=== PATIENT | female | born 1955 | race Two or more races ===

== ENCOUNTER 2020-09-04 13:32 | Emergency (ER) | payer OTHER, SELFPAY ==
--- NOTE | 2020-09-04 13:46 | XR_ITS ---
EXAMINATION: XR CHEST CLINICAL INFORMATION: Chest pain COMPARISON: 06/14/2020 TECHNIQUE: Frontal view of the chest was obtained. FINDINGS: No significant abnormality is noted involving the heart, lungs, mediastinum, bony thorax or soft tissues. Again seen are degenerative changes in the spine. XR/XR chest 1V IMPRESSION: No acute intrathoracic disease.
[2020-09-04] MEDS: Ibuprofen 600 MG TABLET PO (14:06)
--- NOTE | 2020-09-04 14:06 | ED.CHESTPAIN ---
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 No recent travel or prolonged immobilization, no lower extremities pain or swelling, patient also declined any recent illness or exposure to a sick contact. Related Data Allergies Allergy/AdvReac Type Severity Reaction Status Date / Time morphine Allergy Unknown HIVES Verified 09/04/20 14:12 Review of Systems Review of Systems: All other systems are reviewed and are negative Constitutional: Reports as per HPI and Reports no additional constitutional complaints Eyes: Reports as per HPI and Reports no additional eye complaints Reports system reviewed and no additional complaints, except as documented Cardiovascular: Reports as per HPI and Reports no additional cardiovascular complaints Respiratory: Reports as per HPI and Reports no additional respiratory complaints Gastrointestinal: Reports as per HPI and Reports no additional gastrointestinal complaints Genitourinary: Reports no additional female genitourinary complaints Musculoskeletal: Reports no additional musculoskeletal complaints Skin/Breast: Reports system reviewed and no additional complaints, except as docu Psychiatric: Reports no additional psychiatric complaints Endocrine: Reports no additional endocrine complaints Hematologic/Lymphatic: Reports no additional hematologic/lymphatic complaints Allergic/Immunologic: Reports no additional allergic/immunologic complaints Reports system reviewed and no additional complaints, except as documented and Reports Abnormal speech present [facility] Social History Social History Alcohol intake: unknown Smoking Status: Never smoker Use of substances other than those prescribed or required for medical reasons: No Advance Directives: No Advance Directives Information Provided: Yes Physical Exam Vital Signs: Vital Signs: Vital Signs Temp Pulse Resp BP Pulse Ox 09/04/20 14:13 98.0 F 72 18 151/69 H 100 Body Mass Index 40.7 Appearance: Alert. Oriented X3. No acute distress. Head: Normal external exam. Normocephalic. Atraumatic. No Kothari signs noted. No raccoon eyes noted Eyes: PERRLA. EOMI. Conjunctiva and sclera normal. Eyelids normal. ENT: EAC normal. TM's Normal. Pharynx normal. Uvula midline. Moist mucous membranes. No trismus noted. No drooling noted. No muffled voice noted. Neck: Normal inspection. Neck supple. FROM. No adenopathy. Thyroid Normal. No meningeal signs. No neck mass noted. CVS: Normal heart rate and rhythm. Heart sound normal. No murmurs noted. Pulses normal throughout. Respiratory: No respiratory distress. Painless inspiration. Breath sounds normal. No wheezes/rales/rhonchi noted. Chest nontender. No accessory muscle usage noted or decreased air movement noted. Abdomen: Soft and nontender. Bowel sounds normal in all 4 quadrants. No distention noted. No organomegaly noted. No visible injury noted. Back: No CVA tenderness. Full range of motion noted. Skin: Skin warm and dry. Normal skin color. Normal skin turgor. No rashes/lesions/lacerations noted. Extremities: No lower extremity edema. Extremities exhibit normal range of motion. Extremities nontender. Neuro: Oriented X 3. No motor deficit. No sensory deficit. Reflexes normal. Appearance: Alert. Oriented X3. No acute distress. . Course Course Course Narrative: This is a 65 years old female history of hypertension presented to the ER with 3 days of chest pain, no other associated symptoms, we will monitor the patient in the ED, EKG, chest x-ray, check labs including troponin. Will reassess. MDM - Chest Pain MDM Narrative Medical decision making narrative: assessment and plan. 65-year-old female came in with left-sided chest pain for 3 days, patient had unremarkable EKG, unremarkable high sensitive troponin, patient had no risk for DVT / PE with slight elevation of the D-dimer which were not rizwana CT of the chest for this patient, finding were discussed with the patient, patient was advised to follow-up with PCP, take ibuprofen p.r.n. pain. Lab Data Result diagrams: 09/04/20 14:28 09/04/20 14:28 Labs: Lab Results 09/04/20 09/04/20 09/04/20 Range/Units 14:28 14:28 14:28 WBC 5.7 (4.8-10.8) X10*3/uL RBC 4.18 L (4.20-5.50) X10*6/uL Hgb 12.8 (12.0-16.0) g/dl Hct 40.1 (37-47) % MCV 95.9 (80-98) fL MCH 30.6 (27.0-33.0) pg MCHC 31.9 (31.0-35.0) g/dl RDW 13.7 (11.0-16.0) % Plt Count 264 (160-400) X10*3/uL MPV 10.3 (9.4-12.3) fL Immature Gran % (Auto) 0.2 (0.0-0.4) % Neut % (Auto) 62.6 (45-73) % Lymph % (Auto) 26.7 (20-40) % [place] % (Auto) 8.6 (2-11) % Eos % (Auto) 1.7 (0-4) % Baso % (Auto) 0.2 (0-2) % Lymph # (Auto) 1.5 (1.2-4.9) X10*3/uL [place] # (Auto) 0.5 (0.1-1.2) X10*3/uL Eos # (Auto) 0.1 (0.0-0.4) X10*3/uL Baso # (Auto) 0.0 (0.0-0.2) X10*3/uL Abs Immat Gran (auto) 0.01 (0.00-0.03) X10*3/uL Absolute Neuts (auto) 3.6 (2.0-8.3) X10*3/uL Absolute Nucleated RBC 0.000 (0.0-0.012) X10*3/uL Nucleated RBC % (auto) 0.0 (0.0-0.2) /100WBC D-Dimer 310 NG/ML Sodium 138 (135-145) mmol/L Potassium 4.1 (3.3-5.1) mmol/l Chloride 100 (96-108) mmol/L Carbon Dioxide 30 H (22-29) mmol/L Anion Gap 12 (12-20) BUN 17 H (9-16) mg/dL Creatinine 0.78 (0.5-1.4) mg/dL Estim Creat Clear Calc 82.1 Estimated GFR > 60 Random Glucose 101 (60-115) mg/dL Calcium 8.7 (8.4-10.2) mg/dL Troponin I High Sens (<3.5-17.0) ng/L B-Natriuretic Peptide (<100) pg/mL Lipase 36 (8-78) U/L 09/04/ Range/Units 14:28 WBC (4.8-10.8) X10*3/uL RBC (4.20-5.50) X10*6/uL Hgb (12.0-16.0) g/dl Hct (37-47) % MCV (80-98) fL MCH (27.0-33.0) pg MCHC (31.0-35.0) g/dl RDW (11.0-16.0) % Plt Count (160-400) X10*3/uL MPV (9.4-12.3) fL Immature Gran % (Auto) (0.0-0.4) % Neut % (Auto) (45-73) % Lymph % (Auto) (20-40) % [place] % (Auto) (2-11) % Eos % (Auto) (0-4) % Baso % (Auto) (0-2) % Lymph # (Auto) (1.2-4.9) X10*3/uL [place] # (Auto) (0.1-1.2) X10*3/uL Eos # (Auto) (0.0-0.4) X10*3/uL Baso # (Auto) (0.0-0.2) X10*3/uL Abs Immat Gran (auto) (0.00-0.03) X10*3/uL Absolute Neuts (auto) (2.0-8.3) X10*3/uL Absolute Nucleated RBC (0.0-0.012) X10*3/uL Nucleated RBC % (auto) (0.0-0.2) /100WBC D-Dimer NG/ML Sodium (135-145) mmol/L Potassium (3.3-5.1) mmol/l Chloride (96-108) mmol/L Carbon Dioxide (22-29) mmol/L Anion Gap (12-20) BUN (9-16) mg/dL Creatinine (0.5-1.4) mg/dL Estim Creat Clear Calc Estimated GFR Random Glucose (60-115) mg/dL Calcium (8.4-10.2) mg/dL Troponin I High Sens < 3.5 (<3.5-17.0) ng/L B-Natriuretic Peptide 42 (<100) pg/mL Lipase (8-78) U/L Imaging Data Chest x-ray: Radiologist's impression: No acute intrathoracic pathology. ECG Data ECG #1: Interpretation: Normal sinus rhythm at 80 beats per minute, was 1st degree AV block, left axis deviation, no ST-T changes. Discharge Plan Discharge Clinical Impression: Chest pain Qualifiers: Chest pain type: other chest pain Qualified Code(s): R07.89 - Other chest pain Patient Disposition: Home, Self-Care Instructions: Chest Pain (ED) Referrals: Minoo Guevara NP [Primary Care Provider] - 2 days
[2020-09-04 14:13] VITALS: BP 151/69; PULSE 72; RESP 18; TEMP 36.7; O2SAT 100; BMI 40.7
[2020-09-04 14:37] LABS: MANUAL DIFF FLAG NO
[2020-09-04 14:39] LABS: Basophils Percent Auto 0.2 % (0-2); Eosinophils Absolute Auto 0.1 X10*3/uL (0.0-0.4); Eosinophils Percent Auto 1.7 % (0-4); Hematocrit 40.1 % (37-47); Hemoglobin 12.8 g/dl (12.0-16.0); Imm Gran Abs Auto 0.01 X10*3/uL (0.00-0.03); Imm Gran Pct Auto 0.2 % (0.0-0.4); Lymphocytes Absolute Auto 1.5 X10*3/uL (1.2-4.9); Lymphocytes Percent Auto 26.7 % (20-40); Mean Corpuscular HGB Conc 31.9 g/dl (31.0-35.0); Mean Corpuscular Hemoglobin 30.6 pg (27.0-33.0); Mean Corpuscular Volume 95.9 fL (80-98); Mean Platelet Volume 10.3 fL (9.4-12.3); Monocytes Absolute Auto 0.5 X10*3/uL (0.1-1.2); Monocytes Percent Auto 8.6 % (2-11); Neutrophils Absolute Auto 3.6 X10*3/uL (2.0-8.3); Neutrophils Percent Auto 62.6 % (45-73); Platelet Count 264 X10*3/uL (160-400); Red Blood Count 4.18 X10*6/uL (4.20-5.50); Red Cell Distribution Width 13.7 % (11.0-16.0); White Blood Count 5.7 X10*3/uL (4.8-10.8)
[2020-09-04 14:49] LABS: D Dimer 310 NG/ML
[2020-09-04 15:01] LABS: Anion Gap 12 (12-20); Blood Urea Nitrogen 17 mg/dL (9-16); Calcium 8.7 mg/dL (8.4-10.2); Carbon Dioxide 30 mmol/L (22-29); Chloride 100 mmol/L (96-108); Creatinine Clr Calc Pharmacy 82.1; Estimated Glomerular Filt Rate > 60; Glucose Random 101 mg/dL (60-115); Lipase 36 U/L (8-78); Potassium 4.1 mmol/l (3.3-5.1); Sodium 138 mmol/L (135-145)
[2020-09-04 15:08] LABS: B Type Natriuretic Peptide 42 pg/mL (<100); Troponin-I High Sensitivity < 3.5 ng/L (<3.5-17.0)
[2020-09-04 15:33] VITALS: BP 119/61; PULSE 58; RESP 17; TEMP 36.7; O2SAT 100
== END 2020-09-04 16:02 | disposition home or self-care (01) ==
PROVIDERS: Emergency Provider Emergency Medicine; PCP Nurse Practitioner Family
DX: R07.89 Other chest pain (principal)
CPT/HCPCS: 36415; 71045; 80048; 83690; 83880; 84484; 85025; 85379; 99283; 99284

== ENCOUNTER → 2020-10-25 09:35 | Outpatient (BNVA) | payer OTHER, SELFPAY | PROVIDERS: PCP Nurse Practitioner Family; Referring Provider Nurse Practitioner Family; Visit Provider Internal Medicine | DX: R07.2 Precordial pain (principal); I10 Essential (primary) hypertension; E66.01 Morbid (severe) obesity due to excess calories; R94.31 Abnormal electrocardiogram [ECG] [EKG]; Z98.84 Bariatric surgery status | CPT/HCPCS: 93005; 99202 ==

== ENCOUNTER 2020-10-26 09:12 | Outpatient (REF) | payer OTHER, SELFPAY ==
--- NOTE | 2020-10-26 | US_ITS ---
EXAMINATION: US ABDOMEN COMPLETE CLINICAL INFORMATION: Right upper quadrant pain. COMPARISON: Ultrasound abdomen complete 06/17/2020 and 01/16/2019. X-ray abdomen 11/28/2019 and 11/04/2013. CT abdomen and pelvis 07/21/2019. TECHNIQUE: Real-time imaging of the abdominal viscera. FINDINGS: PANCREAS: Normal. The visualized pancreatic head and body are normal in appearance. The remainder of the pancreas is obscured from visualization by the overlying bowel gas. ABDOMINAL AORTA: The proximal, mid and distal segments are normal in caliber. There are atherosclerotic calcifications of the distal segment. INFERIOR VENA CAVA: Visualized portions are normal. LIVER: There is diffuse increased liver parenchymal echogenicity. No focal hepatic mass is seen. The liver is normal in size and contour. No biliary ductal dilatation. GALLBLADDER: Normal. The gallbladder is physiologically distended without evidence of stones, sludge, polyps, wall thickening or pericholecystic fluid. COMMON BILE DUCT: Normal in caliber measuring 0.5 cm in diameter. RIGHT KIDNEY: There is pelviectasis, without nasir hydronephrosis. No renal calculi or focal parenchymal lesions. The kidney measures 12.1 cm in maximum dimension. LEFT KIDNEY: At the interpolar aspect, a 1.0 cm in maximal diameter simple cyst is seen. No hydronephrosis or renal calculi. The kidney measures 11.8 cm in maximum dimension. SPLEEN: Normal. The spleen measures 9.2 cm in maximum dimension. FREE FLUID: None. US/US abdomen complete IMPRESSION: 1. There is right renal pelviectasis. No hydronephrosis is seen bilaterally there is no renal calculus seen bilaterally. 2. A simple left renal cyst is incidentally noted. 3. There is generalized increase in hepatic echotexture, consistent with fatty infiltration or hepatocellular disease. Please correlate clinically. No focal hepatic mass or intrahepatic biliary dilatation is seen. 4. Technically limited ultrasound examination of the pancreatic tail.
== END 2020-10-26 09:13 | disposition home or self-care (01) ==
LOC: HO.US 09:12
PROVIDERS: PCP Nurse Practitioner Family; Visit Provider Nurse Practitioner Family
DX: R10.11 Right upper quadrant pain (principal)
CPT/HCPCS: 76700

== ENCOUNTER → 2020-11-22 09:38 | Outpatient (BNVA) | payer OTHER, SELFPAY | PROVIDERS: PCP Nurse Practitioner Family; Visit Provider Nurse Practitioner | DX: Z76.89 Persons encountering health services in other specified circumstances (principal) | CPT/HCPCS: 99212 ==

== ENCOUNTER 2020-12-13 08:24 | Outpatient (REF) | payer OTHER, SELFPAY | END 2020-12-13 08:25 | disposition home or self-care (01) | LOC: HO.LAB 08:24 | PROVIDERS: Visit Provider Internal Medicine | DX: Z20.822 Contact with and (suspected) exposure to COVID-19 (principal) | CPT/HCPCS: 36415; 99202; C9803; U0003; U0005 ==

== ENCOUNTER 2020-12-13 09:58 | Outpatient (REF) | payer OTHER, SELFPAY ==
[2020-12-13 11:14] LABS: Blood Urea Nitrogen 17 mg/dL (9-16); Estimated Glomerular Filt Rate > 60
== END 2020-12-13 09:59 | disposition home or self-care (01) ==
LOC: HO.LAB 09:58
PROVIDERS: PCP Nurse Practitioner Family; Visit Provider Surgery
DX: R10.33 Periumbilical pain (principal)
CPT/HCPCS: 36415; 82565; 84520

== ENCOUNTER 2020-12-17 10:20 | Emergency (ER) | payer OTHER, SELFPAY ==
--- NOTE | ~2020-12-17 | CT_ITS ---
EXAMINATION: CT ABDOMEN AND PELVIS WITH CONTRAST CLINICAL INFORMATION: Periumbilical pain. History of hernia and previous abdominal surgery. COMPARISON: Previous CT most recent July 2019 and abdominal ultrasound most recent October 2020 TECHNIQUE: Multidetector volumetric images were obtained from the superior aspect of the liver through the pubic symphysis following administration 85 mL of Omnipaque 350 intravenous contrast. Sagittal and coronal reformatted images were obtained on the technologist's workstation. Oral contrast: Yes This CT examination was performed using dose optimization techniques as appropriate, variously including the following: *Automated exposure control *Adjustment of mA and/or kV according to patient size (this includes techniques or standardized protocols for targeted exams where dose is matched to indication/reason for exam; i.e. extremities or head) *Use of iterative reconstruction technique DLP: 996 mGy-cm FINDINGS: LUNG BASES: The visualized lung bases are unremarkable. LIVER, GALLBLADDER, AND BILIARY TREE: The liver is normal in size, shape, and attenuation. No focal hepatic lesion or biliary ductal dilatation is present. The gallbladder is unremarkable with no evidence of radiopaque gallstones, gallbladder wall thickening, or obvious pericholecystic inflammatory changes. PANCREAS: Unremarkable. SPLEEN: Unremarkable. ADRENAL GLANDS: Unremarkable. KIDNEYS AND URETERS: There are small bilateral low-attenuation renal lesions probably representing small cysts. BLADDER: Unremarkable. GASTROINTESTINAL TRACT: No postsurgical changes from gastric bypass. There is question of mild wall thickening of the distal thoracic esophagus. There is mild diverticulosis of the colon. Small and large bowel is otherwise normal. The appendix is unremarkable. ABDOMINAL WALL: There are postsurgical changes to the anterior abdominal wall. No hernia is seen. LYMPH NODES: Normal. VASCULAR: Unremarkable. PELVIC VISCERA: The uterus appears to have been removed. There is a left ovarian cyst with single septation versus 2 smaller adjacent cysts. This measures 1.3 x 2.4 x 2.8 cm in dimension. This is similar appearing to 2019 exam. OSSEOUS STRUCTURES: There are degenerative changes of the spine and at the hip joints. There is soft tissue calcification or ossification adjacent to the right hip joint that is stable. There is a probable hemangioma in the T11 vertebral body that is stable. CT/CT abdomen pelvis w con IMPRESSION: Postsurgical change following gastric bypass. Postsurgical changes to the anterior abdominal wall. No hernia is seen. Mild diverticulosis of the colon.
[2020-12-17 10:51] VITALS: BP 149/79; PULSE 64; RESP 18; TEMP 36.7; O2SAT 100; BMI 37.5
--- NOTE | 2020-12-17 10:58 | ED.ABDPAIN ---
HPI - Abdominal Pain General Chief Complaint: Abdominal Pain Stated Complaint: ABD PAIN Time Seen by Provider: 12/17/20 10:41 Source: patient Mode of arrival: ambulatory Limitations: language barrier (Telugu-speaking) History of Present Illness HPI narrative: 65-year-old female with a past medical history of tubular adenoma of colon, non alcoholic steatoheptitis, status post bariatric surgery, GERD, uterine fibroids, morbid obesity, hypertension, abnormal EKG, asthma, frequent headaches, depression and thoracic radiculopathy presenting to the ED with complaints of abdominal pain for over a month although worse today where she feels a hardened lump. Reports she was seen by her primary care who ordered an outpatient ultrasound and revealed no acute processes per patient. Therefore she told her PCP that she was still having pain and was instructed to come to the emergency department for further evaluation and treatment. Patient admits to associated decreased p.o. intake over the past month. Denies any fevers, chills, dizziness, headaches, chest pain, shortness of breath, palpitations, dyspnea on exertion, orthopnea, nausea/vomiting, constipation, diarrhea, vaginal discharge, hematuria, dysuria or weight loss. Patient denies any other symptoms complaints or concerns at this time. MD elicited complaint: abdominal pain Pertinent past history: other (Tubular adenoma of colon, bariatric surgery) Onset (ago): month(s) (1 month worse today) Pain Consistency: constant Location: periumbilical (Right periumbilical) Severity: moderate Quality: aching Radiation: none Exacerbating factors: other (Worse with laying down flat at night time) Relieving factors: nothing Associated symptoms: denies other symptoms Related Data Home Medications Medication Instructions Recorded Confirmed calcium carbonate 300 mg (750 mg) 1 tab PO BID 10/25/20 12/13/20 chewable tablet cholecalciferol (vitamin D3) 50 50 mcg PO DAILY 10/25/20 12/13/20 mcg (2,000 unit) capsule fluticasone propionate 50 2 spray INTRANASAL QAM PRN 10/25/20 12/13/20 mcg/actuation nasal spray,suspension ibuprofen 800 mg tablet 800 mg PO TID 10/25/20 12/13/20 lisinopril 20 1 tab PO DAILY 10/25/20 12/13/20 mg-hydrochlorothiazide 25 mg tablet loratadine 10 mg tablet 10 mg PO DAILY 10/25/20 12/13/20 trazodone 50 mg tablet 50 mg PO BEDTIME 10/25/20 12/13/20 Previous Rx's Medication Instructions Recorded dicyclomine 20 mg tablet 20 mg PO QID 30 Days #120 tab 11/22/20 omeprazole 20 mg capsule,delayed 20 mg PO BID #60 cap 11/22/20 release simethicone 180 mg capsule 180 mg PO QID #90 cap 11/22/20 Allergies Allergy/AdvReac Type Severity Reaction Status Date / Time morphine Allergy Unknown HIVES Verified 12/13/20 09:13 Review of Systems Review of Systems Constitutional : No Weight loss, No Fever, No Chills, No Night Sweats, No Fatigue, NoMalaise ENT/Mouth: No ear pain, No sore throat, No Difficulty swallowing Cardiovascular : No Chest Pain, No SOB, No Dyspnea on Exertion, No Orthopnea, NoEdema, No Palpitations Respiratory : No Cough, No Sputum, No Wheezing, No Dyspnea Gastrointestinal : + abdominal pain, No Nausea, No Vomiting, No Diarrhea, No Hematochezia, No Melena Genitourinary : No irregular bleeding, No Dysuria, No Urinary Frequency, No Hematuria,No Urinary Incontinence, No Urgency, No Flank Pain Musculoskeletal : No joint pain, No Myalgias, No Joint Swelling Skin : No Skin Lesions, No rash Neuro : No Weakness, No Numbness, No Paresthesias, No Loss of Consciousness, NoDizziness, No Headache Psych : No Social Issues, Heme/Lymph: No Bruising, No Bleeding,No Lymphadenopathy Endocrine : No Polyuria, No Polydipsia, No Temperature Intolerance Yes all other systems are reviewed and are negative Physical Exam Vital Signs: Vital Signs: Last Vital Signs Temp 98.1 F 12/17/20 10:51 Pulse 64 12/17/20 10:51 Resp 18 12/17/20 10:51 BP 149/79 H 12/17/20 10:51 Pulse Ox 100 12/17/20 10:51 Body Mass Index 37.5 vital signs have been reviewed as normal and appeared to be correct. Blood pressure normal. Heart rate normal. Respiration rate normal. Temperature normal. Oxygen saturation normal. Appearance: Alert. Oriented X3. No acute distress. Head: Normal external exam. Normocephalic. Eyes: PERRLA. EOMI. Conjunctiva and sclera normal. Eyelids normal. ENT: Pharynx normal. Uvula midline. Moist mucous membranes. No trismus noted. No drooling noted. No muffled voice noted. Neck: Normal inspection. Neck supple. FROM. No adenopathy. No meningeal signs. CVS: Normal heart rate and rhythm. Heart sound normal. No murmurs noted. Pulses normal throughout. Respiratory: No respiratory distress. Painless inspiration. Breath sounds normal. No wheezes/rales/rhonchi noted. Chest nontender. No accessory muscle usage noted or decreased air movement noted. Abdomen: Soft and mild tenderness to palpation to right periumbilical aspect questioning hernia. Not incarcerated. Nondistended. No guarding. No rigidity. Bowel sounds normal in all 4 quadrants. No distention noted. No organomegaly noted. No visible injury noted. No rebound tenderness. Negative Rovsing sign. Negative obturator's sign. Negative psoas sign. Negative Drew sign. Back: No CVA tenderness. Full range of motion noted. Skin: Skin warm and dry. Normal skin color. Normal skin turgor. No rashes/lesions/lacerations noted. Extremities: Extremities exhibit normal range of motion. Extremities nontender. Neuro: Oriented X 3. No motor deficit. No sensory deficit. Reflexes normal. Course Course Course Narrative: 10:41am - 65-year-old female with a past medical history of tubular adenoma of colon, non alcoholic steatoheptitis, status post bariatric surgery, GERD, uterine fibroids, morbid obesity, hypertension, abnormal EKG, asthma, frequent headaches, depression and thoracic radiculopathy presenting to the ED with complaints of abdominal pain for over a month although worse today where she feels a hardened lump. - Concern for hernia vs scar tissue - Plan: Labs, UA, CT scan of abd/pelvis c IV contrast then re-evaluate. Reevaluation(s) Reevaluation #1: - white blood cell count 3.9. Otherwise all other labs are within normal limits. UA within normal limits no evidence of UTI. - CT scan of abdomen and pelvis revealed chronic changes no acute processes noted. - will DC home with instructions to return if any new or worsening symptoms and to follow up with primary care provider. Patient understands agrees the plan. Time: 14:23 [facility] - Abdominal Pain Medical Records Attestation: I reviewed the patient's medical records. Lab Data Attestation: I reviewed the patient's lab results. Result diagrams: 12/17/20 11:30 12/17/20 11:30 Labs: Lab Results 12/17/20 12/17/20 12/17/20 Range/Units 11:30 11:30 11:30 WBC 3.9 L (4.8-10.8) X10*3/uL RBC 4.03 L (4.20-5.50) X10*6/uL Hgb 12.5 (12.0-16.0) g/dl Hct 37.7 (37-47) % MCV 93.5 (80-98) fL MCH 31.0 (27.0-33.0) pg MCHC 33.2 (31.0-35.0) g/dl RDW 13.1 (11.0-16.0) % Plt Count 222 (160-400) X10*3/uL MPV 10.9 (9.4-12.3) fL Immature Gran % (Auto) 0.0 (0.0-0.4) % Neut % (Auto) 46.1 (45-73) % Lymph % (Auto) 36.6 (20-40) % [place]ila % (Auto) 15.5 H (2-11) % Eos % (Auto) 1.5 (0-4) % Baso % (Auto) 0.3 (0-2) % Lymph # (Auto) 1.4 (1.2-4.9) X10*3/uL [place] # (Auto) 0.6 (0.1-1.2) X10*3/uL Eos # (Auto) 0.1 (0.0-0.4) X10*3/uL Baso # (Auto) 0.0 (0.0-0.2) X10*3/uL Abs Immat Gran (auto) 0.00 (0.00-0.03) X10*3/uL Absolute Neuts (auto) 1.8 L (2.0-8.3) X10*3/uL Absolute Nucleated RBC 0.000 (0.0-0.012) X10*3/uL Nucleated RBC % (auto) 0.0 (0.0-0.2) /100WBC PT 13.0 (10.8-13.0) SEC INR 1.1 (0.9-1.1) Sodium 138 (135-145) mmol/L Potassium 4.7 (3.3-5.1) mmol/L Chloride 104 (96-108) mmol/L Carbon Dioxide 27 (22-29) mmol/L Anion Gap 12 (12-20) BUN 13 (9-16) mg/dL Creatinine 0.70 (0.5-1.4) mg/dL Estim Creat Clear Calc 87.3 Estimated GFR > 60 Random Glucose 93 (60-115) mg/dL Calcium 8.7 (8.4-10.2) mg/dL Magnesium 2.2 (1.6-2.6) mg/dL Total Bilirubin 0.6 (0.0-1.0) mg/dL Direct Bilirubin 0.2 (0.0-0.5) mg/dL AST 19 (5-31) U/L ALT 13 (0-31) U/L Alkaline Phosphatase 73 (39-117) U/L Total Protein 6.6 (6.5-8.0) g/dL Albumin 3.9 (3.5-5.0) g/dL Urine Color Urine Appearance Urine pH (5.0-8.0) Ur Specific [place] (1.005-1.025) Urine Protein (NEG-TRACE) MG/DL Urine Glucose (UA) (NEG) MG/DL Urine Ketones (NEG) MG/DL Urine Blood (NEG) Urine Nitrite (NEG) Ur Leukocyte Esterase (NEG) 12/17/20 Range/Units 12:53 WBC (4.8-10.8) X10*3/uL RBC (4.20-5.50) X10*6/uL Hgb (12.0-16.0) g/dl Hct (37-47) % MCV (80-98) fL MCH (27.0-33.0) pg MCHC (31.0-35.0) g/dl RDW (11.0-16.0) % Plt Count (160-400) X10*3/uL MPV (9.4-12.3) fL Immature Gran % (Auto) (0.0-0.4) % Neut % (Auto) (45-73) % Lymph % (Auto) (20-40) % [place]ila % (Auto) (2-11) % Eos % (Auto) (0-4) % Baso % (Auto) (0-2) % Lymph # (Auto) (1.2-4.9) X10*3/uL [place] # (Auto) (0.1-1.2) X10*3/uL Eos # (Auto) (0.0-0.4) X10*3/uL Baso # (Auto) (0.0-0.2) X10*3/uL Abs Immat Gran (auto) (0.00-0.03) X10*3/uL Absolute Neuts (auto) (2.0-8.3) X10*3/uL Absolute Nucleated RBC (0.0-0.012) X10*3/uL Nucleated RBC % (auto) (0.0-0.2) /100WBC PT (10.8-13.0) SEC INR (0.9-1.1) Sodium (135-145) mmol/L Potassium (3.3-5.1) mmol/L Chloride (96-108) mmol/L Carbon Dioxide (22-29) mmol/L Anion Gap (12-20) BUN (9-16) mg/dL Creatinine (0.5-1.4) mg/dL Estim Creat Clear Calc Estimated GFR Random Glucose (60-115) mg/dL Calcium (8.4-10.2) mg/dL Magnesium (1.6-2.6) mg/dL Total Bilirubin (0.0-1.0) mg/dL Direct Bilirubin (0.0-0.5) mg/dL AST (5-31) U/L ALT (0-31) U/L Alkaline Phosphatase (39-117) U/L Total Protein (6.5-8.0) g/dL Albumin (3.5-5.0) g/dL Urine Color STRAW Urine Appearance CLEAR Urine pH 7.0 (5.0-8.0) Ur Specific [place] 1.010 (1.005-1.025) Urine Protein NEG (NEG-TRACE) MG/DL Urine Glucose (UA) NEG (NEG) MG/DL Urine Ketones NEG (NEG) MG/DL Urine Blood NEG (NEG) Urine Nitrite NEG (NEG) Ur Leukocyte Esterase NEG (NEG) Imaging Data CT scan of abdomen and pelvis with IV contrast: Attestation: I personally reviewed and interpreted this imaging study as follows: Radiologist's impression: FINDINGS: LUNG BASES: The visualized lung bases are unremarkable. LIVER, GALLBLADDER, AND BILIARY TREE: The liver is normal in size, shape, and attenuation. No focal hepatic lesion or biliary ductal dilatation is present. The gallbladder is unremarkable with no evidence of radiopaque gallstones, gallbladder wall thickening, or obvious pericholecystic inflammatory changes. PANCREAS: Unremarkable. SPLEEN: Unremarkable. ADRENAL GLANDS: Unremarkable. KIDNEYS AND URETERS: There are small bilateral low-attenuation renal lesions probably representing small cysts. BLADDER: Unremarkable. GASTROINTESTINAL TRACT: No postsurgical changes from gastric bypass. There is question of mild wall thickening of the distal thoracic esophagus. There is mild diverticulosis of the colon. Small and large bowel is otherwise normal. The appendix is unremarkable. ABDOMINAL WALL: There are postsurgical changes to the anterior abdominal wall. No hernia is seen. LYMPH NODES: Normal. VASCULAR: Unremarkable. PELVIC VISCERA: The uterus appears to have been removed. There is a left ovarian cyst with single septation versus 2 smaller adjacent cysts. This measures 1.3 x 2.4 x 2.8 cm in dimension. This is similar appearing to 2019 exam. OSSEOUS STRUCTURES: There are degenerative changes of the spine and at the hip joints. There is soft tissue calcification or ossification adjacent to the right hip joint that is stable. There is a probable hemangioma in the T11 vertebral body that is stable. CT/CT abdomen pelvis w con IMPRESSION: Postsurgical change following gastric bypass. Postsurgical changes to the anterior abdominal wall. No hernia is seen. Mild diverticulosis of the colon. Discharge Plan Discharge Clinical Impression: Abdominal pain, Diverticulosis, Renal cyst, Cyst of left ovary Patient Disposition: Home, Self-Care Instructions: Ovarian Cyst (ED), Diverticulosis (ED), Kidney Cyst (ED) Prescriptions: No Action dicyclomine 20 mg tablet 20 mg PO QID 30 Days Qty: 120 RF: 6 omeprazole 20 mg capsule,delayed release(DR/EC) 20 mg PO BID Qty: 60 RF: 6 simethicone 180 mg capsule 180 mg PO QID Qty: 90 RF: 1 loratadine 10 mg tablet 10 mg PO DAILY RF: 0 fluticasone propionate 50 mcg/actuation spray,suspension 2 spray intranasal QAM PRNRF: 0 calcium carbonate 300 mg (750 mg) tablet,chewable 1 tab PO BID RF: 0 trazodone 50 mg tablet 50 mg PO BEDTIME RF: 0 cholecalciferol (vitamin D3) 50 mcg (2,000 unit) capsule 50 mcg PO DAILY RF: 0 lisinopril-hydrochlorothiazide 20-25 mg tablet 1 tab PO DAILY RF: 0 ibuprofen 800 mg tablet 800 mg PO TID RF: 0 Referrals: Minoo Guevara NP [Primary Care Provider] - 2 days Print Language: Telugu [facility] Past Medical History Attestation statement: The following information was validated with the patient. Medical History Essential hypertension GERD (gastroesophageal reflux disease) Morbid obesity due to excess calories Surgical History H/O breast surgery History of esophagogastroduodenoscopy (EGD) Hx of colonoscopy Status post bariatric surgery Family History Family History Father Heart attack Mother Thrombosis Social History Social History Alcohol intake: current Alcohol intake frequency: does not drink Smoking Status: Never smoker Advance Directives: No Advance Directives Information Provided: No
[2020-12-17] MEDS: 0.9 % Sodium Chloride 1,000 ML 999 ML IVCONT (11:34)
[2020-12-17 11:36] LABS: MANUAL DIFF FLAG NO
[2020-12-17 11:42] LABS: Basophils Percent Auto 0.3 % (0-2); Eosinophils Absolute Auto 0.1 X10*3/uL (0.0-0.4); Eosinophils Percent Auto 1.5 % (0-4); Hematocrit 37.7 % (37-47); Hemoglobin 12.5 g/dl (12.0-16.0); Lymphocytes Absolute Auto 1.4 X10*3/uL (1.2-4.9); Lymphocytes Percent Auto 36.6 % (20-40); Mean Corpuscular HGB Conc 33.2 g/dl (31.0-35.0); Mean Corpuscular Volume 93.5 fL (80-98); Mean Platelet Volume 10.9 fL (9.4-12.3); Monocytes Absolute Auto 0.6 X10*3/uL (0.1-1.2); Monocytes Percent Auto 15.5 % (2-11); Neutrophils Absolute Auto 1.8 X10*3/uL (2.0-8.3); Neutrophils Percent Auto 46.1 % (45-73); Platelet Count 222 X10*3/uL (160-400); Red Blood Count 4.03 X10*6/uL (4.20-5.50); Red Cell Distribution Width 13.1 % (11.0-16.0); White Blood Count 3.9 X10*3/uL (4.8-10.8)
[2020-12-17 11:48] LABS: INTERNATIONAL NORM RATIO 1.1 (0.9-1.1)
[2020-12-17 12:05] LABS: Alanine Aminotransferase 13 U/L (0-31); Albumin Level 3.9 g/dL (3.5-5.0); Alkaline Phosphatase 73 U/L (39-117); Anion Gap 12 (12-20); Aspartate Amino Transferase 19 U/L (5-31); Bilirubin Direct 0.2 mg/dL (0.0-0.5); Bilirubin Total 0.6 mg/dL (0.0-1.0); Blood Urea Nitrogen 13 mg/dL (9-16); Calcium 8.7 mg/dL (8.4-10.2); Carbon Dioxide 27 mmol/L (22-29); Chloride 104 mmol/L (96-108); Creatinine Clr Calc Pharmacy 87.3; Estimated Glomerular Filt Rate > 60; Glucose Random 93 mg/dL (60-115); Magnesium 2.2 mg/dL (1.6-2.6); Potassium 4.7 mmol/L (3.3-5.1); Sodium 138 mmol/L (135-145); Total Protein 6.6 g/dL (6.5-8.0)
[2020-12-17] MEDS: iohexoL 350 MG/ML 100 ML INFUS..BTL 85 ML IV (12:52)
[2020-12-17 13:04] LABS: Glucose Urine UA NEG (NEG); Leukocyte Esterase Urine NEG (NEG); Nitrite Urine NEG (NEG); Urine Blood NEG (NEG); Urine Ketones NEG (NEG); Urine Protein NEG (NEG-TRACE)
[2020-12-17 13:17] LABS: Appearance Urine CLEAR; Color Urine STRAW
== END 2020-12-17 14:38 | disposition home or self-care (01) ==
PROVIDERS: Physician Assistant Medical; Emergency Provider Emergency Medicine Emergency Medical Services; PCP Nurse Practitioner Family
DX: R10.33 Periumbilical pain (principal); K57.30 Diverticulosis of large intestine without perforation or abscess without bleeding; N28.1 Cyst of kidney, acquired; N83.202 Unspecified ovarian cyst, left side; Z98.84 Bariatric surgery status; I10 Essential (primary) hypertension
CPT/HCPCS: 36415; 74177; 80048; 80076; 81003; 83735; 85025; 85610; 96360; 99283; 99284; Q9967

== ENCOUNTER → 2020-12-28 10:09 | Outpatient (REF) | payer OTHER, SELFPAY ==
--- NOTE | 2020-12-28 10:13 | CA_ITS ---
Acquisition Time: 2020-12-28 10:56:52 Total Exercise Time: 00:05:41 Test Indications: Chest Pain Medications: LISINOPRIL/HCTZ LORATADINE TRAZADONE Protocol: ENE Max HR: 146 BPM 92% of Pred: 157 BPM Max BP: 138/082 mmHG Max Work Load: 6.6 METS Exercise stress ECHO using Ene protocol. Total of 5 min 41 sec. Second stage held as pt c/o L knee pain. Speed and incline increased manually . METS up to 6.60and TAPHR up to 92%. Pt denies any anginal sx. EKG with isolated PAC and PVC noted 8 min to recovery. No ischemic changes seen during exercise or in recovery period. ECHO images taken at rest and immediately after peak HR achieved. Definity contrast used. Normotensive response to exercise. Test reviewed with Dr. Vidales STRESS ECHO : Technique : Images were obtained at rest and immediately post exercise within 50 seconds. Definity contrast was used to enhance endocardial defintion. Images were obtained in multiple views and compared side to side. Findings : Images at rest are of good quality. LV systolic function is normal with normal wall motion. Post exercise images are of adequate quality. There is excellent overall augmentation of LV systolic function with no regional wallmotion abnormalities. Conclusion : Stress echo negative for ischemia Referred By: Jermaine Vidales Overread By: FRAN MARTINEZ MD
== END ==
LOC: HO.CARD 10:09
PROVIDERS: Visit Provider Internal Medicine
DX: R07.2 Precordial pain (principal)
CPT/HCPCS: 93350; Q9957

== ENCOUNTER → 2021-01-20 10:38 | Outpatient (REF) | payer OTHER, SELFPAY ==
--- NOTE | 2021-01-20 10:41 | CA_ITS ---
Transthoracic Echocardiogram Patient (Last, First, Middle): Jennifer Spicer, Gender: Female Date of : 1955 Age: 65 Procedure Date: 01/20/2021 Procedure Type: Transthoracic Echocardiogram Location: OP Height: 157.48 cm Weight: 95.26 kg BSA: 1.95 m2 Heart Rate: bpm BP: 168 / 82 mmHg Roof Assembler: CRISTHIAN Referring MD: Jermaine Vidales MD Principal Mechanical Engineer: Darryl Vaughn MD Symptoms: R07.2 - Precordial pain Study Quality: Fair ECG Rhythm: Sinus Conclusions: - 1. Normal LV systolic function with grade 1 diastolic dysfunction 2. Normal cardiac valvular Doppler 3. No gross pericardial effusion Findings Left Ventricle Normal left ventricular size, thickness, and systolic function. The visually estimated ejection fraction is between 60-65%. Spectral Doppler is indicative of an impaired relaxation filling pattern. E/E prime ratio is <8, consistent with normal filling pressures. Right Ventricle Normal right ventricular cavity size and systolic function. Atria Both atria are normal in size. There is no evidence of interatrial shunt. Aortic Valve The aortic valve was not well visualized. There is no aortic valve stenosis. There is no aortic valve regurgitation. Mitral Valve Likely normal mitral valve structure and function. There is trace mitral valve regurgitation. There is no mitral valve stenosis. Pulmonic Valve The pulmonic valve was not well visualized. Tricuspid Valve The tricuspid valve was not well visualized. Tricuspid regurgitation envelope is inadequate for calculation of right ventricular systolic pressure. Great Vessels All visible segments of the aorta are normal in size. The pulmonary artery was not well visualized. Small plaque is seen in the sino tubular ridge. Venous The inferior vena cava is normal in size and collapses greater than 50% with inspiration. Pericardium/Pleural There is no evidence of pericardial effusion. Prior Study Comparison No prior study available for comparison. Measurements M-Mode Liner Measurements Normals - Women/Men AOV Cusps: 2.20 1.5-2.6 cm/m2 2D Linear Measurements IVSd: 1.10 0.6-0.9/0.6-1.0 cm LVIDd: 3.81 3.9-5.3/4.2-5.9 cm LVIDd Index: 1.95 2.4-3.2/2.2-3.1 cm/m2 LVIDs: 2.44 2.0-3.6 cm LVPWd: 1.10 0.7-1.1 cm Ao Root: 2.90 2.1-3.5 cm LA Diam: 3.40 2.7-3.8/3.0-4.0 cm LAIDs Index: 1.74 1.5-2.3 cm/m2 LV Mass: 168.25 67-162/88-224 g LV Mass Index: 86.28 43-95/49-115 g/m2 LVOT Diam: 2.10 3.0+(-)1.3 cm 2D Systolic Function EF 4C: 61.10 >55% EF 2C: 66.90 >55% EF BiP: 63.30 >55% Mitral Valve MV Pk E: 0.84 MV PK A: 0.74 MV Decel Time: 317.00 E/A: 1.10 E'Lateral: 10.90 E'Medial: 6.20 E/E' Med: 13.60 E/E' Lat: 7.70 PHT: 93.00 MVA PHT: 2.37 Decel Lajas: 2.66 Aortic Valve AoV Pk Jean: 1.45 AoV Pk Grad: 8.00 LVOT LVOT Pk Jean: 0.86 LVOT Mn Jean: 0.64 LVOT VTI: 0.24 LVOT Pk Grad: 3.00 LVOT Mn Grad: 2.00 LVOT Diam: 2.10 LVOT Area: 3.46 Diastolic Function MV Pk E: 0.84 MV Pk A: 0.74 E/A: 1.10 E'Medial: 6.20 E/E' Med: 13.60 E' Laterial: 10.90 E/E' Lat: 7.70 Tricuspid Valve RA Press: 3.00 Great Vessels Aorta Ao Root-2D: 2.90 2.0-3.7 cm Ao Asc: 3.20 2.1-3.4 cm Ao Arch: 2.50 Pulmonary Valve PV Pk Jean: 0.95 Peak PV Grad: 4.00 Updated in Other Vendor System with Status of Final Darryl Vaughn MD electronically signed on 01/21/2021 2:26:20 PM with status of Final
== END ==
LOC: HO.CARD 10:38
PROVIDERS: Visit Provider Internal Medicine
DX: R07.2 Precordial pain (principal)
CPT/HCPCS: 93306

== ENCOUNTER → 2021-01-27 10:40 | Outpatient (BNVA) | payer OTHER, SELFPAY | PROVIDERS: PCP Internal Medicine; Visit Provider Internal Medicine Cardiovascular Disease | DX: R07.2 Precordial pain (principal); R94.31 Abnormal electrocardiogram [ECG] [EKG]; I10 Essential (primary) hypertension | CPT/HCPCS: 99212 ==

== ENCOUNTER 2021-02-14 11:02 | Outpatient (REF) | payer OTHER, SELFPAY | END 2021-02-14 11:03 | disposition home or self-care (01) | LOC: HO.LAB 11:02 | PROVIDERS: Visit Provider Internal Medicine | DX: Z20.822 Contact with and (suspected) exposure to COVID-19 (principal) | CPT/HCPCS: C9803; U0003; U0005 ==

== ENCOUNTER 2021-03-07 09:25 | Outpatient (REF) | payer OTHER, SELFPAY | END 2021-03-07 09:26 | disposition home or self-care (01) | LOC: HO.LAB 09:25 | PROVIDERS: Visit Provider Internal Medicine | DX: Z20.822 Contact with and (suspected) exposure to COVID-19 (principal) | CPT/HCPCS: C9803; U0003; U0005 ==

== ENCOUNTER 2021-04-05 08:46 | Outpatient (REF) | payer OTHER, SELFPAY | END 2021-04-05 08:47 | disposition home or self-care (01) | LOC: HO.LAB 08:46 | PROVIDERS: Visit Provider Internal Medicine | DX: Z20.822 Contact with and (suspected) exposure to COVID-19 (principal) | CPT/HCPCS: C9803; U0003; U0005 ==

== ENCOUNTER 2021-04-23 10:00 | Emergency (ER) | payer OTHER, SELFPAY ==
--- NOTE | ~2021-04-23 | XR_ITS ---
EXAMINATION: CHEST 2 VIEWS CLINICAL INFORMATION: Headache/palpitations/resolved numbness to left foot . COMPARISON: 09/04/2020. TECHNIQUE: PA and lateral views of the chest obtained. FINDINGS: The lungs are well expanded. No focal infiltrate, effusion, edema, or pneumothorax. Cardiac and mediastinal silhouettes are within normal limits for technique. No acute bony abnormality seen with degenerative changes in the spine and shoulders. XR/XR chest 2V IMPRESSION: No evidence of acute disease
--- NOTE | ~2021-04-23 | CT_ITS ---
EXAMINATION: CT HEAD WITHOUT CONTRAST CLINICAL INFORMATION: Headache and palpitations. Symptoms have resolved. COMPARISON: Previous head CT March 2014 TECHNIQUE: Contiguous axial imaging was performed from the skull base to vertex without intravenous administration of contrast. This CT examination was performed using dose optimization techniques as appropriate, variously including the following: *Automated exposure control *Adjustment of mA and/or kV according to patient size (this includes techniques or standardized protocols for targeted exams where dose is matched to indication/reason for exam; i.e. extremities or head) *Use of iterative reconstruction technique DLP: 715 mGy-cm FINDINGS: There is no evidence of acute intracranial hemorrhage or territorial infarction. No abnormal mass effect or midline shift is seen. [place] to white matter differentiation is well preserved. No extra-axial fluid collections are identified. The ventricles are normal in size. There is no abnormal attenuation within the brain parenchyma. The osseous structures and soft tissues are normal. The mastoid air cells and visualized portions of the paranasal sinuses are well aerated. CT/CT head/brain wo con IMPRESSION: No acute intracranial pathology.
[2021-04-23 10:15] VITALS: BP 125/58; PULSE 71; RESP 18; TEMP 37.1; O2SAT 100; BMI 38.4
--- NOTE | 2021-04-23 10:25 | ECG_ITS ---
Test Reason : PALPITATIONS Blood Pressure : / mmHG Vent. Rate : 058 BPM Atrial Rate : 058 BPM P-R Int : 280 ms QRS Dur : 074 ms QT Int : 386 ms P-R-T Axes : 030 002 015 degrees QTc Int : 378 ms Sinus bradycardia with 1st degree A-V block Low voltage QRS Septal infarct (cited on or before 14-JUN-2020) Abnormal ECG When compared with ECG of 14-JUN-2020 09:27, No significant change was found Referred By: Malathi Muller Electronically Signed By:LEATHA BRAND
[2021-04-23 11:02] LABS: MANUAL DIFF FLAG NO
[2021-04-23 11:05] LABS: Basophils Percent Auto 0.5 % (0-2); Eosinophils Percent Auto 0.9 % (0-4); Hematocrit 35.7 % (37-47); Hemoglobin 11.4 g/dl (12.0-16.0); Lymphocytes Absolute Auto 1.2 X10*3/uL (1.2-4.9); Lymphocytes Percent Auto 29.1 % (20-40); Mean Corpuscular HGB Conc 31.9 g/dl (31.0-35.0); Mean Corpuscular Hemoglobin 29.6 pg (27.0-33.0); Mean Corpuscular Volume 92.7 fL (80-98); Mean Platelet Volume 10.7 fL (9.4-12.3); Monocytes Absolute Auto 0.6 X10*3/uL (0.1-1.2); Monocytes Percent Auto 13.5 % (2-11); Neutrophils Absolute Auto 2.4 X10*3/uL (2.0-8.3); Platelet Count 234 X10*3/uL (160-400); Red Blood Count 3.85 X10*6/uL (4.20-5.50); Red Cell Distribution Width 13.3 % (11.0-16.0); White Blood Count 4.2 X10*3/uL (4.8-10.8)
[2021-04-23 11:18] LABS: COVID-19 Test Negative (Negative); INTERNATIONAL NORM RATIO 1.1 (0.9-1.1); Prothrombin Time 12.8 SEC (10.8-13.0)
[2021-04-23 11:26] LABS: B Type Natriuretic Peptide 37 pg/mL (<100); Troponin-I High Sensitivity < 3.5 ng/L (<3.5-17.0)
[2021-04-23 11:31] LABS: Alanine Aminotransferase 11 U/L (0-31); Albumin Level 3.8 g/dL (3.5-5.0); Alkaline Phosphatase 75 U/L (39-117); Anion Gap 9 (12-20); Aspartate Amino Transferase 21 U/L (5-31); Bilirubin Total 0.4 mg/dL (0.0-1.0); Blood Urea Nitrogen 19 mg/dL (9-16); Calcium 9.1 mg/dL (8.4-10.2); Carbon Dioxide 29 mmol/L (22-29); Chloride 104 mmol/L (96-108); Creatinine Clr Calc Pharmacy 88.5; Estimated Glomerular Filt Rate > 60; Glucose Random 81 mg/dL (60-115); Magnesium 1.9 mg/dL (1.6-2.6); Potassium 3.7 mmol/L (3.3-5.1); Sodium 138 mmol/L (135-145); Total Protein 6.4 g/dL (6.5-8.0)
--- NOTE | 2021-04-23 11:45 | ED.GENADULT ---
HPI - General Adult General Chief complaint: General Medical Stated complaint: dizziness, numbness in legs Time Seen by Provider: 04/23/21 10:15 Source: patient Mode of arrival: ambulatory Limitations: no limitations History of Present Illness HPI narrative: 65-year-old female with a past medical history of tubular adenoma of colon, non alcoholic steatoheptitis, status post bariatric surgery, GERD, uterine fibroids, morbid obesity, hypertension, abnormal EKG, asthma, frequent headaches, depression and thoracic radiculopathy presenting to the ED with complaints headache, resolved epistaxis, palpitations and left foot numbness that occurred last night all resolved today. Patient denies any symptoms at this time. She denies any dizziness, headaches, change in vision, epistaxis, nausea/vomiting, jaw pain, paresthesias, chest pain, shortness of breath, dyspnea on exertion, orthopnea, abdominal pain, diarrhea, constipation, lower extremity edema, focal or general weakness or any other symptoms complaints or concerns at this time. Related Data Home Medications Medication Instructions Recorded Confirmed calcium carbonate 300 mg (750 mg) 1 tab PO BID 10/25/20 01/27/21 chewable tablet cholecalciferol (vitamin D3) 50 50 mcg PO DAILY 10/25/20 01/27/21 mcg (2,000 unit) capsule fluticasone propionate 50 2 spray INTRANASAL QAM PRN 10/25/20 01/27/21 mcg/actuation nasal spray,suspension ibuprofen 800 mg tablet 800 mg PO TID 10/25/20 01/27/21 lisinopril 20 1 tab PO DAILY 10/25/20 01/27/21 mg-hydrochlorothiazide 25 mg tablet loratadine 10 mg tablet 10 mg PO DAILY 10/25/20 01/27/21 trazodone 50 mg tablet 50 mg PO BEDTIME 10/25/20 01/27/21 Previous Rx's Medication Instructions Recorded dicyclomine 20 mg tablet 20 mg PO QID 30 Days #120 tab 11/22/20 omeprazole 20 mg capsule,delayed 20 mg PO BID #60 cap 11/22/20 release simethicone 180 mg capsule 180 mg PO QID #90 cap 01/17/21 Allergies Allergy/AdvReac Type Severity Reaction Status Date / Time morphine Allergy Unknown HIVES Verified 12/13/20 09:13 Review of Systems Review of Systems: Constitutional : No Weight loss, No Fever, No Chills, No Night Sweats, No Fatigue, No Malaise ENT/Mouth : No Hearing loss, No Ear Pain, No Nasal Congestion, No Sinus Pain, No Hoarseness, No sore throat, No Rhinorrhea, No Swallowing Difficulty Eyes: No Eye Pain, No Swelling, No Redness, No Foreign Body, No Discharge, No Vision Changes Cardiovascular : No Chest Pain, No SOB, No Dyspnea on Exertion, No Orthopnea, No Edema, No Palpitations Respiratory : No Cough, No Sputum, No Wheezing, No Smoke Exposure, No Dyspnea Gastrointestinal : No Nausea, No Vomiting, No Diarrhea, No Constipation, No abdominal Pain, No Hematochezia, No Melena Genitourinary : no irregular bleeding, No Dysuria, No Urinary Frequency, No Hematuria, No Urinary Incontinence, No Urgency, No Flank Pain, No Urinary Flow Changes, No Hesitancy Musculoskeletal : No joint pain, No Myalgias, No Joint Swelling Skin : No Skin Lesions, No rash Neuro : No Weakness, No Numbness, No Paresthesias, No Loss of Consciousness, No Dizziness, No Headache Psych : No Anxiety/Panic, No Depression, No SI/HI/AH/VH, No Social Issues, Heme/Lymph: No Bruising, No Bleeding,No Lymphadenopathy Endocrine : No Polyuria, No Polydipsia, No Temperature Intolerance Yes all other systems are reviewed and are negative [facility] Past Medical History Attestation statement: The following information was validated with the patient. Medical History Essential hypertension GERD (gastroesophageal reflux disease) Morbid obesity due to excess calories Surgical History H/O breast surgery History of esophagogastroduodenoscopy (EGD) Hx of colonoscopy Status post bariatric surgery Family History Family History Father Heart attack Mother Thrombosis Social History Social History Alcohol intake: never Patient Tobacco Use Status: Never used Tobacco Use of substances other than those prescribed or required for medical reasons: No Advance Directives: Yes Advance Directives Information Provided: Yes Advance Directives on File: No Patient : No Physical Exam Vital Signs: Vital Signs: Last Vital Signs Temp 98.8 F 04/23/21 10:15 Pulse 71 04/23/21 10:15 Resp 18 04/23/21 10:15 BP 125/58 L 04/23/21 10:15 Pulse Ox 100 04/23/21 10:15 Body Mass Index 38.4 vital signs have been reviewed as normal and appeared to be correct. Blood pressure normal. Heart rate normal. Respiration rate normal. Temperature normal. Oxygen saturation normal. Appearance: Alert. Oriented X3. No acute distress. Head: Normal external exam. Normocephalic. Atraumatic. Able to rotate head bilaterally. Eyes: PERRLA. EOMI. No nystagmus noted. Conjunctiva and sclera normal. Eyelids normal. Corneal reflex normal. ENT: EAC normal. TM's Normal. Hearing normal. Pharynx normal. Uvula midline. tongue midline. Moist mucous membranes. No trismus noted. No drooling noted. No muffled voice noted. No nystagmus noted. Neck: Normal inspection. Neck supple. FROM. No adenopathy. Trachea midline. Thyroid Normal. No meningeal signs. No neck mass noted. CVS: Normal heart rate and rhythm. Heart sound normal. No murmurs noted. Pulses normal throughout. Respiratory: No respiratory distress. Painless inspiration. Breath sounds normal. No wheezes/rales/rhonchi noted. Chest nontender. No accessory muscle usage noted or decreased air movement noted. Abdomen: Soft and nontender. Bowel sounds normal in all 4 quadrants. No distention noted. No organomegaly noted. No visible injury noted. Back: No CVA tenderness. Full range of motion noted. Skin: Skin warm and dry. Normal skin color. Normal skin turgor. No rashes/lesions/lacerations noted. Extremities: No lower extremity edema. Extremities exhibit normal range of motion. Extremities nontender. Able to shrug shoulders bilaterally and keep up against resistance. Neuro: Oriented X 3. No motor deficit. No sensory deficit. Reflexes normal. Moving all extremities. No focal motor deficits. Cranial nerves II-XI intact bilaterally. Facial strength normal. Normal cognition. Speech normal. Gait normal. Strength 5/5 throughout. No pronator drift. No tremor noted. No fasciculations noted. No rigidity noted. Muscle tone normal throughout. No asterixis noted. Lhcizn-de-hvne test normal. Heel to ibrahim test normal. Tandem gait normal. Does not sway with eyes open. Romberg test negative. Rapid alternating movement upper extremity normal. Rapid alternating movement lower extremity normal. Hand drop from overhead Misses face. NIHSS score 0. Course Course Course Narrative: 65-year-old female with a past medical history of tubular adenoma of colon, non alcoholic steatoheptitis, status post bariatric surgery, GERD, uterine fibroids, morbid obesity, hypertension, abnormal EKG, asthma, frequent headaches, depression and thoracic radiculopathy presenting to the ED with complaints headache, resolved epistaxis, palpitations and left foot numbness that occurred last night all resolved today. - labs obtained and patient mild anemia otherwise all other labs are within normal limits. Patient negative for COVID. EKG is sinus bradycardia with first-degree AV block low voltages QRS otherwise no acute ischemic change are noted. Chest x-ray within normal limits no acute processes are noted. CT scan of brain within normal limits no acute processes are noted. Patient has a normal neuro exam and IH SS score 0. Non disabling symptoms. And patient denies any symptoms at this time. Reports all her symptoms resolved after a few seconds/minutes. - therefore will DC home with instructions to return if any new or worsening symptoms to follow up with primary care provider. Patient understands agrees with this plan. Medical Decision Making Lab Data Lab results reviewed: Yes I reviewed the patient's lab results. Result diagrams: 04/23/21 10:57 04/23/21 10:57 Labs: Lab Results 04/23/21 04/23/21 04/23/21 Range/Units 10:56 10:57 10:57 WBC 4.2 L (4.8-10.8) X10*3/uL RBC 3.85 L (4.20-5.50) X10*6/uL Hgb 11.4 L (12.0-16.0) g/dl Hct 35.7 L (37-47) % MCV 92.7 (80-98) fL MCH 29.6 (27.0-33.0) pg MCHC 31.9 (31.0-35.0) g/dl RDW 13.3 (11.0-16.0) % Plt Count 234 (160-400) X10*3/uL MPV 10.7 (9.4-12.3) fL Immature Gran % (Auto) 0.0 (0.0-0.4) % Neut % (Auto) 56.0 (45-73) % Lymph % (Auto) 29.1 (20-40) % [place] % (Auto) 13.5 H (2-11) % Eos % (Auto) 0.9 (0-4) % Baso % (Auto) 0.5 (0-2) % Lymph # (Auto) 1.2 (1.2-4.9) X10*3/uL [place] # (Auto) 0.6 (0.1-1.2) X10*3/uL Eos # (Auto) 0.0 (0.0-0.4) X10*3/uL Baso # (Auto) 0.0 (0.0-0.2) X10*3/uL Abs Immat Gran (auto) 0.00 (0.00-0.03) X10*3/uL Absolute Neuts (auto) 2.4 (2.0-8.3) X10*3/uL Absolute Nucleated RBC 0.000 (0.0-0.012) X10*3/uL Nucleated RBC % (auto) 0.0 (0.0-0.2) /100WBC PT 12.8 (10.8-13.0) SEC INR 1.1 (0.9-1.1) Sodium (135-145) mmol/L Potassium (3.3-5.1) mmol/L Chloride (96-108) mmol/L Carbon Dioxide (22-29) mmol/L Anion Gap (12-20) BUN (9-16) mg/dL Creatinine (0.5-1.4) mg/dL Estim Creat Clear Calc Estimated GFR Random Glucose (60-115) mg/dL Calcium (8.4-10.2) mg/dL Magnesium (1.6-2.6) mg/dL Total Bilirubin (0.0-1.0) mg/dL AST (5-31) U/L ALT (0-31) U/L Alkaline Phosphatase (39-117) U/L Troponin I High Sens < 3.5 (<3.5-17.0) ng/L B-Natriuretic Peptide 37 (<100) pg/mL Total Protein (6.5-8.0) g/dL Albumin (3.5-5.0) g/dL COVID-19 (FRANCOIS) (Negative) COVID-19 Clin Com 04/23/21 04/23/21 Range/Units 10:57 10:57 WBC (4.8-10.8) X10*3/uL RBC (4.20-5.50) X10*6/uL Hgb (12.0-16.0) g/dl Hct (37-47) % MCV (80-98) fL MCH (27.0-33.0) pg MCHC (31.0-35.0) g/dl RDW (11.0-16.0) % Plt Count (160-400) X10*3/uL MPV (9.4-12.3) fL Immature Gran % (Auto) (0.0-0.4) % Neut % (Auto) (45-73) % Lymph % (Auto) (20-40) % [place] % (Auto) (2-11) % Eos % (Auto) (0-4) % Baso % (Auto) (0-2) % Lymph # (Auto) (1.2-4.9) X10*3/uL [place] # (Auto) (0.1-1.2) X10*3/uL Eos # (Auto) (0.0-0.4) X10*3/uL Baso # (Auto) (0.0-0.2) X10*3/uL Abs Immat Gran (auto) (0.00-0.03) X10*3/uL Absolute Neuts (auto) (2.0-8.3) X10*3/uL Absolute Nucleated RBC (0.0-0.012) X10*3/uL Nucleated RBC % (auto) (0.0-0.2) /100WBC PT (10.8-13.0) SEC INR (0.9-1.1) Sodium 138 (135-145) mmol/L Potassium 3.7 D (3.3-5.1) mmol/L Chloride 104 (96-108) mmol/L Carbon Dioxide 29 (22-29) mmol/L Anion Gap 9 L (12-20) BUN 19 H (9-16) mg/dL Creatinine 0.70 (0.5-1.4) mg/dL Estim Creat Clear Calc 88.5 Estimated GFR > 60 Random Glucose 81 (60-115) mg/dL Calcium 9.1 (8.4-10.2) mg/dL Magnesium 1.9 (1.6-2.6) mg/dL Total Bilirubin 0.4 (0.0-1.0) mg/dL AST 21 (5-31) U/L ALT 11 (0-31) U/L Alkaline Phosphatase 75 (39-117) U/L Troponin I High Sens (<3.5-17.0) ng/L B-Natriuretic Peptide (<100) pg/mL Total Protein 6.4 L (6.5-8.0) g/dL Albumin 3.8 (3.5-5.0) g/dL COVID-19 (FRANCOIS) Negative (Negative) COVID-19 Clin Com See Note Imaging Data Chest x-ray: Attestation: I personally reviewed and interpreted this imaging study as follows: Radiologist's impression: FINDINGS: The lungs are well expanded. No focal infiltrate, effusion, edema, or pneumothorax. Cardiac and mediastinal silhouettes are within normal limits for technique. No acute bony abnormality seen with degenerative changes in the spine and shoulders. XR/XR chest 2V IMPRESSION: No evidence of acute disease CT scan - head: Attestation: I personally reviewed and interpreted this imaging study as follows: Radiologist's impression: FINDINGS: There is no evidence of acute intracranial hemorrhage or territorial infarction. No abnormal mass effect or midline shift is seen. [place] to white matter differentiation is well preserved. No extra-axial fluid collections are identified. The ventricles are normal in size. There is no abnormal attenuation within the brain parenchyma. The osseous structures and soft tissues are normal. The mastoid air cells and visualized portions of the paranasal sinuses are well aerated. CT/CT head/brain wo con IMPRESSION: No acute intracranial pathology. ECG Data Attestation: I personally reviewed and interpreted this ECG as follows: Interpretation: EKG is sinus bradycardia with first-degree AV block low voltages QRS otherwise no acute ischemic change are noted. Similar when compared to prior EKG 06/14/2020 Discharge Plan Discharge Clinical Impression: Headache, Palpitation Patient Disposition: Home, Self-Care Instructions: Heart Palpitations (ED), Acute Headache (ED) Prescriptions: No Action simethicone 180 mg capsule 180 mg PO QID Qty: 90 RF: 4 dicyclomine 20 mg tablet 20 mg PO QID 30 Days Qty: 120 RF: 6 omeprazole 20 mg capsule,delayed release(DR/EC) 20 mg PO BID Qty: 60 RF: 6 loratadine 10 mg tablet 10 mg PO DAILY RF: 0 fluticasone propionate 50 mcg/actuation spray,suspension 2 spray intranasal QAM PRNRF: 0 calcium carbonate 300 mg (750 mg) tablet,chewable 1 tab PO BID RF: 0 trazodone 50 mg tablet 50 mg PO BEDTIME RF: 0 cholecalciferol (vitamin D3) 50 mcg (2,000 unit) capsule 50 mcg PO DAILY RF: 0 lisinopril-hydrochlorothiazide 20-25 mg tablet 1 tab PO DAILY RF: 0 ibuprofen 800 mg tablet 800 mg PO TID RF: 0 Referrals: Shital Quiros MD [Primary Care Provider] - 2 days Print Language: Tajik
[2021-04-23 12:00] VITALS: BP 131/64; PULSE 59; RESP 18; TEMP 37.2; O2SAT 99
== END 2021-04-23 12:24 | disposition home or self-care (01) ==
PROVIDERS: Physician Assistant Medical; Emergency Provider Emergency Medicine; PCP Internal Medicine
DX: R51.9 Headache, unspecified (principal); R00.2 Palpitations; R20.0 Anesthesia of skin; D64.9 Anemia, unspecified; I10 Essential (primary) hypertension; J45.909 Unspecified asthma, uncomplicated; Z79.899 Other long term (current) drug therapy; Z20.822 Contact with and (suspected) exposure to COVID-19
CPT/HCPCS: 36415; 70450; 71046; 80053; 83735; 83880; 84484; 85025; 85610; 87635; 93005; 99285

== ENCOUNTER 2021-05-09 18:49 | Emergency (ER) | payer OTHER, SELFPAY ==
--- NOTE | ~2021-05-09 | XR_ITS ---
EXAMINATION: XR CHEST CLINICAL INFORMATION: Cough COMPARISON: 04/23/2021 TECHNIQUE: Frontal view of the chest was obtained. FINDINGS: Normal symmetric lung volumes. No parenchymal consolidation. No pleural effusion. No pneumothorax. Cardiomediastinal silhouette and pulmonary vascularity are within normal limits. No acute osseous abnormalities. XR/XR chest 1V IMPRESSION: Unremarkable examination.
--- NOTE | ~2021-05-09 | CT_ITS ---
EXAMINATION: CT ABDOMEN AND PELVIS WITHOUT CONTRAST CLINICAL INFORMATION: Right lower quadrant pain. COMPARISON: CT 12/09/2020 TECHNIQUE: Multidetector volumetric imaging was performed from the superior aspect of the liver through the pubic symphysis. Sagittal and coronal reformatted images were obtained on the technologist's workstation. This CT examination was performed using dose optimization techniques as appropriate, variously including the following: *Automated exposure control *Adjustment of mA and/or kV according to patient size (this includes techniques or standardized protocols for targeted exams where dose is matched to indication/reason for exam; i.e. extremities or head) *Use of iterative reconstruction technique DLP: 692 mGy-cm FINDINGS: LUNG BASES: The visualized lung bases are unremarkable. LIVER, GALLBLADDER, AND BILIARY TREE: The liver is normal in size, shape, and attenuation. No focal hepatic lesion or biliary ductal dilatation is present. The gallbladder is unremarkable with no evidence of radiopaque gallstones, gallbladder wall thickening, or obvious pericholecystic inflammatory changes. PANCREAS: Unremarkable. SPLEEN: Unremarkable. ADRENAL GLANDS: Unremarkable. KIDNEYS AND URETERS: The kidneys are normal in size, shape, and attenuation. No hydronephrosis, hydroureter, or calculi seen. No perinephric stranding. BLADDER: Underdistended, appearing unremarkable. GASTROINTESTINAL TRACT: Postsurgical changes from gastric bypass. Redemonstrated is question of mild wall thickening of the distal thoracic esophagus. No bowel obstruction. No colonic wall thickening or pericolonic inflammatory changes. Normal appendix. ABDOMINAL WALL: No significant hernia is appreciated. Postsurgical changes in the anterior abdominal wall. LYMPH NODES: Normal. VASCULAR: Unremarkable. PELVIC VISCERA: Uterus is not visualized. Left ovarian 2.5 cm cyst. This appears similar to previous from 12/17/2020. OSSEOUS STRUCTURES: No acute osseous abnormality. Probable hemangioma in T11, stable. Chronic stable ossification adjacent to the right acetabulum. Degenerative changes in the spine. CT/CT abdomen pelvis wo con IMPRESSION: 1. Postsurgical changes from gastric bypass surgery. Question mild thoracic esophagus, appearing similar to previous. Further evaluation as clinically warranted. 2. No acute findings identified in the abdomen or pelvis otherwise. 3. Additional findings and details as above.
[2021-05-09 19:13] VITALS: BP 155/77; PULSE 66; RESP 14; TEMP 36.8; O2SAT 99; BMI 38.4
--- NOTE | 2021-05-09 19:34 | ED.URI ---
HPI - URI/Sore Throat General Chief Complaint: Upper Respiratory Symptoms <Michela Khan MD - Last Filed: 05/09/21 20:58> Stated Complaint: Asthma/Sore throat <Michela Khan MD - Last Filed: 05/09/21 20:58> Time Seen by Provider: 05/09/21 19:30 <Michela Khan MD - Last Filed: 05/09/21 20:58> Source: patient and human resources assistant <Michela Khan MD - Last Filed: 05/09/21 20:58> Mode of arrival: ambulatory <Michela Khan MD - Last Filed: 05/09/21 20:58> Limitations: no limitations <Michela Khan MD - Last Filed: 05/09/21 20:58> History of Present Illness HPI Narrative: 66 years old female came in with multiple complaints. First complain: Patient was at a friend's house with a group of friends, started to rain patient and the patient got wet, then patient starts to sneeze, having sore throat, and coughing. Patient received her 2 doses of COVID-19 vaccination. Second complaint: Patient since yesterday been having right lower quadrant pain that is improving today, no nausea, or vomiting, nothing making the pain worse or better, pain is constant now pain is mild 2/10. <Michela Khan MD - Last Filed: 05/09/21 20:58> Related Data Home Medications: Home Medications Medication Instructions Recorded Confirmed calcium carbonate 300 mg (750 mg) 1 tab PO BID 10/25/20 01/27/21 chewable tablet cholecalciferol (vitamin D3) 50 50 mcg PO DAILY 10/25/20 01/27/21 mcg (2,000 unit) capsule fluticasone propionate 50 2 spray INTRANASAL QAM PRN 10/25/20 01/27/21 mcg/actuation nasal spray,suspension ibuprofen 800 mg tablet 800 mg PO TID 10/25/20 01/27/21 lisinopril 20 1 tab PO DAILY 10/25/20 01/27/21 mg-hydrochlorothiazide 25 mg tablet loratadine 10 mg tablet 10 mg PO DAILY 10/25/20 01/27/21 trazodone 50 mg tablet 50 mg PO BEDTIME 10/25/20 01/27/21 Previous Rx's Medication Instructions Recorded dicyclomine 20 mg tablet 20 mg PO QID 30 Days #120 tab 11/22/20 omeprazole 20 mg capsule,delayed 20 mg PO BID #60 cap 11/22/20 release simethicone 180 mg capsule 180 mg PO QID #90 cap 01/17/21 <Michela Khan MD - Last Filed: 05/09/21 20:58> Allergies/Adverse Reactions: Allergies Allergy/AdvReac Type Severity Reaction Status Date / Time morphine Allergy Unknown HIVES Verified 12/13/20 09:13 <Michela Khan MD - Last Filed: 05/09/21 20:58> Review of Systems Review of Systems: All other systems are reviewed and are negative Constitutional: Reports as per HPI and Reports no additional constitutional complaints Eyes: Reports as per HPI and Reports no additional eye complaints Reports system reviewed and no additional complaints, except as documented Cardiovascular: Reports as per HPI and Reports no additional cardiovascular complaints Respiratory: Reports as per HPI and Reports no additional respiratory complaints Gastrointestinal: Reports as per HPI and Reports no additional gastrointestinal complaints Genitourinary: Reports no additional female genitourinary complaints Musculoskeletal: Reports no additional musculoskeletal complaints Skin/Breast: Reports system reviewed and no additional complaints, except as docu Psychiatric: Reports no additional psychiatric complaints Endocrine: Reports no additional endocrine complaints Hematologic/Lymphatic: Reports no additional hematologic/lymphatic complaints Allergic/Immunologic: Reports no additional allergic/immunologic complaints Reports system reviewed and no additional complaints, except as documented and Reports Abnormal speech present <Michela Khan MD - Last Filed: 05/09/21 20:58> FOR[facility]LY [facility] Past Medical History Medical History: Medical History Essential hypertension GERD (gastroesophageal reflux disease) Morbid obesity due to excess calories <Michela Khan MD - Last Filed: 05/09/21 20:58> Surgical History: Surgical History H/O breast surgery History of esophagogastroduodenoscopy (EGD) Hx of colonoscopy Status post bariatric surgery <Michela Khan MD - Last Filed: 05/09/21 20:58> Family History Family History: Family History Father Heart attack Mother Thrombosis <Michela Khan MD - Last Filed: 05/09/21 20:58> Social History Social History: Social History Alcohol intake: never Patient Tobacco Use Status: Never used Tobacco Advance Directives: No Advance Directives Information Provided: No Patient : No <Michela Khan MD - Last Filed: 05/09/21 20:58> Physical Exam Vital Signs: Vital Signs: Last Vital Signs Temp 98.2 F 05/09/21 21:15 Pulse 65 05/09/21 21:15 Resp 18 05/09/21 21:15 BP 137/63 05/09/21 21:15 Pulse Ox 97 05/09/21 21:15 Body Mass Index 38.4 vital signs have been reviewed as appeared to be correct. Blood pressure In high range. Heart rate normal. Respiration rate normal. Temperature normal. Oxygen saturation normal. <Michela Khan MD - Last Filed: 05/09/21 20:58> Vital Signs: Last Vital Signs Temp 98.2 F 05/09/21 21:15 Pulse 65 05/09/21 21:15 Resp 18 05/09/21 21:15 BP 137/63 05/09/21 21:15 Pulse Ox 97 05/09/21 21:15 Body Mass Index 38.4 <Daniela Pierce MD - Last Filed: 05/09/21 22:03> Appearance: Alert. Oriented X3. No acute distress. Head: Normal external exam. Normocephalic. Atraumatic. No Kothari signs noted. No raccoon eyes noted Eyes: PERRLA. EOMI. Conjunctiva and sclera normal. Eyelids normal. ENT: TM's Normal. Pharynx normal. Uvula midline. Moist mucous membranes. No trismus noted. No drooling noted. No muffled voice noted. Neck: Normal inspection. Neck supple. FROM. No adenopathy. Thyroid Normal. No meningeal signs. No neck mass noted. CVS: Normal heart rate and rhythm. Heart sound normal. No murmurs noted. Pulses normal throughout. Respiratory: No respiratory distress. Painless inspiration. Breath sounds normal. No wheezes/rales/rhonchi noted. Chest nontender. No accessory muscle usage noted or decreased air movement noted. Abdomen: Soft and nontender. Bowel sounds normal in all 4 quadrants. No distention noted. No organomegaly noted. No visible injury noted. Back: No CVA tenderness. Full range of motion noted. Skin: Skin warm and dry. Normal skin color. Normal skin turgor. No rashes/lesions/lacerations noted. Extremities: No lower extremity edema. Extremities exhibit normal range of motion. Extremities nontender. Neuro: Oriented X 3. No motor deficit. No sensory deficit. Reflexes normal. <Michela Khan MD - Last Filed: 05/09/21 20:58> Course Course Course Narrative: assessment and plan. 66-year-old female came in with multiple complaints. Upper respiratory infection symptoms, with negative COVID testing, chest x-ray is unremarkable, unremarkable vital signs. Abdominal pain, patient has a normal WBCs, an unremarkable CT of the abdomen and pelvis. very mild elevation of lipase. <Michela Khan MD - Last Filed: 05/09/21 20:58> On review of CT scan there are no acute findings, but again is noted thickening at the distal esophagus which will be included in patient's discharge paperwork and patient will be recommended to follow up on this. On re-evaluation patient states complete resolution of her abdominal discomfort and remains without nausea or vomiting. <Daniela Pierce MD - Last Filed: 05/09/21 22:03> MDM - URI/Sore Throat Lab Data Attestation: I reviewed the patient's lab results. <Michela Khan MD - Last Filed: 05/09/21 20:58> Result diagrams: : 05/09/21 19:52 05/09/21 19:52 <Michela Khan MD - Last Filed: 05/09/21 20:58> Labs: Lab Results 05/09/21 05/09/21 05/09/21 Range/Units 19:52 19:52 19:52 WBC 7.0 (4.8-10.8) X10*3/uL RBC 3.64 L (4.20-5.50) X10*6/uL Hgb 11.3 L (12.0-16.0) g/dl Hct 33.7 L (37-47) % MCV 92.6 (80-98) fL MCH 31.0 (27.0-33.0) pg MCHC 33.5 (31.0-35.0) g/dl RDW 14.1 (11.0-16.0) % Plt Count 221 (160-400) X10*3/uL MPV 10.2 (9.4-12.3) fL Immature Gran % (Auto) 0.1 (0.0-0.4) % Neut % (Auto) 64.7 (45-73) % Lymph % (Auto) 23.0 (20-40) % [place] % (Auto) 11.1 H (2-11) % Eos % (Auto) 1.0 (0-4) % Baso % (Auto) 0.1 (0-2) % Lymph # (Auto) 1.6 (1.2-4.9) X10*3/uL [place] # (Auto) 0.8 (0.1-1.2) X10*3/uL Eos # (Auto) 0.1 (0.0-0.4) X10*3/uL Baso # (Auto) 0.0 (0.0-0.2) X10*3/uL Abs Immat Gran (auto) 0.01 (0.00-0.03) X10*3/uL Absolute Neuts (auto) 4.5 (2.0-8.3) X10*3/uL Absolute Nucleated RBC 0.000 (0.0-0.012) X10*3/uL Nucleated RBC % (auto) 0.0 (0.0-0.2) /100WBC Sodium 140 (135-145) mmol/L Potassium 4.2 (3.3-5.1) mmol/L Chloride 105 (96-108) mmol/L Carbon Dioxide 25 (22-29) mmol/L Anion Gap 14 (12-20) BUN 16 (9-16) mg/dL Creatinine 0.71 (0.5-1.4) mg/dL Estim Creat Clear Calc 86.1 Estimated GFR > 60 Random Glucose 101 (60-115) mg/dL Calcium 8.6 (8.4-10.2) mg/dL Total Bilirubin 0.6 (0.0-1.0) mg/dL Direct Bilirubin 0.2 (0.0-0.5) mg/dL AST 21 (5-31) U/L ALT 12 (0-31) U/L Alkaline Phosphatase 77 (39-117) U/L Total Protein 6.7 (6.5-8.0) g/dL Albumin 3.9 (3.5-5.0) g/dL Lipase 79 H (8-78) U/L Urine Color Urine Appearance Urine pH (5.0-8.0) Ur Specific [place] (1.005-1.025) Urine Protein (NEG-TRACE) MG/DL Urine Glucose (UA) (NEG) MG/DL Urine Ketones (NEG) MG/DL Urine Blood (NEG) Urine Nitrite (NEG) Ur Leukocyte Esterase (NEG) COVID-19 (FRANCOIS) Negative (Negative) COVID-19 Clin Com See Note 05/09/21 Range/Units 21:29 WBC (4.8-10.8) X10*3/uL RBC (4.20-5.50) X10*6/uL Hgb (12.0-16.0) g/dl Hct (37-47) % MCV (80-98) fL MCH (27.0-33.0) pg MCHC (31.0-35.0) g/dl RDW (11.0-16.0) % Plt Count (160-400) X10*3/uL MPV (9.4-12.3) fL Immature Gran % (Auto) (0.0-0.4) % Neut % (Auto) (45-73) % Lymph % (Auto) (20-40) % [place] % (Auto) (2-11) % Eos % (Auto) (0-4) % Baso % (Auto) (0-2) % Lymph # (Auto) (1.2-4.9) X10*3/uL [place] # (Auto) (0.1-1.2) X10*3/uL Eos # (Auto) (0.0-0.4) X10*3/uL Baso # (Auto) (0.0-0.2) X10*3/uL Abs Immat Gran (auto) (0.00-0.03) X10*3/uL Absolute Neuts (auto) (2.0-8.3) X10*3/uL Absolute Nucleated RBC (0.0-0.012) X10*3/uL Nucleated RBC % (auto) (0.0-0.2) /100WBC Sodium (135-145) mmol/L Potassium (3.3-5.1) mmol/L Chloride (96-108) mmol/L Carbon Dioxide (22-29) mmol/L Anion Gap (12-20) BUN (9-16) mg/dL Creatinine (0.5-1.4) mg/dL Estim Creat Clear Calc Estimated GFR Random Glucose (60-115) mg/dL Calcium (8.4-10.2) mg/dL Total Bilirubin (0.0-1.0) mg/dL Direct Bilirubin (0.0-0.5) mg/dL AST (5-31) U/L ALT (0-31) U/L Alkaline Phosphatase (39-117) U/L Total Protein (6.5-8.0) g/dL Albumin (3.5-5.0) g/dL Lipase (8-78) U/L Urine Color YELLOW Urine Appearance CLEAR Urine pH 6.0 (5.0-8.0) Ur Specific [place] 1.025 (1.005-1.025) Urine Protein NEG (NEG-TRACE) MG/DL Urine Glucose (UA) NEG (NEG) MG/DL Urine Ketones NEG (NEG) MG/DL Urine Blood NEG (NEG) Urine Nitrite NEG (NEG) Ur Leukocyte Esterase NEG (NEG) COVID-19 (FRANCOIS) (Negative) COVID-19 Clin Com <Michela Khan MD - Last Filed: 05/09/21 20:58> Lab Results 05/09/21 05/09/21 05/09/21 Range/Units 19:52 19:52 19:52 WBC 7.0 (4.8-10.8) X10*3/uL RBC 3.64 L (4.20-5.50) X10*6/uL Hgb 11.3 L (12.0-16.0) g/dl Hct 33.7 L (37-47) % MCV 92.6 (80-98) fL MCH 31.0 (27.0-33.0) pg MCHC 33.5 (31.0-35.0) g/dl RDW 14.1 (11.0-16.0) % Plt Count 221 (160-400) X10*3/uL MPV 10.2 (9.4-12.3) fL Immature Gran % (Auto) 0.1 (0.0-0.4) % Neut % (Auto) 64.7 (45-73) % Lymph % (Auto) 23.0 (20-40) % [place] % (Auto) 11.1 H (2-11) % Eos % (Auto) 1.0 (0-4) % Baso % (Auto) 0.1 (0-2) % Lymph # (Auto) 1.6 (1.2-4.9) X10*3/uL [place] # (Auto) 0.8 (0.1-1.2) X10*3/uL Eos # (Auto) 0.1 (0.0-0.4) X10*3/uL Baso # (Auto) 0.0 (0.0-0.2) X10*3/uL Abs Immat Gran (auto) 0.01 (0.00-0.03) X10*3/uL Absolute Neuts (auto) 4.5 (2.0-8.3) X10*3/uL Absolute Nucleated RBC 0.000 (0.0-0.012) X10*3/uL Nucleated RBC % (auto) 0.0 (0.0-0.2) /100WBC Sodium 140 (135-145) mmol/L Potassium 4.2 (3.3-5.1) mmol/L Chloride 105 (96-108) mmol/L Carbon Dioxide 25 (22-29) mmol/L Anion Gap 14 (12-20) BUN 16 (9-16) mg/dL Creatinine 0.71 (0.5-1.4) mg/dL Estim Creat Clear Calc 86.1 Estimated GFR > 60 Random Glucose 101 (60-115) mg/dL Calcium 8.6 (8.4-10.2) mg/dL Total Bilirubin 0.6 (0.0-1.0) mg/dL Direct Bilirubin 0.2 (0.0-0.5) mg/dL AST 21 (5-31) U/L ALT 12 (0-31) U/L Alkaline Phosphatase 77 (39-117) U/L Total Protein 6.7 (6.5-8.0) g/dL Albumin 3.9 (3.5-5.0) g/dL Lipase 79 H (8-78) U/L Urine Color Urine Appearance Urine pH (5.0-8.0) Ur Specific [place] (1.005-1.025) Urine Protein (NEG-TRACE) MG/DL Urine Glucose (UA) (NEG) MG/DL Urine Ketones (NEG) MG/DL Urine Blood (NEG) Urine Nitrite (NEG) Ur Leukocyte Esterase (NEG) COVID-19 (FRANCOIS) Negative (Negative) COVID-19 Clin Com See Note 05/09/21 Range/Units 21:29 WBC (4.8-10.8) X10*3/uL RBC (4.20-5.50) X10*6/uL Hgb (12.0-16.0) g/dl Hct (37-47) % MCV (80-98) fL MCH (27.0-33.0) pg MCHC (31.0-35.0) g/dl RDW (11.0-16.0) % Plt Count (160-400) X10*3/uL MPV (9.4-12.3) fL Immature Gran % (Auto) (0.0-0.4) % Neut % (Auto) (45-73) % Lymph % (Auto) (20-40) % [place] % (Auto) (2-11) % Eos % (Auto) (0-4) % Baso % (Auto) (0-2) % Lymph # (Auto) (1.2-4.9) X10*3/uL [place] # (Auto) (0.1-1.2) X10*3/uL Eos # (Auto) (0.0-0.4) X10*3/uL Baso # (Auto) (0.0-0.2) X10*3/uL Abs Immat Gran (auto) (0.00-0.03) X10*3/uL Absolute Neuts (auto) (2.0-8.3) X10*3/uL Absolute Nucleated RBC (0.0-0.012) X10*3/uL Nucleated RBC % (auto) (0.0-0.2) /100WBC Sodium (135-145) mmol/L Potassium (3.3-5.1) mmol/L Chloride (96-108) mmol/L Carbon Dioxide (22-29) mmol/L Anion Gap (12-20) BUN (9-16) mg/dL Creatinine (0.5-1.4) mg/dL Estim Creat Clear Calc Estimated GFR Random Glucose (60-115) mg/dL Calcium (8.4-10.2) mg/dL Total Bilirubin (0.0-1.0) mg/dL Direct Bilirubin (0.0-0.5) mg/dL AST (5-31) U/L ALT (0-31) U/L Alkaline Phosphatase (39-117) U/L Total Protein (6.5-8.0) g/dL Albumin (3.5-5.0) g/dL Lipase (8-78) U/L Urine Color YELLOW Urine Appearance CLEAR Urine pH 6.0 (5.0-8.0) Ur Specific [place] 1.025 (1.005-1.025) Urine Protein NEG (NEG-TRACE) MG/DL Urine Glucose (UA) NEG (NEG) MG/DL Urine Ketones NEG (NEG) MG/DL Urine Blood NEG (NEG) Urine Nitrite NEG (NEG) Ur Leukocyte Esterase NEG (NEG) COVID-19 (FRANCOIS) (Negative) COVID-19 Clin Com <Daniela Pierce MD - Last Filed: 05/09/21 22:03> Imaging Data Chest x-ray: Radiologist's impression: Unremarkable. <Michela Khan MD - Last Filed: 05/09/21 20:58> CT scan - abdomen: Radiologist's impression: No acute pathology. <Michela Khan MD - Last Filed: 05/09/21 20:58> Discharge Plan Discharge Clinical Impression: Viral infection Abdominal pain Qualifiers: Abdominal location: generalized Qualified Code(s): R10.84 - Generalized abdominal pain <Michela Khan MD - Last Filed: 05/09/21 20:58> Patient Disposition: Home, Self-Care <Michela Khan MD - Last Filed: 05/09/21 20:58> Instructions: Abdominal Pain (ED) <Michela Khan MD - Last Filed: 05/09/21 20:58> Prescriptions: No Action simethicone 180 mg capsule 180 mg PO QID Qty: 90 RF: 4 dicyclomine 20 mg tablet 20 mg PO QID 30 Days Qty: 120 RF: 6 omeprazole 20 mg capsule,delayed release(DR/EC) 20 mg PO BID Qty: 60 RF: 6 loratadine 10 mg tablet 10 mg PO DAILY RF: 0 fluticasone propionate 50 mcg/actuation spray,suspension 2 spray intranasal QAM PRNRF: 0 calcium carbonate 300 mg (750 mg) tablet,chewable 1 tab PO BID RF: 0 trazodone 50 mg tablet 50 mg PO BEDTIME RF: 0 cholecalciferol (vitamin D3) 50 mcg (2,000 unit) capsule 50 mcg PO DAILY RF: 0 lisinopril-hydrochlorothiazide 20-25 mg tablet 1 tab PO DAILY RF: 0 ibuprofen 800 mg tablet 800 mg PO TID RF: 0 <Michela Khan MD - Last Filed: 05/09/21 20:58> Referrals: Shital Quiros MD [Primary Care Provider] - 2 days <Michela Khan MD - Last Filed: 05/09/21 20:58>
[2021-05-09 19:57] LABS: MANUAL DIFF FLAG NO
[2021-05-09 20:00] LABS: Basophils Percent Auto 0.1 % (0-2); Eosinophils Absolute Auto 0.1 X10*3/uL (0.0-0.4); Hematocrit 33.7 % (37-47); Hemoglobin 11.3 g/dl (12.0-16.0); Imm Gran Abs Auto 0.01 X10*3/uL (0.00-0.03); Imm Gran Pct Auto 0.1 % (0.0-0.4); Lymphocytes Absolute Auto 1.6 X10*3/uL (1.2-4.9); Mean Corpuscular HGB Conc 33.5 g/dl (31.0-35.0); Mean Corpuscular Volume 92.6 fL (80-98); Mean Platelet Volume 10.2 fL (9.4-12.3); Monocytes Absolute Auto 0.8 X10*3/uL (0.1-1.2); Monocytes Percent Auto 11.1 % (2-11); Neutrophils Absolute Auto 4.5 X10*3/uL (2.0-8.3); Neutrophils Percent Auto 64.7 % (45-73); Platelet Count 221 X10*3/uL (160-400); Red Blood Count 3.64 X10*6/uL (4.20-5.50); Red Cell Distribution Width 14.1 % (11.0-16.0)
[2021-05-09 20:15] LABS: COVID-19 Test Negative (Negative)
[2021-05-09 20:27] LABS: Alanine Aminotransferase 12 U/L (0-31); Albumin Level 3.9 g/dL (3.5-5.0); Alkaline Phosphatase 77 U/L (39-117); Anion Gap 14 (12-20); Aspartate Amino Transferase 21 U/L (5-31); Bilirubin Direct 0.2 mg/dL (0.0-0.5); Bilirubin Total 0.6 mg/dL (0.0-1.0); Blood Urea Nitrogen 16 mg/dL (9-16); Calcium 8.6 mg/dL (8.4-10.2); Carbon Dioxide 25 mmol/L (22-29); Chloride 105 mmol/L (96-108); Creatinine Clr Calc Pharmacy 86.1; Estimated Glomerular Filt Rate > 60; Glucose Random 101 mg/dL (60-115); Potassium 4.2 mmol/L (3.3-5.1); Sodium 140 mmol/L (135-145); Total Protein 6.7 g/dL (6.5-8.0)
[2021-05-09 20:41] LABS: Lipase 79 U/L (8-78)
[2021-05-09 21:15] VITALS: BP 137/63; PULSE 65; RESP 18; TEMP 36.8; O2SAT 97
[2021-05-09 21:35] LABS: Glucose Urine UA NEG (NEG); Leukocyte Esterase Urine NEG (NEG); Nitrite Urine NEG (NEG); Specific Gravity - Urine 1.025 (1.005-1.025); Urine Blood NEG (NEG); Urine Ketones NEG (NEG); Urine Protein NEG (NEG-TRACE)
[2021-05-09 21:36] LABS: Appearance Urine CLEAR; Color Urine YELLOW
== END 2021-05-09 22:24 | disposition home or self-care (01) ==
PROVIDERS: Emergency Provider Emergency Medicine; PCP Internal Medicine
DX: B34.9 Viral infection, unspecified (principal); R10.84 Generalized abdominal pain; I10 Essential (primary) hypertension; Z79.899 Other long term (current) drug therapy; Z20.822 Contact with and (suspected) exposure to COVID-19
CPT/HCPCS: 36415; 71045; 74176; 80048; 80076; 81003; 83690; 85025; 87635; 99283; 99284

== ENCOUNTER → 2021-05-23 09:38 | Outpatient (BNVA) | payer OTHER, SELFPAY | PROVIDERS: PCP Internal Medicine; Referring Provider Internal Medicine; Visit Provider Nurse Practitioner | DX: R10.33 Periumbilical pain (principal); D12.6 Benign neoplasm of colon, unspecified; K21.9 Gastro-esophageal reflux disease without esophagitis; M54.14 Radiculopathy, thoracic region; K75.81 Nonalcoholic steatohepatitis (NASH); M46.1 Sacroiliitis, not elsewhere classified; Z98.84 Bariatric surgery status | CPT/HCPCS: Q3014 ==

== ENCOUNTER 2021-05-30 10:24 | Outpatient (REF) | payer OTHER, SELFPAY ==
--- NOTE | ~2021-05-30 | XR_ITS ---
EXAMINATION: LUMBAR SPINE AND RIGHT HIP. CLINICAL INFORMATION: Right hip pain COMPARISON: None TECHNIQUE: Lumbar spine 3 views. Right hip 2 views. FINDINGS: LUMBAR SPINE: There is maintained lumbar lordosis with minimal positional scoliosis. The vertebral heights, alignment and disc heights are normal. There is minimal ventral spondylosis lower lumbar spine. No visible acute fracture or lytic process seen. The SI joints are symmetrical. There is mild constipation with scattered stool in the colon. There are surgical clips in the right abdomen from previous intervention. There is moderate spondylosis and lower dorsal spine. RIGHT HIP: There is a soft tissue calcification lateral to right hip joint likely calcific bursitis. There are right hip joint space is maintained normal. No bony erosive changes seen. There is minimal lateral acetabular spurring. No acute fracture or lytic process seen. XR/XR lumbar spine 2-3V IMPRESSION: Mild scoliosis. No acute fracture or lytic process. Minimal likely positional scoliosis. Moderate-sized soft tissue calcification lateral to the right hip joints likely calcific bursitis. There is degenerative spurring lateral acetabulum. No acute fracture or bony erosive changes.
--- NOTE | ~2021-05-30 | XR_ITS ---
EXAMINATION: LUMBAR SPINE AND RIGHT HIP. CLINICAL INFORMATION: Right hip pain COMPARISON: None TECHNIQUE: Lumbar spine 3 views. Right hip 2 views. FINDINGS: LUMBAR SPINE: There is maintained lumbar lordosis with minimal positional scoliosis. The vertebral heights, alignment and disc heights are normal. There is minimal ventral spondylosis lower lumbar spine. No visible acute fracture or lytic process seen. The SI joints are symmetrical. There is mild constipation with scattered stool in the colon. There are surgical clips in the right abdomen from previous intervention. There is moderate spondylosis and lower dorsal spine. RIGHT HIP: There is a soft tissue calcification lateral to right hip joint likely calcific bursitis. There are right hip joint space is maintained normal. No bony erosive changes seen. There is minimal lateral acetabular spurring. No acute fracture or lytic process seen. XR/XR hip RT min 2V IMPRESSION: Mild scoliosis. No acute fracture or lytic process. Minimal likely positional scoliosis. Moderate-sized soft tissue calcification lateral to the right hip joints likely calcific bursitis. There is degenerative spurring lateral acetabulum. No acute fracture or bony erosive changes.
== END 2021-05-30 10:25 | disposition home or self-care (01) ==
LOC: HO.XRAY 10:24
PROVIDERS: PCP Internal Medicine; Visit Provider Internal Medicine
DX: M25.551 Pain in right hip (principal)
CPT/HCPCS: 72100; 73502

== ENCOUNTER 2021-06-22 08:10 | Emergency (ER) | payer OTHER, SELFPAY ==
--- NOTE | ~2021-06-22 | CT_ITS ---
EXAMINATION: CT ABDOMEN AND PELVIS WITHOUT CONTRAST CLINICAL INFORMATION: Right flank pain COMPARISON: CT abdomen and pelvis noncontrast 05/09/2021, CT abdomen and pelvis with contrast 12/17/2020. TECHNIQUE: Multidetector volumetric imaging was performed from the superior aspect of the liver through the pubic symphysis. No oral or intravenous contrast. Sagittal and coronal reformatted images were obtained on the technologist's workstation. This CT examination was performed using dose optimization techniques as appropriate, variously including the following: *Automated exposure control *Adjustment of mA and/or kV according to patient size (this includes techniques or standardized protocols for targeted exams where dose is matched to indication/reason for exam; i.e. extremities or head) *Use of iterative reconstruction technique DLP: 724 mGy-cm FINDINGS: LUNG BASES: The visualized lung bases are unremarkable. LIVER, GALLBLADDER, AND BILIARY TREE: The liver is normal in size, shape, and attenuation. No focal hepatic lesion or biliary ductal dilatation is present. The gallbladder is unremarkable with no evidence of radiopaque gallstones, gallbladder wall thickening, or obvious pericholecystic inflammatory changes. PANCREAS: Unremarkable. SPLEEN: Unremarkable. ADRENAL GLANDS: Unremarkable. KIDNEYS AND URETERS: The kidneys are normal in size, shape, and attenuation. No hydronephrosis, hydroureter, or calculi seen. No perinephric stranding. BLADDER: Unremarkable. GASTROINTESTINAL TRACT: Prior gastric bypass. Small sliding hiatal hernia again noted. There is no bowel obstruction or focal inflammatory changes in the bowel or mesentery. No pneumatosis or free air. The appendix is normal. There is no ascites or fluid collection. ABDOMINAL WALL: No significant hernia is appreciated. LYMPH NODES: No lymphadenopathy. VASCULAR: Unremarkable. PELVIC VISCERA: Prior hysterectomy. No adnexal mass or pelvic ascites. OSSEOUS STRUCTURES: No acute bony abnormality. Incidental intravertebral body hemangioma are again seen T11. CT/CT abdomen pelvis wo con IMPRESSION: 1. No hydronephrosis, calculi, or perinephric stranding. 2. No bowel obstruction or inflammatory changes in bowel or mesentery. Normal appendix.
[2021-06-22 08:35] VITALS: BP 148/76; PULSE 62; RESP 18; TEMP 36.8; O2SAT 96; BMI 37.8
--- NOTE | 2021-06-22 08:37 | ED.ABDPAIN ---
HPI - Abdominal Pain General Chief Complaint: Abdominal Pain Stated Complaint: abd pain Time Seen by Provider: 06/22/21 08:37 Source: patient and seo analyst Mode of arrival: ambulatory History of Present Illness MD elicited complaint: abdominal pain Pertinent past history: other (chronic abdominal pain) Onset (ago): day(s) (2) Pain Consistency: intermittent Location: R flank Severity: moderate Quality: aching and dull Radiation: R flank Migration to: no migration Exacerbating factors: movement Relieving factors: nothing Context: history of similar episodes Associated symptoms: nausea and chills Related Data Home Medications Medication Instructions Recorded Confirmed calcium carbonate 300 mg (750 mg) 1 tab PO BID 10/25/20 01/27/21 chewable tablet cholecalciferol (vitamin D3) 50 50 mcg PO DAILY 10/25/20 01/27/21 mcg (2,000 unit) capsule fluticasone propionate 50 2 spray INTRANASAL QAM PRN 10/25/20 01/27/21 mcg/actuation nasal spray,suspension ibuprofen 800 mg tablet 800 mg PO TID 10/25/20 01/27/21 lisinopril 20 1 tab PO DAILY 10/25/20 01/27/21 mg-hydrochlorothiazide 25 mg tablet loratadine 10 mg tablet 10 mg PO DAILY 10/25/20 01/27/21 trazodone 50 mg tablet 50 mg PO BEDTIME 10/25/20 01/27/21 divalproex 500 mg tablet,extended 500 mg PO BID 05/23/21 release 24 hr Previous Rx's Medication Instructions Recorded simethicone 180 mg capsule 180 mg PO QID #90 cap 05/18/21 dicyclomine 20 mg tablet 20 mg PO QID #120 tab 05/30/21 omeprazole 20 mg capsule,delayed 20 mg PO BID #60 cap 05/30/21 release Allergies Allergy/AdvReac Type Severity Reaction Status Date / Time morphine Allergy Unknown HIVES Verified 05/23/21 10:07 Review of Systems Review of Systems Constitutional : No Weight loss, No Fever, pos Chills ENT/Mouth : No sore throat, No Rhinorrhea Eyes: No Swelling, No Redness Cardiovascular : No Chest Pain, No SOB, NoEdema Respiratory : No Cough, No Sputum, No Wheezing Gastrointestinal : Positive Nausea, no Vomiting, positive Diarrhea, positive abdominal Pain, No Hematochezia, No Melena Genitourinary : No Dysuria, No Urinary Frequency, No Hematuria, No Urgency Musculoskeletal : No joint pain, No Myalgias, No Joint Swelling Skin : No Skin Lesions, No rash Neuro : No Weakness, No Numbness, No Dizziness, No Headache Psych : No Anxiety/Panic, No Depression Heme/Lymph: No Bruising, No Lymphadenopathy Endocrine : No Polyuria, No Polydipsia All other systems reviewed and are negative. Physical Exam Vital Signs: Vital Signs: Last Vital Signs Temp 98.3 F 06/22/21 08:35 Pulse 56 06/22/21 11:00 Resp 16 06/22/21 11:00 BP 154/69 H 06/22/21 11:00 Pulse Ox 99 06/22/21 11:00 Body Mass Index 37.8 Appearance: Alert. Oriented X3. No acute distress. Eyes: Pupils equal, round and reactive to light. ENT: Pharynx normal. Neck: Normal inspection. Neck supple. CVS: Normal heart rate and rhythm. Pulses normal. Respiratory: No respiratory distress. Breath sounds normal. Abdomen: Soft and mild ttp R flank no rebound or guarding. Skin: Skin warm and dry. Normal skin color. Normal skin turgor. Extremities: No lower extremity edema. No calf ttp Neuro: Oriented X 3. No motor deficit. No sensory deficit. Course Course Course Narrative: no acute findings at this time stable for DC MDM - Abdominal Pain MDM Narrative Medical decision making narrative: 66 yo female with hx of chronic abdominal pain and gastric bypass comes in with c/o R flank pain and nausea states this is different from her chronic pain at this time will obtain renal colic CT scan, UA, labs, dispo per results and findings. Lab Data Result diagrams: 06/22/21 09:09 06/22/21 09:09 Labs: Lab Results 06/22/21 06/22/21 06/22/21 Range/Units 09:09 09:09 09:20 WBC 3.9 L (4.8-10.8) X10*3/uL RBC 3.96 L (4.20-5.50) X10*6/uL Hgb 11.9 L (12.0-16.0) g/dl Hct 36.3 L (37-47) % MCV 91.7 (80-98) fL MCH 30.1 (27.0-33.0) pg MCHC 32.8 (31.0-35.0) g/dl RDW 14.6 (11.0-16.0) % Plt Count 239 (160-400) X10*3/uL MPV 10.6 (9.4-12.3) fL Immature Gran % (Auto) 0.3 (0.0-0.4) % Neut % (Auto) 48.9 (45-73) % Lymph % (Auto) 35.9 (20-40) % [place] % (Auto) 13.1 H (2-11) % Eos % (Auto) 1.5 (0-4) % Baso % (Auto) 0.3 (0-2) % Lymph # (Auto) 1.4 (1.2-4.9) X10*3/uL [place] # (Auto) 0.5 (0.1-1.2) X10*3/uL Eos # (Auto) 0.1 (0.0-0.4) X10*3/uL Baso # (Auto) 0.0 (0.0-0.2) X10*3/uL Abs Immat Gran (auto) 0.01 (0.00-0.03) X10*3/uL Absolute Neuts (auto) 1.9 L (2.0-8.3) X10*3/uL Absolute Nucleated RBC 0.000 (0.0-0.012) X10*3/uL Nucleated RBC % (auto) 0.0 (0.0-0.2) /100WBC Sodium 139 (135-145) mmol/L Potassium 4.0 (3.3-5.1) mmol/L Chloride 101 (96-108) mmol/L Carbon Dioxide 29 (22-29) mmol/L Anion Gap 13 (12-20) BUN 15 (9-16) mg/dL Creatinine 0.73 (0.5-1.4) mg/dL Estim Creat Clear Calc 83.0 Estimated GFR > 60 Random Glucose 104 (60-115) mg/dL Calcium 8.7 (8.4-10.2) mg/dL Magnesium 2.2 (1.6-2.6) mg/dL Total Bilirubin 0.7 (0.0-1.0) mg/dL Direct Bilirubin 0.3 (0.0-0.5) mg/dL AST 18 (5-31) U/L ALT 13 (0-31) U/L Alkaline Phosphatase 74 (39-117) U/L Total Protein 6.6 (6.5-8.0) g/dL Albumin 4.0 (3.5-5.0) g/dL Lipase 32 (8-78) U/L Urine Color YELLOW Urine Appearance HAZY Urine pH 6.0 (5.0-8.0) Ur Specific [place] >= 1.030 H (1.005-1.025) Urine Protein NEG (NEG-TRACE) MG/DL Urine Glucose (UA) NEG (NEG) MG/DL Urine Ketones NEG (NEG) MG/DL Urine Blood NEG (NEG) Urine Nitrite NEG (NEG) Ur Leukocyte Esterase NEG (NEG) Discharge Plan Discharge Clinical Impression: Abdominal pain Qualifiers: Abdominal location: right upper quadrant Qualified Code(s): R10.11 - Right upper quadrant pain Patient Disposition: Home, Self-Care Instructions: Abdominal Pain (ED) Additional Instructions: return to ED for any worsening symptoms or concerns labs, urine, CT scan normal Prescriptions: No Action simethicone 180 mg capsule 180 mg PO QID Qty: 90 RF: 4 omeprazole 20 mg capsule,delayed release(DR/EC) 20 mg PO BID Qty: 60 RF: 6 dicyclomine 20 mg tablet 20 mg PO QID Qty: 120 RF: 6 divalproex 500 mg tablet extended release 24 hr 500 mg PO BID RF: 0 loratadine 10 mg tablet 10 mg PO DAILY RF: 0 fluticasone propionate 50 mcg/actuation spray,suspension 2 spray intranasal QAM PRNRF: 0 calcium carbonate 300 mg (750 mg) tablet,chewable 1 tab PO BID RF: 0 trazodone 50 mg tablet 50 mg PO BEDTIME RF: 0 cholecalciferol (vitamin D3) 50 mcg (2,000 unit) capsule 50 mcg PO DAILY RF: 0 lisinopril-hydrochlorothiazide 20-25 mg tablet 1 tab PO DAILY RF: 0 ibuprofen 800 mg tablet 800 mg PO TID RF: 0 Referrals: Shital La MD [Primary Care Provider] - 2 days (if not better) Print Language: [facility] Past Medical History Medical History Essential hypertension GERD (gastroesophageal reflux disease) Morbid obesity due to excess calories Surgical History H/O breast surgery History of esophagogastroduodenoscopy (EGD) Hx of colonoscopy Status post bariatric surgery Family History Family History Father Heart attack Mother Thrombosis Social History Social History Alcohol intake: never Patient Tobacco Use Status: Never used Tobacco Advance Directives: No Advance Directives Information Provided: No
[2021-06-22 09:13] LABS: MANUAL DIFF FLAG NO
[2021-06-22 09:16] LABS: Basophils Percent Auto 0.3 % (0-2); Eosinophils Absolute Auto 0.1 X10*3/uL (0.0-0.4); Eosinophils Percent Auto 1.5 % (0-4); Hematocrit 36.3 % (37-47); Hemoglobin 11.9 g/dl (12.0-16.0); Imm Gran Abs Auto 0.01 X10*3/uL (0.00-0.03); Imm Gran Pct Auto 0.3 % (0.0-0.4); Lymphocytes Absolute Auto 1.4 X10*3/uL (1.2-4.9); Lymphocytes Percent Auto 35.9 % (20-40); Mean Corpuscular HGB Conc 32.8 g/dl (31.0-35.0); Mean Corpuscular Hemoglobin 30.1 pg (27.0-33.0); Mean Corpuscular Volume 91.7 fL (80-98); Mean Platelet Volume 10.6 fL (9.4-12.3); Monocytes Absolute Auto 0.5 X10*3/uL (0.1-1.2); Monocytes Percent Auto 13.1 % (2-11); Neutrophils Absolute Auto 1.9 X10*3/uL (2.0-8.3); Neutrophils Percent Auto 48.9 % (45-73); Platelet Count 239 X10*3/uL (160-400); Red Blood Count 3.96 X10*6/uL (4.20-5.50); Red Cell Distribution Width 14.6 % (11.0-16.0); White Blood Count 3.9 X10*3/uL (4.8-10.8)
[2021-06-22] MEDS: Ondansetron ODT 4 MG TAB.RAPDIS TRANSLINGU (09:22)
[2021-06-22 09:26] LABS: Glucose Urine UA NEG (NEG); Leukocyte Esterase Urine NEG (NEG); Nitrite Urine NEG (NEG); Specific Gravity - Urine >= 1.030 (1.005-1.025); Urine Blood NEG (NEG); Urine Ketones NEG (NEG); Urine Protein NEG (NEG-TRACE)
[2021-06-22 09:29] LABS: Appearance Urine HAZY; Color Urine YELLOW
[2021-06-22 09:56] LABS: Alanine Aminotransferase 13 U/L (0-31); Alkaline Phosphatase 74 U/L (39-117); Anion Gap 13 (12-20); Aspartate Amino Transferase 18 U/L (5-31); Bilirubin Direct 0.3 mg/dL (0.0-0.5); Bilirubin Total 0.7 mg/dL (0.0-1.0); Blood Urea Nitrogen 15 mg/dL (9-16); Calcium 8.7 mg/dL (8.4-10.2); Carbon Dioxide 29 mmol/L (22-29); Chloride 101 mmol/L (96-108); Estimated Glomerular Filt Rate > 60; Glucose Random 104 mg/dL (60-115); Lipase 32 U/L (8-78); Magnesium 2.2 mg/dL (1.6-2.6); Sodium 139 mmol/L (135-145); Total Protein 6.6 g/dL (6.5-8.0)
[2021-06-22 11:00] VITALS: BP 154/69; PULSE 56; RESP 16; O2SAT 99
== END 2021-06-22 11:30 | disposition home or self-care (01) ==
PROVIDERS: Emergency Provider Emergency Medicine; PCP Internal Medicine
DX: R10.11 Right upper quadrant pain (principal); I10 Essential (primary) hypertension; Z98.84 Bariatric surgery status; Z79.899 Other long term (current) drug therapy
CPT/HCPCS: 36415; 74176; 80048; 80076; 81003; 83690; 83735; 85025; 99284

== ENCOUNTER 2021-06-28 08:05 | Outpatient (REF) | payer OTHER, SELFPAY ==
--- NOTE | ~2021-06-28 | US_ITS ---
EXAMINATION: US ABDOMEN COMPLETE CLINICAL INFORMATION: MONTEMAYOR (nonalcoholic steatosis). COMPARISON: CT abdomen and pelvis without contrast dated 06/22/2021. Ultrasound abdomen complete dated 10/26/2020. TECHNIQUE: Real-time imaging of the abdominal viscera. FINDINGS: PANCREAS: Visualized portions unremarkable. ABDOMINAL AORTA: Visualized portions unremarkable. INFERIOR VENA CAVA: Visualized portions unremarkable. LIVER: The liver is normal in size. The liver contour is normal. No focal hepatic lesion. There is no intrahepatic biliary duct dilatation seen. GALLBLADDER: Unremarkable. COMMON BILE DUCT: 0.3 cm. Unremarkable. RIGHT KIDNEY: 11.2 cm. Minimal prominence of the collecting system. LEFT KIDNEY: 12.2 cm. Minimal prominence of the collecting system. SPLEEN: 8.8 cm. Unremarkable. FREE FLUID: None. US/US abdomen complete IMPRESSION: 1. No significant hepatic abnormality. No overt steatosis. No focal abnormality. 2. Minimal prominence of the renal collecting systems bilaterally are similar to the recent CT scan were no other significant/obstructing abnormality was identified.
== END 2021-06-28 08:06 | disposition home or self-care (01) ==
LOC: HO.US 08:05
PROVIDERS: Visit Provider Nurse Practitioner
DX: R10.33 Periumbilical pain (principal); K75.81 Nonalcoholic steatohepatitis (NASH)
CPT/HCPCS: 76700

== ENCOUNTER → 2021-07-04 12:41 | Outpatient (BNVA) | payer OTHER, SELFPAY | PROVIDERS: Visit Provider Anesthesiology | DX: R10.31 Right lower quadrant pain (principal); M54.14 Radiculopathy, thoracic region; M46.1 Sacroiliitis, not elsewhere classified; E66.01 Morbid (severe) obesity due to excess calories; Z68.37 Body mass index [BMI] 37.0-37.9, adult; Z88.5 Allergy status to narcotic agent | CPT/HCPCS: 99202 ==

== ENCOUNTER → 2021-07-15 09:34 | Outpatient (BNVA) | payer OTHER, SELFPAY | PROVIDERS: PCP Internal Medicine; Referring Provider Internal Medicine; Visit Provider Nurse Practitioner | DX: K75.81 Nonalcoholic steatohepatitis (NASH) (principal); K21.9 Gastro-esophageal reflux disease without esophagitis | CPT/HCPCS: 99212 ==

== ENCOUNTER 2021-07-16 09:12 | Outpatient (REF) | payer OTHER, SELFPAY ==
--- NOTE | ~2021-07-16 | MM_ITS ---
EXAMINATION: MM SCREENING DIGITAL BREAST TOMOSYNTHESIS, BILATERAL CLINICAL INFORMATION: Screening. Asymptomatic. The lifetime risk of breast cancer based on the Tyrer-Cuzick Model is 4%. COMPARISON: Mammography: 06/26/2020, 02/19/2019, 10/18/2018 TECHNIQUE: Digital breast tomosynthesis is performed in both the craniocaudal and mediolateral oblique views along with computer-aided detection (CAD). Synthesized 2D images are generated from the tomosynthesis. Additional left cleavage view is provided. FINDINGS: There are scattered areas of fibroglandular density (ACR BI-RADS breast composition Category b). There are no significant masses, abnormal calcifications, or other abnormalities. No significant changes from prior exams. MM/MM tomosynthesis screening BI IMPRESSION: No mammographic evidence of malignancy. ASSESSMENT: BI-RADS 1: Negative RECOMMENDATION: Routine annual mammography screening. This patient's information was entered into a reminder system with a target due date for their next mammogram.
[2021-07-16 10:12] LABS: Alanine Aminotransferase 13 U/L (0-31); Albumin Level 3.9 g/dL (3.5-5.0); Alkaline Phosphatase 74 U/L (39-117); Aspartate Amino Transferase 18 U/L (5-31); Bilirubin Direct 0.3 mg/dL (0.0-0.5); Bilirubin Total 0.6 mg/dL (0.0-1.0); Total Protein 6.6 g/dL (6.5-8.0)
[2021-07-18 13:26] LABS: Alpha Fetoprotein 3.8 ng/mL
== END 2021-07-16 09:13 | disposition home or self-care (01) ==
LOC: HO.MAMMO 09:12
PROVIDERS: Absent Provider Nurse Practitioner; PCP Internal Medicine; Visit Provider Internal Medicine
DX: Z12.31 Encounter for screening mammogram for malignant neoplasm of breast (principal); K75.81 Nonalcoholic steatohepatitis (NASH)
CPT/HCPCS: 36415; 77063; 77067; 80076; 82105

== ENCOUNTER 2021-08-31 09:57 | Outpatient (REF) | payer OTHER, SELFPAY ==
--- NOTE | ~2021-08-31 | MM_ITS ---
EXAMINATION: BONE DENSITOMETRY CLINICAL INDICATION: Menopausal. COMPARISON: This is the patient's baseline examination. TECHNIQUE: Using a [employer] DXA System (software version: 13.1) manufactured by [employer], dual-energy x-ray absorptiometry was performed of the lumbar spine and left hip. The images are of good technical quality. Summary results are attached. FINDINGS: AP SPINE L1-L4: BMD 1.077 g/cm2, Z-score -0.2, T-score -0.9, normal. LEFT FEMUR, NECK: BMD 1.149 g/cm2, Z-score 1.6, T-score 0.8, normal. LEFT FEMUR, TOTAL: BMD 1.146 g/cm2, Z-score 1.6, T-score 1.1, normal. IDENTIFIED RISK FACTORS: Low calcium intake. Early menopause, secondary osteoporosis. HISTORY OF FRACTURE: None listed. MEDICATIONS: Calcium supplements or multivitamin, vitamin D. MM/XR DEXA axial skeleton IMPRESSION: 1. DIAGNOSIS: Normal bone density based on the lowest T-score value of -0.9 in the lumbar spine applying World Health Organization criteria. 2. 10-YEAR FRACTURE RISK PREDICTION, FRAX: Major osteoporotic fracture (clinical spine, forearm, hip or shoulder) 2.9%. Hip fracture 0.0%. 3. Treatment Recommendations: NOF guidelines recommend consideration for treatment in postmenopausal women and men age 50 and older presenting with the following: -A hip or vertebral (clinical or morphometric) fracture. -T-score less than or equal to -2.5 at the femoral neck or spine after appropriate evaluation to exclude secondary causes. -Low bone mass at the hip or spine and a 10-year fracture probability by FRAX of greater than or equal to 3% for hip fracture or greater than or equal to 20% for major osteoporotic fracture based on the [place] adapted WHO algorithm. 4. Other Recommendations: All treatment decisions require clinical judgment and consideration of individual patient factors, including patient preferences, comorbidities, previous drug use, risk factors not captured in the FRAX model (e.g. frailty, falls, vitamin D deficiency, increased bone turnover, interval significant decline in bone density) and possible under or overestimation of fracture risk by FRAX. FUTURE SCAN RECOMMENDATION: People with diagnosed cases of osteoporosis or at high risk for fracture should have regular bone mineral density tests. For patients eligible for Medicare, routine testing is allowed once every 2 years. The testing frequency can be increased to one year for patients who have rapidly progressing disease, those who are receiving or discontinuing medical therapy to restore bone mass, or have additional risk factors.
== END 2021-08-31 09:58 | disposition home or self-care (01) ==
LOC: HO.MAMMO 09:57
PROVIDERS: Visit Provider Internal Medicine
DX: Z13.820 Encounter for screening for osteoporosis (principal); Z78.0 Asymptomatic menopausal state; M85.80 Other specified disorders of bone density and structure, unspecified site; Z79.899 Other long term (current) drug therapy
CPT/HCPCS: 77080

== ENCOUNTER 2021-11-02 12:05 | Outpatient (REF) | payer OTHER, SELFPAY ==
[2021-11-02 15:34] LABS: COVID-19 Test Negative (Negative); IDNOW Serial# 16C4AD1C
== END 2021-11-02 12:06 | disposition home or self-care (01) ==
LOC: HO.LAB 12:05
PROVIDERS: Visit Provider Internal Medicine
DX: Z20.822 Contact with and (suspected) exposure to COVID-19 (principal)
CPT/HCPCS: 36415; 87635; C9803

== ENCOUNTER 2021-12-27 10:29 | Emergency (ER) | payer OTHER, SELFPAY ==
[2021-12-27 10:38] VITALS: BP 146/77; PULSE 56; RESP 16; TEMP 36.6; O2SAT 97; BMI 38.4
[2021-12-27 10:51] LABS: MANUAL DIFF FLAG NO
[2021-12-27 10:53] LABS: Basophils Percent Auto 0.3 % (0-2); Eosinophils Absolute Auto 0.1 X10*3/uL (0.0-0.4); Eosinophils Percent Auto 1.3 % (0-4); Hematocrit 36.6 % (37.0-47.0); Hemoglobin 11.8 g/dl (12.0-16.0); Lymphocytes Absolute Auto 1.4 X10*3/uL (1.2-4.9); Lymphocytes Percent Auto 36.9 % (20-40); Mean Corpuscular HGB Conc 32.2 g/dl (31.0-35.0); Mean Corpuscular Volume 93.1 fL (80.0-98.0); Mean Platelet Volume 10.1 fL (9.4-12.3); Monocytes Absolute Auto 0.4 X10*3/uL (0.1-1.2); Monocytes Percent Auto 11.4 % (2-11); Neutrophils Absolute Auto 1.9 x10*3/uL (2.0-8.3); Neutrophils Percent Auto 50.1 % (45-73); Platelet Count 243 X10*3/uL (160-400); Red Blood Count 3.93 X10*6/uL (4.20-5.50); Red Cell Distribution Width 13.8 % (11.0-16.0); White Blood Count 3.9 X10*3/uL (4.8-10.8)
[2021-12-27 11:11] LABS: Alanine Aminotransferase 12 U/L (0-31); Alkaline Phosphatase 72 U/L (39-117); Anion Gap 12 (12-20); Aspartate Amino Transferase 21 U/L (5-31); Bilirubin Total 0.6 mg/dL (0.0-1.0); Blood Urea Nitrogen 17 mg/dL (9-16); Calcium 8.9 mg/dL (8.4-10.2); Carbon Dioxide 28 mmol/L (22-29); Chloride 106 mmol/L (96-108); Creatinine Clr Calc Pharmacy 88.6; Estimated Glomerular Filt Rate > 60; Glucose Random 96 mg/dL (60-115); Potassium 4.3 mmol/L (3.3-5.1); Sodium 142 mmol/L (135-145); Total Protein 6.8 g/dL (6.5-8.0)
[2021-12-27 11:43] LABS: Appearance Urine HAZY; Color Urine YELLOW; Glucose Urine UA NEG (NEG); Leukocyte Esterase Urine NEG (NEG); Nitrite Urine NEG (NEG); PH 5.5 (5.0-8.0); Specific Gravity - Urine >= 1.030 (1.005-1.025); Urine Blood NEG (NEG); Urine Ketones NEG (NEG); Urine Protein NEG (NEG-TRACE)
--- NOTE | 2021-12-27 14:47 | ED_ITS ---
HPI - Abdominal Pain General Chief Complaint: Abdominal Pain Stated Complaint: Stomach Pain Time Seen by Provider: 12/27/21 14:20 Source: patient Mode of arrival: ambulatory Limitations: language barrier History of Present Illness HPI narrative: History done by translater. she is on clarithromycin and amoxicillin for H. Pylori gastritis. The patient comes in for increased pain due to the medication. MD elicited complaint: abdominal pain Pertinent past history: gastritis Onset (ago): day(s) Severity: moderate Quality: burning Radiation: none Related Data Home Medications Medication Instructions Recorded Confirmed calcium carbonate 300 mg (750 mg) 1 tab PO BID 10/25/20 01/27/21 chewable tablet cholecalciferol (vitamin D3) 50 50 mcg PO DAILY 10/25/20 01/27/21 mcg (2,000 unit) capsule fluticasone propionate 50 2 spray INTRANASAL QAM PRN 10/25/20 01/27/21 mcg/actuation nasal spray,suspension ibuprofen 800 mg tablet 800 mg PO TID 10/25/20 01/27/21 lisinopril 20 1 tab PO DAILY 10/25/20 01/27/21 mg-hydrochlorothiazide 25 mg tablet loratadine 10 mg tablet 10 mg PO DAILY 10/25/20 01/27/21 trazodone 50 mg tablet 50 mg PO BEDTIME 10/25/20 01/27/21 divalproex 500 mg tablet,extended 500 mg PO BID 05/23/21 release 24 hr ipratropium 20 mcg-albuterol 100 1 puff INHALATION Q6H 07/04/21 mcg/actuation mist for inhalation (Combivent Respimat) Previous Rx's Medication Instructions Recorded dicyclomine 20 mg tablet 20 mg PO QID #120 tab 05/30/21 omeprazole 20 mg capsule,delayed 20 mg PO BID #60 cap 05/30/21 release simethicone 180 mg capsule 180 mg PO QID #90 cap 10/12/21 sucralfate 100 mg/mL oral 10 ml PO BID #400 ml 12/27/21 suspension (Carafate) Allergies Allergy/AdvReac Type Severity Reaction Status Date / Time morphine Allergy Unknown HIVES Verified 07/04/21 13:04 Review of Systems Constitutional: Reports no additional constitutional complaints Eyes: Reports no additional eye complaints Denies dizziness Cardiovascular: Reports no additional cardiovascular complaints Respiratory: Reports as per HPI Gastrointestinal: Reports no additional gastrointestinal complaints Genitourinary: Reports no additional female genitourinary complaints Musculoskeletal: Reports no additional musculoskeletal complaints Skin/Breast: Denies rash Reports system reviewed and no additional complaints, except as documented, Denies dizziness and Denies Sensory deficit (Neuro) Psychiatric: Denies anxiety [facility] Past Medical History Medical History Essential hypertension Morbid obesity due to excess calories Sacroiliitis Surgical History H/O breast surgery History of esophagogastroduodenoscopy (EGD) Hx of colonoscopy Status post bariatric surgery Family History Family History Father Heart attack Mother Thrombosis Social History Social History Alcohol intake: never Patient Tobacco Use Status: Never used Tobacco Advance Directives: No Advance Directives Information Provided: No Physical Exam ED Vital Signs: Vital Signs - 24 hr 12/27/21 10:38 Temperature 97.9 F Pulse Rate 56 Respiratory Rate 16 Blood Pressure 146/77 H Pulse Oximetry 97 BMI result Body Mass Index 38.4 Const General: healthy appearing Nutritional Appearance: average body habitus Orientation/consciousness: oriented to person and patient oriented x3 Limitations: no limitations HENMT Head: Yes normal to inspection Ears: external ears normal General nose exam: Normal external nose present Mouth: Normal oral and palatal mucosa present and oropharynx normal Throat: Yes posterior oropharynx normal Eyes General: appearance normal, both eyes and all related structures Neck Neck: Yes normal visual inspection Chest Chest palpation & inspection: normal inspection of the chest Resp Auscultation: clear to auscultation bilaterally Cardio Jugular venous distension: no JVD Rate: regular rate Rhythm: regular rhythm Heart sounds: S1 normal heart sound present and S2 normal heart sound present GI Inspection: Yes normal to inspection Palpation (GI): Soft to palpation, nontender and No hepatosplenomegaly present Auscultation: normal bowel sounds General: Yes no CVA tenderness Back/Spine/Pelvis Back: no CVA tenderness Skin General skin exam: no rashes or lesions noted Neuro General: oriented to person and patient oriented x3 Cranial nerves: Yes CN's II-XII intact bilaterally Motor exam (neuro): 5/5 motor strength present throughout Sensory Exam: No Sensory deficit (Neuro) Extrem General: Yes normal to inspection Psych Appearance: grossly normal Course Reevaluation(s) Reevaluation #1: Will place the patient on carafate PRN for gastritis Time: 14:57 MDM - Abdominal Pain Lab Data Result diagrams: 12/27/21 10:48 12/27/21 10:48 Labs: Lab Results 12/27/21 12/27/21 12/27/21 Range/Units 10:48 10:48 11:28 WBC 3.9 L (4.8-10.8) X10*3/uL RBC 3.93 L (4.20-5.50) X10*6/uL Hgb 11.8 L (12.0-16.0) g/dl Hct 36.6 L (37.0-47.0) % MCV 93.1 (80.0-98.0) fL MCH 30.0 (27.0-33.0) pg MCHC 32.2 (31.0-35.0) g/dl RDW 13.8 (11.0-16.0) % Plt Count 243 (160-400) X10*3/uL MPV 10.1 (9.4-12.3) fL Immature Gran % (Auto) 0.0 (0.0-0.4) % Neut % (Auto) 50.1 (45-73) % Lymph % (Auto) 36.9 (20-40) % [place] % (Auto) 11.4 H (2-11) % Eos % (Auto) 1.3 (0-4) % Baso % (Auto) 0.3 (0-2) % Lymph # (Auto) 1.4 (1.2-4.9) X10*3/uL [place] # (Auto) 0.4 (0.1-1.2) X10*3/uL Eos # (Auto) 0.1 (0.0-0.4) X10*3/uL Baso # (Auto) 0.0 (0.0-0.2) X10*3/uL Abs Immat Gran (auto) 0.00 (0.00-0.03) X10*3/uL Absolute Neuts (auto) 1.9 L (2.0-8.3) x10*3/uL Absolute Nucleated RBC 0.000 (0.0-0.012) X10*3/uL Nucleated RBC % (auto) 0.0 (0.0-0.2) /100WBC Sodium 142 (135-145) mmol/L Potassium 4.3 (3.3-5.1) mmol/L Chloride 106 (96-108) mmol/L Carbon Dioxide 28 (22-29) mmol/L Anion Gap 12 (12-20) BUN 17 H (9-16) mg/dL Creatinine 0.69 (0.5-1.4) mg/dL Estim Creat Clear Calc 88.6 Estimated GFR > 60 Random Glucose 96 (60-115) mg/dL Calcium 8.9 (8.4-10.2) mg/dL Total Bilirubin 0.6 (0.0-1.0) mg/dL AST 21 (5-31) U/L ALT 12 (0-31) U/L Alkaline Phosphatase 72 (39-117) U/L Total Protein 6.8 (6.5-8.0) g/dL Albumin 4.0 (3.5-5.0) g/dL Urine Color YELLOW Urine Appearance HAZY Urine pH 5.5 (5.0-8.0) Ur Specific [place] >= 1.030 H (1.005-1.025) Urine Protein NEG (NEG-TRACE) MG/DL Urine Glucose (UA) NEG (NEG) MG/DL Urine Ketones NEG (NEG) MG/DL Urine Blood NEG (NEG) Urine Nitrite NEG (NEG) Ur Leukocyte Esterase NEG (NEG) Discharge Plan Discharge Clinical Impression: GERD (gastroesophageal reflux disease), Gastritis Patient Disposition: Home, Self-Care Prescriptions: New sucralfate [Carafate] 100 mg/mL suspension 10 ml PO BID Qty: 400 0RF No Action omeprazole 20 mg capsule,delayed release(DR/EC) 20 mg PO BID Qty: 60 6RF dicyclomine 20 mg tablet 20 mg PO QID Qty: 120 6RF simethicone 180 mg capsule 180 mg PO QID Qty: 90 4RF divalproex 500 mg tablet extended release 24 hr 500 mg PO BID 0RF loratadine 10 mg tablet 10 mg PO DAILY 0RF fluticasone propionate 50 mcg/actuation spray,suspension 2 spray intranasal QAM PRN0RF calcium carbonate 300 mg (750 mg) tablet,chewable 1 tab PO BID 0RF trazodone 50 mg tablet 50 mg PO BEDTIME 0RF cholecalciferol (vitamin D3) 50 mcg (2,000 unit) capsule 50 mcg PO DAILY 0RF lisinopril-hydrochlorothiazide 20-25 mg tablet 1 tab PO DAILY 0RF ibuprofen 800 mg tablet 800 mg PO TID 0RF Combivent Respimat 20-100 mcg/actuation mist 1 puff inhalation Q6H 0RF Referrals: Shital La MD [Primary Care Provider] - 1 week
[2021-12-27 14:55] LABS: Lipase 42 U/L (8-78)
== END 2021-12-27 15:00 | disposition home or self-care (01) ==
PROVIDERS: Physician Assistant; Emergency Provider Emergency Medicine; PCP Internal Medicine
DX: K21.9 Gastro-esophageal reflux disease without esophagitis (principal); K29.70 Gastritis, unspecified, without bleeding; R10.9 Unspecified abdominal pain; I10 Essential (primary) hypertension; K75.81 Nonalcoholic steatohepatitis (NASH); E66.01 Morbid (severe) obesity due to excess calories; Z98.84 Bariatric surgery status
CPT/HCPCS: 36415; 80053; 81003; 83690; 85025; 99283

== ENCOUNTER 2022-01-10 08:53 | Outpatient (REF) | payer OTHER, SELFPAY ==
[2022-01-10 11:21] LABS: Alanine Aminotransferase 14 U/L (0-31); Albumin Level 3.9 g/dL (3.5-5.0); Alkaline Phosphatase 73 U/L (39-117); Aspartate Amino Transferase 18 U/L (5-31); Bilirubin Direct 0.2 mg/dL (0.0-0.5); Bilirubin Total 0.5 mg/dL (0.0-1.0); Total Protein 6.5 g/dL (6.5-8.0)
[2022-01-17 13:26] LABS: Alpha Fetoprotein 3.8 ng/mL
== END 2022-01-10 08:54 | disposition home or self-care (01) ==
LOC: HO.LAB 08:53
PROVIDERS: PCP Internal Medicine; Referring Provider Internal Medicine; Visit Provider Nurse Practitioner
DX: K75.81 Nonalcoholic steatohepatitis (NASH) (principal); R10.33 Periumbilical pain; K21.9 Gastro-esophageal reflux disease without esophagitis; E66.01 Morbid (severe) obesity due to excess calories; A04.8 Other specified bacterial intestinal infections; Z98.84 Bariatric surgery status
CPT/HCPCS: 36415; 80076; 82105; 99212

== ENCOUNTER 2022-01-11 07:49 | Outpatient (REF) | payer OTHER, SELFPAY ==
--- NOTE | ~2022-01-11 | US_ITS ---
EXAMINATION: US ABDOMEN COMPLETE CLINICAL INFORMATION: Right upper quadrant pain. COMPARISON: Abdominal ultrasound 06/28/[address] of the abdomen and pelvis 06/22/2021 TECHNIQUE: Real-time imaging of the abdominal viscera. FINDINGS: PANCREAS: Normal. ABDOMINAL AORTA: The proximal, mid, and distal segments are normal in caliber. INFERIOR VENA CAVA: Visualized portions are normal. LIVER: Normal. The liver is normal in size. The liver contour is normal. Parenchymal echogenicity is normal. No focal hepatic lesion. There is no intrahepatic biliary duct dilatation seen. GALLBLADDER: Normal. The gallbladder is physiologically distended without evidence of stones, sludge, polyps, wall thickening or pericholecystic fluid. COMMON BILE DUCT: Normal in caliber measuring 0.5 cm in diameter. RIGHT KIDNEY: Normal. Mild pelvic fullness without significant hydronephrosis, similar to the prior study. No renal calculi or focal parenchymal lesions. The kidney measures 11.3 cm in maximum dimension. LEFT KIDNEY: Normal. No hydronephrosis. No renal calculi or focal parenchymal lesions. The kidney measures 12 cm in maximum dimension. SPLEEN: Normal. The spleen measures 9.1 cm in maximum dimension. FREE FLUID: None. US/US abdomen complete IMPRESSION: Mild prominence of the right renal collecting system, similar to the prior study. Otherwise normal abdominal ultrasound.
== END 2022-01-11 07:50 | disposition home or self-care (01) ==
LOC: HO.US 07:49
PROVIDERS: PCP Internal Medicine; Visit Provider Family Medicine
DX: R10.11 Right upper quadrant pain (principal)
CPT/HCPCS: 76700

== ENCOUNTER 2022-02-10 11:43 | Emergency (ER) | payer OTHER, SELFPAY ==
--- NOTE | ~2022-02-10 | CT_ITS ---
EXAMINATION: CT ABDOMEN AND PELVIS WITH CONTRAST CLINICAL INFORMATION: Right-sided abdominal pain COMPARISON: CT abdomen pelvis 06/22/2021 TECHNIQUE: Multidetector volumetric images were obtained from the superior aspect of the liver through the pubic symphysis following administration 85 mL of Omnipaque 350 intravenous contrast. Sagittal and coronal reformatted images were obtained on the technologist's workstation. Oral contrast: No This CT examination was performed using dose optimization techniques as appropriate, variously including the following: *Automated exposure control *Adjustment of mA and/or kV according to patient size (this includes techniques or standardized protocols for targeted exams where dose is matched to indication/reason for exam; i.e. extremities or head) *Use of iterative reconstruction technique DLP: 782 mGy-cm FINDINGS: LUNG BASES: Unremarkable. ABDOMINAL AND PELVIC WALL: Unremarkable. LIVER AND BILIARY TREE: Unremarkable. GALLBLADDER: Unremarkable. PANCREAS: Unremarkable. SPLEEN: Unremarkable. ADRENAL GLANDS: Unremarkable. KIDNEYS AND URETERS: Bilateral renal hypodensities too small to characterize. GASTROINTESTINAL TRACT: Postsurgical changes of gastric bypass. Small hiatal hernia. Colonic diverticulosis without evidence of diverticulitis. Small bowel surgical anastomosis in the left abdomen. Normal appendix. VASCULAR: Unremarkable. LYMPH NODES/PERITONEUM: No lymphadenopathy. FREE FLUID: None. BLADDER: Unremarkable. PELVIC VISCERA: Status post hysterectomy. A 2.4 cm simple appearing left adnexal cyst, no follow-up imaging recommended. OSSEOUS STRUCTURES: T11 vertebral body hemangioma. CT/CT abdomen pelvis w con IMPRESSION: No acute findings to explain symptoms of abdominal pain.
[2022-02-10 12:13] VITALS: PULSE 64; RESP 19; TEMP 36.8; O2SAT 98; BMI 37.2
--- NOTE | 2022-02-10 12:14 | ED.ABDPAIN ---
HPI - Abdominal Pain General Chief Complaint: Abdominal Pain Stated Complaint: rt abd pain, headaches Time Seen by Provider: 02/10/22 12:13 Source: patient and official court interpreter Mode of arrival: ambulatory Limitations: language barrier History of Present Illness HPI narrative: 66 year old female with a history of depression, asthma, hypertension, status post gastric [place] [address] Khan here with right-sided abdominal pain for the last 2 days with chills, nausea. No vomiting, diarrhea, constipation, urinary symptoms Related Data Home Medications Medication Instructions Recorded Confirmed calcium carbonate 300 mg (750 mg) 1 tab PO BID 10/25/20 01/27/21 chewable tablet cholecalciferol (vitamin D3) 50 50 mcg PO DAILY 10/25/20 01/27/21 mcg (2,000 unit) capsule fluticasone propionate 50 2 spray INTRANASAL QAM PRN 10/25/20 01/27/21 mcg/actuation nasal spray,suspension ibuprofen 800 mg tablet 800 mg PO TID 10/25/20 01/27/21 lisinopril 20 1 tab PO DAILY 10/25/20 01/27/21 mg-hydrochlorothiazide 25 mg tablet loratadine 10 mg tablet 10 mg PO DAILY 10/25/20 01/27/21 trazodone 50 mg tablet 50 mg PO BEDTIME 10/25/20 01/27/21 divalproex 500 mg tablet,extended 500 mg PO BID 05/23/21 release 24 hr ipratropium 20 mcg-albuterol 100 1 puff INHALATION Q6H 07/04/21 mcg/actuation mist for inhalation (Combivent Respimat) amoxicillin 500 mg capsule 1,000 mg PO Q12H 01/10/22 Previous Rx's Medication Instructions Recorded omeprazole 20 mg capsule,delayed 20 mg PO BID #60 cap 05/30/21 release simethicone 180 mg capsule 180 mg PO QID #90 cap 10/12/21 sucralfate 100 mg/mL oral 10 ml PO BID #400 ml 12/27/21 suspension (Carafate) dicyclomine 20 mg tablet 20 mg PO QID #120 tab 01/25/22 Allergies Allergy/AdvReac Type Severity Reaction Status Date / Time morphine Allergy Unknown HIVES Verified 01/10/22 09:12 Review of Systems Review of Systems Yes all other systems are reviewed and are negative Constitutional: Reports no additional constitutional complaints, Denies body ache(s), Reports chills, Denies fever(s), Denies headache(s) and Denies weakness Eyes: Reports no additional eye complaints and Denies change in vision Reports system reviewed and no additional complaints, except as documented, Denies dizziness, Denies headache(s), Denies nasal congestion, Denies nasal discharge and Denies neck pain Cardiovascular: Reports no additional cardiovascular complaints, Denies chest pain, Denies leg edema and Denies dyspnea Respiratory: Reports no additional respiratory complaints, Denies cough and Denies dyspnea Gastrointestinal: Reports no additional gastrointestinal complaints, Reports abdominal pain, Denies diarrhea, Reports nausea and Denies vomiting Genitourinary: Reports no additional female genitourinary complaints and Denies urinary incontinence Musculoskeletal: Reports no additional musculoskeletal complaints, Denies back pain, Denies arthralgias, Denies joint swelling, Denies neck pain, Denies numbness and Denies tingling Skin/Breast: Reports system reviewed and no additional complaints, except as docu and Denies rash Reports system reviewed and no additional complaints, except as documented, Denies dizziness, Denies headache(s), Denies numbness, Denies tingling and Denies weakness PMFSH Past Medical History Attestation statement: The following information was validated with the patient. Source: old records reviewed and nursing notes reviewed Medical History Essential hypertension Morbid obesity due to excess calories Sacroiliitis Surgical History H/O breast surgery History of esophagogastroduodenoscopy (EGD) Hx of colonoscopy Status post bariatric surgery Family History Family History Father Heart attack Mother Thrombosis Social History Social History Alcohol intake: never Patient Tobacco Use Status: Never used Tobacco Advance Directives: No Advance Directives Information Provided: No Physical Exam ED Vital Signs: Vital Signs - 24 hr 02/10/22 12:13 02/10/22 15:11 02/10/22 18:36 Temperature 98.3 F 98.6 F 98.5 F Pulse Rate 64 58 62 Respiratory Rate 19 16 16 Blood Pressure 138/75 144/78 H Pulse Oximetry 98 99 99 BMI result Body Mass Index 37.2 Const General: cooperative, healthy appearing, comfortable and no acute distress Orientation/consciousness: patient oriented x3 Limitations: no limitations HENMT Head: Yes normal to inspection Ears: hearing grossly normal bilaterally General nose exam: Normal external nose present Face and sinus: Yes normal facial exam Mouth: Normal oral and palatal mucosa present Throat: Yes posterior oropharynx normal, Yes tonsils normal and Yes uvula midline Eyes General: appearance normal, both eyes and all related structures Pupils: Equal, round and reactive pupils present Neck Neck: Yes normal visual inspection, Yes full ROM, Yes no lymphadenopathy and Yes no meningeal signs Chest Chest palpation & inspection: normal inspection of the chest Resp Effort & Inspection: normal respiratory effort Auscultation: clear to auscultation bilaterally Cardio Rate: regular rate Rhythm: regular rhythm Peripheral pulses: Peripheral pulses 2+ throughout GI Inspection: Yes normal to inspection Palpation (GI): Soft to palpation and Tenderness to palpation present (GI) (RLQ TTP) General: Yes no CVA tenderness Back/Spine/Pelvis Back: no CVA tenderness Thoracic/Lumbar Spine: thoracic and lumbar spine normal to inspection Skin General skin exam: no rashes or lesions noted Neuro General: patient oriented x3, moves all extremities and no meningeal signs Cranial nerves: Yes Equal, round and reactive pupils present Extrem General: Yes normal to inspection, Yes no pedal edema and Yes no calf tenderness Course Course Course Narrative: 1215-This is a rapid medical exam. 66 yo female with history of gastric bypass here with 2 days of RLQ abdominal pain with nausea, chills. TTp RLQ mild no rebound or guarding. Will check UA, labs, CT A/P 1845-labs and UA are unremarkable. CT shows no acute intra-abdominal pathology. Plan for discharge home with follow-up with primary care doctor. Patient tolerating p.o.. Reviewed worrisome signs and symptoms of when to return to the emergency department. Comfortable discharge home. MDM - Abdominal Pain MDM Narrative Medical decision making narrative: Appendicitis diverticulitis Medical Records Attestation: I reviewed the patient's medical records. Lab Data Attestation: I reviewed the patient's lab results. Result diagrams: 02/10/22 12:26 02/10/22 12:26 Labs: Lab Results 02/10/22 02/10/22 02/10/22 Range/Units 12:26 12:26 12:31 WBC 6.3 (4.8-10.8) X10*3/uL RBC 3.96 L (4.20-5.50) X10*6/uL Hgb 12.0 (12.0-16.0) g/dl Hct 37.0 (37.0-47.0) % MCV 93.4 (80.0-98.0) fL MCH 30.3 (27.0-33.0) pg MCHC 32.4 (31.0-35.0) g/dl RDW 13.4 (11.0-16.0) % Plt Count 236 (160-400) X10*3/uL MPV 10.6 (9.4-12.3) fL Immature Gran % (Auto) 0.3 (0.0-0.4) % Neut % (Auto) 61.1 (45-73) % Lymph % (Auto) 26.5 (20-40) % Powell % (Auto) 11.1 H (2-11) % Eos % (Auto) 0.8 (0-4) % Baso % (Auto) 0.2 (0-2) % Lymph # (Auto) 1.7 (1.2-4.9) X10*3/uL Powell # (Auto) 0.7 (0.1-1.2) X10*3/uL Eos # (Auto) 0.1 (0.0-0.4) X10*3/uL Baso # (Auto) 0.0 (0.0-0.2) X10*3/uL Abs Immat Gran (auto) 0.02 (0.00-0.03) X10*3/uL Absolute Neuts (auto) 3.9 (2.0-8.3) x10*3/uL Absolute Nucleated RBC 0.000 (0.0-0.012) X10*3/uL Nucleated RBC % (auto) 0.0 (0.0-0.2) /100WBC Sodium 138 (135-145) mmol/L Potassium 4.4 (3.3-5.1) mmol/L Chloride 104 (96-108) mmol/L Carbon Dioxide 28 (22-29) mmol/L Anion Gap 10 L (12-20) BUN 20 H (9-16) mg/dL Creatinine 0.70 (0.5-1.4) mg/dL Estim Creat Clear Calc 85.9 Estimated GFR > 60 Random Glucose 78 (60-115) mg/dL Calcium 9.1 (8.4-10.2) mg/dL Total Bilirubin 0.5 (0.0-1.0) mg/dL Direct Bilirubin 0.2 (0.0-0.5) mg/dL AST 20 (5-31) U/L ALT 14 (0-31) U/L Alkaline Phosphatase 74 (39-117) U/L Total Protein 6.7 (6.5-8.0) g/dL Albumin 4.0 (3.5-5.0) g/dL Lipase 44 (8-78) U/L Urine Color YELLOW Urine Appearance CLEAR Urine pH 6.0 (5.0-8.0) Ur Specific [place] >= 1.030 H (1.005-1.025) Urine Protein NEG (NEG-TRACE) MG/DL Urine Glucose (UA) NEG (NEG) MG/DL Urine Ketones 5 (NEG) MG/DL Urine Blood NEG (NEG) Urine Nitrite NEG (NEG) Ur Leukocyte Esterase NEG (NEG) Imaging Data CT scan - abdomen: Attestation: I personally reviewed and interpreted this imaging study as follows: Radiologist's impression: FINDINGS: LUNG BASES: Unremarkable.? ABDOMINAL AND PELVIC WALL:? Unremarkable.? LIVER AND BILIARY TREE: Unremarkable.? GALLBLADDER: Unremarkable.? PANCREAS: Unremarkable.? SPLEEN: Unremarkable.? ADRENAL GLANDS: Unremarkable.? KIDNEYS AND URETERS: Bilateral renal hypodensities too small to characterize.? GASTROINTESTINAL TRACT: Postsurgical changes of gastric bypass. Small hiatal hernia. Colonic diverticulosis without evidence of diverticulitis. Small bowel surgical anastomosis in the left abdomen. Normal appendix. VASCULAR: Unremarkable. LYMPH NODES/PERITONEUM: No lymphadenopathy. FREE FLUID: None. BLADDER: Unremarkable.? PELVIC VISCERA: Status post hysterectomy. A 2.4 cm simple appearing left adnexal cyst, no follow-up imaging recommended. OSSEOUS STRUCTURES: T11 vertebral body hemangioma. CT/CT abdomen pelvis w con IMPRESSION: ? No acute findings to explain symptoms of abdominal pain. ? Discharge Plan Discharge Clinical Impression: Abdominal pain Patient Disposition: Home, Self-Care Instructions: Abdominal Pain (ED) Additional Instructions: Your lab work, urinalysis and CT scan are all normal Follow-up with primary care doctor Prescriptions: No Action omeprazole 20 mg capsule,delayed release(DR/EC) 20 mg PO BID Qty: 60 6RF simethicone 180 mg capsule 180 mg PO QID Qty: 90 4RF dicyclomine 20 mg tablet 20 mg PO QID Qty: 120 6RF sucralfate [Carafate] 100 mg/mL suspension 10 ml PO BID Qty: 400 0RF divalproex 500 mg tablet extended release 24 hr 500 mg PO BID 0RF amoxicillin 500 mg capsule 1,000 mg PO Q12H 0RF loratadine 10 mg tablet 10 mg PO DAILY 0RF fluticasone propionate 50 mcg/actuation spray,suspension 2 spray intranasal QAM PRN0RF calcium carbonate 300 mg (750 mg) tablet,chewable 1 tab PO BID 0RF trazodone 50 mg tablet 50 mg PO BEDTIME 0RF cholecalciferol (vitamin D3) 50 mcg (2,000 unit) capsule 50 mcg PO DAILY 0RF lisinopril-hydrochlorothiazide 20-25 mg tablet 1 tab PO DAILY 0RF ibuprofen 800 mg tablet 800 mg PO TID 0RF Combivent Respimat 20-100 mcg/actuation mist 1 puff inhalation Q6H 0RF Referrals: Shital La MD [Primary Care Provider] - 5 days Print Language: Peruvian
[2022-02-10 12:29] LABS: MANUAL DIFF FLAG NO
[2022-02-10 12:32] LABS: Basophils Percent Auto 0.2 % (0-2); Eosinophils Absolute Auto 0.1 X10*3/uL (0.0-0.4); Eosinophils Percent Auto 0.8 % (0-4); Imm Gran Abs Auto 0.02 X10*3/uL (0.00-0.03); Imm Gran Pct Auto 0.3 % (0.0-0.4); Lymphocytes Absolute Auto 1.7 X10*3/uL (1.2-4.9); Lymphocytes Percent Auto 26.5 % (20-40); Mean Corpuscular HGB Conc 32.4 g/dl (31.0-35.0); Mean Corpuscular Hemoglobin 30.3 pg (27.0-33.0); Mean Corpuscular Volume 93.4 fL (80.0-98.0); Mean Platelet Volume 10.6 fL (9.4-12.3); Monocytes Absolute Auto 0.7 X10*3/uL (0.1-1.2); Monocytes Percent Auto 11.1 % (2-11); Neutrophils Absolute Auto 3.9 x10*3/uL (2.0-8.3); Neutrophils Percent Auto 61.1 % (45-73); Platelet Count 236 X10*3/uL (160-400); Red Blood Count 3.96 X10*6/uL (4.20-5.50); Red Cell Distribution Width 13.4 % (11.0-16.0); White Blood Count 6.3 X10*3/uL (4.8-10.8)
[2022-02-10 12:39] LABS: Appearance Urine CLEAR; Color Urine YELLOW; Glucose Urine UA NEG (NEG); Leukocyte Esterase Urine NEG (NEG); Nitrite Urine NEG (NEG); Specific Gravity - Urine >= 1.030 (1.005-1.025); Urine Blood NEG (NEG); Urine Ketones 5 MG/DL (NEG); Urine Protein NEG (NEG-TRACE)
[2022-02-10 12:55] LABS: Alanine Aminotransferase 14 U/L (0-31); Alkaline Phosphatase 74 U/L (39-117); Anion Gap 10 (12-20); Aspartate Amino Transferase 20 U/L (5-31); Bilirubin Direct 0.2 mg/dL (0.0-0.5); Bilirubin Total 0.5 mg/dL (0.0-1.0); Blood Urea Nitrogen 20 mg/dL (9-16); Calcium 9.1 mg/dL (8.4-10.2); Carbon Dioxide 28 mmol/L (22-29); Chloride 104 mmol/L (96-108); Creatinine Clr Calc Pharmacy 85.9; Estimated Glomerular Filt Rate > 60; Glucose Random 78 mg/dL (60-115); Lipase 44 U/L (8-78); Potassium 4.4 mmol/L (3.3-5.1); Sodium 138 mmol/L (135-145); Total Protein 6.7 g/dL (6.5-8.0)
[2022-02-10 15:11] VITALS: BP 138/75; PULSE 58; RESP 16; TEMP 37; O2SAT 99
[2022-02-10] MEDS: iohexoL 350 MG/ML 100 ML INFUS..BTL IV (16:07)
[2022-02-10 18:36] VITALS: BP 144/78; PULSE 62; RESP 16; TEMP 36.9; O2SAT 99
== END 2022-02-11 04:57 | disposition home or self-care (01) ==
PROVIDERS: Nurse Practitioner Family; Emergency Provider Emergency Medicine; PCP Internal Medicine
DX: R10.9 Unspecified abdominal pain (principal); I10 Essential (primary) hypertension; Z79.899 Other long term (current) drug therapy
CPT/HCPCS: 36415; 74177; 80048; 80076; 81003; 83690; 85025; 99284; Q9967

== ENCOUNTER 2022-05-12 07:20 | Day surgery (SDC) | payer OTHER, SELFPAY ==
--- NOTE | 2022-05-11 09:11 | HO.ANESPROP2 ---
Documented by User: Mendy Pinto NP 05/11/22 09:14 HPI - Anesthesia Eval Consult details Narrative: 67yo F for Upper Endoscopy PMFSH Active Problems Active Problems: All Active Problems (Updated 02/12/22 @ 00:02 by Esdras Silverman) H. pylori infection (Acute) Sacroiliitis (Acute) Sacroiliac inflammation (Acute) Depression (Acute) Uterine fibroid (Acute) History of frequent headaches (Acute) Asthma (Acute) Tubular adenoma of colon (Acute) Periumbilical abdominal pain (Acute) Thoracic radiculopathy (Acute) GERD (gastroesophageal reflux disease) (Acute) MONTEMAYOR (nonalcoholic steatohepatitis) (Acute) Abnormal EKG (Acute) Status post bariatric surgery (Acute) Morbid obesity due to excess calories (Acute) Essential hypertension (Acute) Precordial chest pain (Acute) Past Medical History Medical History Asthma Depression Essential hypertension Morbid obesity due to excess calories Sacroiliitis Family History Family History Father Heart attack Mother Thrombosis Surgical History Surgical History H/O breast surgery History of esophagogastroduodenoscopy (EGD) Hx of colonoscopy Status post bariatric surgery Social History Social History Alcohol intake: never Patient Tobacco Use Status: Never used Tobacco Use of substances other than those prescribed or required for medical reasons: No Are you DNR?: No Advance Directives: No Advance Directives Information Provided: Yes Meds Allergies Allergy/AdvReac Type Severity Reaction Status Date / Time morphine Allergy Unknown HIVES Verified 01/10/22 09:12 Home Medications Medication Instructions Recorded Confirmed Last Taken Type calcium carbonate 300 mg (750 mg) 1 tab PO BID 10/25/20 01/27/21 Unknown History chewable tablet cholecalciferol (vitamin D3) 50 50 mcg PO DAILY 10/25/20 01/27/21 Unknown History mcg (2,000 unit) capsule fluticasone propionate 50 2 spray intranasal QAM PRN 10/25/20 01/27/21 Unknown History mcg/actuation nasal spray,suspension ibuprofen 800 mg tablet 800 mg PO TID 10/25/20 01/27/21 Unknown History lisinopril 20 1 tab PO DAILY 10/25/20 01/27/21 Unknown History mg-hydrochlorothiazide 25 mg tablet loratadine 10 mg tablet 10 mg PO DAILY 10/25/20 01/27/21 Unknown History trazodone 50 mg tablet 50 mg PO BEDTIME 10/25/20 01/27/21 Unknown History divalproex 500 mg tablet,extended 500 mg PO BID 05/23/21 Unknown History release 24 hr ipratropium 20 mcg-albuterol 100 1 puff inhalation Q6H 07/04/21 Unknown History mcg/actuation mist for inhalation (Combivent Respimat) amoxicillin 500 mg capsule 1,000 mg PO Q12H 01/10/22 Unknown History Exam Exam Date and Time: May 11, 2022 0911 Pertinent Lab Results Pertinent Lab Results: Laboratory Tests 02/10/22 02/10/22 12:26 12:26 WBC 6.3 Hgb 12.0 Hct 37.0 Plt Count 236 Sodium 138 Potassium 4.4 Chloride 104 Carbon Dioxide 28 BUN 20 H Creatinine 0.70 Narrative Narrative: ECHO 01/2021 Conclusions: - 1. Normal LV systolic function with grade 1 diastolic? dysfunction? 2. Normal cardiac valvular Doppler ? 3. No gross pericardial effusion? Stress ECHO 12/2020 Findings : ? Images at rest are of good quality. LV systolic function is normal with normal wall motion. Post exercise images are of adequate quality. There is excellent overall augmentation of LV systolic function with no? regional wallmotion abnormalities. ? Conclusion : ? Stress echo negative for ischemia Assessment and Plan Assessment Anesthesia Assessment: Chart Reviewed Documented by User: Bridgett Morris MD 05/12/22 08:53 [facility] Past Medical History Medical History Asthma Depression Essential hypertension Morbid obesity due to excess calories Sacroiliitis Family History Family History Father Heart attack Mother Thrombosis Family history of problems with anesthesia: No Surgical History Surgical History H/O breast surgery History of esophagogastroduodenoscopy (EGD) Hx of colonoscopy Status post bariatric surgery History of Problems with Anesthesia: No Social History Social History Alcohol intake: never Patient Tobacco Use Status: Never used Tobacco Use of substances other than those prescribed or required for medical reasons: No Are you DNR?: No Advance Directives: No Advance Directives Information Provided: Yes Meds Allergies Allergy/AdvReac Type Severity Reaction Status Date / Time morphine Allergy Unknown HIVES Verified 01/10/22 09:12 Home Medications Medication Instructions Recorded Confirmed Last Taken Type calcium carbonate 300 mg (750 mg) 1 tab PO BID 10/25/20 01/27/21 Unknown History chewable tablet cholecalciferol (vitamin D3) 50 50 mcg PO DAILY 10/25/20 01/27/21 Unknown History mcg (2,000 unit) capsule fluticasone propionate 50 2 spray intranasal QAM PRN 10/25/20 01/27/21 Unknown History mcg/actuation nasal spray,suspension ibuprofen 800 mg tablet 800 mg PO TID 10/25/20 01/27/21 Unknown History lisinopril 20 1 tab PO DAILY 10/25/20 01/27/21 Unknown History mg-hydrochlorothiazide 25 mg tablet loratadine 10 mg tablet 10 mg PO DAILY 10/25/20 01/27/21 Unknown History trazodone 50 mg tablet 50 mg PO BEDTIME 10/25/20 01/27/21 Unknown History divalproex 500 mg tablet,extended 500 mg PO BID 05/23/21 Unknown History release 24 hr ipratropium 20 mcg-albuterol 100 1 puff inhalation Q6H 07/04/21 Unknown History mcg/actuation mist for inhalation (Combivent Respimat) amoxicillin 500 mg capsule 1,000 mg PO Q12H 01/10/22 Unknown History Exam Airway Mallampati Class: II TM Dist: >3cm Neck ROM: Full Heart: rrr Lungs: cta Assessment and Plan Assessment Anesthesia Assessment: Anesthesia Plan Discussed and Chart Reviewed Final Anesthetic Review Family History of Problems with Anesthesia: No History of Problems with Anesthesia: No NPO: Yes ASA Class: III Final Preanesthetic Review: No Changes in Pt Med Stat, Meds/Allgs Chart Reviewed and Consent Obtained/Reviewed Patient Risk: Intermediate Procedure Risk: Intermediate Anesthetic Plan Anesthetic Plan: MAC: Disposition: Standard PACU
[2022-05-12 07:45] VITALS: BMI 38.4
[2022-05-12 07:59] VITALS: BP 129/74; PULSE 56; RESP 18; O2SAT 99
--- NOTE | 2022-05-12 08:09 | P.HPSUR_ITS ---
Pre-Procedural Eval Section A Date of Service: 05/12/22 The patient is an INPATIENT: No The History & Physical has been completed within 30 days and I have reviewed it.: No Section B Chief Complaint: periumbilical pain Details of Present Illness: upper abdominal pain, status post Gastric bypass surgery Relevant Family History (Specify if Yes): No Relevant Social History: None Present Medications: see Short Stay Collaborative assessment Medical History: Significant History (Essential hypertension Morbid obesity due to excess calories Sacroiliitis) History of Previous Operations: Relevant previous surgery/procedure and date(s) (H/O breast surgery History of esophagogastroduodenoscopy (EGD) Hx of colono scopy Status post bariatric surgery) Allergies: Allergies Allergy/AdvReac Type Severity Reaction Status Date / Time morphine Allergy Unknown HIVES Verified 01/10/22 09:12 Review of Systems Sugical H&P ROS: Negative: Constitution, Cardiovascular and Respiratory and Yes, Specify: Gastrointestinal (abdominal pain) Exam Surgical H&P Exam: Normal: Heart, Normal: Lungs, Normal: Extremities and Normal: Abdomen Plan Diagnosis/Plan: Change (Proceed with EGD for evaluation of abdominal pain) I have reviewed the history and physical and performed a pertinent physical examination on my patient. No changes have occurred unless specified.
--- NOTE | 2022-05-12 08:10 | P.BOP_ITS ---
Brief Operative Note Date of Service: 05/12/22 Pre-op diagnosis: Upper abdominal pain, status post gastric bypass surgery Post-op diagnosis: other (Ramirez's, gastritis, Gastric Bypass surgery status) Procedure: FLEXIBLE TRANSORAL UPPER GASTROINTESTINAL ENDOSCOPY WITH BIOPSIES Consent: Indications for the procedure and potential complications of bleeding, perforation, reaction to medications and missed diagnosis were discussed with the patient with the help of a Syriac russian language professor and informed consent was obtained. Instrument: Olympus GIF H 190 mid size upper endoscope Monitoring: Vital signs and clinical assessment, continuous EKG monitoring, Pulse oximetry, Carbon Dioxide monitoring and blood pressure monitoring were done throughout the procedure. Procedure: The patient was placed in the left lateral decubitis position and pre-procedure medications were administered and a bite block was placed. The endoscope was inserted into the mouth and advanced under direct vision to the third part of duodenum. A careful inspection was made as the upper endoscope was withdrawn including a retroflexed examination of the proximal stomach; Findings and interventions are described below. Findings: Larynx: Normal Esophagus: GE junction at 32 cms. 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 Stomach: Status Post Deloris en Y gastric bypass surgey with 4 cms gastric pouch from 32 to 36 cms. Mild gastric erythema - biopsies obtained to check for H Pylori Normal anastomosis. Duodenum/Jejunum: Normal efferent limb - biopsies obtained to check for celiac sprue. 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 STOMACH - Status post Deloris en Y gastric bypass with 4 cms gastric pouch and normal appearing mucosa Mild gastric erythema - biopsies obtained to check for H Pylori DUODENUM/JEJUNUM - Normal efferent limb - biopsies obtained to check for celiac sprue. Plan: Await pathology results Patient has an appointment on 05/25/22 in the GI Clinic with Faiza Walker NP. Repeat EGD in 4 years for FU of Ramirez's (Pt is also due for her next colonoscopy in 04/2023 for Fu of colon polyps). Above findings were reviewed with the patient and GERD handout was given in the discharge area Surgeon: Halima Ram MD Anesthesia: MAC (Dr Diamond) Was an Corporate Relations Director used for this Procedure?: Yes Corporate Relations Director: Nicolasa Montiel Estimated blood loss (mL): 0 Pathology: other (A. small bowel bxs, R/O celiac B. gastric body bxs, R/O H. pylori C. distal esophagus bxs, F/U Ramirez's esophagus) Condition: stable Disposition: PACU
[2022-05-12] MEDS: Lactated Ringers 1,000 ML 100 ML IVCONT (08:34)
[2022-05-12 09:17] VITALS: BP 94/47; PULSE 62; RESP 16; TEMP 36.5; O2SAT 98
[2022-05-12 09:32] VITALS: BP 115/69; PULSE 63; RESP 16; TEMP 36.3; O2SAT 100
--- NOTE | 2022-05-12 09:32 | W.PM.OPN ---
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 Instrument:?Olympus GIF H 190 mid size upper endoscope Monitoring: Vital signs and clinical assessment, continuous EKG monitoring, Pulse oximetry, Carbon Dioxide monitoring and blood pressure monitoring were done throughout the procedure. Procedure:?The patient was placed in the left lateral decubitis position and pre-procedure medications were administered and a bite block was placed. The endoscope was inserted into the mouth and advanced under direct vision to the third part of duodenum. A careful inspection was made as the upper endoscope was withdrawn including a retroflexed examination of the proximal stomach; Findings and interventions are described below. Findings: Larynx:? Normal Esophagus:? GE junction at 32 cms.? 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 ? Stomach:? Status Post Deloris en Y gastric bypass surgey with 4 cms gastric pouch from 32 to 36 cms.? Mild gastric erythema - biopsies obtained to check for H Pylori Normal anastomosis. Duodenum/Jejunum:? Normal efferent limb - biopsies obtained to check for celiac sprue. Intervention:? Biopsies as above Complications/Limitations:? None Estimated Blood Loss:? 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 ? STOMACH - Status post Deloris en Y gastric bypass with 4 cms gastric pouch and normal appearing mucosa Mild gastric erythema - biopsies obtained to check for H Pylori DUODENUM/JEJUNUM - Normal efferent limb - biopsies obtained to check for celiac sprue. Plan: Await pathology results Patient has an appointment on 05/25/22 in the GI Clinic with? Faiza Walker NP. Repeat EGD in 4 years for FU of Ramirez's (Pt is also due for her next colonoscopy in 04/2023 for Fu of colon polyps). Above findings were reviewed with the patient and GERD handout was given in the discharge area Surgeon: Halima Ram MD Anesthesia:?MAC (Dr Diamond) Was an Compensation And Benefits Advisor used for this Procedure?:?Yes Compensation And Benefits Advisor:?Nicolasa Montiel Estimated blood loss (mL):?0 Pathology:?other (A. small bowel bxs, R/O celiac? B. gastric body bxs, R/O H. pylori? C. distal esophagus bxs, F/U Ramirez's esophagus) Condition:?stable Disposition:?PACU
[2022-05-12 09:47] VITALS: BP 137/62; PULSE 58; RESP 18; TEMP 36.3; O2SAT 100
== END 2022-05-12 09:59 | disposition home or self-care (01) ==
PROVIDERS: PCP Internal Medicine; Visit Provider Internal Medicine Gastroenterology
PROC: 0DJ08ZZ Inspection of Upper Intestinal Tract, Via Natural or Artificial Opening Endoscopic (ICD-10-PCS; CPT 43235; principal; 2022-05-12 09:20)
DX: R10.10 Upper abdominal pain, unspecified (principal); K22.70 Barrett's esophagus without dysplasia; K29.50 Unspecified chronic gastritis without bleeding; K75.81 Nonalcoholic steatohepatitis (NASH); K21.9 Gastro-esophageal reflux disease without esophagitis; I10 Essential (primary) hypertension; E66.01 Morbid (severe) obesity due to excess calories; Z68.38 Body mass index [BMI] 38.0-38.9, adult; Z98.84 Bariatric surgery status; Z79.899 Other long term (current) drug therapy; Z88.8 Allergy status to other drugs, medicaments and biological substances
CPT/HCPCS: 43239; 88305; 88342

== ENCOUNTER 2022-05-22 10:50 | Outpatient (REF) | payer OTHER, SELFPAY ==
--- NOTE | ~2022-05-22 | XR_ITS ---
EXAMINATION: XR LUMBOSACRAL SPINE CLINICAL INFORMATION: Low back pain. COMPARISON: 05/30/2021. TECHNIQUE: 3 views of the lumbosacral spine. FINDINGS: There are 5 [id number] lumbar vertebra. No acute fracture, spondylolisthesis, or spondylolysis is appreciated. Joint spaces are maintained. There is some degenerative spurring seen about the lower lumbar spine and T12-L1 disc space level. There is bilateral facet arthropathy seen right greater than left at L5-S1. There is some sclerosis of the sacroiliac joints bilaterally without definite widening or fusion of the sacroiliac joints. The hip joint spaces are maintained. Calcific densities about the left greater trochanter are seen, consistent with calcific tendinitis . XR/XR lumbar spine 2-3V IMPRESSION: No evidence of acute fracture, spondylolisthesis, or spondylolysis. Degenerative changes as described above.
== END 2022-05-22 10:51 | disposition home or self-care (01) ==
LOC: HO.XRAY 10:50
PROVIDERS: PCP Internal Medicine; Visit Provider Internal Medicine
DX: M54.50 Low back pain, unspecified (principal)
CPT/HCPCS: 72100

== ENCOUNTER → 2022-05-25 11:24 | Outpatient (BNVA) | payer OTHER, SELFPAY | PROVIDERS: PCP Internal Medicine; Visit Provider Nurse Practitioner | DX: R10.33 Periumbilical pain (principal); K22.70 Barrett's esophagus without dysplasia; K21.9 Gastro-esophageal reflux disease without esophagitis; K75.81 Nonalcoholic steatohepatitis (NASH); Z79.899 Other long term (current) drug therapy; Z98.84 Bariatric surgery status; Z98.890 Other specified postprocedural states | CPT/HCPCS: 99212 ==

== ENCOUNTER 2022-07-19 09:07 | Outpatient (REF) | payer OTHER, SELFPAY ==
--- NOTE | ~2022-07-19 | MM_ITS ---
EXAMINATION: MM SCREENING DIGITAL BREAST TOMOSYNTHESIS, BILATERAL CLINICAL INFORMATION: Screening. Asymptomatic. The lifetime risk of breast cancer based on the Tyrer-Cuzick Model is 4%. COMPARISON: Mammography: 07/16/2021, 06/26/2020, 02/19/2019 TECHNIQUE: Digital breast tomosynthesis is performed in both the craniocaudal and mediolateral oblique views along with computer-aided detection (CAD). Synthesized 2D images are generated from the tomosynthesis. FINDINGS: There are scattered areas of fibroglandular density (ACR BI-RADS breast composition Category b). There are no significant masses, abnormal calcifications, or other abnormalities. Parenchymal pattern is similar to prior studies. There is no developing density or architectural abnormality. Incidental intramammary node again noted mid upper outer left breast. The axilla and skin contours are unremarkable. No significant changes. MM/MM tomosynthesis screening BI IMPRESSION: No mammographic evidence of malignancy. ASSESSMENT: BI-RADS 2: Benign RECOMMENDATION: Routine annual mammography screening. This patient's information was entered into a reminder system with a target due date for their next mammogram.
== END 2022-07-19 09:08 | disposition home or self-care (01) ==
LOC: HO.MAMMO 09:07
PROVIDERS: PCP Internal Medicine; Visit Provider Internal Medicine
DX: Z12.31 Encounter for screening mammogram for malignant neoplasm of breast (principal)
CPT/HCPCS: 77063; 77067

== ENCOUNTER 2022-08-25 09:57 | Emergency (ER) | payer OTHER, SELFPAY ==
[2022-08-25 10:05] VITALS: BP 141/68; PULSE 73; RESP 12; TEMP 36.7; O2SAT 99; BMI 37.3
--- NOTE | 2022-08-25 10:31 | ED_ITS ---
HPI - General Adult General Chief complaint: General Medical Stated complaint: covid exposure Time Seen by Provider: 08/25/22 10:17 Source: patient Mode of arrival: ambulatory History of Present Illness HPI narrative: 67-year-old female with past medical history of asthma, depression, hypertension, sacroiliitis, presenting to the ED requesting COVID-19 testing as had close contact that tested positive. Denies any symptoms at present. Denies fever, chills, cough, chest pain/shortness of breath Onset (ago): unknown Related Data Home Medications Medication Instructions Recorded Confirmed calcium carbonate 300 mg (750 mg) 1 tab PO BID 10/25/20 01/27/21 chewable tablet cholecalciferol (vitamin D3) 50 50 mcg PO DAILY 10/25/20 01/27/21 mcg (2,000 unit) capsule fluticasone propionate 50 2 spray intranasal QAM PRN 10/25/20 01/27/21 mcg/actuation nasal spray,suspension ibuprofen 800 mg tablet 800 mg PO TID 10/25/20 01/27/21 lisinopril 20 1 tab PO DAILY 10/25/20 01/27/21 mg-hydrochlorothiazide 25 mg tablet loratadine 10 mg tablet 10 mg PO DAILY 10/25/20 01/27/21 trazodone 50 mg tablet 50 mg PO BEDTIME 10/25/20 01/27/21 divalproex 500 mg tablet,extended 500 mg PO BID 05/23/21 release 24 hr ipratropium 20 mcg-albuterol 100 1 puff inhalation Q6H 07/04/21 mcg/actuation mist for inhalation (Combivent Respimat) amoxicillin 500 mg capsule 1,000 mg PO Q12H 01/10/22 acetaminophen 500 mg tablet 500 mg PO Q8H PRN 05/25/22 cyclobenzaprine 5 mg tablet 5 mg PO BEDTIME 05/25/22 ferrous sulfate 325 mg (65 mg 325 mg PO DAILY 05/25/22 iron) tablet (FeroSul) Previous Rx's Medication Instructions Recorded dicyclomine 20 mg tablet 20 mg PO QID #120 tabs 01/25/22 omeprazole 20 mg capsule,delayed 20 mg PO BID #60 caps 05/25/22 release simethicone 180 mg capsule (Gas 180 mg PO QID #90 ea 05/25/22 Relief (simethicone)) sucralfate 100 mg/mL oral 10 ml PO BID #400 mL 05/25/22 suspension (Carafate) Allergies Allergy/AdvReac Type Severity Reaction Status Date / Time morphine Allergy Unknown HIVES Verified 05/25/22 11:49 Review of Systems Review of Systems: Constitutional: No Fever, No Chills ENT/Mouth: No Ear Pain, No Nasal Congestion, No Sinus Pain, No Hoarseness, No sore throat, No Rhinorrhea Cardiovascular: No Chest Pain, No SOB Respiratory: No Cough, No Sputum, No Wheezing Gastrointestinal: No Nausea, No Vomiting, No Diarrhea, No Constipation, No Abdominal pain Genitourinary: No Dysuria, No Urinary Frequency, No Hematuria Musculoskeletal: No joint pain, No Myalgias, No Joint Swelling Skin: No Skin Lesions, No rash Neuro: No Weakness, No Numbness Yes all other systems are reviewed and are negative Constitutional: Constitutional: Reports as per [facility] Past Medical History Attestation statement: The following information was validated with the patient. Medical History Asthma Depression Essential hypertension Morbid obesity due to excess calories Sacroiliitis Surgical History H/O breast surgery History of esophagogastroduodenoscopy (EGD) Hx of colonoscopy Status post bariatric surgery Family History Family History Father Heart attack Mother Thrombosis Social History Social History Alcohol intake: never Patient Tobacco Use Status: Never used Tobacco Advance Directives: No Advance Directives Information Provided: Yes Physical Exam ED Vital Signs: Vital Signs - 24 hr 08/25/22 10:05 Temperature 98.0 F Pulse Rate 73 Respiratory Rate 12 Blood Pressure 141/68 H Pulse Oximetry 99 Oxygen Delivery Method Room Air BMI result Body Mass Index 37.3 Const General: cooperative, healthy appearing and no acute distress Orientation/consciousness: patient oriented x3 Limitations: no limitations HENMT Head: Yes normal to inspection and Yes atraumatic Ears: hearing grossly normal bilaterally General nose exam: Normal external nose present Face and sinus: Yes normal facial exam Eyes General: appearance normal, both eyes and all related structures EOM: EOMs intact bilaterally Neck Neck: Yes normal visual inspection and Yes no meningeal signs Resp Effort & Inspection: normal respiratory effort and no respiratory distress Auscultation: clear to auscultation bilaterally, no crackles, no rales and no rhonchi Cardio Rate: regular rate Heart sounds: S1 normal heart sound present and S2 normal heart sound present Skin Rashes: no rashes Wounds: no wounds Neuro General: patient oriented x3, tone normal and no meningeal signs Gait exam (Neuro): Normal gait present Extrem General: Yes normal to inspection Course Course Course Narrative: -COVID-19 negative Medical Decision Making MDM Narrative Medical decision making narrative: 67-year-old female with past medical history of asthma, depression, hypertension, sacroiliitis, presenting to the ED requesting COVID-19 testing as had close contact that tested positive. On exam VSS, NAD, asymptomatic, lungs CTA. Concern for viral syndrome Plan: COVID-19 testing Medical Records Medical records reviewed: Yes I reviewed the patient's medical records. Lab Data Lab results reviewed: Yes I reviewed the patient's lab results. Labs: Lab Results 08/25/22 Range/Units 10:07 COVID-19 (FRANCOIS) Negative (Negative) COVID-19 Clin Com See Note Discharge Plan Discharge Clinical Impression: Close exposure to COVID-19 virus Patient Disposition: Home, Self-Care Instructions: COVID-19 (Coronavirus Disease 2019) (ED) Additional Instructions: Your COVID test is pending at this time, you will be contacted with positive results only At this time you will be okay for discharge. Please self isolate for 5-10 days. Do not expose yourself to others. You may not go to work or school. Please continue to follow cold instructions and wash your hands frequently. You may take Tylenol / Motrin as directed on the bottle for pain or fever. If you have constant or persistent shortness of breath, fever unresolved with medications, chest pain, or your unable to eat or drink please return to the ED CDC Guidelines for home isolation: - Stay away from others - WEAR A MASK if you are sick AND STAY HOME - Cover your mouth and nose with a tissue when you cough or sneeze. Dispose of tissues in a lined trash can and wash your hands immediately with soap and water for at least 20 seconds. If soap and water are not available, clean hands with alcohol-based hand renal dialysis rn that contains at least 60% alcohol. - Clean your hands often with soap and water for at least 20 seconds - Avoid touching your eyes, nose and mouth with unwashed hands - Do not share dishes, drinking glasses, cups, eating utensils, towels, or bedding with other people in your home. After using these items, wash them thoroughly with soap and water or put in the manager rfid. - Clean high-touch surfaces in your isolation area ( sick room and bathroom) every day; let a caregiver clean and disinfect high-touch surfaces in other areas of the home. Clean the area or item with soap and water or another detergent if it is dirty. Then, use a household disinfectant. - Limit contact with pets and animals: If you must care for a pet, wash your hands before and after interacting with them) Newsome prueba de COVID est? pendiente en cuca momento, solo se le contactar? con resultados positivos En cuca momento estar? homero para el kyler. A?slese por 5-10 d?as. No te expongas a los dem?s. Es posible que no vaya al trabajo ni a la escuela. Contin?e siguiendo las instrucciones en fr?o y l?vese las jacob con frecuencia. Puede tracy Tylenol/Motrin kobe se indica en el frasco para el dolor o la fiebre. Si tiene dificultad para respirar bianka o persistente, fiebre que no se resuelve con medicamentos, dolor en el pecho o no puede comer o beber, regrese al servicio de urgencias. Pautas de los CDC para el aislamiento en el hogar: - Mant?ngase alejado de los dem?s. - USE MELINDA MASCARILLA si est? enfermo Y QU?DESE EN CASA - C?brase la boca y la nariz con un pa?uelo desechable al toser o estornudar. Deseche los pa?uelos en un bote de basura forrado y l?vese las jacob inmediatamente con agua y jab?n roz al menos 20 segundos. Si no hay agua y jab?n disponibles, l?vese las jacob con un desinfectante para jacob a base de alcohol que contenga al menos un 60 % de alcohol. - L?vese las jacob con frecuencia con agua y jab?n roz al menos 20 segundos. - Evite tocarse los ojos, la nariz y la boca con las jacob sin ralph - No comparta platos, vasos, tazas, utensilios para comer, toallas o ropa de cama con otras personas en newsome hogar. Despu?s de usar estos art?culos, l?velos homero con agua y jab?n o col?quelos en el lavavajillas. - Limpie las superficies de alto contacto en newsome ?anne de aislamiento ( cuarto de enfermos y ba?o) todos los d?as; permita que un cuidador limpie y desinfecte las superficies de alto contacto en otras ?reas del hogar. Limpie el ?anne o art?culo con agua y jab?n u otro detergente si est? sucio. Luego, use un desinfectante dom?stico. - Limite el contacto con mascotas y animales: si debe cuidar melinda mascota, l?vese las jacob antes y despu?s de interactuar con ellos) Prescriptions: No Action dicyclomine 20 mg tablet 20 mg PO QID Qty: 120 6RF divalproex 500 mg tablet extended release 24 hr 500 mg PO BID amoxicillin 500 mg capsule 1,000 mg PO Q12H loratadine 10 mg tablet 10 mg PO DAILY fluticasone propionate 50 mcg/actuation spray,suspension 2 spray intranasal QAM PRN calcium carbonate 300 mg (750 mg) tablet,chewable 1 tab PO BID trazodone 50 mg tablet 50 mg PO BEDTIME cholecalciferol (vitamin D3) 50 mcg (2,000 unit) capsule 50 mcg PO DAILY lisinopril-hydrochlorothiazide 20-25 mg tablet 1 tab PO DAILY ibuprofen 800 mg tablet 800 mg PO TID Combivent Respimat 20-100 mcg/actuation mist 1 puff inhalation Q6H acetaminophen 500 mg tablet 500 mg PO Q8H PRN ferrous sulfate [FeroSul] 325 mg (65 mg iron) tablet 325 mg PO DAILY cyclobenzaprine 5 mg tablet 5 mg PO BEDTIME omeprazole 20 mg capsule,delayed release(DR/EC) 20 mg PO BID Qty: 60 6RF sucralfate [Carafate] 100 mg/mL suspension 10 ml PO BID Qty: 400 0RF simethicone [Gas Relief (simethicone)] 180 mg capsule 180 mg PO QID Qty: 90 4RF Referrals: Shital La MD [Primary Care Provider] - 1 week Interventions: ED Discharge Assessment Last Done: 08/25/22 11:08 Discharge Date/Time: 08/25/22 11:09 Print Language: Hebrew
[2022-08-25 10:41] LABS: COVID-19 Test Negative (Negative)
--- OUTSIDE RECORDS SUMMARY | 2022-08-25 10:45 | XMS_ITS | Continuity of Care Document ---
:1955 Author Organization [facility] Address [address] [facility], 3rd Floor, [address] [place] [id number]- Care Team Providers Name Role Phone Ismael HOUSTON, Minoo Sanders Primary Care Physician Encounter [facility] [place] Date(s): 05/05/20 - 06/04/20 [facility] [address] [facility], [address]rd Floor, [address] [place] [id number]- [facility] Allergies, Adverse Reactions, Alerts Substance Reaction Severity Status morphine itchy skin, jaw discomfort Activ e Medications Citracal + D 315 mg-250 intl units oral tablet 2 tablet, By Mouth, 2 times a day, 0 Refills, Maintenance Start Date: 09/14/10 Status: OrderedCombivent 103 mcg-18 mcg/inh inhalation aerosol with adapter 2 puffs, Inhalation, 4 times a day, 0 Refills, Maintenance Start Date: 09/14/10 Status: OrderedDepakote 250 mg oral enteric coated tablet 1 tablet = 250 mg, By Mouth, Daily at supper, with food stop Magnesium + Riboflavin, # 30 tablet, 3 Refills, Maintenance, 05/05/20 12:31:00 EDT, [facility], stop Magnesium + Riboflavin, 158, cm, 01/09/20 10:53:00 EST, [place] Start Date: 05/05/20 Stop Date: 09/02/20 Status: OrderedFlovent HFA Inhalation, 2 times a day, 0 Refills, Maintenance Start Date: 09/14/10 Status: Orderedfluticasone 50 mcg/inh nasal spray 1 sprays, Nares, Both, 2 times a day, # 16 Gm, 0 Refills, Maintenance, 12/20/18 14:36:06 EST, [place] Start Date: 12/20/18 Status: Orderedibuprofen 800 mg oral tablet 800 mg, 1, tablet, By Mouth, 3 times a day, Refills 0, Maintenance, 12/20/18 14:36:34 EST Start Date: 12/20/18 Status: OrderedLisinopril By Mouth, Daily, 0 Refills, Maintenance, 12/20/18 14:35:01 EST Start Date: 12/20/18 Status: OrderedMotrin IB By Mouth, 0, 0, 04/20/06 12:25:41, Print ABBIE Number, Constant Indicator Start Date: 04/20/06 Status: Orderednortriptyline 25 mg oral capsule 25 mg, 1, capsule, By Mouth, 3 times a day, Refills 0, Maintenance, 12/20/18 14:35:26 EST Start Date: 12/20/18 Status: Orderedomeprazole 20 mg oral delayed release tablet 1 tablet = 20 mg, By Mouth, Daily, 0 Refills, Maintenance, 12/20/18 14:34:31 EST Start Date: 12/20/18 Status: OrderedtraZODone 50 mg oral tablet 50 mg, 1, tablet, By Mouth, 3 times a day, Refills 0, Maintenance, 12/20/18 14:37:09 EST Start Date: 12/20/18 Status: OrderedTylenol Caplet Extra Strength = 1,000 mg, By Mouth, Every 6 hours, 0 Refills, Maintenance Start Date: 09/14/10 Status: Ordered
--- OUTSIDE RECORDS SUMMARY | 2022-08-25 10:45 | XMS_ITS | Continuity of Care Document ---
:1955 Author Organization [facility] Address [address] [facility], 3rd Floor, [address] [place] [id number]- Care Team Providers Name Role Phone Ismael HOUSTON, Minoo Sanders [id number] - [facility]/21 [facility] [address] [facility], [address]rd [facility], [address] [place] [id number] Attending Physician: Gaston Henry MD Admitting Physician: Gaston Henry MD Allergies, Adverse Reactions, Alerts Substance Reaction Severity Status morphine itchy skin, jaw discomfort Activ e Medications Citracal + D 315 mg-250 intl units oral tablet 2 tablet, By Mouth, 2 times a day, 0 Refills, Maintenance Start Date: 09/14/10 Status: OrderedCombivent 103 mcg-18 mcg/inh inhalation aerosol with adapter 2 puffs, Inhalation, 4 times a day, 0 Refills, Maintenance Start Date: 09/14/10 Status: OrderedDepakote ER 500 mg oral tablet, extended release 1 tablet = 500 mg, By Mouth, 2 times a day, do not crush or chew dose increase , pls d/c prior script, # 60 tablet, 5 Refills, Maintenance, 01/21/21 10:54:00 EDT, ER Tablet, [facility], Partial fill upon patient request if the pr... Start Date: 01/21/21 Stop Date: 07/20/21 Status: OrderedFlovent HFA Inhalation, 2 times a day, 0 Refills, Maintenance Start Date: 09/14/10 Status: Orderedfluticasone 50 mcg/inh nasal spray 1 sprays, Nares, Both, 2 times a day, # 16 Gm, 0 Refills, Maintenance, 12/20/18 14:36:06 EST, [place] Start Date: 12/20/18 Status: Orderedibuprofen 800 mg [...]
--- OUTSIDE RECORDS SUMMARY | 2022-08-25 10:45 | XMS_ITS | Continuity of Care Document ---
:1955 Author Organization [facility] Address Unavailable , Care Team Providers Name Role Phone Ismael HOUSTON, Minoo Sanders [id number]/07/21 - 12/07/21 [facility] Attending Physician: Pina Harden Admitting Physician: AdmtrPina Referring Physician: AdmtrPina Allergies, Adverse Reactions, Alerts Substance Reaction Severity Status morphine itchy skin, jaw discomfort Activ e Medications Citracal + D 315 mg-250 intl units oral tablet 2 tablet, By Mouth, 2 times a day, 0 Refills, Maintenance Start Date: 09/14/10 Status: OrderedCombivent 103 mcg-18 mcg/inh inhalation aerosol with adapter 2 puffs, Inhalation, 4 times a day, 0 Refills, Maintenance Start Date: 09/14/10 Status: Ordereddivalproex sodium 500 mg oral tablet, extended release 1 tablet, By Mouth, 2 times a day, DO NOT BREAK, CRUSH, DISSOLVE OR CHEW, # 60 tablet, 5 Refills, [facility], 158, cm, 01/09/20 10:53:00 EST, [place] Start Date: 07/04/21 Status: OrderedFlovent HFA Inhalation, 2 times a day, 0 Refills, Maintenance Start Date: 09/14/10 Status: Orderedfluticasone 50 mcg/inh nasal spray 1 sprays, Nares, Both, 2 times a day, # 16 Gm, 0 Refills, Maintenance, 12/20/18 14:36:06 EST, [place] Start Date: 12/20/18 Status: Orderedibuprofen 800 mg [...]
--- OUTSIDE RECORDS SUMMARY | 2022-08-25 10:45 | XMS_ITS | Continuity of Care Document ---
:1955 Author Organization [facility] Address Unavailable , Care Team Providers Name Role Phone Ismael HOUSTON, Minoo Sanders [id number](s[facility] 05/24/21 - 09/21/21 [facility] Attending Physician: Veronique Laird MD Admitting Physician: Veronique Laird MD Allergies, Adverse Reactions, Alerts Substance Reaction [...] OR CHEW, # 60 tablet, 5 Refills, [facility], 158, cm, 01/09/20 10:53:00 EST, [place] Start Date: 07/04/21 Status: OrderedFlovent HFA Inhalation, 2 times a day, 0 Refills, Maintenance Start Date: 09/14/10 Status: Orderedfluticasone 50 mcg/inh nasal spray 1 sprays, Nares, Both, 2 times a day, # 16 Gm, 0 Refills, Maintenance, 12/20/18 14:36:06 EST, [place] Start Date: 12/20/18 Status: Orderedibuprofen 800 mg [...]
--- OUTSIDE RECORDS SUMMARY | 2022-08-25 10:45 | XMS_ITS | Continuity of Care Document ---
:1955 Author Organization [facility] Address [address] [facility], 3rd Floor, [address] [place] [id number]- Care Team Providers Name Role Phone Ismael HOUSTON, Minoo Sanders Primary Care Physician Encounter [facility] [place] Date(s): 01/21/21 - 02/20/21 [facility] [address] [facility], [address]rd Floor, [address] [place] [id number] Attending Physician: Pina Harden Admitting Physician: Pina Harden Referring Physician: AdmtrPina Allergies, Adverse Reactions, Alerts [...] Refills, Maintenance, 01/21/21 10:54:00 EDT, ER Tablet, [facility], Partial fill upon patient request if the pr... Start Date: 01/21/21 Stop Date: 07/20/21 Status: OrderedFlovent HFA Inhalation, 2 times a day, 0 Refills, Maintenance Start Date: 09/14/10 Status: Orderedfluticasone 50 mcg/inh nasal spray 1 sprays, Nares, Both, 2 times a day, # 16 Gm, 0 Refills, Maintenance, 12/20/18 14:36:06 EST, [place] Start Date: 12/20/18 Status: Orderedibuprofen 800 mg [...]
--- OUTSIDE RECORDS SUMMARY | 2022-08-25 10:45 | XMS_ITS | Continuity of Care Document ---
:1955 Author Organization [facility] Address [address] [facility], 3rd Floor, [address] [place] [id number]- Care Team Providers Name Role Phone Ismael HOUSTON, Minoo Sanders Primary Care Physician Encounter [facility] Date(s): 10/23/20 - 02/20/21 [facility] [address], 3[address] Floor, [address] [place] [id number] Attending Physician: Veronique Laird MD Admitting Physician: [...] Refills, Maintenance, 01/21/21 10:54:00 EDT, ER Tablet, [facility], Partial fill upon patient request if the pr... Start Date: 01/21/21 Stop Date: 07/20/21 Status: OrderedFlovent HFA Inhalation, 2 times a day, 0 Refills, Maintenance Start Date: 09/14/10 Status: Orderedfluticasone 50 mcg/inh nasal spray 1 sprays, Nares, Both, 2 times a day, # 16 Gm, 0 Refills, Maintenance, 12/20/18 14:36:06 EST, [place] Start Date: 12/20/18 Status: Orderedibuprofen 800 mg [...]
--- OUTSIDE RECORDS SUMMARY | 2022-08-25 10:45 | XMS_ITS | Continuity of Care Document ---
:1955 Author Organization [facility] Address [address] [facility], 3rd Floor, [address] [place] [id number]- Care Team Providers Name Role Phone Ismael HOUSTON, Minoo Sanders Primary Care Physician Encounter [facility] [id number] Date(s): 02/11/20 - 06/10/20 [facility] [address] [facility], 3rd Floor, [address] [place] [id number]- [facility] Attending Physician: Veronique Laird MD Admitting Physician: [...] tablet, 3 Refills, Maintenance, 05/05/20 12:31:00 EDT, [facility], stop Magnesium + Riboflavin, 158, cm, 01/09/20 10:53:00 EST, [place] Start Date: 05/05/20 Stop Date: 09/02/20 Status: OrderedFlovent HFA Inhalation, 2 times a day, 0 Refills, Maintenance Start Date: 09/14/10 Status: Orderedfluticasone 50 mcg/inh nasal spray 1 sprays, Nares, Both, 2 times a day, # 16 Gm, 0 Refills, Maintenance, 12/20/18 14:36:06 EST, [place] Start Date: 12/20/18 Status: Orderedibuprofen 800 mg [...]
--- OUTSIDE RECORDS SUMMARY | 2022-08-25 10:45 | XMS_ITS | Continuity of Care Document ---
:1955 Author Organization [facility] Address [address] [facility], 3rd Floor, [address] [place] [id number]- Care Team Providers Name Role Phone Ismael HOUSTON, Minoo Sanders Primary Care Physician Encounter [facility] Date(s): 09/23/20 - 10/23/20 [facility] [address], 3[address] Floor, [address] [place] [id number] Allergies, Adverse Reactions, Alerts Substance Reaction Severity [...] OrderedDepakote 250 mg oral enteric coated tablet 2 tablet = 500 mg, By Mouth, Daily at supper, with food Dose increase, # 60 tablet, 5 Refills, Maintenance, 09/23/20 11:12:00 EST, [facility], stop Magnesium + Riboflavin, 158, cm, 01/09/20 10:53:00 EST, [place] Start Date: 09/23/20 Stop Date: 03/22/21 Status: OrderedFlovent HFA Inhalation, 2 times a day, 0 Refills, Maintenance Start Date: 09/14/10 Status: Orderedfluticasone 50 mcg/inh nasal spray 1 sprays, Nares, Both, 2 times a day, # 16 Gm, 0 Refills, Maintenance, 12/20/18 14:36:06 EST, [place] Start Date: 12/20/18 Status: Orderedibuprofen 800 mg [...]
== END 2022-08-25 11:09 | disposition home or self-care (01) ==
PROVIDERS: Emergency Provider Emergency Medicine; PCP Internal Medicine
DX: Z20.822 Contact with and (suspected) exposure to COVID-19 (principal); I10 Essential (primary) hypertension; J45.909 Unspecified asthma, uncomplicated
CPT/HCPCS: 87635; 99282; 99283

== ENCOUNTER 2022-08-29 19:16 | Emergency (ER) | payer OTHER, SELFPAY ==
--- NOTE | ~2022-08-29 | CT_ITS ---
EXAMINATION: CT ABDOMEN AND PELVIS WITH CONTRAST CLINICAL INFORMATION: Right upper quadrant pain COMPARISON: 02/10/2022 TECHNIQUE: Multidetector volumetric images were obtained from the superior aspect of the liver through the pubic symphysis following administration 85 mL of Omnipaque 350 intravenous contrast. Sagittal and coronal reformatted images were obtained on the technologist's workstation. Oral contrast: No This CT examination was performed using dose optimization techniques as appropriate, variously including the following: *Automated exposure control *Adjustment of mA and/or kV according to patient size (this includes techniques or standardized protocols for targeted exams where dose is matched to indication/reason for exam; i.e. extremities or head) *Use of iterative reconstruction technique DLP: 847 mGy-cm FINDINGS: LUNG BASES: The visualized lung bases are unremarkable. LIVER, GALLBLADDER, AND BILIARY TREE: The liver is normal in size, shape, and attenuation. No focal hepatic lesion or biliary ductal dilatation is present. The gallbladder is unremarkable with no evidence of radiopaque gallstones, gallbladder wall thickening, or obvious pericholecystic inflammatory changes. PANCREAS: Unremarkable. SPLEEN: Unremarkable. ADRENAL GLANDS: Unremarkable. KIDNEYS AND URETERS: The kidneys are normal in size, shape, and attenuation. No hydronephrosis, hydroureter, or calculi seen. No perinephric stranding. BLADDER: Unremarkable. GASTROINTESTINAL TRACT: The stomach is unremarkable. Normal caliber small bowel. No obstruction. Normal appendix. Colonic diverticulosis without diverticulitis. No free air. Small volume of pelvic free fluid. ABDOMINAL WALL: No significant hernia is appreciated. LYMPH NODES: Normal. VASCULAR: Normal caliber aorta with mild atherosclerotic calcification. PELVIC VISCERA: The uterus is not seen. No adnexal mass. OSSEOUS STRUCTURES: No acute or suspicious osseous abnormality. Mild changes of the spine. CT/CT abdomen pelvis w IV con IMPRESSION: No acute findings in the abdomen or pelvis. No inflammatory changes. Normal appearance of the gallbladder. Fleischner guidelines were followed.
[2022-08-29 19:35] VITALS: BP 94/57; PULSE 77; RESP 20; TEMP 37.6; O2SAT 97; BMI 39.4
[2022-08-29 20:23] LABS: MANUAL DIFF FLAG NO
[2022-08-29 20:25] LABS: Basophils Percent Auto 0.1 % (0-2); Eosinophils Percent Auto 0.2 % (0-4); Hematocrit 38.7 % (37.0-47.0); Hemoglobin 12.9 g/dl (12.0-16.0); Imm Gran Abs Auto 0.03 X10*3/uL (0.00-0.03); Imm Gran Pct Auto 0.3 % (0.0-0.4); Lymphocytes Absolute Auto 0.9 X10*3/uL (1.2-4.9); Lymphocytes Percent Auto 9.3 % (20-40); Mean Corpuscular HGB Conc 33.3 g/dl (31.0-35.0); Mean Corpuscular Hemoglobin 32.3 pg (27.0-33.0); Mean Corpuscular Volume 96.8 fL (80.0-98.0); Mean Platelet Volume 10.3 fL (9.4-12.3); Monocytes Absolute Auto 0.9 X10*3/uL (0.1-1.2); Monocytes Percent Auto 9.8 % (2-11); Neutrophils Absolute Auto 7.6 x10*3/uL (2.0-8.3); Neutrophils Percent Auto 80.3 % (45-73); Platelet Count 258 X10*3/uL (160-400); White Blood Count 9.5 X10*3/uL (4.8-10.8)
[2022-08-29 20:45] LABS: Alanine Aminotransferase 13 U/L (0-31); Albumin Level 4.5 g/dL (3.5-5.0); Alkaline Phosphatase 80 U/L (39-117); Anion Gap 15 (12-20); Aspartate Amino Transferase 21 U/L (5-31); Bilirubin Direct 0.2 mg/dL (0.0-0.5); Bilirubin Total 0.4 mg/dL (0.0-1.0); Blood Urea Nitrogen 24 mg/dL (9-16); Calcium 9.1 mg/dL (8.4-10.2); Carbon Dioxide 28 mmol/L (22-29); Chloride 100 mmol/L (96-108); Creatinine Clr Calc Pharmacy 78.5; Estimated Glomerular Filt Rate > 60; Glucose Random 111 mg/dL (60-115); Lipase 46 U/L (8-78); Potassium 4.6 mmol/L (3.3-5.1); Sodium 138 mmol/L (135-145); Total Protein 7.6 g/dL (6.5-8.0)
--- NOTE | 2022-08-29 23:09 | ED.ABDPAIN ---
HPI - Abdominal Pain General Chief Complaint: Abdominal Pain Stated Complaint: ABD PAIN, VOMITING Time Seen by Provider: 08/29/22 21:17 Source: patient Mode of arrival: ambulatory Limitations: no limitations History of Present Illness HPI narrative: 67 yo female from home hx of PUD, GERD, migraines, HTN, prior gastric bypass in 2006 here with c/o eating fish and potatoes at home tonight then c/o RUQ pain and vomiting. Since then c/o pain in RUQ pain. States this has never happened to her before. Notes she vomited up something green and foul smelling. No one else reported illness. MD elicited complaint: abdominal pain Pertinent past history: none Onset (ago): hour(s) (4) Pain Consistency: constant Location: RUQ Severity: moderate Quality: stabbing Radiation: none Migration to: no migration Relieving factors: nothing Associated symptoms: nausea and vomiting Related Data Home Medications Medication Instructions Recorded Confirmed calcium carbonate 300 mg (750 mg) 1 tab PO BID 10/25/20 01/27/21 chewable tablet cholecalciferol (vitamin D3) 50 50 mcg PO DAILY 10/25/20 01/27/21 mcg (2,000 unit) capsule fluticasone propionate 50 2 spray intranasal QAM PRN 10/25/20 01/27/21 mcg/actuation nasal spray,suspension ibuprofen 800 mg tablet 800 mg PO TID 10/25/20 01/27/21 lisinopril 20 1 tab PO DAILY 10/25/20 01/27/21 mg-hydrochlorothiazide 25 mg tablet loratadine 10 mg tablet 10 mg PO DAILY 10/25/20 01/27/21 trazodone 50 mg tablet 50 mg PO BEDTIME 10/25/20 01/27/21 divalproex 500 mg tablet,extended 500 mg PO BID 05/23/21 release 24 hr ipratropium 20 mcg-albuterol 100 1 puff inhalation Q6H 07/04/21 mcg/actuation mist for inhalation (Combivent Respimat) amoxicillin 500 mg capsule 1,000 mg PO Q12H 01/10/22 acetaminophen 500 mg tablet 500 mg PO Q8H PRN 05/25/22 cyclobenzaprine 5 mg tablet 5 mg PO BEDTIME 05/25/22 ferrous sulfate 325 mg (65 mg 325 mg PO DAILY 07/21/22 iron) tablet (FeroSul) Previous Rx's Medication Instructions Recorded dicyclomine 20 mg tablet 20 mg PO QID #120 tabs 01/25/22 omeprazole 20 mg capsule,delayed 20 mg PO BID #60 caps 05/25/22 release simethicone 180 mg capsule (Gas 180 mg PO QID #90 ea 05/25/22 Relief (simethicone)) sucralfate 100 mg/mL oral 10 ml PO BID #400 mL 05/25/22 suspension (Carafate) hydrocortisone 2.5 % topical cream 1 appl SD BID PRN hemorrhoids #30 08/28/22 with perineal applicator grams (Proctosol HC) ondansetron 4 mg disintegrating 4 mg PO Q8H PRN nausea and 08/30/22 tablet vomiting #20 tabs Allergies Allergy/AdvReac Type Severity Reaction Status Date / Time morphine Allergy Unknown HIVES Verified 05/25/22 11:49 Review of Systems Review of Systems Constitutional : No Weight loss, No Fever, No Chills ENT/Mouth : No sore throat, No Rhinorrhea Eyes: No Swelling, No Redness Cardiovascular : No Chest Pain, No SOB, NoEdema Respiratory : No Cough, No Sputum, No Wheezing Gastrointestinal : Positive Nausea, Positive Vomiting, no Diarrhea, positive abdominal Pain, No Hematochezia, No Melena Genitourinary : No Dysuria, No Urinary Frequency, No Hematuria, No Urgency Musculoskeletal : No joint pain, No Myalgias, No Joint Swelling Skin : No Skin Lesions, No rash Neuro : No Weakness, No Numbness, No Dizziness, No Headache Psych : No Anxiety/Panic, No Depression Heme/Lymph: No Bruising, No Lymphadenopathy Endocrine : No Polyuria, No Polydipsia All other systems reviewed and are negative. [facility] Past Medical History Attestation statement: The following information was validated with the patient. Medical History Asthma Depression Essential hypertension Morbid obesity due to excess calories Sacroiliitis Surgical History H/O breast surgery History of esophagogastroduodenoscopy (EGD) Hx of colonoscopy Status post bariatric surgery Family History Family History Father Heart attack Mother Thrombosis Social History Social History Alcohol intake: never Patient Tobacco Use Status: Never used Tobacco Advance Directives: No Advance Directives Information Provided: Yes Physical Exam ED Vital Signs: Vital Signs - 24 hr 08/29/22 19:35 08/30/22 01:17 08/30/22 01:27 Temperature 99.7 F 98.5 F Pulse Rate 77 77 78 Respiratory Rate 20 16 Blood Pressure 94/57 L 101/57 L 111/52 L Pulse Oximetry 97 99 98 Oxygen Delivery Method Room Air Room Air BMI result Body Mass Index 39.4 Appearance: Alert. Oriented X3. No acute distress. Eyes: Pupils equal, round and reactive to light. ENT: Pharynx normal. Neck: Normal inspection. Neck supple. CVS: Normal heart rate and rhythm. Pulses normal. Respiratory: No respiratory distress. Breath sounds normal. Abdomen: Soft but moderate ttp in RUQ no rebound noted Skin: Skin warm and dry. Normal skin color. Normal skin turgor. Extremities: No lower extremity edema. No calf ttp Neuro: Oriented X 3. No motor deficit. No sensory deficit. Course Course Course Narrative: feels much better - labs, EKG, CT scan unremarkable feels much better - pending UA can go home MDM - Abdominal Pain MDM Narrative Medical decision making narrative: 67 yo female from home hx of PUD, GERD, migraines, HTN, prior gastric bypass in 2006 here with c/o RUQ pain and n/v after eating at home. At this time will need labs, CT scan for biliary pathology vs SBO/ileus. IVF and IV fentanyl for pain. Dispo per results and findings. Lab Data Result diagrams: 08/29/22 20:20 08/29/22 20:20 Labs: Lab Results 08/29/22 08/29/22 08/29/22 Range/Units 20:20 20:20 20:20 WBC 9.5 (4.8-10.8) X10*3/uL RBC 4.00 L (4.20-5.50) X10*6/uL Hgb 12.9 (12.0-16.0) g/dl Hct 38.7 (37.0-47.0) % MCV 96.8 (80.0-98.0) fL MCH 32.3 (27.0-33.0) pg MCHC 33.3 (31.0-35.0) g/dl RDW 14.0 (11.0-16.0) % Plt Count 258 (160-400) X10*3/uL MPV 10.3 (9.4-12.3) fL Immature Gran % (Auto) 0.3 (0.0-0.4) % Neut % (Auto) 80.3 H (45-73) % Lymph % (Auto) 9.3 L (20-40) % [place] % (Auto) 9.8 (2-11) % Eos % (Auto) 0.2 (0-4) % Baso % (Auto) 0.1 (0-2) % Lymph # (Auto) 0.9 L (1.2-4.9) X10*3/uL [place] # (Auto) 0.9 (0.1-1.2) X10*3/uL Eos # (Auto) 0.0 (0.0-0.4) X10*3/uL Baso # (Auto) 0.0 (0.0-0.2) X10*3/uL Abs Immat Gran (auto) 0.03 (0.00-0.03) X10*3/uL Absolute Neuts (auto) 7.6 (2.0-8.3) x10*3/uL Absolute Nucleated RBC 0.000 (0.0-0.012) X10*3/uL Nucleated RBC % (auto) 0.0 (0.0-0.2) /100WBC Sodium 138 (135-145) mmol/L Potassium 4.6 (3.3-5.1) mmol/L Chloride 100 (96-108) mmol/L Carbon Dioxide 28 (22-29) mmol/L Anion Gap 15 (12-20) BUN 24 H (9-16) mg/dL Creatinine 0.78 (0.5-1.4) mg/dL Estim Creat Clear Calc 78.5 Estimated GFR > 60 Random Glucose 111 (60-115) mg/dL Calcium 9.1 (8.4-10.2) mg/dL Total Bilirubin 0.4 (0.0-1.0) mg/dL Direct Bilirubin 0.2 (0.0-0.5) mg/dL AST 21 (5-31) U/L ALT 13 (0-31) U/L Alkaline Phosphatase 80 (39-117) U/L Troponin I High Sens < 3.5 (<3.5-17.0) ng/L Total Protein 7.6 (6.5-8.0) g/dL Albumin 4.5 (3.5-5.0) g/dL Lipase 46 (8-78) U/L Urine Color Urine Appearance Urine pH (5.0-9.0) Ur Specific [place] (1.005-1.025) Urine Protein (Neg-Trace) mg/dL Urine Glucose (UA) (Negative) mg/dL Urine Ketones (Negative) mg/dL Urine Blood (Negative) Urine Nitrite (Negative) Ur Leukocyte Esterase (Negative) 08/30/22 Range/Units 01:30 WBC (4.8-10.8) X10*3/uL RBC (4.20-5.50) X10*6/uL Hgb (12.0-16.0) g/dl Hct (37.0-47.0) % MCV (80.0-98.0) fL MCH (27.0-33.0) pg MCHC (31.0-35.0) g/dl RDW (11.0-16.0) % Plt Count (160-400) X10*3/uL MPV (9.4-12.3) fL Immature Gran % (Auto) (0.0-0.4) % Neut % (Auto) (45-73) % Lymph % (Auto) (20-40) % [place] % (Auto) (2-11) % Eos % (Auto) (0-4) % Baso % (Auto) (0-2) % Lymph # (Auto) (1.2-4.9) X10*3/uL [place] # (Auto) (0.1-1.2) X10*3/uL Eos # (Auto) (0.0-0.4) X10*3/uL Baso # (Auto) (0.0-0.2) X10*3/uL Abs Immat Gran (auto) (0.00-0.03) X10*3/uL Absolute Neuts (auto) (2.0-8.3) x10*3/uL Absolute Nucleated RBC (0.0-0.012) X10*3/uL Nucleated RBC % (auto) (0.0-0.2) /100WBC Sodium (135-145) mmol/L Potassium (3.3-5.1) mmol/L Chloride (96-108) mmol/L Carbon Dioxide (22-29) mmol/L Anion Gap (12-20) BUN (9-16) mg/dL Creatinine (0.5-1.4) mg/dL Estim Creat Clear Calc Estimated GFR Random Glucose (60-115) mg/dL Calcium (8.4-10.2) mg/dL Total Bilirubin (0.0-1.0) mg/dL Direct Bilirubin (0.0-0.5) mg/dL AST (5-31) U/L ALT (0-31) U/L Alkaline Phosphatase (39-117) U/L Troponin I High Sens (<3.5-17.0) ng/L Total Protein (6.5-8.0) g/dL Albumin (3.5-5.0) g/dL Lipase (8-78) U/L Urine Color Yellow Urine Appearance Cloudy Urine pH 5.5 (5.0-9.0) Ur Specific Dillon >= 1.030 H (1.005-1.025) Urine Protein Negative (Neg-Trace) mg/dL Urine Glucose (UA) Negative (Negative) mg/dL Urine Ketones Trace (Negative) mg/dL Urine Blood Negative (Negative) Urine Nitrite Negative (Negative) Ur Leukocyte Esterase Negative (Negative) ECG Data Attestation: I personally reviewed and interpreted this ECG as follows: ECG interpretation date: 08/29/22 ECG interpretation time: 23:42 Interpretation: Rate: 77 Rhythm: NSR with 1st degree AVB [place]: normal Normal P waves. 1st degree AVB Normal QRS complex. Poor R wave progression ST T wave : normal no FARHAT qTC: normal prior studies: no acute ischemia The study has been interpreted contemporaneously by me. . Discharge Plan Discharge Clinical Impression: Abdominal pain Qualifiers: Abdominal location: right upper quadrant Qualified Code(s): R10.11 - Right upper quadrant pain Vomiting Qualifiers: Vomiting type: unspecified Nausea presence: with nausea Qualified Code(s): R11.2 - Nausea with vomiting, unspecified Patient Disposition: Home, Self-Care Instructions: Acute Nausea and Vomiting (ED), Abdominal Pain (ED) Prescriptions: New ondansetron 4 mg tablet,disintegrating 4 mg PO Q8H PRN (Reason: nausea and vomiting) Qty: 20 0RF No Action dicyclomine 20 mg tablet 20 mg PO QID Qty: 120 6RF hydrocortisone [Proctosol HC] 2.5 % cream with perineal applicator 1 appl SD BID PRN (Reason: hemorrhoids) Qty: 30 0RF divalproex 500 mg tablet extended release 24 hr 500 mg PO BID amoxicillin 500 mg capsule 1,000 mg PO Q12H loratadine 10 mg tablet 10 mg PO DAILY fluticasone propionate 50 mcg/actuation spray,suspension 2 spray intranasal QAM PRN calcium carbonate 300 mg (750 mg) tablet,chewable 1 tab PO BID trazodone 50 mg tablet 50 mg PO BEDTIME cholecalciferol (vitamin D3) 50 mcg (2,000 unit) capsule 50 mcg PO DAILY lisinopril-hydrochlorothiazide 20-25 mg tablet 1 tab PO DAILY ibuprofen 800 mg tablet 800 mg PO TID Combivent Respimat 20-100 mcg/actuation mist 1 puff inhalation Q6H acetaminophen 500 mg tablet 500 mg PO Q8H PRN ferrous sulfate [FeroSul] 325 mg (65 mg iron) tablet 325 mg PO DAILY cyclobenzaprine 5 mg tablet 5 mg PO BEDTIME omeprazole 20 mg capsule,delayed release(DR/EC) 20 mg PO BID Qty: 60 6RF sucralfate [Carafate] 100 mg/mL suspension 10 ml PO BID Qty: 400 0RF simethicone [Gas Relief (simethicone)] 180 mg capsule 180 mg PO QID Qty: 90 4RF Referrals: Shital La MD [Primary Care Provider] - 2 days (if not better) Print Language: Stateless
--- NOTE | 2022-08-29 23:18 | ECG_ITS ---
Test Reason : ABDOMINAL PAIN Blood Pressure : / mmHG Vent. Rate : 077 BPM Atrial Rate : 077 BPM P-R Int : 214 ms QRS Dur : 080 ms QT Int : 376 ms P-R-T Axes : 047 025 026 degrees QTc Int : 425 ms Sinus rhythm with 1st degree A-V block Low voltage QRS Abnormal ECG When compared with ECG of 23-APR-2021 10:39, No significant changes seen Referred By: Iza Faulkner Electronically Signed By:ARLEN HAYWOOD MD
[2022-08-29] MEDS: 0.9 % Sodium Chloride 500 ML IV (23:38)
[2022-08-29] MEDS: ondansetron HCL 4 MG/2 ML VIAL IVPUSH (23:38)
[2022-08-29] MEDS: fentaNYL citrate/PF 100 MCG/2 ML VIAL 25 MCG IVPUSH (23:38)
[2022-08-29 23:48] LABS: Troponin-I High Sensitivity < 3.5 ng/L (<3.5-17.0)
[2022-08-30] MEDS: iohexoL 350 MG/ML 100 ML INFUS..BTL 85 ML IV (00:32)
[2022-08-30 01:17] VITALS: BP 101/57; PULSE 77; O2SAT 99
[2022-08-30 01:27] VITALS: BP 111/52; PULSE 78; RESP 16; TEMP 36.9; O2SAT 98
[2022-08-30 01:37] LABS: Appearance Urine Cloudy; Color Urine Yellow; Glucose Urine UA Negative (Negative); Leukocyte Esterase Urine Negative (Negative); Nitrite Urine Negative (Negative); PH 5.5 (5.0-9.0); Specific Gravity - Urine >= 1.030 (1.005-1.025); Urine Blood Negative (Negative); Urine Ketones Trace mg/dL (Negative); Urine Protein Negative (Neg-Trace)
== END 2022-08-30 01:56 | disposition home or self-care (01) ==
PROVIDERS: Emergency Provider Emergency Medicine; PCP Internal Medicine
DX: R10.11 Right upper quadrant pain (principal); R11.2 Nausea with vomiting, unspecified; Z79.899 Other long term (current) drug therapy
CPT/HCPCS: 36415; 74177; 80053; 81003; 82248; 83690; 84484; 85025; 93005; 96361; 96374; 96375; 99284; J2405; J3010; Q9967

== ENCOUNTER → 2022-12-27 11:14 | Outpatient (BNVA) | payer OTHER, SELFPAY | PROVIDERS: PCP Internal Medicine; Visit Provider Nurse Practitioner | DX: K22.70 Barrett's esophagus without dysplasia (principal); D12.6 Benign neoplasm of colon, unspecified; R10.33 Periumbilical pain; K21.9 Gastro-esophageal reflux disease without esophagitis; K75.81 Nonalcoholic steatohepatitis (NASH) | CPT/HCPCS: 99212 ==

== ENCOUNTER 2023-03-09 08:03 | Day surgery (SDC) | payer OTHER, SELFPAY ==
--- NOTE | 2023-03-08 08:58 | HO.ANESPROP2 ---
Documented by User: Mendy Pinto NP 03/08/23 09:00 HPI - Anesthesia Eval Consult details Narrative: 67yo F for Colonoscopy PMFSH Active Problems Active Problems: All Active Problems (Updated 03/06/23 @ 14:54 by Deepa Cabral, MIGUEL) Precordial chest pain (Acute) Abnormal EKG (Acute) MONTEMAYOR (nonalcoholic steatohepatitis) (Acute) GERD (gastroesophageal reflux disease) (Acute) Thoracic radiculopathy (Acute) Periumbilical abdominal pain (Acute) Tubular adenoma of colon (Acute) History of frequent headaches (Acute) Uterine fibroid (Acute) Sacroiliac inflammation (Acute) H. pylori infection (Acute) Ramirez's esophagus determined by biopsy (Acute) Close exposure to COVID-19 virus (Acute) Sacroiliitis (Acute) Status post bariatric surgery (Acute) Morbid obesity due to excess calories (Acute) Essential hypertension (Acute) Past Medical History Medical History Asthma Depression Essential hypertension GERD (gastroesophageal reflux disease) Morbid obesity due to excess calories MONTEMAYOR (nonalcoholic steatohepatitis) Sacroiliitis Family History Family History Father Heart attack Mother Thrombosis Family history of problems with anesthesia: No Surgical History Surgical History H/O breast surgery History of esophagogastroduodenoscopy (EGD) Hx of colonoscopy Status post bariatric surgery History of Problems with Anesthesia: No Social History Social History Alcohol intake: never Patient Tobacco Use Status: Never used Tobacco Are you DNR?: No Advance Directives: No Advance Directives Information Provided: Yes Nutrition Risks: No Nutritional Risk Meds Allergies Allergy/AdvReac Type Severity Reaction Status Date / Time morphine Allergy Unknown HIVES Verified 03/06/23 15:26 Home Medications Medication Instructions Recorded Confirmed Last Taken Type cholecalciferol (vitamin D3) 50 50 mcg PO DAILY 10/25/20 03/06/23 Unknown History mcg (2,000 unit) capsule fluticasone propionate 50 2 spray intranasal QAM PRN Nasal 10/25/20 03/06/23 Unknown History mcg/actuation nasal Congestion spray,suspension lisinopril 20 1 tab PO DAILY 10/25/20 03/06/23 Unknown History mg-hydrochlorothiazide 25 mg tablet loratadine 10 mg tablet 10 mg PO DAILY 10/25/20 03/06/23 Unknown History trazodone 50 mg tablet 50 mg PO BEDTIME 10/25/20 03/06/23 Unknown History divalproex 500 mg tablet,extended 500 mg PO BID 05/23/21 03/06/23 Unknown History release 24 hr ipratropium 20 mcg-albuterol 100 1 puff inhalation Q6H 07/04/21 03/06/23 Unknown History mcg/actuation mist for inhalation (Combivent Respimat) acetaminophen 500 mg tablet 500 mg PO Q8H PRN Pain 05/25/22 03/06/23 Unknown History cyclobenzaprine 5 mg tablet 5 mg PO BEDTIME 05/25/22 03/06/23 Unknown History albuterol sulfate 90 mcg/actuation 2 puff inhalation Q4-6H PRN 12/27/22 03/06/23 Unknown History aerosol inhaler (Ventolin HFA) Wheezing zinc sulfate 50 mg zinc (220 mg) 50 mg PO DAILY 12/27/22 03/06/23 Unknown History capsule Exam Exam Date and Time: March 08, 2023 0858 Narrative Narrative: EKG 08/2022 Vent. Rate : 077 BPM ? ? Atrial Rate : 077 BPM ?? P-R Int : 214 ms? QRS Dur : 080 ms ? ? QT Int : 376 ms ? ? ? P-R-T Axes : 047 025 026 degrees ?? QTc Int : 425 ms ? Sinus rhythm with 1st degree A-V block Low voltage QRS Abnormal ECG When compared with ECG of 23-APR-2021 10:39, No significant changes seen ECHO 2020 Conclusions: - 1. Normal LV systolic function with grade 1 diastolic? dysfunction? 2. Normal cardiac valvular Doppler ? 3. No gross pericardial effusion ? Stress ECHO 2020 Findings : ? Images at rest are of good quality. LV systolic function is normal with normal wall motion. Post exercise images are of adequate quality. There is excellent overall augmentation of LV systolic function with no? regional wallmotion abnormalities. ? Conclusion : ? Stress echo negative for ischemia Assessment and Plan Assessment Anesthesia Assessment: Chart Reviewed Final Anesthetic Review Family History of Problems with Anesthesia: No History of Problems with Anesthesia: No Documented by User: Daniela Bateman MD 03/09/23 10:59 [facility] Past Medical History Medical History Asthma Depression Essential hypertension GERD (gastroesophageal reflux disease) Morbid obesity due to excess calories MONTEMAYOR (nonalcoholic steatohepatitis) Sacroiliitis Family History Family History Father Heart attack Mother Thrombosis Surgical History Surgical History H/O breast surgery History of esophagogastroduodenoscopy (EGD) Hx of colonoscopy Status post bariatric surgery Social History Social History Alcohol intake: never Patient Tobacco Use Status: Never used Tobacco Are you DNR?: No Advance Directives: No Advance Directives Information Provided: Yes Nutrition Risks: No Nutritional Risk Meds Allergies Allergy/AdvReac Type Severity Reaction Status Date / Time morphine Allergy Unknown HIVES Verified 03/06/23 15:26 Home Medications Medication Instructions Recorded Confirmed Last Taken Type cholecalciferol (vitamin D3) 50 50 mcg PO DAILY 10/25/20 03/06/23 Unknown History mcg (2,000 unit) capsule fluticasone propionate 50 2 spray intranasal QAM PRN Nasal 10/25/20 03/06/23 Unknown History mcg/actuation nasal Congestion spray,suspension lisinopril 20 1 tab PO DAILY 10/25/20 03/06/23 Unknown History mg-hydrochlorothiazide 25 mg tablet loratadine 10 mg tablet 10 mg PO DAILY 10/25/20 03/06/23 Unknown History trazodone 50 mg tablet 50 mg PO BEDTIME 10/25/20 03/06/23 Unknown History divalproex 500 mg tablet,extended 500 mg PO BID 05/23/21 03/06/23 Unknown History release 24 hr ipratropium 20 mcg-albuterol 100 1 puff inhalation Q6H 07/04/21 03/06/23 Unknown History mcg/actuation mist for inhalation (Combivent Respimat) acetaminophen 500 mg tablet 500 mg PO Q8H PRN Pain 05/25/22 03/06/23 Unknown History cyclobenzaprine 5 mg tablet 5 mg PO BEDTIME 05/25/22 03/06/23 Unknown History albuterol sulfate 90 mcg/actuation 2 puff inhalation Q4-6H PRN 12/27/22 03/06/23 Unknown History aerosol inhaler (Ventolin HFA) Wheezing zinc sulfate 50 mg zinc (220 mg) 50 mg PO DAILY 12/27/22 03/06/23 Unknown History capsule Exam Airway Mallampati Class: II TM Dist: >3cm Neck ROM: Full Loose/Missing/Broken Teeth: No Heart: RRR Lungs: CTA Assessment and Plan Assessment Anesthesia Assessment: Anesthesia Plan Discussed Final Anesthetic Review NPO: Yes ASA Class: II Final Preanesthetic Review: Meds/Allgs Chart Reviewed, Consent Obtained/Reviewed and Anes Risks/Benef Reviewed Patient Risk: Low Procedure Risk: Low Anesthetic Plan Anesthetic Plan: MAC: Disposition: Standard PACU
[2023-03-09 09:22] VITALS: BMI 37.7
--- NOTE | 2023-03-09 09:40 | MHC.SHP ---
Pre-Procedural Eval Section A Date of Service: 03/09/23 The patient is an INPATIENT: No The History & Physical has been completed within 30 days and I have reviewed it.: No Section B Chief Complaint: Benign neoplasm of colon, unspecified Relevant Family History (Specify if Yes): No Relevant Social History: None Present Medications: see Short Stay Collaborative assessment Medical History: Significant History (Asthma Depression Essential hypertension Morbid obesity due to excess calories Sacroiliitis) History of Previous Operations: Relevant previous surgery/procedure and date(s) (H/O breast surgery History of esophagogastroduodenoscopy (EGD) Hx of colonoscopy Status post bariatric surgery) Allergies: Allergies Allergy/AdvReac Type Severity Reaction Status Date / Time morphine Allergy Unknown HIVES Verified 03/06/23 15:26 Review of Systems Sugical H&P ROS: Negative: Constitution, Cardiovascular, Respiratory and Gastrointestinal Exam Surgical H&P Exam: Normal: Heart, Normal: Lungs, Normal: Extremities and Normal: Abdomen Plan Diagnosis/Plan: Unchanged I have reviewed the history and physical and performed a pertinent physical examination on my patient. No changes have occurred unless specified. Time Spent With Patient Time: Total time managing care of this patient today ____ minutes.
[2023-03-09] MEDS: Lactated Ringers 1,000 ML 100 ML IVCONT (09:54)
[2023-03-09 09:55] VITALS: BP 146/63; PULSE 56; RESP 18; TEMP 36.6; O2SAT 100
--- NOTE | 2023-03-09 10:46 | W.PM.OPN ---
Operative Note Operative Note Date of Service: 03/09/23 Narrative: COLONOSCOPY TILL CECUM Pre-op diagnosis: Colon cancer screening, abdominal pain Post-op diagnosis:? Diverticulosis Endoscopist:? Halima Ram MD Anesthesia:?MAC Consent: Indications for the procedure and potential complications of bleeding, perforation, reaction to medications and missed diagnosis were discussed with the patient and informed consent was obtained. Instrument: Olympus PCF H 190 L variable stiffness pediatric colonoscope Monitoring: Vital signs and clinical assessment, intermittent blood pressure monitoring, continuous EKG monitoring, Pulse oximetry and Carbon Dioxide monitoring were done throughout the procedure. Please see anesthesia flowsheet. Colon withdrawl time was 19 minutes. Procedure: The patient was placed in the left lateral decubitis position and pre-procedure medications were administered. After a digital rectal examination of the ano-rectum, the video colonoscope was inserted into the rectum and advanced through the colon to the cecum. The colonoscope was slowly withdrawn in a retrograde panoramic fashion and the colon mucosa was carefully examined including a retroflexed view of the rectum. Findings and interventions are described below. Procedure Difficulty: Without difficulty Findings: Terminal Ileum: Not evaluated Cecum: Normal Ascending Colon: Normal Transverse Colon: Normal Descending Colon: Normal Sigmoid Colon: Moderate diverticulosis Rectum: Normal Ano-rectum: Normal Colon preparation: Good after some irrigation Impression and Post Procedure Diagnosis: Colonoscopy Findings: No polyps were detected Moderate diverticulosis seen in the sigmoid colon No source found for abdominal pain. Plan: Patient has an appointment on 03/23/23 in the GI Clinic with Faiza Walker NP. Repeat Colonoscopy in 10 years. Diverticulosis handout was given in the discharge area
[2023-03-09 11:25] VITALS: BP 130/67; PULSE 59; RESP 20; TEMP 36.1; O2SAT 100
[2023-03-09 11:40] VITALS: BP 135/68; PULSE 62; RESP 14; TEMP 36.1; O2SAT 100
== END 2023-03-09 12:20 | disposition home or self-care (01) ==
PROVIDERS: PCP Internal Medicine; Visit Provider Internal Medicine Gastroenterology
PROC: 0DJD8ZZ Inspection of Lower Intestinal Tract, Via Natural or Artificial Opening Endoscopic (ICD-10-PCS; CPT 45378; principal; 2023-03-09 10:20)
DX: Z12.11 Encounter for screening for malignant neoplasm of colon (principal); Z86.010 Personal history of colon polyps; K57.30 Diverticulosis of large intestine without perforation or abscess without bleeding; K21.9 Gastro-esophageal reflux disease without esophagitis; K75.81 Nonalcoholic steatohepatitis (NASH); I10 Essential (primary) hypertension; J45.909 Unspecified asthma, uncomplicated; E66.01 Morbid (severe) obesity due to excess calories; Z68.32 Body mass index [BMI] 32.0-32.9, adult; Z79.51 Long term (current) use of inhaled steroids; Z79.899 Other long term (current) drug therapy; Z88.8 Allergy status to other drugs, medicaments and biological substances; Z98.84 Bariatric surgery status
CPT/HCPCS: G0105

== ENCOUNTER → 2023-03-23 08:58 | Outpatient (BNVA) | payer OTHER, SELFPAY | PROVIDERS: PCP Internal Medicine; Visit Provider Nurse Practitioner | DX: K21.9 Gastro-esophageal reflux disease without esophagitis (principal); K22.70 Barrett's esophagus without dysplasia; D12.6 Benign neoplasm of colon, unspecified; R10.33 Periumbilical pain; M54.14 Radiculopathy, thoracic region; Z98.84 Bariatric surgery status | CPT/HCPCS: 99212 ==

== ENCOUNTER 2023-07-02 11:34 | Outpatient (REF) | payer OTHER, SELFPAY ==
--- NOTE | ~2023-07-02 | XR_ITS ---
EXAMINATION: XR KNEE, RIGHT CLINICAL INFORMATION: 2 views of right knee pain. COMPARISON: None available. TECHNIQUE: Three views of the right knee. FINDINGS: Mild femoral-tibial degenerative joint changes more pronounced medially as well as moderate to severe patellofemoral degenerative joint changes are seen. There is no acute fracture or dislocation. There is a trace suprapatellar joint effusion. The soft tissues are unremarkable. XR/XR knee RT 2V IMPRESSION: Tricompartmental degenerative joint changes, most consistent with osteoarthritis. Trace suprapatellar joint effusion. No acute fracture.
== END 2023-07-02 11:35 | disposition home or self-care (01) ==
LOC: HO.HHCX 11:34
PROVIDERS: Visit Provider Internal Medicine
DX: M25.561 Pain in right knee (principal)
CPT/HCPCS: 73560

== ENCOUNTER 2023-07-18 09:39 | Outpatient (AMB) | payer OTHER, SELFPAY ==
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
[2023-07-18 09:53] VITALS: BP 116/70; PULSE 58; BMI 38.2
== END 2023-07-18 10:49 | disposition home or self-care (01) ==
PROVIDERS: Visit Provider Nurse Practitioner
DX: K21.9 Gastro-esophageal reflux disease without esophagitis (principal); R10.33 Periumbilical pain; D12.6 Benign neoplasm of colon, unspecified; K22.70 Barrett's esophagus without dysplasia; Z01.818 Encounter for other preprocedural examination
CPT/HCPCS: 99213

== ENCOUNTER 2023-07-18 09:39 | Outpatient (REF) | payer OTHER, SELFPAY ==
[2023-07-18 11:16] LABS: MANUAL DIFF FLAG NO
[2023-07-18 13:16] LABS: Basophils Percent Auto 0.2 % (0-2); Eosinophils Absolute Auto 0.1 X10*3/uL (0.0-0.4); Eosinophils Percent Auto 1.1 % (0-4); Hematocrit 38.1 % (37.0-47.0); Imm Gran Abs Auto 0.01 X10*3/uL (0.00-0.03); Imm Gran Pct Auto 0.2 % (0.0-0.4); Lymphocytes Absolute Auto 1.9 X10*3/uL (1.2-4.9); Lymphocytes Percent Auto 34.6 % (20-40); Mean Corpuscular HGB Conc 31.5 g/dl (31.0-35.0); Mean Corpuscular Hemoglobin 29.5 pg (27.0-33.0); Mean Corpuscular Volume 93.6 fL (80.0-98.0); Mean Platelet Volume 11.3 fL (9.4-12.3); Monocytes Absolute Auto 0.8 X10*3/uL (0.1-1.2); Monocytes Percent Auto 14.3 % (2-11); Neutrophils Absolute Auto 2.7 x10*3/uL (2.0-8.3); Neutrophils Percent Auto 49.6 % (45-73); Platelet Count 268 X10*3/uL (160-400); Red Blood Count 4.07 X10*6/uL (4.20-5.50); Red Cell Distribution Width 15.1 % (11.0-16.0); White Blood Count 5.4 X10*3/uL (4.8-10.8)
[2023-07-18 14:01] LABS: Alanine Aminotransferase 11 U/L (0-31); Albumin Level 4.2 g/dL (3.5-5.0); Alkaline Phosphatase 70 U/L (39-117); Anion Gap 12 (12-20); Aspartate Amino Transferase 20 U/L (5-31); Bilirubin Total 0.3 mg/dL (0.0-1.0); Blood Urea Nitrogen 17 mg/dL (9-16); Calcium 9.1 mg/dL (8.4-10.2); Carbon Dioxide 28 mmol/L (22-29); Chloride 102 mmol/L (96-108); Estimated Glomerular Filt Rate > 60; Glucose Random 77 mg/dL (60-115); Potassium 3.7 mmol/L (3.3-5.1); Sodium 138 mmol/L (135-145); Total Protein 7.3 g/dL (6.5-8.0)
== END 2023-07-18 09:40 | disposition home or self-care (01) ==
LOC: HO.LAB 09:39
PROVIDERS: PCP Internal Medicine; Visit Provider Nurse Practitioner
DX: Z01.818 Encounter for other preprocedural examination (principal); R10.11 Right upper quadrant pain; K21.9 Gastro-esophageal reflux disease without esophagitis; R10.33 Periumbilical pain; D12.6 Benign neoplasm of colon, unspecified; K22.70 Barrett's esophagus without dysplasia
CPT/HCPCS: 36415; 80053; 85025; 99212

== ENCOUNTER 2023-07-24 08:51 | Outpatient (REF) | payer OTHER, SELFPAY | END 2023-07-24 08:52 | disposition home or self-care (01) | LOC: HO.MAMMO 08:51 | PROVIDERS: PCP Internal Medicine; Visit Provider Internal Medicine | DX: Z12.31 Encounter for screening mammogram for malignant neoplasm of breast (principal) | CPT/HCPCS: 77063; 77067 ==

== ENCOUNTER → 2023-07-24 10:15 | Outpatient (BNV) | payer OTHER, SELFPAY | PROVIDERS: PCP Internal Medicine; Visit Provider Radiology Diagnostic Radiology | DX: Z12.31 Encounter for screening mammogram for malignant neoplasm of breast (principal) | CPT/HCPCS: 77063; 77067 ==

== ENCOUNTER 2023-08-09 08:35 | Outpatient (REF) | payer OTHER, SELFPAY | END 2023-08-09 08:36 | disposition home or self-care (01) | LOC: HO.HOSX 08:35 | PROVIDERS: Visit Provider Physician Assistant | DX: M17.11 Unilateral primary osteoarthritis, right knee (principal) | CPT/HCPCS: 73560; 73565 ==

== ENCOUNTER 2023-08-09 12:09 | Outpatient (AMB) | payer OTHER, SELFPAY ==
--- NOTE | 2023-08-09 12:19 | MHC.OFFVIS ---
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 Patient reports ongoing pain for 5 years. Hx of PT with mild releif. She had a fall where she hit her knee and her head. Her pain is on top of the knee and it moves to the back. Pain is worse when using the stairs. 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 The patient reports ongoing pain for 5 years, since 2018. She confirms a fall where she landed on her right knee and her head. She claims her pain is located on the top of her knee and radiates to the back. She states her pain increases with use of stairs. She denies numbness or tingling. She has a history of physical therapy with participating in 3 sessions, with no relief. She has also used a knee brace with no relief. She confirms the use of Tylenol and ibuprofen with no relief. [facility] Medical History Asthma Depression Essential hypertension GERD (gastroesophageal reflux disease) Morbid obesity due to excess calories MONTEMAYOR (nonalcoholic steatohepatitis) Sacroiliitis Surgical History H/O breast surgery History of esophagogastroduodenoscopy (EGD) Hx of colonoscopy Status post bariatric surgery Family History Father Heart attack Mother Thrombosis Social History Alcohol intake: never Patient Tobacco Use Status: Never used Tobacco Review of Systems Const All systems reviewed & are unremarkable except as noted in HPI and below Physical Exam Vital Signs: BMI result Body Mass Index 38.2 Const General: cooperative and no acute distress Orientation/consciousness: patient oriented x3 Resp Effort & Inspection: normal respiratory effort and able to speak in complete sentences Cardio Peripheral pulses: Peripheral pulses 2+ throughout Skin General skin exam: no rashes or lesions noted Neuro General: patient oriented x3 Extrem Other: Right knee: Normal to inspection. No ecchymosis, erythema, or edema. Full ROM with crepitus. Tenderness to palpation surrounding the patella. Antalgic gait. NVI. Assessment & Plan Assessment & Plan (1) Osteoarthritis of patellofemoral joint: Comment: Right knee Code(s): M17.10 - Unilateral primary osteoarthritis, unspecified knee Qualifiers: Laterality: right Qualified Code(s): M17.11 - Unilateral primary osteoarthritis, right knee Plan Ms. Spicer is a 68-year-old female, who is Vietnamese speaking, presents in the office today, as a new patient, for an evaluation of right knee pain. The patient reports ongoing pain for 5 years, since 2018. She confirms a fall where she landed on her right knee and her head. She claims her pain is located on the top of her knee and radiates to the back. She states her pain increases with use of stairs. She denies numbness or tingling. She has a history of physical therapy with participating in 3 sessions, with no relief. She has also used a knee brace with no relief. She confirms the use of Tylenol and ibuprofen with no relief. Dr. Palacios was available to see the patient with me while in the office today and collaborative treatment plan was made. We discussed in detail the procedure and what to expect pre and post operatively. We discussed the risks, benefits and alternatives to the surgery as well as the rehabilitation course. The risks; which include, but are not limited to infection, bleeding, nerve injury, ongoing pain, swelling, and stiffness, perioperative risk of injury to bones and soft tissues, and blood clots. Her information was given to Katlyn, our nurse navigator, to being the process of getting approval to move forward with a total knee arthroplasty. Follow up will be with Katlyn, or sooner if needed. X-rays of the right knee obtained while in the office today and reviewed by me, Sushila Philippe PA-C, revealed patellofemoral osteoarthritis. Orders: Orders XR knee standing BI 08/09/23 M25.569 - Pain in unspecified knee XR knee RT 1V 08/09/23 M25.569 - Pain in unspecified knee Patient Instructions: Scribed for Sushila Philippe PA-C by Nicolasa Cash manager of medical, on 08/09/2023 at 12:12 pm, EST. Coding Level of Care Code New Pt Level 4 (27639) Diagnoses Osteoarthritis of right patellofemoral joint M17.11 Laterality: right
[2023-08-09 12:21] VITALS: BMI 38.2
== END 2023-08-09 13:47 | disposition home or self-care (01) ==
PROVIDERS: PCP Internal Medicine; Visit Provider Physician Assistant
DX: M17.11 Unilateral primary osteoarthritis, right knee (principal)
CPT/HCPCS: 99204

== ENCOUNTER 2023-11-12 10:51 | Outpatient (REF) | payer OTHER, SELFPAY | END 2023-11-12 10:52 | disposition home or self-care (01) | LOC: HO.HHCL 10:51 | PROVIDERS: Visit Provider Internal Medicine | DX: G44.019 Episodic cluster headache, not intractable (principal) | CPT/HCPCS: 36415; 82565 ==

== ENCOUNTER 2023-12-07 07:36 | Outpatient (REF) | payer OTHER, SELFPAY ==
--- NOTE | ~2023-12-07 | CT_ITS ---
EXAMINATION: CT HEAD WITHOUT CONTRAST CLINICAL INFORMATION: Worsening headaches. COMPARISON: Head CT dated 05/23/2021. TECHNIQUE: Contiguous axial imaging was performed from the skullbase to vertex without intravenous administration of contrast. This CT examination was performed using dose optimization techniques as appropriate, variously including the following: *Automated exposure control *Adjustment of mA and/or kV according to patient size (this includes techniques or standardized protocols for targeted exams where dose is matched to indication/reason for exam; i.e. extremities or head) *Use of iterative reconstruction technique DLP: 895 mGy-cm. FINDINGS: There is no evidence of acute intracranial hemorrhage or territorial infarction. No abnormal mass effect or midline shift is seen. Maradiaga to white matter differentiation is well preserved. No extra-axial fluid collections are identified. The ventricles are normal in size. There is no abnormal attenuation within the brain parenchyma. The soft tissues are normal. A depressed defect in the medial wall of the right orbit may be due to a prior fracture. The mastoid air cells and visualized portions of the paranasal sinuses are well aerated. CT/CT head/brain wo IV con IMPRESSION: No acute intracranial pathology.
== END 2023-12-07 07:37 | disposition home or self-care (01) ==
LOC: HO.CT 07:36
PROVIDERS: PCP Internal Medicine; Visit Provider Internal Medicine
DX: G44.019 Episodic cluster headache, not intractable (principal)
CPT/HCPCS: 70450

== ENCOUNTER 2023-12-12 10:00 | Outpatient (RCR) | payer OTHER, SELFPAY ==
--- NOTE | 2023-11-20 15:43 | MHC.PT.EP ---
[facility] [place] Office [place] [facility] [place] Office [address] [phone] F: [phone] F: [phone] F: [phone] F: [phone] Physical Therapy Plan of Care Date of Evaluation: 11/20/23 Date of Surgery: Diagnosis: OA of LEFT knee Assessment: Patient is a pleasant 68 y.o. Ukrainian speaking female who is referred to PT by Dr. Shital La MD, with Dx of LEFT knee osteoarthritis. Patient impairments include pain, limited knee ROM, weakness in LEs, antalgic gait. Patient current functional limitations are kneeling at amish, ascend/descend chair, up/down toilet, prolonged standing to shower or cook, get in/out of bath tub. Patient will benefit from skilled PT to address aforementioned impairments and functional limitations to meet established goals. Frequency and Duration: The patient will be seen 2x/week for 4 weeks Short Term Goals: 2 weeks Patient demonstrates consistency and independence with HEP to self manage symptoms. [facility] Goals: 4 weeks She presents with increased LEFT knee flexion 120 degrees to be able to bend to toilet without difficulty. She presents with increased LEFT knee extension 4+/5 to be able to ascend/descend 1 flight of stairs with railing. Treatment Plan: Modalities to reduce pain, spasms and effusion. Manual therapy to restore motion and function. Therapeutic exercise to improve strength and flexibility. Neuromuscular re-education for posture and balance. Therapeutic activities to return to functional activities of daily living. Electronically signed by: Handy William, PT, DPT Please sign and return to therapist. Thank you for your referral.
--- NOTE | 2023-12-25 09:37 | MHC.PT.DC ---
[facility] [place] Office [place] Office [place] Office [address] [facility] [phone] F: [phone] F: [phone] F: [phone] F: [phone] Physical Therapy Discharge Report Diagnosis: OA of LEFT knee Date of Surgery: Date of Evaluation: 11/20/23 Date of Discharge: 12/25/23 Treatments to Date: 8 Cancellations to Date: No Shows to Date: Discharge Status: Achieved Goals Improved Function Independent with HEP Discharge Summary: Jennifer showed progress during her PT sessions, in her last session her assessment reads, Pt independent w/HEP. AROM N Flex/ext. Strength 5/5 flex/ext. She completed course of PT and is therefore discharged from PT at this time. Electronically signed by: Handy William, PT, DPT Please sign and return to therapist. Thank you for your referral.
== END 2023-12-25 09:37 | disposition home or self-care (01) ==
LOC: HO.PT 10:00
PROVIDERS: PCP Internal Medicine; Visit Provider Internal Medicine
DX: M17.12 Unilateral primary osteoarthritis, left knee (principal)
CPT/HCPCS: 97110; 97140; 97161; 97530

== ENCOUNTER 2024-03-04 10:01 | Outpatient (AMB) | payer OTHER, SELFPAY ==
[2024-03-04 10:07] VITALS: BP 121/67; PULSE 60; BMI 38.8
--- NOTE | 2024-03-04 10:07 | A.OFFVIS_ITS ---
Vital Signs 03/04/24 10:07 Height 5 ft 2 in Weight 212 lb 1.355 oz BMI 38.8 BP 121/67 Blood Pressure Location Rt brachial Position Sitting Pulse 60 Intake Visit Reasons: 6 Month Follow Up Intake Note: Jennifer returns to in office 6 months follow up of labs and abdominal pain. CC: Patient reports doing well today and denies having any new GI symptoms. 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 Given her SSBE, I think we need to increase her omeprazole to 40mg bid. She continues on carafate, simethicone and dicyclomine She is having more rt knee pain and has XR's and is on her way to see ortho. He is due for repeat screening colonoscopy and is agreeable having the scheduled. However when I research the record I realize she had a colonoscopy in March of this year and does not need repeated for 5 years due to her history of a prior tubular adenoma in 2018. Return office visit in 6 months (2) Periumbilical abdominal pain: Comment: This is a patient has had a fairly extensive GI workup and has intermittent This is a patient has had a fairly extensive GI workup and has intermittent chronic pain with a wide differential diagnosis. Her situation is complicated by the fact that she has a gastric bypass patient and may have adhesions. She also has a very significant overlay of musculoskeletal pain with degenerative disease of the thoracic spine and her hip that frequently will radiate into the abdomen. 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 Panel Today Z01.818 - Encounter for other preprocedural examination Complete Blood Count Auto Diff Today Z01.818 - Encounter for other preprocedural examination Medications: New omeprazole 40 mg PO BID 30 days 60 caps 6RF K22.70 - Ramirez's esophagus without dysplasia peg 3350-electrolytes 236-22.74-6.74 -5.86 gram (Golytely) until fecal effluent is clear; do not exceed a total volume of 2,000 mL 240 mL PO Q10M 1 day 4,000 mL 0RF Z12.11 - Encounter for screening for malignant neoplasm of colon Refilled simethicone 180 mg PO QID 90 caps 4RF dicyclomine 20 mg PO QID 120 tabs 6RF R10.33 - Periumbilical pain Discontinued omeprazole Discontinued Reason: Doctor's Order 20 mg PO BID 60 caps 6RF K21.9 - Gastro-esophageal reflux disease without esophagitis LABS: Laboratory Tests 07/18/23 11:15 WBC 5.4 Hgb 12.0 Hct 38.1 Plt Count 268 Estimated GFR > 60 Total Bilirubin 0.3 AST 20 ALT 11 Alkaline Phosphatase 70 EGD - NO ORDER IN COMPUTER??? PATIENT HAD A COLONOSCOPY 03/2023 WITH A 10 YEAR REPEAT BIOPSY TODAY'S VISIT Indian #[employer]esha Live She continues on carafate, simethicone and dicyclomine, simethicone, and along with the increase of omeprazole 40 mg twice a day and Proctosol cream all of her GI systems are controlled to her liking. She i now doing much better on the o2o 40mg bid. Still, I will order an EGD to check her SSBE since we had a period of poor HB control. So her current GI regimen consists on omeprazole 40 mg twice a day, dicyclomine, Proctosol cream, and simethicone. ROV 6 mos. PFS Medical History Pre-op examination MONTEMAYOR (nonalcoholic steatohepatitis) GERD (gastroesophageal reflux disease) Sacroiliitis Depression Asthma Morbid obesity due to excess calories Essential hypertension Surgical History History of esophagogastroduodenoscopy (EGD) H/O breast surgery Hx of colonoscopy Status post bariatric surgery Family History Father Heart attack Mother Thrombosis Social History Alcohol intake: never Patient Tobacco Use Status: Never used Tobacco Review of Systems Const Denies fatigue, Denies fever(s), Denies night sweats, Denies poor appetite and Denies weight loss ENT Reports Normal hearing present, Denies dental pain, Denies dysphagia, Denies hearing loss, Denies mouth pain, Denies odynophagia, Denies throat swelling, Denies tongue swelling and Reports other (Dentition adequate) Card Reports no additional complaints Resp Reports no additional complaints GI Details: Denies abdominal pain, Denies melena, Reports bloating, Denies hematochezia, Reports constipation, Denies GI cramping, Denies dysphagia, Denies excessive flatus, Denies early satiety, Reports heartburn, Denies diarrhea, Denies nausea, Denies odynophagia, Denies vomiting and Denies hematemesis Skin/Breast Denies pruritus, Denies lesions, Denies rash and Denies jaundice Neuro Reports Normal hearing present and Denies Abnormal speech present Endo Denies fatigue Aller/Immun Denies throat swelling and Denies tongue swelling Physical Exam Vital Signs: Last Vital Signs Pulse 60 03/04/24 10:07 BP 121/67 03/04/24 10:07 BMI result Body Mass Index 38.8 Const General: cooperative, no acute distress, well developed and well groomed Nutritional Appearance: well nourished and obese Orientation/consciousness: oriented to person, oriented to place and oriented to time Limitations: language barrier HEENT Head: Yes normocephalic and Yes atraumatic Eyes General: appearance normal, both eyes and all related structures Pupils: Equal, round and reactive pupils present Neck Neck: Yes normal visual inspection and Yes no lymphadenopathy Thyroid: Thyroid normal Resp Effort & Inspection: normal respiratory effort and able to speak in complete sentences Auscultation: clear to auscultation bilaterally Cardio Rate: regular rate Rhythm: regular rhythm Heart sounds: Normal, physiologic split S2 sound present Peripheral pulses: radial pulses present and posterior tibial pulses present GI Inspection: No distended, Yes Abdominal panniculus present and Yes obesity Palpation (GI): Soft to palpation, nontender, no guarding, not rigid and No hepatosplenomegaly present Percussion: Yes normal to percussion Auscultation: normal bowel sounds Rectal Exam - Female: deferred Skin General skin exam: no rashes or lesions noted, turgor normal, skin not dry, no jaundice, No spider nevi and no striae Rashes: no rashes Nails: normal Neuro General: oriented to person, oriented to place and oriented to time Cranial nerves: Yes Equal, round and reactive pupils present and Yes Normal hearing present Speech: No Abnormal speech present Extrem General: Yes normal to inspection, No clubbing, No cyanosis and No edema Psych Appearance: grossly normal and well kempt Mental Status: mental status grossly normal Speech and movement: Normal speech and movement present Affect: normal affect Attitude: cooperative Thought process: Normal thought process present and not confabulating Thought content: Normal thought content present Insight: Limited insight present (Psych) Judgement: Limited judgement present (Psych) Assessment & Plan Assessment & Plan (1) GERD (gastroesophageal reflux disease): Code(s): K21.9 - Gastro-esophageal reflux disease without esophagitis Category: Medical (2) Thoracic radiculopathy: Comment: With radiation to the right abdomen, T-[address] OSSEOUS STRUCTURES: No acute osseous abnormality. Probable hemangioma in T11, stable. Chronic stable ossification adjacent to the right acetabulum. Degenerative changes in the spine. Code(s): M54.14 - Radiculopathy, thoracic region Category: Medical (3) Periumbilical abdominal pain: Comment: This is a patient has had a fairly extensive GI workup and has intermittent This is a patient has had a fairly extensive GI workup and has intermittent chronic pain with a wide differential diagnosis. Her situation is complicated by the fact that she has a gastric bypass patient and may have adhesions. She also has a very significant overlay of musculoskeletal pain with degenerative disease of the thoracic spine and her hip that frequently will radiate into the abdomen. 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 She i now doing much better on the o2o 40mg bid. Still, I will order an EGD to check her SSBE since we had a period of poor HB control. So her current GI regimen consists on omeprazole 40 mg twice a day, dicyclomine, Proctosol cream, and simethicone. ROV 6 mos. 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
== END 2024-03-04 10:26 | disposition home or self-care (01) ==
PROVIDERS: PCP Internal Medicine; Visit Provider Nurse Practitioner
DX: K21.9 Gastro-esophageal reflux disease without esophagitis (principal); M54.14 Radiculopathy, thoracic region; R10.33 Periumbilical pain; D12.6 Benign neoplasm of colon, unspecified; K22.70 Barrett's esophagus without dysplasia
CPT/HCPCS: 99213

== ENCOUNTER → 2024-03-04 10:01 | Outpatient (BNVA) | payer OTHER, SELFPAY | PROVIDERS: PCP Internal Medicine; Visit Provider Nurse Practitioner | DX: K21.9 Gastro-esophageal reflux disease without esophagitis (principal); K22.70 Barrett's esophagus without dysplasia; M54.14 Radiculopathy, thoracic region; R10.33 Periumbilical pain; D12.6 Benign neoplasm of colon, unspecified | CPT/HCPCS: 99212 ==

== ENCOUNTER → 2024-04-04 14:17 | Outpatient (REF) | payer OTHER, SELFPAY ==
--- NOTE | 2024-04-04 14:23 | ECG_ITS ---
Test Reason : htn Blood Pressure : / mmHG Vent. Rate : 067 BPM Atrial Rate : 067 BPM P-R Int : 246 ms QRS Dur : 078 ms QT Int : 386 ms P-R-T Axes : 036 014 028 degrees QTc Int : 407 ms Sinus rhythm with 1st degree A-V block Low voltage QRS Cannot rule out Anterior infarct (cited on or before 04-APR-2024) Abnormal ECG When compared with ECG of 29-AUG-2022 23:36, No significant change was found Referred By: Shital La Electronically Signed By:LEATHA BRAND
== END ==
LOC: HO.CARD 14:17
PROVIDERS: PCP Internal Medicine; Visit Provider Internal Medicine
DX: I10 Essential (primary) hypertension (principal); I44.0 Atrioventricular block, first degree
CPT/HCPCS: 93005

== ENCOUNTER → 2024-04-04 14:23 | Outpatient (BNV) | payer OTHER, SELFPAY | PROVIDERS: PCP Internal Medicine; Visit Provider Internal Medicine | DX: I10 Essential (primary) hypertension (principal); I44.0 Atrioventricular block, first degree | CPT/HCPCS: 93010 ==

== ENCOUNTER 2024-04-07 09:22 | Outpatient (REF) | payer OTHER, SELFPAY ==
--- NOTE | ~2024-04-07 | XR_ITS ---
EXAMINATION: XR FOOT, RIGHT CLINICAL INFORMATION: Right plantar pain COMPARISON: None available. TECHNIQUE: AP, lateral, and oblique views of the right foot. FINDINGS: The bones the bones are intact No fracture. Alignment is anatomic. There is mild degenerative change of the first metatarsophalangeal joint. There is a small posterior plantar calcaneal spur. Slight calcific density is noted in the soft tissues along the plantar aspect of the spur. Large Achilles enthesophyte is seen. XR/XR foot RT min 3V IMPRESSION: 1. Small posterior plantar calcaneal spur. 2. Large Achilles enthesophyte. 3. Mild degenerative change of the first metatarsophalangeal joint.
== END 2024-04-07 09:23 | disposition home or self-care (01) ==
LOC: HO.XRAY 09:22
PROVIDERS: PCP Internal Medicine; Visit Provider Internal Medicine
DX: M72.2 Plantar fascial fibromatosis (principal)
CPT/HCPCS: 73630

== ENCOUNTER 2024-04-10 10:19 | Outpatient (REF) | payer OTHER, SELFPAY ==
[2024-04-10 11:52] LABS: Alanine Aminotransferase 13 U/L (0-31); Albumin Level 4.2 g/dL (3.5-5.0); Alkaline Phosphatase 84 U/L (39-117); Anion Gap 10 (12-20); Aspartate Amino Transferase 21 U/L (5-31); Bilirubin Total 0.6 mg/dL (0.0-1.0); Blood Urea Nitrogen 23 mg/dL (9-16); Carbon Dioxide 30 mmol/L (22-29); Chloride 104 mmol/L (96-108); Cholesterol 194 mg/dL (<200); Estimated Glomerular Filt Rate > 60; Glucose Random 94 mg/dL (60-115); HDL Cholesterol 61 mg/dL (>40); LDL Cholesterol Calculated 116 mg/dL (<100); Potassium 4.1 mmol/L (3.3-5.1); Sodium 140 mmol/L (135-145); Total Protein 7.4 g/dL (6.5-8.0); Triglycerides 86 mg/dL (<150)
[2024-04-10 12:07] LABS: TSH reflex Free T4 1.04 uIU/mL (0.32-4.0); Vitamin D 25-OH Total 43.8 ng/mL (>30)
[2024-04-10 12:33] LABS: Reflex LDLD? No
== END 2024-04-10 10:20 | disposition home or self-care (01) ==
LOC: HO.HHCL 10:19
PROVIDERS: Visit Provider Internal Medicine
DX: I10 Essential (primary) hypertension (principal); E55.9 Vitamin D deficiency, unspecified; I44.0 Atrioventricular block, first degree
CPT/HCPCS: 36415; 80053; 80061; 82306; 84443

== ENCOUNTER 2024-07-29 08:34 | Outpatient (REF) | payer OTHER, SELFPAY ==
--- NOTE | ~2024-07-29 | MM_ITS ---
EXAMINATION: MM SCREENING DIGITAL BREAST TOMOSYNTHESIS, BILATERAL CLINICAL INFORMATION: Screening. Asymptomatic. COMPARISON: Mammography: Comparison is made with available priors TECHNIQUE: Digital breast mammography with tomosynthesis is performed in both the craniocaudal and mediolateral oblique views along with computer-aided detection (CAD). FINDINGS: There are scattered areas of fibroglandular density (ACR BI-RADS breast composition Category b). There are no significant masses, abnormal calcifications, or other abnormalities. MM/MM tomosynthesis screening BI IMPRESSION: No mammographic evidence of malignancy. ASSESSMENT: BI-RADS BI-RADS 1 - Negative RECOMMENDATION: Routine annual mammography screening. 1 year F/U This examination should not preclude the clinical evaluation of a suspicious palpable abnormality. This patient's information was entered into a reminder system with a target due date for their next mammogram. Electronically signed by: Karla Moncada DO 08/08/2024 12:35 PM EDT
== END 2024-07-29 08:35 | disposition home or self-care (01) ==
LOC: HO.MAMMO 08:34
PROVIDERS: PCP Internal Medicine; Visit Provider Internal Medicine
DX: Z12.31 Encounter for screening mammogram for malignant neoplasm of breast (principal)
CPT/HCPCS: 77063; 77067

== ENCOUNTER → 2024-07-29 09:45 | Outpatient (BNV) | payer OTHER, SELFPAY | PROVIDERS: PCP Internal Medicine; Visit Provider Internal Medicine | DX: Z12.31 Encounter for screening mammogram for malignant neoplasm of breast (principal) | CPT/HCPCS: 77063; 77067 ==

== ENCOUNTER 2024-09-01 07:41 | Day surgery (SDC) | payer OTHER, SELFPAY ==
[2024-08-28 12:35] VITALS: BMI 38.8
[2024-09-01 08:05] VITALS: BP 120/56; PULSE 60; RESP 16; TEMP 36.8; O2SAT 97; BMI 39.3
[2024-09-01] MEDS: Lactated Ringers 1,000 ML 100 ML IVCONT (08:13)
--- NOTE | 2024-09-01 08:35 | MHC.SHP ---
Pre-Procedural Eval Section A - 24 Hr Update-Section A only Date of Service: 09/01/24 The patient is an INPATIENT: No The patient has been examined within 24 hours of the surgical procedure. The History & Physical has been completed within 30 days and I have reviewed it.: No Section B - Complete if H&P > 30 days Chief Complaint: Ramirez's esophagus without dysplasia Relevant Family History (Specify if Yes): No Relevant Social History: None Present Medications: see Short Stay Collaborative assessment Medical History: Significant History (MONTEMAYOR (nonalcoholic steatohepatitis) GERD (gastroesophageal reflux disease) Sacroiliitis Depression Asthma Morbid obesity due to excess calories Essential hypertension) History of Previous Operations: Relevant previous surgery/procedure and date(s) (History of esophagogastroduodenoscopy (EGD) H/O breast surgery Hx of colonoscopy Status post bariatric surgery) Allergies: Allergies Allergy/AdvReac Type Severity Reaction Status Date / Time morphine Allergy Unknown HIVES Verified 03/04/24 10:16 Review of Systems Sugical H&P ROS: Negative: Constitution, Cardiovascular and Respiratory and Yes, Specify: Gastrointestinal (GERD) Exam Surgical H&P Exam: Normal: Heart, Normal: Lungs, Normal: Extremities and Normal: Abdomen Plan Diagnosis/Plan: Unchanged I have reviewed the history and physical and performed a pertinent physical examination on my patient. No changes have occurred unless specified. Time Spent With Patient Time: Total time managing care of this patient today ____ minutes.
--- NOTE | 2024-09-01 09:42 | HO.ANESPROP2 ---
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 pylori infection (Acute) Sacroiliac inflammation (Acute) Uterine fibroid (Acute) History of frequent headaches (Acute) Tubular adenoma of colon (Acute) Periumbilical abdominal pain (Acute) Thoracic radiculopathy (Acute) GERD (gastroesophageal reflux disease) (Acute) MONTEMAYOR (nonalcoholic steatohepatitis) (Acute) Abnormal EKG (Acute) Precordial chest pain (Acute) Sacroiliitis (Acute) Status post bariatric surgery (Acute) Morbid obesity due to excess calories (Acute) Essential hypertension (Acute) Past Medical History Medical History MONTEMAYOR (nonalcoholic steatohepatitis) GERD (gastroesophageal reflux disease) Sacroiliitis Depression Asthma Morbid obesity due to excess calories Essential hypertension Family History Family History Father Heart attack Mother Thrombosis Family history of problems with anesthesia: No Surgical History Surgical History History of esophagogastroduodenoscopy (EGD) H/O breast surgery Hx of colonoscopy Status post bariatric surgery History of Problems with Anesthesia: No Social History Social History Alcohol intake: never Patient Tobacco Use Status: Never used Tobacco Use of substances other than those prescribed or required for medical reasons: No Have you been hit, kicked, punched, or otherwise hurt by someone within the past year? If so, by whom?: No Are you DNR?: No Advance Directives: No Advance Directives Information Provided: Yes Recently lost weight without trying: No Meds Allergies Allergy/AdvReac Type Severity Reaction Status Date / Time morphine Allergy Unknown HIVES Verified 03/04/24 10:16 Active Medications: Current Medications Lactated Ringer's (Lr) 1,000 mls @ 100 mls/hr IVCONT .Q10H LIZZIE Last Admin: 09/01/24 08:13 Dose: 100 mls/hr Ondansetron HCl (Ondansetron Hcl 4 Mg/2 Ml Vial) 4 mg IVPUSH ONCE PRN PRN Reason: Nausea and Vomiting Stop: 09/01/24 15:17 Home Medications ?Medication ?Instructions ?Recorded ?Confirmed ?Last Taken ?Type cholecalciferol (vitamin D3) 50 50 mcg PO DAILY 10/25/20 08/28/24 Unknown History mcg (2,000 unit) capsule fluticasone propionate 50 2 spray intranasal QAM PRN Nasal 10/25/20 08/28/24 Unknown History mcg/actuation nasal Congestion spray,suspension lisinopril 20 1 tab PO DAILY 10/25/20 08/28/24 Unknown History mg-hydrochlorothiazide 25 mg tablet loratadine 10 mg tablet 10 mg PO DAILY 10/25/20 08/28/24 Unknown History trazodone 50 mg tablet 50 mg PO BEDTIME 10/25/20 08/28/24 Unknown History divalproex 500 mg tablet,extended 500 mg PO BID 05/23/21 08/28/24 Unknown History release 24 hr ipratropium 20 mcg-albuterol 100 1 puff inhalation Q6H 07/04/21 03/06/23 Unknown History mcg/actuation mist for inhalation (Combivent Respimat) acetaminophen 500 mg tablet 500 mg PO Q8H PRN Pain 05/25/22 08/28/24 Unknown History cyclobenzaprine 5 mg tablet 5 mg PO BEDTIME 05/25/22 08/28/24 Unknown History albuterol sulfate 90 mcg/actuation 2 puff inhalation Q4-6H PRN 12/27/22 08/28/24 Unknown History aerosol inhaler (Ventolin HFA) Wheezing zinc sulfate 50 mg zinc (220 mg) 50 mg PO DAILY 12/27/22 03/06/23 Unknown History capsule ibuprofen 800 mg tablet 800 mg PO TID 03/23/23 08/28/24 Unknown History sumatriptan succinate 100 mg tablet 100 mg PO Q2-4H PRN Migraine 07/18/23 08/28/24 Unknown History Headache ferrous sulfate 325 mg (65 mg 325 mg PO DAILY 03/04/24 08/28/24 Unknown History iron) tablet (FeroSul) nortriptyline 25 mg capsule 25 mg PO BEDTIME 03/04/24 08/28/24 Unknown History Exam Height,Weight and Vital Signs: Height 5 ft 2 in Weight 97.522 kg Last Vital Signs Temp 98.2 F 09/01/24 08:05 Pulse 60 09/01/24 08:05 Resp 16 09/01/24 08:05 BP 120/56 L 09/01/24 08:05 Pulse Ox 97 09/01/24 08:05 O2 Del Method Room Air 09/01/24 08:05 Airway Mallampati Class: III TM Dist: >3cm Neck ROM: Full Loose/Missing/Broken Teeth: No Heart: RRR Lungs: CTAB Assessment and Plan Assessment Anesthesia Assessment: Anesthesia Plan Discussed and Chart Reviewed Final Anesthetic Review Family History of Problems with Anesthesia: No History of Problems with Anesthesia: No NPO: Yes ASA Class: III Final Preanesthetic Review: No Changes in Pt Med Stat, Meds/Allgs Chart Reviewed, Consent Obtained/Reviewed and Anes Risks/Benef Reviewed Patient Risk: Intermediate Procedure Risk: Low Assessment/Block/Sedation in SS: Assess/Block/Sedation-SS Anesthetic Plan Anesthetic Plan: TIVA Disposition: Standard PACU
--- NOTE | 2024-09-01 10:43 | W.PM.OPN ---
Operative Note Operative Note Date of Service: 09/01/24 Narrative: FLEXIBLE TRANSORAL UPPER GASTROINTESTINAL ENDOSCOPY WITH BIOPSIES Pre-op diagnosis: GERD, FU of Ramirez's esophagus, Post-op diagnosis: GERD, gastric bypass status, Endoscopist:? Halima Ram MD Anesthesia:?MAC UPPER ENDOSCOPY Consent: Indications for the procedure and potential complications of bleeding, perforation, reaction to medications and missed diagnosis were discussed with the patient and informed consent was obtained. Instrument: Olympus GIF H 190 mid size upper endoscope Monitoring: Vital signs and clinical assessment, continuous EKG monitoring, Pulse oximetry, Carbon Dioxide monitoring and blood pressure monitoring were done throughout the procedure. Procedure: The patient was placed in the left lateral decubitis position and pre-procedure medications were administered and a bite block was placed. The endoscope was inserted into the mouth and advanced under direct vision to the proximal jejunum. A careful inspection was made as the upper endoscope was withdrawn including a retroflexed examination of the proximal stomach; Findings and interventions are described below. Findings: Larynx: Normal Esophagus: GE junction at 32 cms. No esophagitis 1 cms tongue of Ramirez's at GE junction - biopsies were obtained for histology and tissue cypher. ? Stomach:? Status Post Deloris en Y gastric bypass surgey with 4 cms gastric pouch from 32 to 36 cms.? Liner streaks of gastric erythema in the distal gastric pouch - biopsies obtained to check for H Pylori Normal anastomosis. Jejunum:? Normal efferent limb - biopsies obtained during previous EGD were negative for celiac sprue. Intervention:? Biopsies as above Complications/Limitations:? None Estimated Blood Loss:? Minimal Impression and Post Procedure Diagnosis: ESOPHAGUS - No esophagitis 1 cms tongue of Ramirez's at GE junction - biopsies were obtained for histology and tissue cypher. ? STOMACH - Status post Deloris en Y gastric bypass with 4 cms gastric pouch and normal appearing mucosa Mild gastric erythema - biopsies obtained to check for H Pylori JEJUNUM - Normal efferent limb. Plan: Await pathology results Patient has an appointment on 09/04/24 in the GI Clinic with? Faiza Walker NP. Repeat EGD in 4 years for FU of Ramirez's - pt placed on the recall list for EGD. Above findings were reviewed with the patient and GERD handout was given in the discharge area BIOPSIES SHOWED: A. Gastric pouch, biopsy: Gastric body mucosa with mild reactive changes and minimal chronic inactive gastritis; negative for intestinal metaplasia and dysplasia. B. Esophagogastric junction, biopsy: Squamocolumnar mucosa with mild chronic active inflammation, erosion and reactive epithelial changes, consistent with esophagitis, and focal intestinal metaplasia; negative for dysplasia Comment: (A): Immunostain for H. pylori pending; addendum to follow. (B): These findings are consistent with Ramirez?s esophagus if the biopsies were taken from above the anatomic gastroesophageal junction. Clinical and endoscopic correlation is advised. TissueCypher testing pending; addendum to follow
[2024-09-01 10:49] VITALS: BP 98/50; PULSE 67; RESP 20; TEMP 36.4; O2SAT 96
[2024-09-01 11:01] VITALS: BP 128/56; PULSE 63; RESP 20; TEMP 36.6; O2SAT 96
== END 2024-09-01 11:14 | disposition home or self-care (01) ==
PROVIDERS: PCP Internal Medicine; Visit Provider Internal Medicine Gastroenterology
PROC: 0DJ08ZZ Inspection of Upper Intestinal Tract, Via Natural or Artificial Opening Endoscopic (ICD-10-PCS; CPT 43235; principal; 2024-09-01 09:20)
DX: K22.70 Barrett's esophagus without dysplasia (principal); K21.9 Gastro-esophageal reflux disease without esophagitis; K75.81 Nonalcoholic steatohepatitis (NASH); I10 Essential (primary) hypertension; J45.909 Unspecified asthma, uncomplicated; F32.A Depression, unspecified; E66.01 Morbid (severe) obesity due to excess calories; Z68.38 Body mass index [BMI] 38.0-38.9, adult; Z79.899 Other long term (current) drug therapy; Z88.5 Allergy status to narcotic agent; Z98.84 Bariatric surgery status
CPT/HCPCS: 43239; 88305; 88313; 88342; J2003; J2704

== ENCOUNTER → 2024-09-01 07:41 | Outpatient (BNV) | payer OTHER, SELFPAY | PROVIDERS: PCP Internal Medicine; Visit Provider Internal Medicine Gastroenterology | DX: K21.9 Gastro-esophageal reflux disease without esophagitis (principal); K22.70 Barrett's esophagus without dysplasia; Z98.84 Bariatric surgery status | CPT/HCPCS: 43239 ==

== ENCOUNTER 2024-09-03 12:23 | Outpatient (REF) | payer OTHER, SELFPAY ==
--- NOTE | ~2024-09-03 | MM_ITS ---
EXAMINATION: BONE DENSITOMETRY CLINICAL INDICATION: Disorder of bone. COMPARISON: Baseline BD dated 08/31/2021. TECHNIQUE: Using a [employer] DXA System (software version: 13.1) manufactured by [employer], dual-energy x-ray absorptiometry was performed of the lumbar spine and left hip. The images are of good technical quality. Summary results are attached. FINDINGS: LEFT FEMUR, NECK: Current: BMD 1.168 g/cm2, Z-score 1.8, T-score 0.9, normal. Baseline: BMD 1.149 g/cm2. LEFT FEMUR, TOTAL: Current: BMD 1.131 g/cm2, Z-score 1.6, T-score 1.0, normal, 1.3% decrease from baseline (<5% change is not significant). Baseline: BMD 1.146 g/cm2. AP SPINE L1-L4: Current: BMD 1.083 g/cm2, Z-score -0.2, T-score -0.8, normal, 0.6% increase from baseline (<5% change is not significant). Baseline: BMD 1.077 g/cm2. IDENTIFIED RISK FACTORS: Early menopause, secondary osteoporosis. HISTORY OF FRACTURE: None listed. MEDICATIONS: Calcium, vitamin D. MM/XR DEXA axial skeleton IMPRESSION: 1. DIAGNOSIS: Normal bone density based on the lowest T-score value of -0.8 in the lumbar spine applying World Health Organization criteria. 2. 10-YEAR FRACTURE RISK PREDICTION, FRAX: According to the guidelines, FRAX calculation should only be performed on patients in the osteopenia bone density category. Therefore, FRAX was not performed on this patient. 3. Treatment Recommendations: NOF guidelines recommend consideration for treatment in postmenopausal women and men age 50 and older presenting with the following: -A hip or vertebral (clinical or morphometric) fracture. -T-score less than or equal to -2.5 at the femoral neck or spine after appropriate evaluation to exclude secondary causes. -Low bone mass at the hip or spine and a 10-year fracture probability by FRAX of greater than or equal to 3% for hip fracture or greater than or equal to 20% for major osteoporotic fracture based on the [place] adapted WHO algorithm. 4. Other Recommendations: All treatment decisions require clinical judgment and consideration of individual patient factors, including patient preferences, comorbidities, previous drug use, risk factors not captured in the FRAX model (e.g. frailty, falls, vitamin D deficiency, increased bone turnover, interval significant decline in bone density) and possible under or overestimation of fracture risk by FRAX. FUTURE SCAN RECOMMENDATION: People with diagnosed cases of osteoporosis or at high risk for fracture should have regular bone mineral density tests. For patients eligible for Medicare, routine testing is allowed once every 2 years. The testing frequency can be increased to one year for patients who have rapidly progressing disease, those who are receiving or discontinuing medical therapy to restore bone mass, or have additional risk factors. Electronically signed by: Kalyan Monsalve MD 09/04/2024 08:14 AM EDT RP
== END 2024-09-03 12:24 | disposition home or self-care (01) ==
LOC: HO.MAMMO 12:23
PROVIDERS: PCP Internal Medicine; Visit Provider Internal Medicine
DX: Z13.820 Encounter for screening for osteoporosis (principal); M89.9 Disorder of bone, unspecified; Z91.89 Other specified personal risk factors, not elsewhere classified
CPT/HCPCS: 77080

== ENCOUNTER 2024-09-04 09:32 | Outpatient (AMB) | payer OTHER, SELFPAY ==
[2024-09-04 09:36] VITALS: BP 129/66; PULSE 59; BMI 39.3
--- NOTE | 2024-09-04 09:36 | A.OFFVIS_ITS ---
Vital Signs 09/04/24 09:36 Height 5 ft 2 in Weight 214 lb 11.684 oz BMI 39.3 BP 129/66 Blood Pressure Location Lt brachial Position Sitting Pulse 59 Intake Visit Reasons: s/p EGD Intake Note: Patient in office today in follow up s/p EGD. CC: Patient c/o RUQ abdominal pain and burning sensation. [place] Required: Yes Accompanied by: Self / Same As Patient Allergies morphine Allergy (Unknown, Verified 10/17/24 10:30) HIVES HPI HPI s/p EGD: Details: Assessment & Plan (1) GERD (gastroesophageal reflux disease): Code(s): K21.9 - Gastro-esophageal reflux disease without esophagitis Category: Medical (2) Thoracic radiculopathy: Comment: With radiation to the right abdomen, T-[address] OSSEOUS STRUCTURES: No acute osseous abnormality. Probable hemangioma in T11, stable. Chronic stable ossification adjacent to the right acetabulum. Degenerative changes in the spine. Code(s): M54.14 - Radiculopathy, thoracic region Category: Medical (3) Periumbilical abdominal pain: Comment: This is a patient has had a fairly extensive GI workup and has intermittent This is a patient has had a fairly extensive GI workup and has intermittent chronic pain with a wide differential diagnosis. Her situation is complicated by the fact that she has a gastric bypass patient and may have adhesions. She also has a very significant overlay of musculoskeletal pain with degenerative disease of the thoracic spine and her hip that frequently will radiate into the abdomen. 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 She i now doing much better on the o2o 40mg bid. Still, I will order an EGD to check her SSBE since we had a period of poor HB control. So her current GI regimen consists on omeprazole 40 mg twice a day, dicyclomine, Proctosol cream, and simethicone. ROV 6 mos. Orders: Orders EGD with Gill - GI Use Only Today K22.70 - Ramirez's esophagus without dysplasia EGD 09/01/24 Findings: Larynx: Normal Esophagus: GE junction at 32 cms. No esophagitis 1 cms tongue of Ramirez's at GE junction - biopsies were obtained for histology and tissue cypher. ? Stomach:? Status Post Deloris en Y gastric bypass surgey with 4 cms gastric pouch from 32 to 36 cms.? Liner streaks of gastric erythema in the distal gastric pouch - biopsies obtained to check for H Pylori Normal anastomosis. Jejunum:? Normal efferent limb - biopsies obtained during previous EGD were negative for celiac sprue. Intervention:? Biopsies as above Complications/Limitations:? None Estimated Blood Loss:? Minimal Impression and Post Procedure Diagnosis: ESOPHAGUS - No esophagitis 1 cms tongue of Ramirez's at GE junction - biopsies were obtained for histology and tissue cypher. ? STOMACH - Status post Deloris en Y gastric bypass with 4 cms gastric pouch and normal appearing mucosa Mild gastric erythema - biopsies obtained to check for H Pylori JEJUNUM - Normal efferent limb. Plan: Await pathology results Patient has an appointment on 09/04/24 in the GI Clinic with? Faiza Walker NP. Repeat EGD in 4 years for FU of Ramirez's. BIOPSY Received: 09/01/24 THIS IS A CORRECTED REPORT This is a corrected report. Any previous versions are stored internally and are available if necessary. Diagnosis A. Gastric pouch, biopsy: Gastric body mucosa with mild reactive changes and minimal chronic inactive gastritis; negative for intestinal metaplasia and dysplasia. B. Esophagogastric junction, biopsy: Squamocolumnar mucosa with mild chronic active inflammation, erosion and reactive epithelial changes, consistent with esophagitis, and focal intestinal metaplasia; negative for dysplasia Comment: (A): Immunostain for H. pylori pending; addendum to follow. (B): These findings are consistent with Ramirez?s esophagus if the biopsies were taken from above the anatomic gastroesophageal junction. Clinical and endoscopic correlation is advised. TissueCypher testing pending; addendum to follow. TODAY'S VISIT Turkish #[id number] She says the doctor told me that my stomach was twisted, but there is nothing like this in the report so I can not comment or explain this. She says she is having right sided lower abd pain at night with bloating. She is vague about the severity or timing of this. She denies CIC. This may be gas trapping so I recommend trying to take an extra simethicone when it happens She continues on carafate, simethicone and dicyclomine, simethicone, and along with the increase of omeprazole 40 mg twice a day and Proctosol cream ROV 8 weeks. . [facility] Medical History H. pylori infection Abnormal EKG Precordial chest pain Sacroiliitis Close exposure to COVID-19 virus [place] (nonalcoholic steatohepatitis) GERD (gastroesophageal reflux disease) Depression Asthma Morbid obesity due to excess calories Essential hypertension Surgical History History of esophagogastroduodenoscopy (EGD) H/O breast surgery Hx of colonoscopy Status post bariatric surgery Family History Father Heart attack Mother Thrombosis Social History Alcohol intake: never Patient Tobacco Use Status: Never used Tobacco Advance Directives: No Advance Directives Information Provided: Yes Review of Systems Const Denies fatigue, Denies fever(s), Denies night sweats, Denies poor appetite and Denies weight loss ENT Reports Normal hearing present, Denies dental pain, Denies dysphagia, Denies hearing loss, Denies mouth pain, Denies odynophagia, Denies throat swelling, Denies tongue swelling and Reports other (Dentition adequate) Card Reports no additional complaints Resp Reports no additional complaints GI Details: Reports abdominal pain, Denies melena, Reports bloating, Denies hematochezia, Reports constipation, Denies GI cramping, Denies dysphagia, Denies excessive flatus, Denies early satiety, Reports heartburn, Denies diarrhea, Denies nausea, Denies odynophagia, Denies vomiting and Denies hematemesis Skin/Breast Denies pruritus, Denies lesions, Denies rash and Denies jaundice Neuro Reports Normal hearing present and Denies Abnormal speech present Endo Denies fatigue Aller/Immun Denies throat swelling and Denies tongue swelling Physical Exam Vital Signs: Last Vital Signs Pulse 59 09/04/24 09:36 BP 129/66 09/04/24 09:36 BMI result Body Mass Index 39.3 Const General: cooperative, no acute distress, well developed and well groomed Nutritional Appearance: well nourished and obese Orientation/consciousness: oriented to person, oriented to place and oriented to time Limitations: language barrier HEENT Head: Yes normocephalic and Yes atraumatic Eyes General: appearance normal, both eyes and all related structures Pupils: Equal, round and reactive pupils present Neck Neck: Yes normal visual inspection and Yes no lymphadenopathy Thyroid: Thyroid normal Resp Effort & Inspection: normal respiratory effort and able to speak in complete sentences Auscultation: clear to auscultation bilaterally Cardio Rate: regular rate Rhythm: regular rhythm Heart sounds: Normal, physiologic split S2 sound present Peripheral pulses: radial pulses present and posterior tibial pulses present GI Inspection: No distended, No Abdominal panniculus present and Yes obesity Palpation (GI): Soft to palpation, nontender, no guarding, not rigid and No hepatosplenomegaly present Percussion: Yes normal to percussion Auscultation: normal bowel sounds Rectal Exam - Female: deferred Skin General skin exam: no rashes or lesions noted, turgor normal, skin not dry, no jaundice, No spider nevi and no striae Rashes: no rashes Nails: normal Neuro General: oriented to person, oriented to place and oriented to time Cranial nerves: Yes Equal, round and reactive pupils present and Yes Normal hearing present Speech: No Abnormal speech present Extrem General: Yes normal to inspection, No clubbing, No cyanosis and No edema Psych Appearance: grossly normal and well kempt Mental Status: mental status grossly normal Speech and movement: Normal speech and movement present Affect: normal affect Attitude: cooperative Thought process: Normal thought process present and not confabulating Thought content: Normal thought content present Insight: Limited insight present (Psych) Judgement: Limited judgement present (Psych) Results Reviewed Results Reviewed: EGD 09/01/24 Findings: Larynx: Normal Esophagus: GE junction at 32 cms. No esophagitis 1 cms tongue of Ramirez's at GE junction - biopsies were obtained for histology and tissue cypher. ? Stomach:? Status Post Deloris en Y gastric bypass surgey with 4 cms gastric pouch from 32 to 36 cms.? Liner streaks of gastric erythema in the distal gastric pouch - biopsies obtained to check for H Pylori Normal anastomosis. Jejunum:? Normal efferent limb - biopsies obtained during previous EGD were negative for celiac sprue. Intervention:? Biopsies as above Complications/Limitations:? None Estimated Blood Loss:? Minimal Impression and Post Procedure Diagnosis: ESOPHAGUS - No esophagitis 1 cms tongue of Ramirez's at GE junction - biopsies were obtained for histology and tissue cypher. ? STOMACH - Status post Deloris en Y gastric bypass with 4 cms gastric pouch and normal appearing mucosa Mild gastric erythema - biopsies obtained to check for H Pylori JEJUNUM - Normal efferent limb. Plan: Await pathology results Patient has an appointment on 09/04/24 in the GI Clinic with? Faiza Walker NP. Repeat EGD in 4 years for FU of Ramirez's. BIOPSY Received: 09/01/24 THIS IS A CORRECTED REPORT This is a corrected report. Any previous versions are stored internally and are available if necessary. Diagnosis A. Gastric pouch, biopsy: Gastric body mucosa with mild reactive changes and minimal chronic inactive gastritis; negative for intestinal metaplasia and dysplasia. B. Esophagogastric junction, biopsy: Squamocolumnar mucosa with mild chronic active inflammation, erosion and reactive epithelial changes, consistent with esophagitis, and focal intestinal metaplasia; negative for dysplasia Comment: (A): Immunostain for H. pylori pending; addendum to follow. (B): These findings are consistent with Ramirez?s esophagus if the biopsies were taken from above the anatomic gastroesophageal junction. Clinical and endoscopic correlation is advised. TissueCypher testing pending; addendum to follow. 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 She says she is having right sided lower abd pain at night with bloating. She is vague about the severity or timing of this. She denies CIC. This may be gas trapping so I recommend trying to take an extra simethicone when it happens She continues on carafate, simethicone and dicyclomine, simethicone, and along with the increase of omeprazole 40 mg twice a day and Proctosol cream ROV 8 weeks. . 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
== END 2024-09-04 10:30 | disposition home or self-care (01) ==
LOC: HO.HGI 09:32
PROVIDERS: PCP Internal Medicine; Visit Provider Nurse Practitioner
DX: K21.9 Gastro-esophageal reflux disease without esophagitis (principal); K22.70 Barrett's esophagus without dysplasia; R10.31 Right lower quadrant pain
CPT/HCPCS: 99214

== ENCOUNTER → 2024-09-04 09:32 | Outpatient (BNVA) | payer OTHER, SELFPAY | PROVIDERS: PCP Internal Medicine; Visit Provider Nurse Practitioner | DX: K21.9 Gastro-esophageal reflux disease without esophagitis (principal); K22.70 Barrett's esophagus without dysplasia | CPT/HCPCS: 99212 ==

== ENCOUNTER 2024-10-17 09:25 | Outpatient (AMB) | payer OTHER, SELFPAY ==
--- NOTE | 2024-10-17 09:31 | A.OFFVIS_ITS ---
Vital Signs 10/17/24 09:34 Height 5 ft 2 in Weight 207 lb 3.752 oz BMI 37.9 BP 83/63 L Blood Pressure Location Rt brachial Position Sitting Pulse 80 Intake Visit Reasons: 7 week follow up Intake Note: Jennifer presents in office today in follow up abdominal pain. CC: Patient c/o stabbing and pinching sensation from RLQ abdomen. She also c/o asthma, cough, poor appetite, bad taste on her mouth, sore throat, and fever for the last 3 days. Patient received a letter from medical insurance stating that the genetic test denial was appealed and it could take up to 30 days for them to make a decision. 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 She says she is having right sided lower abd pain at night with bloating. She is vague about the severity or timing of this. She denies CIC. This may be gas trapping so I recommend trying to take an extra simethicone when it happens She continues on carafate, simethicone and dicyclomine, simethicone, and along with the increase of omeprazole 40 mg twice a day and Proctosol cream ROV 8 weeks. 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 She is very worried about letter she has been getting from [facility] re: a genetic test that was, apparently, performed by Dr. Ram on her SSBE. I reassure her that this indicated a low probability of SSBE progression. She has a new c/o a stabbing pain in the RLQ that is worse with lying and standing. It will occur about twice a week and is brief in how long it lasts. It is worse with drinking milk, anything fatty or greasy/fried, or spicy condiments. It is not accompanied by any diarrhea. I advised her to take an extra Bentyl when this happens but I am also a little concerned about a bring appendicitis. Since she is going to the ER anyway because she is having respiratory issues I tell her to advise them about this and see if they can get a CT scan since that is not a test that I can get stat. She also has been very weak for 3 days with a cough and intermittent fevers. she also has a dry/sore throat. Listening to her lungs she sounds very junky in her RLQ with wheezing that clears with cough. She says she took a home COVID test that was negative. Will set up an appointment in 8 weeks but I told her to call me if the ER does not perform CT scan and I will order it. [facility] Medical History (Updated 10/17/24 @ 10:15 by CINDY Up) H. pylori infection Abnormal EKG Precordial chest pain Sacroiliitis Close exposure to COVID-19 virus MONTEMAYOR (nonalcoholic steatohepatitis) GERD (gastroesophageal reflux disease) Depression Asthma Morbid obesity due to excess calories Essential hypertension Surgical History History of esophagogastroduodenoscopy (EGD) H/O breast surgery Hx of colonoscopy Status post bariatric surgery Family History Father Heart attack Mother Thrombosis Social History Alcohol intake: never Patient Tobacco Use Status: Never used Tobacco Review of Systems Const Reports fatigue, Reports fever(s), Reports malaise, Denies night sweats, Denies poor appetite, Reports weakness and Denies weight loss ENT Reports Normal hearing present, Denies dental pain, Denies dysphagia, Reports dry mouth, Denies hearing loss, Reports hoarseness, Denies mouth pain, Denies odynophagia, Reports sore throat, Denies throat swelling, Denies tongue swelling and Reports other (Dentition adequate) Card Reports no additional complaints and Reports dyspnea Resp Reports chest congestion, Reports cough, Reports dyspnea and Reports wheezing GI Details: Reports abdominal pain, Denies melena, Denies bloating, Denies hematochezia, Reports constipation, Denies GI cramping, Denies dysphagia, Denies excessive flatus, Denies early satiety, Reports heartburn, Denies diarrhea, Denies nausea, Denies odynophagia, Denies vomiting and Denies hematemesis Skin/Breast Denies pruritus, Denies lesions, Denies rash and Denies jaundice Neuro Reports Normal hearing present, Denies Abnormal speech present and Reports weakness Psych Reports anxiety Endo Reports fatigue Aller/Immun Denies throat swelling, Denies tongue swelling and Reports wheezing Physical Exam Vital Signs: Last Vital Signs Pulse 80 10/17/24 09:34 BP 83/63 L 10/17/24 09:34 BMI result Body Mass Index 37.9 Const General: cooperative, well developed, acute distress mild and tired appearing Nutritional Appearance: well nourished and obese Orientation/consciousness: oriented to person, oriented to place and oriented to time Limitations: language barrier HEENT Head: Yes normocephalic and Yes atraumatic Eyes General: appearance normal, both eyes and all related structures Pupils: Equal, round and reactive pupils present Neck Neck: Yes normal visual inspection and Yes no lymphadenopathy Thyroid: Thyroid normal Resp Effort & Inspection: normal respiratory effort, able to speak in complete sentences and Actively coughing Quality: wet Auscultation: rhonchi (Clears with cough) right lower and wheezes inspiratory wheezes and right lower Cardio Rate: regular rate Rhythm: regular rhythm Heart sounds: Normal, physiologic split S2 sound present Peripheral pulses: radial pulses present and posterior tibial pulses present GI Inspection: No distended, No Abdominal panniculus present, Yes obesity and Yes scar Palpation (GI): Soft to palpation, Tenderness to palpation present (GI) in the RLQ; obturator sign negative and Rovsing's sign negative, no guarding, not rigid and No hepatosplenomegaly present Percussion: Yes normal to percussion Auscultation: normal bowel sounds Rectal Exam - Female: deferred Back/Spine/Pelvis Thoracic/Lumbar Spine: No pain with thoraco-lumbar ROM, No paraspinal muscle tenderness and No lumbar spinal tenderness Sacroiliac joints: bilaterally nontender Skin General skin exam: no rashes or lesions noted, turgor normal, skin not dry, no jaundice, No spider nevi and no striae Rashes: no rashes Nails: normal Neuro General: oriented to person, oriented to place and oriented to time Cranial nerves: Yes Equal, round and reactive pupils present and Yes Normal hearing present Speech: No Abnormal speech present Extrem General: Yes normal to inspection, No clubbing, No cyanosis and No edema Psych Appearance: disheveled Mental Status: mental status grossly normal Speech and movement: Normal speech and movement present and Slowed movement present (Neuro) Affect: Labile affect present and Anxious affect present Attitude: cooperative Thought process: Normal thought process present and not confabulating Thought content: Normal thought content present Insight: Limited insight present (Psych) Judgement: Limited judgement present (Psych) Assessment & Plan Assessment & Plan (1) RLQ abdominal pain: Code(s): R10.31 - Right lower quadrant pain Category: Medical (2) 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 Probable hemangioma in T11, stable. Chronic stable ossification adjacent to the right acetabulum. Degenerative changes in the spine. Code(s): M54.14 - Radiculopathy, thoracic region Category: Medical (4) GERD (gastroesophageal reflux disease): Code(s): K21.9 - Gastro-esophageal reflux disease without esophagitis Category: Medical (5) Cough: Code(s): R05.9 - Cough, unspecified Category: Medical (6) Fever: Code(s): R50.9 - Fever, unspecified Category: Medical (7) Dyspnea: Code(s): R06.00 - Dyspnea, unspecified Category: Medical Plan [place] #Latasha Live She continues on carafate, simethicone and dicyclomine, simethicone, and along with the increase of omeprazole 40 mg twice a day and Proctosol cream. She is very worried about letter she has been getting from [facility] re: a genetic test that was, apparently, performed by Dr. Ram on her SSBE. I reassure her that this indicated a low probability of SSBE progression. She has a new c/o a stabbing pain in the RLQ that is worse with lying and standing. It will occur about twice a week and is brief in how long it lasts. It is worse with drinking milk, anything fatty or greasy/fried, or spicy condiments. It is not accompanied by any diarrhea. I advised her to take an extra Bentyl when this happens but I am also a little concerned about a bring appendicitis. Since she is going to the ER anyway because she is having respiratory issues I tell her to advise them about this and see if they can get a CT scan since that is not a test that I can get stat. She also has been very weak for 3 days with a cough and intermittent fevers. she also has a dry/sore throat. Listening to her lungs she sounds very junky in her RLQ with wheezing that clears with cough. She says she took a home COVID test that was negative. Will set up an appointment in 8 weeks but I told her to call me if the ER does not perform CT scan and I will order it. 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
[2024-10-17 09:34] VITALS: BP 83/63; PULSE 80; BMI 37.9
== END 2024-10-17 10:11 | disposition home or self-care (01) ==
PROVIDERS: PCP Internal Medicine; Visit Provider Nurse Practitioner
DX: R10.31 Right lower quadrant pain (principal); K22.70 Barrett's esophagus without dysplasia; M54.14 Radiculopathy, thoracic region; K21.9 Gastro-esophageal reflux disease without esophagitis; R05.9 Cough, unspecified; R50.9 Fever, unspecified; R06.00 Dyspnea, unspecified
CPT/HCPCS: 99214

== ENCOUNTER 2024-10-17 10:18 | Emergency (ER) | payer OTHER, SELFPAY ==
--- NOTE | ~2024-10-17 | XR_ITS ---
EXAMINATION: XR CHEST CLINICAL INFORMATION: COUGH, ASTHMA COMPARISON: 05/09/2021, 04/23/2021. TECHNIQUE: 2 views of the chest were obtained. FINDINGS: The cardiac, hilar, and mediastinal contours are normal. Patchy opacity right upper lobe, new from prior. Lungs otherwise clear. There is no focal osseous or soft tissue abnormality. Mild spinal degenerative changes. XR/XR chest 2V IMPRESSION: Right upper lobe pneumonia. No effusions. Electronically signed by: Dewayne Tapia MD 10/17/2024 12:46 PM EST
[2024-10-17 10:29] VITALS: BP 116/68; PULSE 76; RESP 18; TEMP 37.3; O2SAT 98; BMI 37.9
[2024-10-17 10:52] LABS: MANUAL DIFF FLAG NO
[2024-10-17 10:54] LABS: Basophils Percent Auto 0.2 % (0-2); Eosinophils Absolute Auto 0.1 X10*3/uL (0.0-0.4); Eosinophils Percent Auto 0.7 % (0-4); Hematocrit 36.4 % (37.0-47.0); Hemoglobin 12.2 g/dl (12.0-16.0); Imm Gran Abs Auto 0.02 X10*3/uL (0.00-0.03); Imm Gran Pct Auto 0.2 % (0.0-0.4); Lymphocytes Absolute Auto 1.5 X10*3/uL (1.2-4.9); Lymphocytes Percent Auto 17.5 % (20-40); Mean Corpuscular HGB Conc 33.5 g/dl (31.0-35.0); Mean Corpuscular Hemoglobin 29.9 pg (27.0-33.0); Mean Corpuscular Volume 89.2 fL (80.0-98.0); Mean Platelet Volume 9.8 fL (9.4-12.3); Monocytes Absolute Auto 1.5 X10*3/uL (0.1-1.2); Monocytes Percent Auto 17.3 % (2-11); Neutrophils Absolute Auto 5.4 x10*3/uL (2.0-8.3); Neutrophils Percent Auto 64.1 % (45-73); Platelet Count 267 X10*3/uL (160-400); Red Blood Count 4.08 X10*6/uL (4.20-5.50); Red Cell Distribution Width 14.1 % (11.0-16.0); White Blood Count 8.4 X10*3/uL (4.8-10.8)
[2024-10-17 11:05] LABS: Anion Gap 12 (12-20); Blood Urea Nitrogen 18 mg/dL (9-16); Calcium 9.2 mg/dL (8.4-10.2); Carbon Dioxide 27 mmol/L (22-29); Chloride 103 mmol/L (96-108); Creatinine Clr Calc Pharmacy 66.2; Estimated Glomerular Filt Rate > 60; Glucose Random 101 mg/dL (60-115); Potassium 4.2 mmol/L (3.3-5.1); Sodium 138 mmol/L (135-145)
[2024-10-17 11:07] LABS: IDNOW Serial# 58CA691E; Strep A Nucleic Acid Negative (Negative)
[2024-10-17 11:30] LABS: Influenza A PCR NEGATIVE (Negative); Influenza B PCR NEGATIVE (Negative); Resp Syncy Virus RNA Qual PCR NEGATIVE (Negative); SARS COV2 PCR INHOUSE NEGATIVE (Negative)
[2024-10-17 15:54] VITALS: BP 130/60; PULSE 87; RESP 16; TEMP 36.7; O2SAT 100
--- NOTE | 2024-10-17 16:33 | ED.GENADULT ---
HPI - General Adult General Chief complaint: General Medical Stated complaint: CP, asthma, weakness Time Seen by Provider: 10/17/24 15:50 Source: patient Mode of arrival: ambulatory Limitations: no limitations History of Present Illness HPI narrative: Patient is a 69-year-old female who presents emergency department for evaluation she has been experiencing an intermittent productive cough, pain in the right anterior chest noted while coughing. Reports increased use of her albuterol inhaler with some improvement. Initial nursing triage report notes that she was complaining of right lower abdominal pain. She denies this at this time, stating that she has pain over her epigastrium which is typical when she is feeling hungry and has not had anything to eat. Reports that she has not eaten since breakfast. Denies trauma, fevers, chills, sore throat, difficulty swallowing, neck pain, chest pain, palpitations, nausea, vomiting, numbness or tingling of the extremities, recent lower extremity pain or swelling, or symptoms. Denies alcohol use, recreational drugs, or smoking tobacco. Related Data Home Medications ?Medication ?Instructions ?Recorded ?Confirmed cholecalciferol (vitamin D3) 50 50 mcg PO DAILY 10/25/20 08/28/24 mcg (2,000 unit) capsule fluticasone propionate 50 2 spray intranasal QAM PRN Nasal 10/25/20 08/28/24 mcg/actuation nasal Congestion spray,suspension lisinopril 20 1 tab PO DAILY 10/25/20 08/28/24 mg-hydrochlorothiazide 25 mg tablet loratadine 10 mg tablet 10 mg PO DAILY 10/25/20 08/28/24 trazodone 50 mg tablet 50 mg PO BEDTIME 10/25/20 08/28/24 divalproex 500 mg tablet,extended 500 mg PO BID 05/23/21 08/28/24 release 24 hr ipratropium 20 mcg-albuterol 100 1 puff inhalation Q6H 07/04/21 03/06/23 mcg/actuation mist for inhalation (Combivent Respimat) acetaminophen 500 mg tablet 500 mg PO Q8H PRN Pain 05/25/22 08/28/24 cyclobenzaprine 5 mg tablet 5 mg PO BEDTIME 05/25/22 08/28/24 albuterol sulfate 90 mcg/actuation 2 puff inhalation Q4-6H PRN 12/27/22 08/28/24 aerosol inhaler (Ventolin HFA) Wheezing zinc sulfate 50 mg zinc (220 mg) 50 mg PO DAILY 12/27/22 03/06/23 capsule ibuprofen 800 mg tablet 800 mg PO TID 03/23/23 08/28/24 sumatriptan succinate 100 mg tablet 100 mg PO Q2-4H PRN Migraine 07/18/23 08/28/24 Headache ferrous sulfate 325 mg (65 mg 325 mg PO DAILY 03/04/24 08/28/24 iron) tablet (FeroSul) nortriptyline 25 mg capsule 25 mg PO BEDTIME 03/04/24 08/28/24 calcium carbonate (Calcium Antacid) tab PO 09/04/24 Previous Rx's ?Medication ?Instructions ?Recorded hydrocortisone 2.5 % topical cream 1 appl NC BID PRN hemorrhoids #30 08/28/22 with perineal applicator grams (Proctosol HC) ondansetron 4 mg disintegrating 4 mg PO Q8H PRN nausea and 08/30/22 tablet vomiting #20 tabs simethicone 180 mg capsule 180 mg PO QID #90 caps 07/18/23 dicyclomine 20 mg tablet 20 mg PO QID #120 tabs 04/18/24 omeprazole 40 mg capsule,delayed 40 mg PO BID #60 caps 10/14/24 release azithromycin 250 mg tablet See Rx Instructions PO .COMPLEX #6 10/17/24 tabs cefpodoxime 200 mg tablet 200 mg PO BID #14 tabs 10/17/24 Allergies Allergy/AdvReac Type Severity Reaction Status Date / Time morphine Allergy Unknown HIVES Verified 10/17/24 10:30 Review of Systems Review of Systems: Yes all other systems are reviewed and are negative [facility] Past Medical History Attestation statement: The following information was validated with the patient. Source: old records reviewed Medical History H. pylori infection Abnormal EKG Precordial chest pain Sacroiliitis Close exposure to COVID-19 virus MONTEMAYOR (nonalcoholic steatohepatitis) GERD (gastroesophageal reflux disease) Depression Asthma Morbid obesity due to excess calories Essential hypertension Surgical History History of esophagogastroduodenoscopy (EGD) H/O breast surgery Hx of colonoscopy Status post bariatric surgery Family History Family History Father Heart attack Mother Thrombosis Social History Social History Alcohol intake: never Patient Tobacco Use Status: Never used Tobacco Advance Directives: No Advance Directives Information Provided: Yes Physical Exam ED Vital Signs: Vital Signs - 24 hr 10/17/24 10:29 10/17/24 15:54 Temperature 99.2 F 98.1 F Pulse Rate 76 87 Respiratory Rate 18 16 Blood Pressure 116/68 130/60 Pulse Oximetry 98 100 Oxygen Delivery Method Room Air Room Air BMI result Body Mass Index 37.9 Appearance: Alert.?Oriented to person, place and time. No acute distress.?Normal affect. Eyes: Pupils equal, round and reactive to light.? ENT: Pharynx normal.?? Neck: Normal inspection.? Neck supple.?? CVS: Heart sounds normal. Normal heart rate and rhythm.? Pulses normal.?? Respiratory: No respiratory distress.? Lung sounds clear to auscultation bilaterally?? Abdomen: Soft and non-tender. Normoactive bowel sounds. Skin: Skin warm and dry.? Normal skin color.? Extremities: No lower extremity edema.? No calf ttp? Neuro: Moves all extremities spontaneously. Sensation intact bilaterally. No focal neuro deficits. Ambulates with normal steady gait. Medical Decision Making Medical Decision Making MDM Narrative: Patient is a 69-year-old female with past medical history of PUD, GERD, migraines, hypertension, gastric bypass in 2006 presenting for evaluation of cough, reproducible chest pain to cough and intermittent shortness of breath as per HPI. Overall well-appearing, nontoxic, afebrile, no respiratory distress. No rash or lesions, urticaria, or evidence of angioedema to suggest allergic reaction/anaphylaxis. No swallowing difficulties to suggest aspiration. Has reproducible chest pain to cough, concerning for pleurisy/costochondritis. Less suspicious for ACS. No lower extremity redness pain or swelling, history of VTE/malignancy to suggest PE, wells negative. No recent trauma or injury, no tracheal deviation, unlikely tension pneumothorax. Given associated cough/ URI symptoms concern more for viral illness, pneumonia, asthma exacerbation. CXR revealing a right upper lobe pneumonia. No significant wheezing. Vital signs are stable. No hypoxia or tachypnea. Ambulates with steady gait in no distress. Discussed treatment course of antibiotics, strict return precautions, and worrisome signs and symptoms that would warrant re-evaluation. All questions answered. Differential Diagnosis Differential Diagnoses: The differential diagnosis associated with the presentation includes (See narrative above) Admission/Observation Consideration of admission/observation: Escalation of care including admission/observation considered (See narrative above) Lab Data MDM Lab Attestation statement: I reviewed the patient's lab results. CBC is without leukocytosis anemia or thrombocytopenia. No electrolyte derangement. No BYRON. Viral serologies are negative. 10/17/24 10:46 10/17/24 10:46 Labs: Lab Results 10/17/24 Range/Units 10:46 WBC 8.4 (4.8-10.8) X10*3/uL RBC 4.08 L (4.20-5.50) X10*6/uL Hgb 12.2 (12.0-16.0) g/dl Hct 36.4 L (37.0-47.0) % MCV 89.2 (80.0-98.0) fL MCH 29.9 (27.0-33.0) pg MCHC 33.5 (31.0-35.0) g/dl RDW 14.1 (11.0-16.0) % Plt Count 267 (160-400) X10*3/uL MPV 9.8 (9.4-12.3) fL Immature Gran % (Auto) 0.2 (0.0-0.4) % Neut % (Auto) 64.1 (45-73) % Lymph % (Auto) 17.5 L (20-40) % [place] % (Auto) 17.3 H (2-11) % Eos % (Auto) 0.7 (0-4) % Baso % (Auto) 0.2 (0-2) % Lymph # (Auto) 1.5 (1.2-4.9) X10*3/uL [place] # (Auto) 1.5 H (0.1-1.2) X10*3/uL Eos # (Auto) 0.1 (0.0-0.4) X10*3/uL Baso # (Auto) 0.0 (0.0-0.2) X10*3/uL Abs Immat Gran (auto) 0.02 (0.00-0.03) X10*3/uL Absolute Neuts (auto) 5.4 (2.0-8.3) x10*3/uL Absolute Nucleated RBC 0.000 (0.0-0.012) X10*3/uL Nucleated RBC % (auto) 0.0 (0.0-0.2) /100WBC Sodium 138 (135-145) mmol/L Potassium 4.2 (3.3-5.1) mmol/L Chloride 103 (96-108) mmol/L Carbon Dioxide 27 (22-29) mmol/L Anion Gap 12 (12-20) BUN 18 H (9-16) mg/dL Creatinine 0.88 (0.5-1.4) mg/dL Estim Creat Clear Calc 66.2 Estimated GFR > 60 Random Glucose 101 (60-115) mg/dL Calcium 9.2 (8.4-10.2) mg/dL Influenza Type A (PCR) NEGATIVE (Negative) Influenza Type B (PCR) NEGATIVE (Negative) RSV RNA Qual (PCR) NEGATIVE (Negative) SARS-CoV-2 RNA (RT-PCR) NEGATIVE (Negative) S. pyogenes GrpA SARINA Negative (Negative) Independent Interpretation I performed an independent interpretation of an: Plain X-Ray (Right upper lobe opacity) Radiology Impression Discussion of test interpretation with radiology: I have reviewed the radiologist's reading. Radiologist Impression: XR/XR chest 2V IMPRESSION: Right upper lobe pneumonia. No effusions. External Record Review External record reviewed: Outpatient record Tests considered The following testing was considered but not selected: See narrative above Prescription Management I considered prescription management with: Antibiotic Discharge Plan Discharge Clinical Impression: Community acquired pneumonia Patient Disposition: Home, Self-Care Instructions: Community Acquired Pneumonia (ED) Prescriptions: New cefpodoxime 200 mg tablet 200 mg PO BID Qty: 14 0RF Rx Instructions: must administer with a meal/food azithromycin 250 mg tablet See Rx Instructions .ROUTE .COMPLEX Qty: 6 0RF Rx Instructions: For 250 mg dose pack: take 500 mg today (day 1), then 250 mg for 4 days (days 2-5) No Action hydrocortisone [Proctosol HC] 2.5 % cream with perineal applicator 1 appl NC BID PRN (Reason: hemorrhoids) Qty: 30 0RF dicyclomine 20 mg tablet 20 mg PO QID Qty: 120 6RF omeprazole 40 mg capsule,delayed release(DR/EC) 40 mg PO BID Qty: 60 6RF ondansetron 4 mg tablet,disintegrating 4 mg PO Q8H PRN (Reason: nausea and vomiting) Qty: 20 0RF divalproex 500 mg tablet extended release 24 hr 500 mg PO BID loratadine 10 mg tablet 10 mg PO DAILY fluticasone propionate 50 mcg/actuation spray,suspension 2 spray intranasal QAM PRN (Reason: Nasal Congestion) trazodone 50 mg tablet 50 mg PO BEDTIME cholecalciferol (vitamin D3) 50 mcg (2,000 unit) capsule 50 mcg PO DAILY lisinopril-hydrochlorothiazide 20-25 mg tablet 1 tab PO DAILY Combivent Respimat 20-100 mcg/actuation mist 1 puff inhalation Q6H albuterol sulfate [Ventolin HFA] 90 mcg/actuation HFA aerosol inhaler 2 puff inhalation Q4-6H PRN (Reason: Wheezing) zinc sulfate 50 mg zinc (220 mg) capsule 50 mg PO DAILY acetaminophen 500 mg tablet 500 mg PO Q8H PRN (Reason: Pain) cyclobenzaprine 5 mg tablet 5 mg PO BEDTIME simethicone 180 mg capsule 180 mg PO QID Qty: 90 4RF ibuprofen 800 mg tablet 800 mg PO TID sumatriptan succinate 100 mg tablet 100 mg PO Q2-4H PRN (Reason: Migraine Headache) ferrous sulfate [FeroSul] 325 mg (65 mg iron) tablet 325 mg PO DAILY nortriptyline 25 mg capsule 25 mg PO BEDTIME Calcium Antacid 300 mg (750 mg) tablet,chewable PO Referrals: Shital La MD [Primary Care Provider] - Print Language: Sami
[2024-10-17 16:52] VITALS: BP 130/60; PULSE 87; RESP 16; TEMP 36.7; O2SAT 100
== END 2024-10-17 17:00 | disposition home or self-care (01) ==
PROVIDERS: Emergency Provider Student in an Organized Health Care Education/Training Program; PCP Internal Medicine
DX: J18.9 Pneumonia, unspecified organism (principal); R05.9 Cough, unspecified; R10.31 Right lower quadrant pain; I10 Essential (primary) hypertension; Z79.899 Other long term (current) drug therapy
CPT/HCPCS: 0241U; 36415; 71046; 80048; 85025; 87651; 99212; 99283

== ENCOUNTER → 2024-10-17 10:38 | Outpatient (BNV) | payer OTHER, SELFPAY | PROVIDERS: PCP Internal Medicine; Visit Provider Radiology Diagnostic Radiology | DX: J18.9 Pneumonia, unspecified organism (principal) | CPT/HCPCS: 71046 ==

== ENCOUNTER 2024-11-03 10:59 | Outpatient (REF) | payer OTHER, SELFPAY ==
--- NOTE | ~2024-11-03 | XR_ITS ---
EXAMINATION: XR CHEST CLINICAL INFORMATION: [place] dx 10/17, fever and cough COMPARISON: None available. TECHNIQUE: 2 views of the chest were obtained. FINDINGS: No significant abnormality is noted involving the heart, lungs, mediastinum, bony thorax or soft tissues. XR/XR chest 2V IMPRESSION: Unremarkable chest examination. Electronically signed by: Messi Lopez MD 11/04/2024 07:24 AM [facility]
== END 2024-11-03 11:00 | disposition home or self-care (01) ==
LOC: HO.HHCX 10:59
PROVIDERS: Visit Provider Nurse Practitioner Family
DX: R05.2 Subacute cough (principal)
CPT/HCPCS: 71046

== ENCOUNTER → 2024-11-03 11:00 | Outpatient (BNV) | payer OTHER, SELFPAY | PROVIDERS: Visit Provider Radiology Diagnostic Radiology | DX: J18.9 Pneumonia, unspecified organism (principal); R50.9 Fever, unspecified | CPT/HCPCS: 71046 ==

== ENCOUNTER → 2024-12-29 07:27 | Outpatient (REF) | payer OTHER, SELFPAY ==
--- OUTSIDE RECORDS SUMMARY | 2024-12-29 07:30 | XMS_ITS | Encounter Summary ---
Author Organization [employer] Address [address] [facility] [address] [place] [address] Care Team Providers Care Hub Associate Name Role Phone Shital La MD Primary Care Provider + Reason for Visit * Reason Comments Hypertension Encounter Details Date Type Department Care Team ([facility] st Contact Info) Description 12/10/2024 2:30 PM EST Office Visit [facility] MEDICINE [address] [place], [place] [phone] Shital La MD [address] [place], [place] [phone] Essential hypertension (Primary Dx); Morbid obesity due to excess calories (CMS/HCC); Mild intermittent asthma without complication Social History Tobacco Use Types Packs/Day Years Used Date Smoking Tobacco: Never Passive Smoke Exposure: Never Smokeless Tobacco: Never Tobacco Cessation:Counseling Given: Not Answered Alcohol Use Standard Drinks/Week Comments Not Currently 0 (1 standard drink = 0.6 oz pur e alcohol) rare PHQ-2 Answer Date Recorded Patient Health Questionnaire-2 Score 0 04/04/2023 Alcohol Answer Date Recorded Q1: How often do you have a drink containing alc ohol? 1 08/08/2024 Q2: How many drinks containi ng alcohol do you have on a typical day when you are drinking? 0 08/08/2024 Q3: How often do you have six or more drinks on one occasion? 1 08/08/2024 Housing Stability Answer Date Recorded What is your housing situation today? I have rema donato 01/30/[address] you li ve. Do you have problems with any of the following? None of the above 01/30/2024 Food Insecurity Answer Date Recorded Within the past 12 months, y ou worried that your food would run out before you got money to buy more: Never True 01/30/2024 Within the past 12 months,th e food you bought just didn't last and you didn't have enough money to get more: Never True Transportation Answer Date Recorded In the past 12 months, has l ack of transportation kept you from medical appts, meetings, work or from getting things needed for daily living? No 08/22/2023 Utilities Answer Date Recorded In the past 12 months, has t he electric, gas, oil or water company threatened to shut off services in your home? No 08/22/2023 Depression Answer Date Recorded Patient Health Questionnaire-2 Score 0 04/04/2023 Internet Access Answer Date Recorded Internet Access Q1 Yes 11/27/2024 Internet Access Q2 Not on file 11/27/2024 Comments No Sex and Gender Information Value Date Recorded Sex Assigned at Female 09/04/2022 10:15 AM EDT Legal Sex Female 10:15 AM EDT Gender Identity Female 09/04/2022 10:15 AM EDT Sexual Orientation Straight 09/04/2022 10 :15 AM EDT documented as of this encounter Last Filed Vital Signs Vital Sign Reading Time Taken Comments Blood Pressure 123/77 12/10/2024 2:07 PM EST Pulse 76 12/10/2024 2:07 PM EST Temperature 35.6 ??C (96.1 ??F) 12/10/2024 2:07 PM ES T Respiratory Rate - - Oxygen Saturation 100% 12/10/2024 2:07 PM EST Inhaled Oxygen Concentration - - Weight 93.9 kg (207 lb) 12/10/2024 2:07 PM EST Height 157.5 cm (5' 2 ) 12/10/2024 2:07 PM EST Body Mass Index 37.86 12/10/2024 2:07 PM EST documented in this encounter Progress Notes * Shital La MD - 12/10/2024 2:30 PM EST SUBJECTIVE: Jennifer Spicer is a 69 y.o. year old female who presents for follow up HTN/BMD. Denies recent illness, injury, or hospitalization. BMD on 09/04/24 was normal. EGD on 09/08/2024 showed chronic gastritis/negative H.Pylori+ esophagitis/Ramirez's without dysplasia. Patient mentions to be feeling well in regards to her HTN and is compliant with her medications. She denies any asthma exacerbations recently and uses Albuterol PRN. Acute Concerns: Social History Social History Narrative Lives on a 1st floor [facility] apartment, with his room mate. Her daughter lives independently, near her. Neg smoking, ETOH, drugs. 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 Greater trochanteric pain syndrome Mixed anxiety and depressive disorder Mild intermittent asthma Trochanteric bursitis of right hip Tubular adenoma of colon Status post bariatric surgery Chronic migraine without aura without status migrainosus, not intractable Acute low back pain Plantar fasciitis Morbid obesity due to excess calories (CMS/HCC) Hyperglycemia History of abdominal hysterectomy GERD (gastroesophageal reflux disease) Elevated lipids Constipation Bone spur of left foot Allergic rhinitis Essential hypertension Visual impairment Sciatica Hip pain Foot pain Dietary counseling Exercise counseling Encounter for preventive health examination First degree AV block Bone disorder Acute pain of right knee Abnormal EKG Close exposure to COVID-19 virus History of headache MONTEMAYOR (nonalcoholic steatohepatitis) Periumbilical abdominal pain Precordial chest pain Thoracic radiculopathy Uterine fibroid Arthritis of left knee Episodic cluster headache, not intractable Hypoglycemia At high risk for osteoporosis Pure hypercholesterolemia Chronic superficial gastritis without bleeding Subacute cough No family history on file. Review of Systems Constitutional: Negative for chills, fatigue and fever. HENT: Negative for congestion, ear pain, nosebleeds, rhinorrhea, sinus pressure, sore throat and trouble swallowing. Eyes: Negative for pain and discharge. Respiratory: Negative for cough, chest tightness and shortness of breath. Cardiovascular: Negative for chest pain, palpitations and leg swelling. Gastrointestinal: Negative for abdominal pain, blood in stool, constipation, diarrhea and nausea. Endocrine: Negative for polydipsia and polyuria. Genitourinary: Negative for dysuria, frequency, genital sores, pelvic pain and vaginal discharge. Musculoskeletal: Positive for arthralgias. Negative for back pain and neck pain. Skin: Negative for rash. Allergic/Immunologic: Negative for environmental allergies. Neurological: Negative for dizziness, seizures, weakness, light-headedness and headaches. Hematological: Negative for adenopathy. Psychiatric/Behavioral: Negative for agitation, behavioral problems, self-injury and suicidal ideas. OBJECTIVE: Vitals: 12/10/24 1407 BP: 123/77 Pulse: 76 Temp: 96.1 ??F (35.6 ??C) SpO2: 100% Physical Exam HENT: Right Ear: Tympanic membrane and ear canal normal. Left Ear: Tympanic membrane and ear canal normal. Mouth/Throat: Mouth: Mucous membranes are moist. Pharynx: No oropharyngeal exudate or posterior oropharyngeal erythema. Eyes: Pupils: Pupils are equal, round, and reactive to light. Cardiovascular: Rate and Rhythm: Regular rhythm. Pulses: Normal pulses. Heart sounds: Normal heart sounds. No murmur heard. Pulmonary: Breath sounds: Normal breath sounds. Abdominal: General: Bowel sounds are normal. Palpations: Abdomen is soft. Tenderness: There is no abdominal tenderness. Musculoskeletal: General: Normal range of motion. Cervical back: Neck supple. Right knee: Tenderness present. Left knee: Tenderness present. Skin: General: Skin is warm. Neurological: General: No focal deficit present. Mental Status: She is alert and oriented to person, place, and time. Psychiatric: Mood and Affect: Mood normal. Behavior: Behavior normal. Problem List Items Addressed This Visit Essential hypertension - Primary Controlled. Compliant w/meds Continue lisinopril/hctz 20-25 mg same dose Counseled re low salt diet/increase moderate physical activity. Check home BP BIW and prn CP/BERTRAND/HOYT Non smoking patient. Relevant Orders Basic Metabolic Panel Lipid Panel with Reflex to Direct LDL Vitamin D, 25-Hydroxy, Total, Immunoassay TSH with Reflex to Free T4 Morbid obesity due to excess calories (CMS/HCC) Discussed re weight reduction options including exercise, life style modifications, diet. Recommended to decrease soda and sugary beverage consumption, increase protein intake with meals (at least 1 portion of protein with each meal) to assist with satiety, increase dietary fiber Recommended at least 150 min/week of moderate intensity exercise. Will consider pharmacologic management at next visit. Relevant Orders Lipid Panel with Reflex to Direct LDL Mild intermittent asthma Controlled. Continue with Albuterol PRN. She declined COVID booster, other adult IZ are UTD. Non smoking. Follow Up: Current Outpatient Medications on File Prior to Visit Medication Sig Dispense Refill Acetaminophen Extra Strength 500 MG tablet TAKE 1 TABLET BY MOUTH EVERY 8 HOURS NEEDED DO NOT EXCEED 4 TABLETS IN 24 HOURS 90 tablet 1 calcium carbonate EX (Tums Extra Strength) 750 MG chewable tablet Chew 1 tablet (750 mg) 2 times daily. 60 tablet 11 cholecalciferol (D3 Super Strength) 50 MCG (2000 UT) capsule Take 1 capsule (50 mcg) by mouth Once per day. 90 capsule 3 ibuprofen 800 MG tablet TAKE 1 TABLET BY MOUTH THREE TIMES DAILY NEEDED 90 tablet 1 lisinopril-hydroCHLOROthiazide 20-25 MG tablet TAKE 1 TABLET BY MOUTH EVERY DAY 90 tablet 1 omeprazole (PriLOSEC) [address] capsule SUMAtriptan (Imitrex) 100 MG tablet TAKE 1 TABLET BY MOUTH ONCE DAILY AT ONSET OF MIGRAINE FOR 1 DOSE 15 tablet 11 traZODone (Desyrel) 50 MG tablet Ventolin HFA 108 (90 Base) MCG/ACT inhaler INHALE 2 PUFFS BY MOUTH EVERY 4 TO 6 HOURS NEEDED 18 g 11 [DISCONTINUED] Ferrous Sulfate (iron) 325 (65 Fe) MG tablet TAKE 1 TABLET BY MOUTH EVERY DAY WITH ORANGE JUICE 90 tablet 1 [DISCONTINUED] fluticasone (Flonase) 50 MCG/ACT nasal spray INSTILL 2 SPRAYS IN EACH NOSTRIL ONCE DAILY NEEDED FOR RUNNY NOSE 48 g 0 [DISCONTINUED] lisinopril-hydroCHLOROthiazide 20-25 MG tablet Take 1 tablet by mouth Once per day. 90 tablet 1 [DISCONTINUED] loratadine (Claritin) 10 MG tablet Take 1 tablet (10 mg) by mouth Once per day. 30 tablet 11 No current facility-administered medications on file prior to visit. I, Gali Abdul, am serving as a scribe to document services personally performed by Dr. Shital La, based on the patient's response to questions by provider and provider's statements to me. documented in this encounter Miscellaneous Notes * Assessment & Plan Note - Gali Abdul MA - 12/10/2024 5:11 PM EST Associated Problem(s): Mild intermittent asthma Controlled. Continue with Albuterol PRN. She declined COVID booster, other adult IZ are UTD. Non smoking. * Assessment & Plan Note - Gali Abdul MA - 12/10/2024 5:10 PM EST Associated Problem(s): Morbid obesity due to excess calories (CMS/HCC) Discussed re weight reduction options including exercise, life style modifications, diet. Recommended to decrease soda and sugary beverage consumption, increase protein intake with meals (at least 1 portion of protein with each meal) to assist with satiety, increase dietary fiber Recommended at least 150 min/week of moderate intensity exercise. Will consider pharmacologic management at next visit. * Assessment & Plan Note - Gali Abdul MA - 12/10/2024 2:42 PM EST Associated Problem(s): Essential hypertension Controlled. Compliant w/meds Continue lisinopril/hctz 20-25 mg same dose Counseled re low salt diet/increase moderate physical activity. Check home BP BIW and prn CP/BERTRAND/HOYT Non smoking patient. documented in this encounter Plan of Treatment Scheduled Orders Name Type Priority Associated Diagnoses Orde r Schedule Basic Metabolic Panel Lab Routine Essential hypertension Expected: 12/10/2024 (Approximate), Expires: 12/10/2025 Lipid Panel with Reflex to Direct LDL Lab Routine Essential hypertension Morbid obesity due to excess calories (CMS/HCC) Expected: 12/10/2024 (Approximate), Expires: 12/10/2025 Vitamin D, 25-Hydroxy, Total, Immunoassay Lab Routine Essential hypertension Expected: 12/10/2024 (Approximate), Expires: 12/10/2025 TSH with Reflex to Free T4 Lab Routine Essential hypertension Expected: 12/10/2024 (Approximate), Expires: 12/10/2025 documented as of this encounter Visit Diagnoses Diagnosis Essential hypertension- Primary Unspecified essential hypertension Morbid obesity due to excess calories (CMS/HCC) Mild intermittent asthma without complication documented in this encounter Care Teams Hub Associate Relationship Specialty Start Date End Date Shital La MD [address] [place] [id number] PCP - General Family Medicine 12/22/20 documented as of this encounter
--- OUTSIDE RECORDS SUMMARY | 2024-12-29 07:30 | XMS_ITS | Encounter Summary ---
Author Organization [employer] Address [address] [place] [address] Care Team Providers Care Private Branch Exchange Installer Name Role Phone Shital La MD Primary Care Provider + Reason for Visit * Reason Onset Date Comments Chart prep 12/09/2024 Encounter Details Date Type Department Care Team (Late st Contact Info) Description 12/09/2024 Telephone [facility] MEDICINE [address] [place] [address] Heaven Latham MA Chart prep Social History Tobacco Use Types Packs/Day Years Used Date Smoking Tobacco: Never Passive Smoke Exposure: Never Smokeless Tobacco: Never Alcohol Use Standard Drinks/Week Comments Not Currently [...] AM EDT documented as of this encounter Miscellaneous Notes * Telephone Encounter - Heaven Latham MA - 12/09/2024 2:28 PM EST Chart Prep Labs: done Images: done Vaccines due: yes Referrals: complete Screenings: Up to date Overdue care gaps: PHQ-9 documented in this encounter Plan of Treatment Not on file documented as of this encounter Visit Diagnoses Not on filedocumented in this encounter Care Teams Private Branch Exchange Installer Relationship Specialty Start Date End Date Shital La MD [address] [place] [id number] PCP - General Family Medicine 12/22/20 documented as of this encounter
--- OUTSIDE RECORDS SUMMARY | 2024-12-29 07:30 | XMS_ITS | Encounter Summary ---
Author Organization [facility] Address [id number] [place] [id number] Care Team Providers Care Dairy Frozen Manager Name Role Phone Shital La MD Primary Care Provider + [phone] Reason for Visit * Reason Onset Date Comments Advice Only 11/03/2024 Patient was admi tted to [facility] Encounter Details Date Type Department Care Team ([facility] st Contact Info) Description 11/03/2024 Telephone Bariatric Surgery - [place] [address] [place] [address] Maegan Khan MD [address] [place] [address] Advice Only (Patient was admitted to [facility]) Social History Tobacco Use Types Packs/Day Years Used Date Smoking Tobacco: Never Smokeless Tobacco: Never Alcohol Use Standard Drinks/Week Comments No 0 (1 standard drink = 0.6 oz pur e alcohol) Comments Unknown Sex and Gender Information Value Date Recorded Sex Assigned at Not on file Legal Sex Female 9:48 AM EST Gender Identity Not on file Sexual Orientation Not on file documented as of this encounter Progress Notes * La Nena Ugalde - 11/03/2024 12:53 PM EST Patient was admitted to [facility]. Ultrasound was done there. Would like a call Dr. Khan * Dakota Silva MA - 11/03/2024 8:[address] Khan [facility] doesn't have Jennifer Spicer's Upper endoscopy report on file. documented in this encounter Plan of Treatment Upcoming Encounters Date Type Department Care Team (Late st Contact Info) Description 01/20/2025 8:30 AM EDT Office Visit Bariatric Surgery - [place] [address] [facility] [address] [place] [phone] Maegan Khan MD [address] [facility] [address] [place] [address] documented as of this encounter Visit Diagnoses Not on filedocumented in this encounter Care Teams Dairy Frozen Manager Relationship Specialty Start Date End Date Shital La MD [address] [facility] [address] [place] [phone] PCP - General 06/21/22 documented as of this encounter
--- OUTSIDE RECORDS SUMMARY | 2024-12-29 07:30 | XMS_ITS | Encounter Summary ---
Author Organization [employer] Address [address] 7[address] [place] [address] Care Team Providers Care [employer] Volleyball Coach Name Role Phone Shital La MD Primary Care Provider + Encounter Details Date Type Department Care Team (Latest Contact Info) Description 12/10/2024 Travel Social History Tobacco Use Types Packs/Day Years [...] AM EDT documented as of this encounter Plan of Treatment Not on file documented as of this encounter Visit Diagnoses Not on filedocumented in this encounter Care Teams [employer] Volleyball Coach Relationship Specialty Start Date End Date Shital La MD [address] [place] [id number] PCP - General Family Medicine 12/22/20 documented as of this encounter
--- OUTSIDE RECORDS SUMMARY | 2024-12-29 07:30 | XMS_ITS | Encounter Summary ---
Author Organization [employer] Address [address] [facility] [address] [place] [address] Care Team Providers Care Pneudraulic Systems Mechanic Name Role Phone Shital La MD Primary Care Provider + Reason for Visit * Reason Comments Med Refill Encounter Details Date Type Department Care Team ([facility] st Contact Info) Description 12/20/[address] [facility] PEDS [address] [place], [place] [phone] Shital La MD [address] [place] [address] Arthritis Social History Tobacco Use Types Packs/Day Years [...] as of this encounter Visit Diagnoses Diagnosis Arthritis Unspecified arthropathy, site unspecified documented in this encounter Care Teams Pneudraulic Systems Mechanic Relationship Specialty Start Date End Date Shital La MD [address] [place] [id number] PCP - General Family Medicine 12/22/20 documented as of this encounter
--- OUTSIDE RECORDS SUMMARY | 2024-12-29 07:30 | XMS_ITS | Clinical Summary ---
Author Organization [facility] Address [address] [place] [address] Phone Care Team Providers Care Geographic Information System Surveyor Name Role Phone Shital La MD Primary Care Provider [phone] Allergies Active Allergy Reactions Criticality Noted Date Comments Morphine Hives,Itching 11/01/2010 Other reaction(s): Itching, rash: ITCH Medications cefpodoxime (VANTIN) 200 mg tablet Take 1 tablet (200 mg total) by mouth 2 (two) times a day with meals. 4 Active azithromycin (ZITHROMAX) 250 mg tablet Take 1 tablet (250 mg total) by mouth See administration instructions. TAKE 2 TABLETS BY MOUTH ON DAY 1, THEN TAKE 1 TABLET DAILY ON DAYS 2-5 4 Active Encounters Date Type Department Care Team Description 11/13/2024 7:16 AM EST - 11/13/2024 11:59 PM EST Hospital Encounter [facility] Ultrasound [address] [place] [address] RUQ pain Discharge Disposition: Home or Self Care 11/03/2024 Telephone Bariatric Surgery [address] [address] Maegan Khan MD Advice Only (Patient was admitted to [facility]) 10/27/2024 Telephone Bariatric Surgery [facility] [address] [phone] Kayy Silva MA 10/23/2024 10:45 AM EST Office Visit Bariatric Surgery [facility] [address] [address] Maegan Khan MD RUQ pain (Primary Dx) from Last 3 Months Surgical History Surgery Date Site/Laterality Comments OTHER SURGICAL HISTORY 2006 PROCEDURE: ---- OTHER ----; COMMENT: weight loss surgery Medical History Medical History Date Comments Asthma DX:Asthma Gastritis DX:Gastritis Asthma DX:Asthma Social History Tobacco Use Types Packs/Day Years Used Date Smoking Tobacco: Never Smokeless Tobacco: Never Alcohol Use Standard Drinks/Week Comments No 0 (1 standard drink = 0.6 oz pur e alcohol) Comments Unknown Sex and Gender Information Value Date Recorded Sex Assigned at Not on file Legal Sex Female 9:48 AM EST Gender Identity Not on file Sexual Orientation Not on file Obstetrics History Last Filed Vital Signs Vital Sign Reading Time Taken Comments Blood Pressure 113/73 10/23/2024 9:59 AM EST Pulse 67 10/23/2024 9:59 AM EST Temperature 36.8 ??C (98.3 ??F) 10/23/2024 9:59 AM ES T Respiratory Rate - - Oxygen Saturation - - Inhaled Oxygen Concentration - - Weight 93.9 kg (207 lb) 10/23/2024 9:59 AM EST Height 157.5 cm (5' 2 ) 10/23/2024 9:59 AM EST Body Mass Index 37.86 10/23/2024 9:59 AM EST Plan of Treatment Upcoming Encounters Date Type Department Care Team ([facility] st Contact Info) Description 01/20/2025 8:30 AM EDT Office Visit Bariatric Surgery - [address] [phone] Maegan Khan MD [address] [place] [address] Health Maintenance Due Date Last Done Comments Breast Cancer Screening 1955 RSV Immunization Patients 60+ Years Old (1 - Risk 60-74 years 1-dose series) 2017 Cholesterol Screening (Lipid Panel) 10/03/2022 Colorectal Cancer Screening: Colonoscopy 10/03/2022 Depression Screening 10/03/2022 Falls Risk Assessment 10/03/2022 Hepatitis C Screening 10/03/2022 Medicare Annual Wellness Visit 10/03/2022 Social Influencers of Health Screening 10/03/2022 COVID-19 Vaccine ( season) 2024 06/05/2022, 07/04/2021, 01/05/2021, Additional history exists Hypertension/CHF/CAD Annual BMP Blood Test 10/17/2025 10/17/2024 DTaP,Tdap,and Td Vaccines (5 - Td or Tdap) 11/19/2026 11/19/2016, 03/14/2012, 03/26/2007, Additional history exists Osteoporosis Screening (Bone Density Screening) 09/03/2034 09/03/2024 Hepatitis B Vaccines Completed 09/06/1999, 06/14/1999, 03/01/1999 MMR Vaccines Aged Out 04/14/2005, 03/25/2002 No lo nger eligible based on patient's age to complete this topic Hepatitis A Vaccines Completed 06/26/2019, 04/14/2005, 02/04/2002 Zoster Vaccines Completed 10/20/2019, 07/07, 11/12/2017 Pneumococcal Vaccine: 50+ Years Completed 04/04/2024, 07/14/2014 Influenza Vaccine Completed 08/08/2024, , 07/02/2021, Additional history exists HIB Vaccines Aged Out No longer eligi ble based on patient's age to complete this topic HPV Vaccines Aged Out No longer eligi ble based on patient's age to complete this topic IPV Vaccines Aged Out No longer eligi ble based on patient's age to complete this topic Meningococcal ACWY Vaccine Aged Out N o longer eligible based on patient's age to complete this topic Meningococcal B Vacine Aged Out No lo nger eligible based on patient's age to complete this topic RSV Immunization Patients Under 20 months Aged Out No longer eligible based on patient's age to complete this topic Varicella Vaccines Aged Out No longer eligible based on patient's age to complete this topic Procedures Procedure Name Priority Date/Time Associated Diagnosis Comments US ABDOMEN LIMITED Routine 11/13/2024 7: 57 AM EST RUQ pain from Last 3 Months Results * US Abdomen Limited (11/13/2024 7:57 AM EST) Anatomical Region Laterality Modality Body Ultrasound 11/19/2024 5:16 PM EST Impressions 11/19/2024 5:18 PM EST Impression: No evidence of cholelithiasis or biliary obstruction. Teleedyta ELIAS ([id number]) -------- FINAL REPORT -------- Dictated By: Nelia Schaeffer Dictated Date: 11/19/2024 17:16 ET Assigned Physician: Nelia Schaeffer Reviewed and Electronically Signed By: Nelia Schaeffer Signed Date: 11/19/2024 17:18 ET Workstation ID: [id number] Transcribed By: Self Edit Transcribed Date: 11/19/2024 17:16 ET Narrative 11/19/2024 5:18 PM EST History: Right upper quadrant abdominal pain. Comparison: No previous imaging at this institution. Findings: Real-time imaging of the abdomen, limited to the right upper quadrant, was performed. Image detail is limited due to patient body habitus. The hepatic echotexture is grossly normal. The echogenicity is very mildly increased, consistent with fatty infiltration. No masses are identified. The portal vein is patent and exhibits normal, hepatopedal flow. The gallbladder is physiologically distended and without evidence of calculus or wall thickening. The common duct is normal in caliber, measuring 3.5 mm at the level of the hepatic artery and portal vein. No ascites is seen in the right upper quadrant. A survey view of the right kidney is unremarkable. The pancreas is partially obscured by bowel gas shadowing; the visualized portions of the neck appear normal. Procedure Note Nelia Schaeffer MD - 11/19/2024 History: Right upper quadrant abdominal pain. Comparison: No previous imaging at this institution. Findings: Real-time imaging of the abdomen, limited to the right upper quadrant, wasperformed. Image detail is limited due to patient body habitus. The hepatic echotexture is grossly normal. The echogenicity is very mildlyincreased, consistent with fatty infiltration. No masses are identified.The portal vein is patent and exhibits normal, hepatopedal flow. The gallbladder is physiologically distended and without evidence ofcalculus or wall thickening. The common duct is normal in caliber,measuring 3.5 mm at the level of the hepatic artery and portal vein. No ascites is seen in the right upper quadrant. A survey view of the rightkidney is unremarkable. The pancreas is partially obscured by bowel gasshadowing; the visualized portions of the neck appear normal. IMPRESSION: Impression: No evidence of cholelithiasis or biliary obstruction. Telerad JADA ([id number]) -------- FINAL REPORT -------- Dictated By: Nelia Schaeffer Dictated Date: 11/19/2024 17:16 ET Assigned Physician: Nelia Schaeffer Reviewed and Electronically Signed By: Nelia Schaeffer Signed Date: 11/19/2024 17:18 ET Workstation ID: [id number] Transcribed By: Self Edit Transcribed Date: 11/19/2024 17:16 ET us Maegan Khan MD IMG US PROCEDURES Final Resu lt from Last 3 Months Insurance [facility] MEDIC[facility] Member Subscriber Plan / Payer (Ef fective 2022-Present) Name:Jennifer Spicer Relation to Subscriber:Self Name:Jennifer Spicer Payer ID:[id number] Group ID:[id number] Type:Not on file Address: [place] [address] [address] [phone] Care Teams Geographic Information System Surveyor Relationship Specialty Start Date End Date Shital La MD [address] [place], [place] [address] [address] PCP - General 06/21/22
--- OUTSIDE RECORDS SUMMARY | 2024-12-29 07:30 | XMS_ITS | Encounter Summary ---
Author Organization [employer] Address [address] [facility] 7t [place] [address] Care Team Providers Care Grinding Operator Name Role Phone Shital La MD Primary Care Provider + Reason for Visit * Reason Onset Date Comments Appointment Request 12/04/2024 Encounter Details Date Type Department Care Team ([facility] st Contact Info) Description 12/04/2024 Telephone [facility] MEDICINE [address] [place], [place] [phone] Shital La MD [address] [place] [address] Appointment Request Social History Tobacco Use Types Packs/Day Years [...] Telephone Encounter - Heaven Latham MA - 12/04/2024 2:20 PM EST Tc to pt to r/s appt from 12/10/24 to the afternoon as PCP won't be in that morning. Appt has been rescheduled for 12/10/24 at 2:30 pm. documented in this encounter Plan of Treatment Not on file documented as of this encounter Visit Diagnoses Not on filedocumented in this encounter Care Teams Grinding Operator Relationship Specialty Start Date End Date Shital La MD [address] [place] [address] PCP - General Family Medicine 12/22/20 documented as of this encounter
--- OUTSIDE RECORDS SUMMARY | 2024-12-29 07:30 | XMS_ITS | Encounter Summary ---
Author Organization [employer] Address [address] [facility] [address] [place] [address] Care Team Providers Care Network Services Project Manager Name Role Phone Shital La MD Primary Care Provider + Reason for Visit * Reason Comments Med Refill Encounter Details Date Type Department Care Team ([facility] st Contact Info) Description 12/08/2024 Refill [facility] CHC MED & PEDS [address] [place], [place] [phone] Shital La MD [address] [place] [address] Primary hypertension Social History Tobacco Use Types Packs/Day Years [...] as of this encounter Visit Diagnoses Diagnosis Primary hypertension Unspecified essential hypertension documented in this encounter Care Teams Network Services Project Manager Relationship Specialty Start Date End Date Shital La MD [address] [place] [address] PCP - General Family Medicine 12/22/20 documented as of this encounter
--- OUTSIDE RECORDS SUMMARY | 2024-12-29 07:30 | XMS_ITS | Encounter Summary ---
Author Organization [employer] Address [address] [place] [address] 7t [place] [address] Care Team Providers Care Pulpwood Contractor Name Role Phone Shital La MD Primary Care Provider + Reason for Visit * Reason Onset Date Comments Appointment Request 01/23/2023 Encounter Details Date Type Department Care Team ([facility] st Contact Info) Description 01/23/2023 Telephone [facility] MEDICINE [address] [place], [place] [phone] Shital La MD [address] [place] [address] Appointment Request Social History Tobacco Use Types Packs/Day Years Used Date Smoking Tobacco: Never Assessed Comments Unknown Sex and Gender Information Value Date Recorded Sex Assigned at Female 09/04/2022 10:15 AM EDT Legal Sex Female 10:15 AM EDT Gender Identity Female 09/04/2022 10:15 AM EDT Sexual Orientation Straight 09/04/2022 10 :15 AM EDT documented as of this encounter Miscellaneous Notes * Telephone Encounter - Carolynn Boucher - 01/23/2023 2:16 PM EDT Tc from pt requesting a physical appt. Please contact pt at [phone] documented in this encounter Plan of Treatment Not on file documented as of this encounter Visit Diagnoses Not on filedocumented in this encounter Care Teams Pulpwood Contractor Relationship Specialty Start Date End Date Shital La MD [address] [place] [address] PCP - General Family Medicine 12/22/20 documented as of this encounter
--- OUTSIDE RECORDS SUMMARY | 2024-12-29 07:30 | XMS_ITS | Encounter Summary ---
Author Organization [employer] Address [address] [facility] 7t [place] [address] Care Team Providers Care Rheumatology Specialist Name Role Phone Shital La MD Primary Care Provider + Encounter Details Date Type Department Care Team (Late st Contact Info) Description 12/15/2022 Orders Only [facility] CHC MED & PEDS [address] [place] [address] Nancy Zheng LPN Social History Tobacco Use Types Packs/Day Years [...] on filedocumented in this encounter Care Teams Rheumatology Specialist Relationship Specialty Start Date End Date Shital La MD [address] [place] [phone] PCP - General Family Medicine 12/22/20 documented as of this encounter
--- OUTSIDE RECORDS SUMMARY | 2024-12-29 07:30 | XMS_ITS | Encounter Summary ---
Author Organization [employer] Address [address] [facility] [address] 7t [place] [address] Care Team Providers Care Apartment Rental Agent Name Role Phone Shital La MD Primary Care Provider + Encounter Details Date Type Department Care Team (Late st Contact Info) Description 04/04/2024 Orders Only [facility] MEDICINE [address] [place] [address] Provider, MD Leeann Social History Tobacco Use Types Packs/Day Years Used Date Smoking Tobacco: Never Passive Smoke Exposure: Never Smokeless Tobacco: Never Alcohol Use Standard Drinks/Week Comments Not Currently 0 (1 standard drink = 0.6 oz pur e alcohol) rare PHQ-2 Answer Date Recorded Patient Health Questionnaire-2 Score 0 04/04/2023 Housing Stability Answer Date Recorded What is your housing situation today? I have remaabdiel donato 01/30/[address] you [...] Recorded Patient Health Questionnaire-2 Score 0 04/04/2023 Comments No Sex and Gender Information Value Date Recorded Sex Assigned at Female 09/04/2022 10:15 AM EDT Legal Sex Female 10:15 AM EDT Gender Identity Female 09/04/2022 10:15 AM EDT Sexual Orientation Straight 09/04/2022 10 :15 AM EDT documented as of this encounter Plan of Treatment Not on file documented as of this encounter Procedures Procedure Name Priority Date/Time Associated Diagnosis Comments HM COLONOSCOPY Routine 03/09/2023 5:37 AM EDT documented in this encounter Results * Hm Colonoscopy (03/09/2023 5:37 AM EDT) Historical Provider HEALTH MAINTENANCE Final Result documented in this encounter Visit Diagnoses Not on filedocumented in this encounter Care Teams Apartment Rental Agent Relationship Specialty Start Date End Date Shital La MD [address] [place] [address] PCP - General Family Medicine 12/22/20 documented as of this encounter
--- OUTSIDE RECORDS SUMMARY | 2024-12-29 07:30 | XMS_ITS | Encounter Summary ---
Author Organization [employer] Address [address] [facility] 7t [place] [address] Care Team Providers Care Digital Marketing Coordinator Name Role Phone Shital La MD Primary Care Provider + Reason for Visit * Reason Onset Date Comments Referral 08/10/2023 Encounter Details Date Type Department Care Team ([facility] st Contact Info) Description 08/10/2023 Telephone [facility] MEDICINE [address] [place], [place] [phone] Shital La MD [address] [place] [address] Referral Social History Tobacco Use Types Packs/Day Years Used Date Smoking Tobacco: Never Passive Smoke Exposure: Never Smokeless Tobacco: Never Alcohol Use Standard Drinks/Week Comments Not Currently 0 (1 standard drink = 0.6 oz pur e alcohol) rare PHQ-2 Answer Date Recorded Patient Health Questionnaire-2 Score 0 04/04/2023 Housing Stability Answer Date Recorded What is your housing situation today? I do not have housing (Staying with others, in a hotel, in a detention, living outside on the street, on a beach, in a car, or in a park 08/13/[address] you li ve. Do you have problems with any of the following? None of the above 08/13/2023 Food Insecurity Answer Date Recorded Within the past 12 months, y ou worried that your food would run out before you got money to buy more: Sometimes True 2022 Within the past 12 months,th e food you bought just didn't last and you didn't have enough money to get more: Sometimes True 08/13/2023 Transportation Answer Date Recorded In the past 12 months, has l ack of transportation kept you from medical appts, meetings, work or from getting things needed for daily living? No 08/13/2023 Utilities Answer Date Recorded In the past 12 months, has t he electric, gas, oil or water company threatened to shut off services in your home? No 08/13/2023 Depression Answer Date Recorded Patient Health Questionnaire-2 Score 0 04/04/2023 Comments Unknown Sex and Gender Information Value Date Recorded Sex Assigned at Female 09/04/2022 10:15 AM EDT Legal Sex Female 10:15 AM EDT Gender Identity Female 09/04/2022 10:15 AM EDT Sexual Orientation Straight 09/04/2022 10 :15 AM EDT documented as of this encounter Miscellaneous Notes * Telephone Encounter - Debo Obrien - 08/10/2023 1:55 PM EDT Tc from ivette with [facility] requesting a new referral. States referral was made for the left knee but per pt, it is the right knee. Please fax to [phone] Any questions, contact ivette at [phone] documented in this encounter Plan of Treatment Not on file documented as of this encounter Visit Diagnoses Diagnosis Acute pain of right knee- Primary documented in this encounter Care Teams Digital Marketing Coordinator Relationship Specialty Start Date End Date Shital La MD [address] [place] [address] PCP - General Family Medicine 12/22/20 documented as of this encounter
--- OUTSIDE RECORDS SUMMARY | 2024-12-29 07:30 | XMS_ITS | Clinical Summary ---
Author Organization [email or web address] Address [address] [place] [address] Care Team Providers Care Die Cut Operator Name Role Phone Fernandez Merlos MD Primary Care Provider + Allergies Active Allergy Reactions Criticality Noted Date Comments Morphine Hives,Itching 11/01/2010 Other reaction(s): Itching, rash: ITCH Medications omeprazole (PriLOSEC) [address] capsule 01/30/20 23 Active traZODone (Desyrel) 50 MG tablet 01/30/20 23 Active Acetaminophen Extra Strength 500 MG tabletIndication s:Arthritis TAKE 1 TABLET BY MOUTH EVERY 8 HOURS NEEDED DO NOT EXCEED 4 TABLETS IN 24 HOURS 90 tablet 1 11/22/19 24 Active cholecalciferol (D3 Super Strength) 50 MCG (2000 UT) capsule Take 1 capsule (50 mcg) by mouth Once per day. 90 capsule 3 06/03/20 24 Active Ventolin HFA 108 (90 Base) MCG/ACT inhalerIndicatio ns:Mild persistent asthma without complication INHALE 2 PUFFS BY MOUTH EVERY 4 TO 6 HOURS NEEDED 18 g 11 07/04/20 24 Active calcium carbonate EX (Tums Extra Strength) 750 MG chewable tablet Chew 1 tablet (750 mg) 2 times daily. 60 tablet 11 08/08/20 24 025 Active SUMAtriptan (Imitrex) 100 MG tabletIndication s:Chronic migraine without aura without status migrainosus, not intractable TAKE 1 TABLET BY MOUTH ONCE DAILY AT ONSET OF MIGRAINE FOR 1 DOSE 15 tablet 11 08/08/20 24 Active lisinopril-hydro CHLOROthiazide 20-25 MG tabletIndication s:Primary hypertension TAKE 1 TABLET BY MOUTH EVERY DAY 90 tablet 1 12/09/19 25 Active ibuprofen 800 MG tabletIndication s:Arthritis TAKE 1 TABLET BY MOUTH THREE TIMES DAILY NEEDED 90 tablet 1 12/23/19 25 Active fluticasone (Flonase) 50 MCG/ACT nasal sprayIndications :Allergic rhinitis due to pollen, unspecified seasonality INSTILL 2 SPRAYS IN EACH NOSTRIL ONCE DAILY NEEDED FOR RUNNY NOSE 48 g 10/23/20 23 025 Discontinued(Th erapy completed) lisinopril-hydro CHLOROthiazide 20-25 MG tabletIndication s:Primary hypertension Take 1 tablet by mouth Once per day. 90 tablet 1 06/03/20 24 025 Discontinued ibuprofen 800 MG tabletIndication s:Arthritis TAKE 1 TABLET BY MOUTH THREE TIMES DAILY NEEDED 90 tablet 1 10/09/20 24 025 Discontinued loratadine (Claritin) 10 MG tabletIndication s:Pneumonia of right upper lobe due to infectious organism,Subacut e cough Take 1 tablet (10 mg) by mouth Once per day. 30 tablet 11 10/22/20 24 025 Discontinued(Th erapy completed) Ferrous Sulfate (iron) 325 (65 Fe) MG tabletIndication s:H/O bariatric surgery TAKE 1 TABLET BY MOUTH EVERY DAY WITH ORANGE JUICE 90 tablet 1 11/03/20 24 025 Discontinued( erapy completed) Active Problems Problem Noted Date Diagnosed Date Subacute cough 10/22/2024 Assessment & Plan (11/03/2024 12:14 PM EST): If CXR is positive, will treat with Augmentin and doxycycline. Pt's vitals are stable and CURB2 score of 1, indicating appropriatenes for outpatient treatment. Chronic superficial gastritis without bleeding 1 11/09/2023 09/01/2024 Pure hypercholesterolemia 08/08/2024 Assessment & Plan (08/08/2024 9:25 AM EDT): We discussed re rx options. Recommended moderate amount of exercise and increase consumption of fruit, vegetables, fish and high fiber foods. Should decrease consumption of highly saturated fats or trans fats. Repeat Lipids in 1 year. Pt agreed to influenza immunization today, pt declined Covid and RSV, advised to have administered at a later date at her nearest pharmacy. At high risk for osteoporosis 04/04/2024 Assessment & Plan (04/04/2024 9:55 AM EDT): Order dexa scan + Vit D. Advised to continue outdoor exercises, discussed re fall prevention. Hypoglycemia 02/08/2024 Assessment & Plan (02/08/2024 10:59 AM EDT): R/o IFG Counseled to have small infraction meals, add protein to at least 2 meals /day FU next visit Episodic cluster headache, not intractable 11/09 Assessment & Plan (02/08/2024 10:58 AM EDT): Cluster BERTRAND improved Significantly improving after neurology visit Continue nortriptyline and FU w/ Susan Ochoa, ANP FU w/ me in 4 months Assessment & Plan (11/09/2023 2:37 PM EST): Seems to be doing well on Imitrex, unclear if it is a migraine Order CT scan due to increased frequency of episodes Fu w me in 3 months Recommended to come to acupuncture clinic Abnormal EKG 07/16/2023 Close exposure to COVID-19 virus 07/16/2023 History of headache 07/16/2023 Periumbilical abdominal pain 07/16/2023 Precordial chest pain 07/16/2023 Thoracic radiculopathy 07/16/2023 Uterine fibroid 07/16/2023 Arthritis of left knee 07/16/2023 Assessment & Plan (11/09/2023 4:11 PM EST): She has bl OA, currently more on left side. I counseled to walk with cane as needed and use a toilette raised seat, grab bars in the shower and a shower chair if needed. She wants a recliner so that she doesn't have to put strain on her knees when getting up, I told her that I'm not sure if insurance will cover under her conditions. I will send that rx as well. Refer to PT Take tylenol PRN Assessment & Plan (07/16/2023 1:21 PM EDT): Continue Tylenol, fu with orthopedics. Refer to PT Recommended to elevate leg and apply ice to affected area. Declined rx for cane Acute pain of right knee 07/02/2023 Assessment & Plan (11/09/2023 2:36 PM EST): Significantly improved s/p PT Assessment & Plan (07/02/2023 10:42 AM EDT): Elevate knee apply ice and rest Alternate acetaminophen and ibuprofen PRN Bone disorder 04/05/2023 Dietary counseling 04/04/2023 Exercise counseling 04/04/2023 Assessment & Plan (04/04/2023 11:41 AM EDT): counseled to do exercise on a routine basis Encounter for preventive health examination 03/07 Assessment & Plan (04/04/2024 9:58 AM EDT): Discussed with patient re increase fresh fruit and vegetable intake. Counseled re moderate exercise as tolerated, up to 20min/d Patient feels safe at home. PAP smear N/a doesn't need papsmear due to hysterectomy for benign conidtion Mammogram up to date, next one due July 2024 Bone density test TBO Eye exam up to date, next one due July 2024 CRC screen Up to date, next one 2032 Lipids/FBS TBO Vaccinations PCV20 today, other vaccinations up to date Dental visit up to date, next one due August 2024 Assessment & Plan (04/04/2023 11:34 AM EDT): Discussed with patient re increase fresh fruit and vegetable intake. Counseled re moderate exercise as tolerated, up to 20min/d Patient feels safe at home. PAP smear N/a doesn't need papsmear due to hysterectomy for benign conidtion Mammogram up to date, next one due July 2023 Bone density test TBO Eye exam up to date, next one due July 2023 CRC screen Up to date, next one 2027 Lipids/FBS up to date Vaccinations declined PCV20 today, other vaccinations up to date Dental visit up to date, next one due August 2023 First degree AV block 04/04/2023 Assessment & Plan (04/04/2024 9:50 AM EDT): Seen previously, I will order repeat EKG, lytes. Patient asymptomatic. Assessment & Plan (04/04/2023 11:40 AM EDT): Old, may be related to HTN/CAD Pt asymptomatic, no need for treatment at this time. Acute low back pain 02/16/2023 Plantar fasciitis 02/16/2023 Assessment & Plan (08/08/2024 9:21 AM EDT): Resolved. Continue wearing plantar insoles, re-consult prn. Assessment & Plan (04/04/2024 9:52 AM EDT): Order Xrays to ro plantar spurs. Advised to use plantar wedge Hyperglycemia 02/16/2023 Bone spur of left foot 02/16/2023 Visual impairment 02/16/2023 Sciatica 02/16/2023 Hip pain 02/16/2023 Foot pain 02/16/2023 MONTEMAYOR (nonalcoholic steatohepatitis) 02/16/2023 Assessment & Plan (12/10/2024 2:38 PM EST): >>ASSESSMENT AND PLAN FOR STEATOSIS OF LIVER WRITTEN ON 04/04/2024 9:51 AM BY FERNANDEZ MERLOS MD Repeat LFTs. IFG is at goal, advised re weight reduction, she doesn't drink ETOH, Hepatitis Iz's are UTD Assessment & Plan (08/08/2024 9:35 AM EDT): LFTs WNL. Has a fib4 score of 1.46 which is a low risk of fibrosis Advised regarding weight reduction, avoid alcohol intake, decrease consumption of soda and certain drinks. Follow up LFTs in 6 months, Greater trochanteric pain syndrome 01/31/2023 Status post bariatric surgery 01/31/2023 Assessment & Plan (01/31/2023 11:58 AM EDT): Pt to continue vitamin B, D, iron, and zinc supplementation. Chronic migraine without aur a without status migrainosus, not intractable 01/31/2023 Assessment & Plan (08/08/2024 9:23 AM EDT): Pt has 3-4 episodes per month, continue Imitrex. Discussed about prevention of migraines and keep track of triggering factors. Take Tylenol prn + Imitrex if Sx are not relieved in 2 hrs. Follow up in 6 months and will consider Prophylactic meds. Assessment & Plan (01/31/2023 12:00 PM EDT): Continue ibuprofen and tylenol at onset of migraine. Can take 100mg of Imitrex if not improved after 2 hours can take up to 200mg Imitrex per day. Consider amitriptyline again. GERD (gastroesophageal reflux disease) Overview (09/09/2024): EGD on 09/01/24, Neg H.Pilory Trochanteric bursitis of right hip 09/15/2021 Ramirez's esophagus determined by biopsy 018 Overview (09/09/2024): EGD on 09/01/24 Neg H.Pilory Assessment & Plan (01/31/2023 11:57 AM EDT): Doing well on prilosec Had EGD, FU with GI PRN Due for colonoscopy this year Tubular adenoma of colon 04/18/2018 Overview (04/04/2023): Last colonoscopy [facility] on 03/09/23= Neg polyps Assessment & Plan (04/04/2023 11:42 AM EDT): Not recurrent as of 2022 colonoscopy next colonoscopy due 2027 History of abdominal hysterectomy 11/15/2015 Mixed anxiety and depressive disorder 08/30/2015 Mild intermittent asthma 08/30/2015 Assessment & Plan (12/10/2024 5:11 PM EST): Controlled. Continue with Albuterol PRN. She declined COVID booster, other adult IZ are UTD. Non smoking. Assessment & Plan (04/04/2023 11:41 AM EDT): Controled. Counseled regarding weight reduction, use Pro Air PRN Assessment & Plan (01/31/2023 11:58 AM EDT): Controlled. use albuterol PRN, nonsmoker Morbid obesity due to excess calories 08/30/2015 Assessment & Plan (12/10/2024 5:10 PM EST): Discussed re weight reduction options including exercise, life style modifications, diet. Recommended to decrease soda and sugary beverage consumption, increase protein intake with meals (at least 1 portion of protein with each meal) to assist with satiety, increase dietary fiber Recommended at least 150 min/week of moderate intensity exercise. Will consider pharmacologic management at next visit. Assessment & Plan (02/08/2024 10:58 AM EDT): Discussed re weight reduction options including exercise, life style modifications, diet, referral to insurance sales specialist. Discussed re lower calorie intake, increase dietary fiber Elevated lipids 08/30/2015 Assessment & Plan (04/04/2024 9:55 AM EDT): We discussed re rx options. Recommended moderate amount of exercise and increase consumption of fruit, vegetables, fish and high fiber foods. Should decrease consumption of highly saturated fats or trans fats. Order labs, will start meds if it continues to be elevated. Constipation 08/30/2015 Allergic rhinitis 08/30/2015 Essential hypertension 08/30/2015 Assessment & Plan (12/10/2024 2:42 PM EST): Controlled. Compliant w/meds Continue lisinopril/hctz 20-25 mg same dose Counseled re low salt diet/increase moderate physical activity. Check home BP BIW and prn CP/BERTRAND/HOYT Non smoking patient. Assessment & Plan (12/10/2024 2:37 PM EST): >>ASSESSMENT AND PLAN FOR BENIGN HYPERTENSION WRITTEN ON 01/31/2023 11:11 AM BY MICHAEL BRIGHT Controlled. BP is at goal Counseled re low salt diet/increase moderate physical activity. Check home BP BIW and prn CP/BERTRAND/HOYT Non smoking patient. Assessment & Plan (12/10/2024 2:37 PM EST): >>ASSESSMENT AND PLAN FOR BENIGN HYPERTENSION WRITTEN ON 04/04/2023 11:43 AM BY MICHAEL BRIGHT BP is at goal. Continue zestoretic Counseled re low salt diet/increase moderate physical activity. Check home BP BIW and prn CP/BERTRAND/HOYT Non smoking patient. Counseled to exercise Assessment & Plan (12/10/2024 2:37 PM EST): >>ASSESSMENT AND PLAN FOR BENIGN HYPERTENSION WRITTEN ON 07/16/2023 1:23 PM BY FERNANDEZ MERLOS MD Controlled. Compliant w/meds Continue lisinopril/hctz same dose Counseled re low salt diet/increase moderate physical activity. Check home BP BIW and prn CP/BERTRAND/HOYT Non smoking patient. Assessment & Plan (12/10/2024 2:37 PM EST): >>ASSESSMENT AND PLAN FOR BENIGN HYPERTENSION WRITTEN ON 04/04/2024 9:48 AM BY FERNANDEZ MERLOS MD Controlled. Compliant w/meds Continue lisinopril/hctz 20/25mg per day Counseled re low salt diet/increase moderate physical activity. Check home BP BIW and prn CP/BERTRAND/HOYT Non smoking patient. Fu in 6m Resolved Problems Problem Noted Date Diagnosed Date Resolved Date Pneumonia of right upper lob e due to infectious organism 10/22/2024 12/10/2024 Assessment & Plan (10/22/2024 3:21 PM EST): Finish antibiotics Drink plenty of fluids and rest I will prescribe medication for cough H. pylori infection 07/16/2023 04/04/20 24 Inflammation of sacroiliac joint 07/16/2023 12/10/2024 Assessment & Plan (02/08/2024 10:58 AM EDT): Significantly improved s/p PT Continue tylenol + Ibuprofen PRN Acute COVID-19 02/16/2023 04/04/2024 Housing instability 02/16/2023 04/04/20 24 Epistaxis 02/16/2023 12/10/2024 Iron deficiency anemia 09/15/202104/04 Overview (04/04/2024): Hb on 2021 was12 Vitamin D deficiency 07/12/2018 024 Assessment & Plan (04/04/2024 9:53 AM EDT): On vit D weekly Repeat Vit D levels and adjust prn. Encounters Date Type Department Care Team Description 12/20/2024 Refill [facility] [address] [place] [address] Fernandez Merlos MD Arthritis 12/10/2024 2:30 PM EST Office Visit [address] [address] Fernandez Merlos MD Essential hypertension (Primary Dx); Morbid obesity due to excess calories (CMS/HCC); Mild intermittent asthma without complication 12/10/2024 Travel 12/09/[address] [address] [place] Chart prep 12/08/2024 Refill [facility] [address] [place] [address] Fernandez Merlos MD Primary hypertension 12/04/[address] [address] Fernandez Merlos MD Appointment Request 11/27/2024 Patient Outreach [address] [phone] Fernandez Merlos MD Pre-visit Planning (SDOH screening negative and tobacco screening negative) 11/04/[address] [address] Luisa Fonseca, MIGUEL Results 11/03/2024 11:15 AM EST Office Visit [facility] [address] [place] [address] Alessandra Chacon MD Subacute cough 11/03/2024 Travel 11/03/2024 Telephone [facility] [address] [place] [address] Fernandez Merlos MD Nurse Triage 11/02/2024 Refill [facility] [address] [place] [address] Fernandez Merlos MD H/O bariatric surgery 10/22/2024 3:00 PM EST Office Visit [facility] [address] [place] [address] Rosalva Pearson MD Pneumonia of right upper lobe due to infectious organism (Primary Dx); Subacute cough 10/22/2024 Travel 10/21/2024 Telephone [facility] [address] [place] [address] Fernandez Merlos MD December recall 10/21/2024 Telephone [facility] [address] [place] [address] Fernandez Merlos MD ER Follow-up 10/17/2024 Orders Only GENERIC EXTERNAL DATA DEPARTMENT Provider, Generic External Data 10/09/2024 Refill [facility] [address] [place] [address] Fernandez Merlos MD Arthritis from Last 3 Months Immunizations Name Administration Dates Next Due Hep A, Adult 06/26/2019,04/14/2005,02/04/2002 Hep B, adult 09/06/1999,06/14/1999,03/01/1999 INFLUENZA INJECTABLE QUADRIV ALANT CCIIV4 MDCK Multi-dose vial 10/20/2019 Influenza High-dose Quadriva lent Preservative Free 08/26/2022 Influenza Injectable Quadriv alant Preservative Free IIV4 MDCK 07/22/2020 Influenza injectable quadriv alent IIV4 with preservative 07/24/2018,11/12/2017,09/11/2016,08/30 Influenza injectable quadriv alent preservative free 07/02/2021 Influenza, High Dose Seasona l, Preservative Free 08/08/2024 Influenza, IIV3, injectable 07/14/2014,0 07/13/2011,12/14/2009,07/16 Influenza, Split (incl. ray fied surface antigen) 09/18/2013,07/26/2012 MMR 04/14/2005,03/25/2002 Pfizer Covid-19 Vaccine 12+ 06/05/2022,0 07/04/2021,01/05/2021,12/15 Pneumococcal Conjugate PCV 20 04/04/2024 Pneumococcal Polysaccharide PPSV23 07/14/2014 TD (adult), 2 Lf tetanus tox oid, preservative free, adsorbed 03/26/2007,02/20/1996 Td (adult), 5 Lf tetanus tox oid, preservative free, adsorbed 11/19/2016 Tdap 03/14/2012 Zoster, Recombinant 10/20/2019,07/30/2019 Zoster, live 11/12/2017 Social History Tobacco Use Types Packs/Day Years [...] Orientation Straight 09/04/2022 10 :15 AM EDT Last Filed Vital Signs Vital Sign Reading Time Taken Comments Blood Pressure 123/77 12/10/2024 2:07 PM EST Pulse 76 12/10/2024 2:07 PM EST Temperature 35.6 ??C (96.1 ??F) 12/10/2024 2:07 PM ES T Respiratory Rate 18 11/03/2024 10:18 AM EST Oxygen Saturation 100% 12/10/2024 2:07 PM EST Inhaled Oxygen Concentration - - Weight 93.9 kg (207 lb) 12/10/2024 2:07 PM EST Height 157.5 cm (5' 2 ) 12/10/2024 2:07 PM EST Body Mass Index 37.86 12/10/2024 2:07 PM EST Plan of Treatment Health Maintenance Due Date Last Done Comments CT Colonography 1955 FIT DNA/Cologuard 1955 FIT 1955 FOBT 1955 Sigmoidoscopy 1955 RSV Patients and Patients Aged 60 years or older (1 - Risk 60-74 years 1-dose series) 2017 Depression Screening 04/04/2024 04/04/2023, 04/04/20 23 COVID-19 Vaccine ( season) 2024 06/05/2022, 07/04/2021, 01/05/2021, Additional history exists Diabetes: Hemoglobin A1C 02/07/2025 024, 07/08/2020, 12/15/2019 Mammogram 07/29/2025 07/29/2024, 07/06, 07/19/2022, Additional history exists Alcohol/Substance Use Screening 08/08/2025 08/08/2024 SDOH Screening 11/27/2025 11/27/2024 Tobacco Screening 12/10/2025 12/10/2024 DTaP/Tdap/Td Vaccines (3 - Td or Tdap) 11/19/2026 11/19/2016, 03/14/2012, 03/26/2007, Additional history exists Lipid Panel 04/10/2029 04/10/2024, 01/05, 08/02/2021 Colonoscopy 03/09/2033 03/09/2023 Colorectal Cancer Screening 03/09/2033 Hepatitis B Vaccines Completed 09/06/1999, 06/14/1999, 03/01/1999 Hepatitis A Vaccines Completed 06/26/2019, 04/14/2005, 02/04/2002 Zoster Vaccines Completed 10/20/2019, 07/07, 11/12/2017 Hepatitis C Screening Completed 02/01/2023 Pneumococcal Vaccine: 50+ Years Completed 04/04/2024, 07/14/2014 [...] patient's age to complete this topic Meningococcal Vaccine Aged Out No john michelle eligible based on patient's age to complete this topic RSV under 20 months Aged Out No longe r eligible based on patient's age to complete this topic Rotavirus Vaccines Aged Out No longer eligible based on patient's age to complete this topic Procedures Procedure Name Priority Date/Time Associated Diagnosis Comments POC CARRASQUILLO ID NOW STREP A Routine 11/06/2024 1:45 PM EST Subacute cough POCT INFLUENZA B Routine 11/06/2024 1:45 PM EST Subacute cough POCT INFLUENZA A Routine 11/06/2024 1:45 PM EST Subacute cough POCT RAPID COVID ANTIGEN Routine 11/06/2024 1:42 PM EST Subacute cough XR CHEST 2 VIEWS Routine 11/03/2024 11:0 0 AM EST Subacute cough XR CHEST 2 VIEWS Routine 10/17/2024 11:0 5 AM EST BASIC METABOLIC PANEL Routine 10/17/2024 10:46 AM EST CBC WITH AUTO DIFFERENTIAL Routine 10/17/2024 10:46 AM EST SARS COV2/INFLUENZA A/B AND RSV RNA QL NAAT Routine 10/17/2024 10:46 AM EST STREP A NUCLEIC ACID Routine 10/17/2024 10:46 AM EST BI MAMMOGRAM SCREENING TOMOSYNTHESIS BILATERAL Routine 07/29/2024 8:40 AM EDT LIPID PANEL WITH REFLEX TO DIRECT LDL Routine 04/10/2024 10:20 AM EDT Benign hypertension POCT GLYCATED HEMOGLOBIN, TOTAL Routine 02/08/2024 11:06 AM EDT Hypoglycemia HM COLONOSCOPY Routine 03/09/2023 5:37 AM EDT HEPATITIS PANEL, GENERAL Routine 02/01/2023 9:58 AM EDT from Last 3 Months or Most Recently Relevant to Health Maintenance Results * POCT Rapid Strep A CARRASQUILLO ID NOW (11/06/2024 1:45 PM EST) Rapid Strep A Screen Negative Negative, None Detected QC Media Lot # [id number] Lot# Expiration Date [id number] Swab 11/06/2024 1:45 PM EST Alessandra Chacon MD POINT OF CARE TEST ENTER/EDIT ORDERABLES Final Result * POCT Rapid Influenza B OSOM (11/06/2024 1:45 PM EST) [facility] Rapid Influenza B Ag Negative Negative, Indeterminate QC Media Lot # [id number] Lot# Expiration Date , Swab 11/06/2024 1:45 PM EST Result [facility] Alessandra Chacon MD POINT OF CARE TEST ENTER/EDIT ORDERABLES Final Result * POCT Rapid Influenza A OSOM (11/06/2024 1:45 PM EST) [facility] Rapid Influenza A Ag Negative Negative, Indeterminate QC Media Lot # [id number] Lot# Expiration Date Swab Nasopharyngeal structure / Unknown 11/06/2024 1:45 PM EST Result [facility] Alessandra Chacon MD POINT OF CARE TEST ENTER/EDIT ORDERABLES Final Result * POCT Rapid Covid-19 BinaxNOW (11/06/2024 1:42 PM EST) [facility] Rapid COVID Ag Negative QC Media Lot # [id number] Lot# Expiration Date Swab 11/06/2024 1:42 PM EST Result [facility] Alessandra Chacon MD POINT OF CARE TEST ENTER/EDIT ORDERABLES Final Result * XR Chest 2 Views (11/03/2024 11:00 AM EST) Only the most recent of2 resultswithin the time period is included. Anatomical Region Laterality Modality Chest Radiographic Chani ging 11/03/2024 11:0 0 AM EST Narrative 11/04/2024 7:27 AM EST ?[facility] ?[address] ?[place] [address] ?XRay Report ? Signed ? Patient: Spicer,Jennifer ?MR#: [id number] ?? 9 ? : 1955 ?Acct:[id number] ? Age/Sex: 69 / F ?ADM Date: 11/03/24 ? Loc: HO.HHCX ? Attending Dr: Brandy GRAYSON ? Ordering Physician: Brandy Chan ?? Date of Service: 11/03/24 ?? Procedure(s): XR chest 2V ?? Accession Number(s): [id number] ? cc: Brandy Chan ? EXAMINATION: ?? XR CHEST ? CLINICAL INFORMATION: ?? [place] dx 10/17, fever and cough ? COMPARISON: ?? None available. ? TECHNIQUE: ?? 2 views of the chest were obtained. ? FINDINGS: ?? No significant abnormality is noted involving the heart, lungs, ?? mediastinum, bony thorax or soft tissues. ? XR/XR chest 2V ?? IMPRESSION: ?? Unremarkable chest examination. ? Electronically signed by: ??Messi Lopez MD ??11/04/2024 07:24 AM EST RP ? Dictated By: ?Messi Lopez MD ? Signed By: ?<Electronically signed by Messi Lopez MD in OV> ?11/04/24 0724 ? DD/ 1100 ? TD/TT: 11/03/24 1111 ? Palliative Care Specialist: MSM ? Procedure Note Jac Krueger - 11/04/2024 [place] [address] XRay Report Signed Patient: Jennifer SpicerMR#: [id number] 9 : 1955cct:[id number] Age/Sex: 69 / FADM Date: 11/03/24 Loc: HO.HHCX Attending Dr: Brandy GRAYSON Ordering Physician: Brandy Chan Date of Service: 11/03/24 Procedure(s): XR chest 2V Accession Number(s): [id number] cc: Brandy Chan EXAMINATION: XR CHEST CLINICAL INFORMATION: [place] dx 10/17, fever and cough COMPARISON: None available. TECHNIQUE: 2 views of the chest were obtained. FINDINGS: No significant abnormality is noted involving the heart, lungs, mediastinum, bony thorax or soft tissues. XR/XR chest 2V IMPRESSION: Unremarkable chest examination. Electronically signed by: Messi Lopez MD 11/04/2024 07:24 AM EST Dictated By: Messi Lopez MD Signed By: <Electronically signed by Messi Lopez MD in OV> 11/04/24 0724 DD/ 1100 TD/TT: 11/03/24 1111 Palliative Care Specialist: MARY ANNE us Brandy Okhipo DIGITIZER IMG XR PROCEDURES Edited Resul t - Final * Strep A Nucleic Acid (10/17/2024 10:46 AM EST) IDNOW SERIAL# [id number] [facility] Strep A Nucleic Acid Negative Negative [facility] Comment:All test results mus t be correlated with clinical findings.This test has not been evaluated for monitoring treatment ofinfection.Additional follow-up testing using the culture method isrequired if the result is negative and clinical symptomspersist, or in the event of an acute rheumatic feveroutbreak. 10/17/2024 10:4 6 AM EST 10/17/2024 10:50 AM EST us Generic External Data Provider LAB MICROBIOLOGY - GENERAL ORDERABLES Final Result [facility] [address] [place] [phone] * SARS-CoV-2 RNA, Influenza A/B, and RSV RNA, Ql NAAT (10/17/2024 10:46 AM EST) Influenza A PCR NEGATIVE Negative [facility] Influenza B PCR NEGATIVE Negative [facility] Resp Syncy Virus RNA Qual PCR NEGATIVE Negative [facility] SARS COV2 PCR NEGATIVE Negative [facility] Comment:All test results mus t be correlated with clinical findings.Negative results do not preclude SARS-CoV2, influenza Avirus, influenza B virus and/or RSV infectionand should not be used as the sole basis for treatment orother patient management decisions. Negative results must becombined with clinical observations, patient history, andepidemiological information.This test has not been evaluated for monitoring treatment ofinfection.This test has been authorized by the FDA under an EmergencyUse Authorization (EUA) for use by authorized laboratories.Testing performed on the [employer] GeneXpert utilizingreal-time RT-PCR.All SARS CoV2 and positive influenza A/B results arereported to [facility]. 10/17/2024 10:4 6 AM EST 10/17/2024 10:50 AM EST us Generic External Data Provider LAB MICROBIOLOGY - GENERAL ORDERABLES Final Result [facility] [address] [place] [address] [phone] * (ABNORMAL) CBC auto differential (10/17/2024 10:46 AM EST) White Blood Count 8.4 4.8 - 10.8 X10*3/uL [facility] Red Blood Count 4.08(L) 4.20 - 5.50 X10*6/uL [facility] Hemoglobin 12.2 12.0 - 16.0 g/dl [facility] Hematocrit 36.4(L) 37.0 - 47.0 % [facility] Mean Corpuscular Volume 89.2 80.0 - 98.0 fL [facility] Mean Corpuscular Hemoglobin 29.9 27.0 - 33.0 pg [facility] Mean Corpuscular HGB Conc 33.5 31.0 - 35.0 g/dl [facility] Red Cell Distribution Width 14.1 11.0 - 16.0 % [facility] Platelet Count 267 160 - 400 X10*3/uL [facility] Mean Platelet Volume 9.8 9.4 - 12.3 fL [facility] Neutrophils Percent Auto 64.1 45 - 73 % [facility] Imm Gran Pct Auto 0.2 0.0 - 0.4 % [facility] Lymphocytes Percent Auto 17.5(L) 20 - 40 % [facility] Monocytes Percent Auto 17.3(H) 2 - 11 % [facility] Eosinophils Percent Auto 0.7 0 - 4 % [facility] Basophils Percent Auto 0.2 0 - 2 % [facility] NRBC Pct Auto 0.0 0.0 - 0.2 /100WBC [facility] Neutrophils Absolute Auto 5.4 2.0 - 8.3 x10*3/uL [facility] Imm Gran Abs Auto 0.02 0.00 - 0.03 X10*3/uL [facility] Lymphocytes Absolute Auto 1.5 1.2 - 4.9 X10*3/uL [facility] Monocytes Absolute Auto 1.5(H) 0.1 - 1.2 X10*3/uL [facility] Eosinophils Absolute Auto 0.1 0.0 - 0.4 X10*3/uL [facility] Basophils Absolute Auto 0.0 0.0 - 0.2 X10*3/uL [facility] NRBC Abs Auto 0.000 0.0 - 0.012 X10*3/uL [facility] 10/17/2024 10:4 6 AM EST 10/17/2024 10:51 AM EST us Generic External Data Provider LAB BLOOD ORDERAB LES Final Result [facility] [address] [place] [phone] * (ABNORMAL) Basic Metabolic Panel (10/17/2024 10:46 AM EST) Sodium 138 135 - 145 mmol/L [facility] Potassium 4.2 3.3 - 5.1 mmol/L [facility] Chloride 103 96 - 108 mmol/L [facility] Carbon Dioxide 27 22 - 29 mmol/L [facility] Anion Gap 12 12 - 20 [facility] Urea Nitrogen (BUN) 18(H) 9 - 16 mg/dL [facility] Creatinine, Serum 0.88 0.5 - 1.4 mg/dL [facility] Creatinine Clr Calc Pharmacy 66.2 [facility] Comment:Provided height and weight: 157.48 cm,93.894 kg.eGFR (calculated from the MDRD study equation) and eCrCl(calculated from the Cockcroft-Gault equation) are based ondifferent parameters and may not yield comparable results.If eCrCl result is absurd, please check patient'sheight/weight. Estimated Glomerular Filt Rate >60 [facility] Comment:Chronic Kidney Disea se: Estimated GFR < 60 mL/min/1.26k8Zikwiw Kidney Disease: Estimated GFR < 15 mL/min/1.73m2 Glucose 101 60 - 115 mg/dL [facility] Calcium 9.2 8.4 - 10.2 mg/dL [facility] 10/17/2024 10:4 6 AM EST 10/17/2024 10:51 AM EST us Generic External Data Provider LAB BLOOD ORDERAB LES Final Result [facility] [address] [place] [phone] * BI Mammogram Screening Tomosynthesis Bilateral (07/29/2024 8:40 AM EDT) Anatomical Region Laterality Modality Breast Bilateral Mammography 07/29/2024 8:40 AM EDT Narrative 08/08/2024 12:38 PM EDT ? [facility] [place] ? [address] ?[place] [address] ? Mammography Report ? Signed ? Patient: Spicer,Jennifer ?MR#: [id number] ?? 9 ? : 1955 ?Acct:[id number] ? Age/Sex: 69 / F ?ADM Date: 09/24/24 ? Loc: HO.MAMMO ? Attending Dr: Fernandez Merlos MD ? Ordering Physician: Fernandez Merlos MD ?Results: 1Ne ?? gative ? Date of Service: 07/29/24 ?Follow Up: 1 Year From Orig ?? inal Mammogram ? Procedure(s): MM tomosynthesis screening BI ?? Accession Number(s): [id number] ? cc: Fernandez Merlos MD ? EXAMINATION: ?? MM SCREENING DIGITAL BREAST TOMOSYNTHESIS, BILATERAL ? CLINICAL INFORMATION: ? Screening. Asymptomatic. ? COMPARISON: ?? Mammography: Comparison is made with available priors ? TECHNIQUE: ?? Digital breast mammography with tomosynthesis is performed in both the ?? craniocaudal and mediolateral oblique views along with computer-aided ?? detection (CAD). ? FINDINGS: ?? There are scattered areas of fibroglandular density (ACR BI-RADS breast ?? composition Category b). ? There are no significant masses, abnormal calcifications, or other ?? abnormalities. ? MM/MM tomosynthesis screening BI ?? IMPRESSION: ?? No mammographic evidence of malignancy. ? ASSESSMENT: ? BI-RADS BI-RADS 1 - Negative ? RECOMMENDATION: ?? Routine annual mammography screening. ? 1 year F/U ? This examination should not preclude the clinical evaluation of a ?? suspicious palpable abnormality. ? This patient's information was entered into a reminder system with a ?? target due date for their next mammogram. ? Electronically signed by: ??Karla Moncada DO ??08/08/2024 12:35 PM EDT ?? RP ? Dictated By: ?Karla Moncada DO ? Signed By: ?<Electronically signed by Karla Moncada, DO in OV> ? 08/08/24 1235 ? DD/ 0840 ? TD/TT: 07/29/24 0855 ? Palliative Care Specialist: ? Procedure Note Donotneinterpreter, Image - 08/08/2024 [facility] [address] [place], [place] [address] Mammography Report Signed Patient: Jennifer SipcerMR#: [id number] 9 : 7Acct:[id number] Age/Sex: 69 / FADM Date: 07/29/24 Loc: HO.MAMMO Attending Dr: Fernandez Merlos MD Ordering Physician: Fernandez Merlos MDResults: 1Ne gative Date of Service: 07/29/24Follow Up: 1 Year From [facility] Mammogram Procedure(s): MM tomosynthesis screening BI Accession Number(s): [id number] cc: Fernandez Merlos MD EXAMINATION: MM SCREENING DIGITAL BREAST TOMOSYNTHESIS, BILATERAL CLINICAL INFORMATION: Screening. Asymptomatic. COMPARISON: Mammography: Comparison is made with available priors TECHNIQUE: Digital breast mammography with tomosynthesis is performed in both the craniocaudal and mediolateral oblique views along with computer-aided detection (CAD). FINDINGS: There are scattered areas of fibroglandular density (ACR BI-RADS breast composition Category b). There are no significant masses, abnormal calcifications, or other abnormalities. MM/MM tomosynthesis screening BI IMPRESSION: No mammographic evidence of malignancy. ASSESSMENT: BI-RADS BI-RADS 1 - Negative RECOMMENDATION: Routine annual mammography screening. 1 year F/U This examination should not preclude the clinical evaluation of a suspicious palpable abnormality. This patient's information was entered into a reminder system with a target due date for their next mammogram. Electronically signed by: Karla Moncada DO 08/08/2024 12:35 PM EDT Dictated By: Karla Moncada DO Signed By: <Electronically signed by Karla Moncada, DO in OV> 08/08/24 1235 DD/ 0840 TD/TT: 07/29/24 0855 Palliative Care Specialist: Fernandez Merlos MD IMG BI PROCEDURES Edited Result - Final * (ABNORMAL) Lipid Panel with Reflex to Direct LDL (04/10/2024 10:20 AM EDT) Triglycerides 86 <150 mg/dL [facility] Comment:Desirable Triglyceri de: less than 150 mg/dLBorderline High Triglyceride 150-199 mg/dLHigh Triglyceride: 200-499 mg/dLVery High Triglyceride: greater than or equal to 5OO mg/dL Cholesterol 194 <200 mg/dL [facility] Comment:Desirable Cholestero l: less than 200 mg/dLBorderline High Cholesterol: 200-239 mg/dLHigh Cholesterol: greater than 239 mg/dL LDL Cholesterol Calculated 116(H) <100 mg/dL [facility] Comment:Desirable LDL: less than 100 mg/dLNear Optimal/Above Optimal LDL: 110- 129 mg/dLBorderline High LDL: 130-159 mg/dLHigh LDL: 160-189 mg/dLVery High LDL: greater than or equal to 190 mg/dL HDL Cholesterol 61 >40 mg/dL [facility] Comment:Desirable HDL: great er than 40 mg/dL Note: This HDL assay may give artificially low results in patients with liver disease. Blood 04/10/2024 10:2 0 AM EDT 04/10/2024 11:21 AM EDT us Fernandez Merlos MD LAB BLOOD ORDERABLES Fin al Result [facility] [address], [place] [phone] * POCT HGB A1C (02/08/2024 11:06 AM EDT) Hemoglobin A1C 5.7 4.0 - 6.0 % QC Media Lot # [id number] Lot# Expiration Date ,025 Blood 02/08/2024 11:0 6 AM EDT Fernandez Merlos MD POINT OF CARE TEST ENTER /EDIT ORDERABLES Final Result * Hm Colonoscopy (03/09/2023 5:37 AM EDT) Historical Provider HEALTH MAINTENANCE Final Result * (ABNORMAL) Hepatitis Panel, General (02/01/2023 9:58 AM EDT) Hepatitis A Antibody Total REACTIVE( A) NON-REACT FRANCES [employer] [place] [facility] Comment: For additional information, please refer to http://[employer]/faq/CSY041 (This link is being provided for informational/ educational purposes only.) Hepatitis B Surface Antibody QL REACTIVE( A) NON-REACT [employer] [place] [facility] Hepatitis B Surface Ag NON-REACT FRANCES NON-REACT FRANCES [employer] [place] [facility] Hepatitis B Core Antibody Total NON-REACT FRANCES NON-REACT FRANCES [employer] [place] [facility] Hepatitis C Antibody NON-REACT FRANCES NON-REACT FRANCES [employer] [place] [employer]PULSEt Index 0.02 <1.00 [employer] [facility] Comment: HCV antibody was non-reactive. There is no laboratory evidence of HCV infection. In most cases, no further action is required. However, if recent HCV exposure is suspected, a test for HCV RNA (test code 31798) is suggested. For additional information please refer to http://[employer]/faq/HWP16a9 (This link is being provided for informational/ educational purposes only.) 02/01/2023 9:58 AM EDT 02/01/2023 9:59 AM EDT Narrative [facility] - 02/06/2023 11:15 PM EDT FASTING:UNKNOWN FASTING: UNKNOWN Fernandez Merlos MD LAB BLOOD ORDERABLES Fin al Result [address], [place] [phone] [employer] [facility] [address] [place] [phone] from Last 3 Months or Most Recently Relevant to Health Maintenance Insurance [facility] Care Teams Die Cut Operator Relationship Specialty Start Date End Date Fernandez Merlos MD [address] [place] [phone] PCP - General Family Medicine 12/22/20
--- OUTSIDE RECORDS SUMMARY | 2024-12-29 07:30 | XMS_ITS | Encounter Summary ---
Author Organization [employer] Address [address] [facility] 7t [place] [address] Care Team Providers Care Locker Plant Attendant Name Role Phone Shital La MD Primary Care Provider + Encounter Details Date Type Department Care Team (Late st Contact Info) Description 03/16/2023 Orders Only [facility] [address] [place] [address] Nancy Zheng LPN Social History Tobacco Use [...] on filedocumented in this encounter Care Teams Locker Plant Attendant Relationship Specialty Start Date End Date Shital La MD [address] [place] [phone] PCP - General Family Medicine 12/22/20 documented as of this encounter
--- OUTSIDE RECORDS SUMMARY | 2024-12-29 07:30 | XMS_ITS | Encounter Summary ---
Author Organization [employer] [facility] Address [address] [facility] 7t [place] [address] Care Team Providers Care Stars Analytical Lead Name Role Phone Shital La MD Primary Care Provider + Encounter Details Date Type Department Care Team (Late st Contact Info) Description 11/10/2022 Orders Only [facility] [address] [place] [address] Santa Sherman, RN [address] [place] [address] Social History Tobacco Use Types Packs/Day Years [...] on filedocumented in this encounter Care Teams Stars Analytical Lead Relationship Specialty Start Date End Date Shital La MD [address] [place], [place] [phone] PCP - General Family Medicine 12/22/20 documented as of this encounter
--- OUTSIDE RECORDS SUMMARY | 2024-12-29 07:30 | XMS_ITS | Encounter Summary ---
Author Organization [facility] Address [address] [facility] 7t [place] [address] Care Team Providers Care Woodwork Salvage Inspector Name Role Phone Shital La MD Primary Care Provider + Encounter Details Date Type Department Care Team (Latest Contact Info) Description 10/13/2019 Abstract [facility] Dental, Provider, DDS Social History Tobacco Use Types Packs/Day Years [...] on filedocumented in this encounter Care Teams Woodwork Salvage Inspector Relationship Specialty Start Date End Date Shital La MD [address] [place] [phone] PCP - General Family Medicine 12/22/20 documented as of this encounter
[2024-12-29 08:41] LABS: Anion Gap 13 (12-20); Blood Urea Nitrogen 13 mg/dL (9-16); Calcium 9.3 mg/dL (8.4-10.2); Carbon Dioxide 29 mmol/L (22-29); Chloride 102 mmol/L (96-108); Cholesterol 216 mg/dL (<200); Estimated Glomerular Filt Rate > 60; Glucose Random 95 mg/dL (60-115); HDL Cholesterol 58 mg/dL (>40); LDL Cholesterol Calculated 134 mg/dL (<100); Potassium 4.1 mmol/L (3.3-5.1); Sodium 140 mmol/L (135-145); Triglycerides 120 mg/dL (<150)
[2024-12-29 08:59] LABS: TSH reflex Free T4 1.56 uIU/mL (0.32-4.0); Vitamin D 25-OH Total 45.6 ng/mL (>30)
[2024-12-29 11:01] LABS: Reflex LDLD? No
== END ==
LOC: HO.NUCMED 07:27
PROVIDERS: Absent Provider Internal Medicine; PCP Internal Medicine; Visit Provider Internal Medicine
DX: R10.84 Generalized abdominal pain (principal); I10 Essential (primary) hypertension; E66.01 Morbid (severe) obesity due to excess calories
CPT/HCPCS: 36415; 80048; 80061; 82306; 84443

== ENCOUNTER → 2025-01-06 07:22 | Outpatient (REF) | payer OTHER, SELFPAY ==
--- NOTE | ~2025-01-06 | NM_ITS ---
EXAMINATION: NM BILIARY TRACT CLINICAL INFORMATION: Generalized abdominal pain COMPARISON: None available. TECHNIQUE: Following intravenous administration of 5 mCi of technetium 99m mebrofenin, imaging over the right upper quadrant was obtained up to 60 minutes. At 60 minutes 1.8 mcg of CCK was injected slowly over 30 minutes and imaging obtained over 30 minutes. FINDINGS: There is normal hepatic uptake without any focal defects or hepatic enlargement. The gallbladder is visualized by 20 minutes. CBD is visualized by 32 minutes. Post-CCK there is visualization of small bowel by 3 minutes. Gallbladder ejection fraction measures At 10 minutes is 12%, At 20 minutes is 50% At 30 minutes 67%. NM/NM hepatobiliary w pharm IMPRESSION: Normal gallbladder ejection fraction of 60% at 30 minutes post CCK. Patent cystic duct and patent CBD. Normal hepatic uptake without enlargement. Electronically signed by: Messi Lopez MD 01/06/2025 12:11 PM REHAN
--- OUTSIDE RECORDS SUMMARY | 2025-01-06 07:25 | XMS_ITS | Encounter Summary ---
Author Organization [email or web address] Address [address] [facility] [address] [address] [place] [address] Care Team Providers Care Concrete Rod Buster Name Role Phone Shital La MD Primary [...] on filedocumented in this encounter Care Teams Concrete Rod Buster Relationship Specialty Start Date End Date Shital La MD [address] [place] [phone] PCP - General Family Medicine 12/22/20 documented as of this encounter
--- OUTSIDE RECORDS SUMMARY | 2025-01-06 07:25 | XMS_ITS | Encounter Summary ---
Author Organization [employer] Address [address] [facility] [address] 7[address] [place] [address] Care Team Providers Care Knitting Supervisor Name Role Phone Shital La MD Primary Care Provider + Reason for Visit * Reason Comments Med Refill Encounter Details Date Type Department Care Team ([facility] st Contact Info) Description 12/20/2024 Refill [facility] [address] [place], [place] [phone] Shital La MD [address] [place] [address] Arthritis Social History Tobacco Use Types Packs/Day [...] unspecified documented in this encounter Care Teams Knitting Supervisor Relationship Specialty Start Date End Date Shital La MD [address] [place] [phone] PCP - General Family Medicine 12/22/20 documented as of this encounter
--- OUTSIDE RECORDS SUMMARY | 2025-01-06 07:25 | XMS_ITS | Encounter Summary ---
Author Organization [employer] Address [address] [facility] [address] 7[address] [place] [address] Care Team Providers Care Handstitching Machine Collar Feller Name Role Phone Shital La MD Primary Care Provider + Reason for Visit * Reason Comments Med Refill Encounter Details Date Type Department Care Team ([facility] st Contact Info) Description 12/08/2024 Refill [facility] PEDS [address] [place], [place] [phone] Shital La MD [address] [place] [address] Primary hypertension Social History Tobacco Use Types [...] hypertension documented in this encounter Care Teams Handstitching Machine Collar Feller Relationship Specialty Start Date End Date Shital La MD [address] [place] [phone] PCP - General Family Medicine 12/22/20 documented as of this encounter
--- OUTSIDE RECORDS SUMMARY | 2025-01-06 07:25 | XMS_ITS | Clinical Summary ---
Author Organization [employer] Address [address] [facility] 7t [place] [address] Care Team Providers Care Hcc Coders Name Role Phone Fernandez Merlos MD Primary [...] of colon 04/18/2018 Overview (04/04/2023): Last colon[place] [facility] [place]09[place]= Neg polyps Assessment & Plan [...] exercise, life style modifications, diet, referral to robotics specialist. Discussed re lower calorie intake, increase [...] Encounters Date Type Department Care Team Description 12/29/2024 Telephone [facility] MEDICINE [address] [place] [phone] Fernandez Merlos MD Results 12/20/2024 Refill [facility] CH[facility] MED & PEDS [address] [place] [address] Fernandez Merlos MD Arthritis 12/10/2024 2:30 PM EST Office Visit [facility] MEDICINE [address] [place] [phone] Fernandez Merlos MD Essential hypertension (Primary Dx); Morbid obesity due to excess calories ([facility]); Mild intermittent asthma without complication 12/10/2024 Travel 12/09/[address] [address] Heaven Latham [place] Chart prep 12/08/2024 Refill [facility]S [address] [place] [address] Fernandez Merlos MD Primary hypertension 12/04/[address] [address] Fernandez Merlos MD Appointment Request 11/27/2024 Patient Outreach [facility] MEDICINE [address] [place] [phone] Fernandez Merlos MD Pre-visit Planning (SDOH screening negative and tobacco screening negative) 11/04/2024 Telephone [facility] MEDICINE [address] [place] [phone] Luisa Fonseca, MIGUEL Results 11/03/2024 11:15 AM EST Office Visit [address] [address] Alessandra Chacon MD Subacute cough 11/03/2024 Travel 11/03/[address] [address] Fernandez Merlos MD Nurse Triage 11/02/2024 Refill [facility] MED & PEDS [address] [place], [place] [phone] Fernandez Merlos MD H/O bariatric surgery 10/22/2024 3:00 PM EST Office Visit [address] [address] Rosalva Pearson MD Pneumonia of right upper lobe due to infectious organism (Primary Dx); Subacute cough 10/22/2024 Travel 10/21/[address] [address] Fernandez Merlos MD December recall 10/21/[address] [address] Fernandez Merlos MD ER Follow-up 10/17/2024 Orders Only GENERIC EXTERNAL DATA DEPARTMENT Provider, Generic External Data 10/09/2024 Refill [facility] MED & PEDS [address] [place] [address] Fernandez Merlos MD Arthritis from Last 3 [...] 03/14/2012, 03/26/2007, Additional history exists Lipid Panel 12/29/2029 12/29/2024, 06/0 04/2024, 02/01/2023, Additional history exists Colonoscopy 03/09/2033 03/09/2023 Colorectal Cancer Screening 03/09/2033 [...] Procedure Name Priority Date/Time Associated Diagnosis Comments TSH W/REFLEX TO FT4 Routine 12/29/2024 7 :47 AM EST Essential hypertension VITAMIN D,25-OH,TOTAL,IA Routine 12/29/2024 7:47 AM EST Essential hypertension LIPID PANEL WITH REFLEX TO DIRECT LDL Routine 12/29/2024 7:47 AM EST Essential hypertension Morbid obesity due to excess calories (CMS/HCC) BASIC METABOLIC PANEL Routine 12/29/2024 7:47 AM EST Essential hypertension POC CARRASQUILLO ID NOW STREP A Routine [...] TOMOSYNTHESIS BILATERAL Routine 07/29/2024 8:40 AM EDT POCT GLYCATED HEMOGLOBIN, TOTAL Routine 02/08/2024 11:06 AM EDT Hypoglycemia HM COLONOSCOPY Routine 03/09/2023 5:37 AM EDT HEPATITIS PANEL, GENERAL Routine 02/01/2023 9:58 AM EDT from Last 3 Months or Most Recently Relevant to Health Maintenance Results * Vitamin D, 25-Hydroxy, Total, Immunoassay (12/29/2024 7:47 AM EST) Vitamin D 25-OH Total 45.6 >30 ng/mL [facility] Comment:Health Based Referen ce Values*< 20 ng/mL Iiapyqygf04-58 ng/mL Insufficient> 30 ng/mL Sufficient*Harley IQBAL. N Engl J Med. 2007;357:266-280Care must be taken in interpreting Vitamin D results fromdifferent laboratories and methodologies. Published datademonstrated that results from patients undergoinghemodialysis may show a negative bias when tested withvarious automated 25-OH vitamin D assays when compared toLC-MS/MS.When testing samples from patients whose predominant form ofVitamin D is Vitamin D2, such as patients receiving VitaminD2 supplementation, results that are subtherapeutic shouldbe confirmed with another method such as LC-MS/MS. Blood 12/29/2024 7:47 AM EST 12/29/2024 7:47 AM EST Fernandez Merlos MD LAB BLOOD ORDERABLES Fin al Result Performing Organization Address [facility]/ZIP Co de Phone Number [facility] [address] [place] [phone] * TSH with Reflex to Free T4 (12/29/2024 7:47 AM EST) TSH reflex Free T4 1.56 0.32 - 4.0 uIU/mL [facility] Blood 12/29/2024 7:47 AM EST 12/29/2024 7:47 AM EST Fernandez Merlos MD LAB BLOOD ORDERABLES Fin al Result Performing Organization Address City/[facility]/ZIP Co de Phone Number [facility] [address] [place] [phone] * (ABNORMAL) Lipid Panel with Reflex to Direct LDL (12/29/2024 7:47 AM EST) Triglycerides 120 <150 mg/dL [facility] Comment:Desirable Triglyceri de: less than 150 mg/dLBorderline High Triglyceride 150-199 mg/dLHigh Triglyceride: 200-499 mg/dLVery High Triglyceride: greater than or equal to 5OO mg/dL Cholesterol 216(H) <200 mg/dL [facility] Comment:Desirable Cholestero l: less than 200 mg/dLBorderline High Cholesterol: 200-239 mg/dLHigh Cholesterol: greater than 239 mg/dL LDL Cholesterol Calculated 134(H) <100 mg/dL [facility] Comment:Desirable LDL: less than 100 mg/dLNear Optimal/Above Optimal LDL: 110- 129 mg/dLBorderline High LDL: 130-159 mg/dLHigh LDL: 160-189 mg/dLVery High LDL: greater than or equal to 190 mg/dL HDL Cholesterol 58 >40 mg/dL [facility] Comment:Desirable HDL: great er than 40 mg/dL Note: This HDL assay may give artificially low results in patients with liver disease. Blood 12/29/2024 7:47 AM EST 12/29/2024 7:47 AM EST us Fernandez Merlos MD LAB BLOOD ORDERABLES Fin al Result [facility] [address] [place] [phone] * Basic Metabolic Panel (12/29/2024 7:47 AM EST) Only the most recent of2 resultswithin the time period is included. Sodium 140 135 - 145 mmol/L [facility] Potassium 4.1 3.3 - 5.1 mmol/L [facility] Chloride 102 96 - 108 mmol/L [facility] Carbon Dioxide 29 22 - 29 mmol/L [facility] Anion Gap 13 12 - 20 [facility] Urea Nitrogen (BUN) 13 9 - 16 mg/dL [facility] Creatinine, Serum 0.76 0.5 - 1.4 mg/dL [facility] Estimated Glomerular Filt Rate >60 [facility] Comment:Chronic Kidney Disea se: Estimated GFR < 60 mL/min/1.61c9Mlmhks Kidney Disease: Estimated GFR < 15 mL/min/1.73m2 Glucose 95 60 - 115 mg/dL [facility] Calcium 9.3 8.4 - 10.2 mg/dL [facility] Blood Venous blood specimen / Unknown 12/29/2024 7:47 AM EST 12/29/2024 7:47 AM EST Result [facility] Fernandez Merlos MD LAB BLOOD ORDERABLES Fin al Result [facility] [address] [place] [phone] * POCT Rapid Strep A CARRASQUILLO ID NOW (11/06/2024 1:45 PM EST) [facility] Rapid Strep A Screen Negative Negative, None Detected QC Media Lot # [id number] Lot# Expiration Date , Swab 11/06/2024 1:45 PM EST Result [facility] Alessandra Chacon MD POINT OF CARE TEST ENTER/EDIT ORDERABLES Final Result * POCT Rapid Influenza B OSOM (11/06/2024 1:45 PM EST) [facility] Rapid Influenza B Ag Negative Negative, Indeterminate QC Media Lot # [id number] Lot# Expiration Date ,025 Swab 11/06/2024 1:45 PM EST Result [facility] Alessandra Chacon MD POINT OF CARE TEST ENTER/EDIT ORDERABLES Final Result * POCT Rapid Influenza A OSOM (11/06/2024 1:45 PM EST) [facility] Rapid Influenza A Ag Negative Negative, Indeterminate QC Media Lot # [id number] Lot# Expiration Date [id number] Swab Nasopharyngeal structure / Unknown 11/06/2024 1:45 PM EST Alessandra Chacon MD POINT OF CARE TEST ENTER/EDIT ORDERABLES Final Result * POCT Rapid Covid-19 BinaxNOW (11/06/2024 1:42 PM EST) Rapid COVID Ag Negative QC Media Lot # [id number] Lot# Expiration Date [id number] Swab 11/06/2024 1:42 PM EST Alessandra Chacon MD POINT OF CARE TEST ENTER/EDIT ORDERABLES Final Result * XR Chest 2 Views (11/03/2024 11:00 AM EST) Only the most recent of2 resultswithin the time period is included. Anatomical Region Laterality Modality Chest Radiographic Chani ging 11/03/2024 11:0 0 AM EST Narrative 11/04/2024 7:27 AM EST ?[facility] ?[address] ?[place] [address] ?XRay Report ? Signed ? Patient: Nayan,Jennifer ?MR#: [id number] ?? 9 ? : 1955 ?Acct:[id number] ? Age/Sex: 69 / F ?ADM Date: 11/03/24 ? Loc: HO.HHCX ? Attending Dr: Brandy Chan WINE STEWARD ? Ordering Physician: Brandy Chan WINE STEWARD ?? Date of Service: 11/03/24 ?? Procedure(s): XR chest 2V ?? Accession Number(s): [id number] ? cc: Brandy Chan WINE STEWARD ? EXAMINATION: ?? XR CHEST ? CLINICAL [...] 07:24 AM EST RP ? Dictated By: ?Jessica,Messi S MD ? Signed By: ?<Electronically signed by Messi S Jessica, MD in OV> ?11/04/24 0724 ? DD/ 1100 ? TD/TT: 11/03/24 1111 ? Market Sales Manager: MSM ? Procedure Note Jac Krueger - 11/04/2024 [facility] [address] [place] [address] XRay Report Signed Patient: Jennifer SpicerMR#: [id number] 9 : 7Acct:[id number] Age/Sex: 69 / FADM Date: 11/03/24 [facility] Dr: Brandy GRASYON Ordering Physician: Brandy Chan Date of Service: 11/03/24 Procedure(s): XR chest 2V Accession Number(s): [id number] cc: Brandy Chan EXAMINATION: XR CHEST CLINICAL [...] 11/04/24 0724 DD/ 1100 TD/TT: 11/03/24 1111 Market Sales Manager: MARY ANNE us Brandy Chan WINE STEWARD IMG XR PROCEDURES Edited Resul t - Final * Strep A Nucleic Acid (10/17/2024 10:46 AM EST) IDNOW SERIAL# [id number] [facility] Strep A Nucleic Acid Negative Negative [facility] Comment:All test results mus t [...] LAB MICROBIOLOGY - GENERAL ORDERABLES Final Result Performing Organization Address [facility] Co de Phone Number [facility] [address] [place] [phone] * SARS-CoV-2 RNA, Influenza A/B, and RSV RNA, Ql NAAT (10/17/2024 10:46 AM EST) Pathologist [facility] Influenza A PCR NEGATIVE Negative [facility] Influenza B PCR NEGATIVE Negative [facility] Resp Syncy Virus RNA Qual PCR NEGATIVE Negative [facility] SARS COV2 PCR NEGATIVE Negative [facility] Comment:All test results mus t [...] use by authorized laboratories.Testing performed on the [employer] ([employer]) GeneXpert utilizingreal-time RT-PCR.All SARS CoV2 and positive influenza A/B results arereported to [facility]. 10/17/2024 10:4 6 AM EST 10/17/2024 10:50 AM EST us Generic External Data Provider LAB MICROBIOLOGY - GENERAL ORDERABLES Final Result Performing Organization Address City/[facility] Co de Phone Number [facility] [address] [place] [phone] * (ABNORMAL) CBC auto differential (10/17/2024 10:46 AM EST) White Blood Count 8.4 4.8 - 10.8 X10*3/uL [facility] Red Blood Count 4.08(L) 4.20 - 5.50 X10*6/uL [facility] Hemoglobin 12.2 12.0 - 16.0 g/dl [facility] Hematocrit 36.4(L) 37.0 - 47.0 % [facility] Mean Corpuscular Volume 89.2 80.0 - 98.0 fL [facility] Mean Corpuscular Hemoglobin 29.9 27.0 - 33.0 pg [facility] Mean Corpuscular HGB Conc 33.5 31.0 - 35.0 g/dl [facility] Red Cell Distribution Width 14.1 11.0 - 16.0 % [facility] Platelet Count 267 160 - 400 X10*3/uL [facility] Mean Platelet Volume 9.8 9.4 - 12.3 fL [facility] Neutrophils Percent Auto 64.1 45 - 73 % [facility] Imm Gran Pct Auto 0.2 0.0 - 0.4 % [facility] Lymphocytes Percent Auto 17.5(L) 20 - 40 % [facility] Monocytes Percent Auto 17.3(H) 2 - 11 % [facility] Eosinophils Percent Auto 0.7 0 - 4 % [facility] Basophils Percent Auto 0.2 0 - 2 % [facility] NRBC Pct Auto 0.0 0.0 - 0.2 /100WBC [facility] Neutrophils Absolute Auto 5.4 2.0 - 8.3 x10*3/uL [facility] Imm Gran Abs Auto 0.02 0.00 - 0.03 X10*3/uL [facility] Lymphocytes Absolute Auto 1.5 1.2 - 4.9 X10*3/uL [facility] Monocytes Absolute Auto 1.5(H) 0.1 - 1.2 X10*3/uL [facility] Eosinophils Absolute Auto 0.1 0.0 - 0.4 X10*3/uL [facility] Basophils Absolute Auto 0.0 0.0 - 0.2 X10*3/uL [facility] NRBC Abs Auto 0.000 0.0 - 0.012 X10*3/uL [facility] 10/17/2024 10:4 6 AM EST 10/17/2024 10:51 AM EST us Generic External Data Provider LAB BLOOD ORDERAB LES Final Result Performing Organization Address City/State/[facility] Co de Phone Number [facility] [address] [place] [phone] [phone] * BI Mammogram Screening Tomosynthesis Bilateral (07/29/2024 8:40 AM EDT) Anatomical Region Laterality Modality Breast Bilateral Mammography 07/29/2024 8:40 AM EDT Narrative 08/08/2024 12:38 PM EDT ? [facility] ? [address] ?[place] [address] ? Mammography Report ? Signed ? Patient: NayanJennifer ?MR#: [id number] ?? 9 ? : 1955 ?Acct:[id number] ? Age/Sex: 69 / F ?ADM Date: /24/24 ? Loc: HO.MAMMO ? Attending Dr: Fernandez Merlos MD ? Ordering Physician: Fernandez Merlos MD ?Results: 1Ne ?? gative ? Date of Service: 07/29/24 ?Follow Up: 1 Year From Orig ?? inal Mammogram ? Procedure(s): MM tomosynthesis screening BI ?? Accession Number(s): [id number] ? cc: Fernandez Merlos MD ? EXAMINATION: [...] DD/ 0840 ? TD/TT: 07/29/24 0855 ? Market Sales Manager: ? Procedure Note Pati, Image - 08/08/2024 [facility] [address] [place] [address] [place] [address] Mammography Report Signed Patient: Jennifer SpicerMR#: [id number] 9 : 7Acct:[id number] Age/Sex: 69 / FADM Date: 07/29/24 Loc: HO.MAMMO Attending Dr: Fernandez Merlos MD Ordering Physician: Fernandez Merlos MDResults: 1Ne gative Date of Service: 07/29/24Follow Up: 1 Year From Orig inal Mammogram Procedure(s): MM tomosynthesis screening BI Accession Number(s): [id number] cc: Fernandez Merlos MD EXAMINATION: MM SCREENING [...] DO Signed By: <Electronically signed by Karla Moncada DO in OV> 08/08/24 1235 DD/ 0840 TD/TT: 07/29/24 0855 Market Sales Manager: Fernandez Merlos MD IMG BI PROCEDURES Edited Result - Final * POCT HGB A1C (02/08/2024 11:06 AM EDT) Hemoglobin A1C 5.7 4.0 - 6.0 % QC Media Lot # [id number] Lot# Expiration Date 616 Blood 02/08/2024 11:0 6 AM EDT Result [facility] Fernandez Merlos MD POINT OF CARE TEST ENTER /EDIT ORDERABLES Final Result * Hm Colonoscopy (03/09/2023 5:37 AM EDT) Result [facility] Historical Provider HEALTH MAINTENANCE Final Result * (ABNORMAL) Hepatitis Panel, General (02/01/2023 9:58 AM EDT) Pathologist [facility] Hepatitis A Antibody Total REACTIVE( A) NON-REACT FRANCES [employer] [place] [employer] Comment: For additional information, please refer to http://[employer].TimePoints/faq/LMI540 (This link is being provided for informational/ educational purposes only.) Hepatitis B Surface Antibody QL REACTIVE( A) NON-REACT FRANCES [employer] [place] [employer] Hepatitis B Surface Ag NON-REACT FRANCES NON-REACT FRANCES [employer] [place] [employer] Hepatitis B Core Antibody Total NON-REACT FRANCES NON-REACT [facility] [place] [employer] Hepatitis C Antibody NON-REACT FRANCES NON-REACT FRANCES [employer] [place] [employer] Index 0.02 <1.00 [employer] [place] [employer] Comment: HCV antibody was non-reactive. There is no laboratory evidence of HCV infection. In most cases, no further action is required. However, if recent HCV exposure is suspected, a test for HCV RNA (test code 50958) is suggested. For additional information please refer to http://[employer].TimePoints/faq/JAH94b1 (This link is being provided for informational/ educational purposes only.) 02/01/2023 9:58 AM EDT 02/01/2023 9:59 AM EDT Narrative [facility] - 02/06/2023 11:15 PM EDT FASTING:UNKNOWN FASTING: UNKNOWN Result [facility] Fernandez Merlos MD LAB BLOOD ORDERABLES Fin al Result [facility] [address], [place] [phone] [employer] [place] [employer] [address] [place] [phone] from Last 3 Months or Most Recently Relevant to Health Maintenance Insurance [facility] Care Teams Hcc Coders Relationship Specialty Start Date End Date Fernandez Merlos MD [address] [place] [phone] PCP - General Family Medicine 12/22/20
--- OUTSIDE RECORDS SUMMARY | 2025-01-06 07:25 | XMS_ITS | Encounter Summary ---
Author Organization [employer] Address [address] [facility] [address] [facility] [facility] [address] [facility] [address] [address] [place] [address] Care Team Providers Care Office Services Specialist Name Role Phone Shital La MD Primary Care Provider + Encounter Details Date Type Department Care Team (Late st Contact Info) Description 04/04/2024 Orders Only [facility] MEDICINE [address] [place] [address] Provider, MD Leeann Social History Tobacco Use [...] on filedocumented in this encounter Care Teams Office Services Specialist Relationship Specialty Start Date End Date Shital La MD [address] [place] [phone] PCP - General Family Medicine 12/22/20 documented as of this encounter
--- OUTSIDE RECORDS SUMMARY | 2025-01-06 07:25 | XMS_ITS | Encounter Summary ---
Author Organization [employer] Address [address] [facility] [address]t [place] [address] Care Team Providers Care Dramatic Reader Name Role Phone Shital La MD Primary Care Provider + Reason for Visit * Reason Onset Date Comments Results 12/29/2024 Encounter Details Date Type Department Care Team ([facility] st Contact Info) Description 12/29/2024 Telephone [facility] MEDICINE [address] [place], [place] [phone] Shital La MD [address] [place] [address] Results Social History Tobacco Use Types Packs/Day Years [...] encounter Miscellaneous Notes * Telephone Encounter - Sahara Miranda RN - 12/29/2024 10:11 AM EST TC placed to patient [phone] via [employer] (Isadora #[id number]) to inform of below message. Pt verbalized understanding and did not have any further questions/concerns. Pt to f/u PRN. ----- Message from Shital La MD sent at 12/29/2024 8:46 AM EST ----- Labs on 12/29/2024 showed mild hyperlipidemia, worsened than previous year. Please call patient and tell her that continues to try and do moderate amount of exercise and increase consumption of fruit,vegetables, fish and high fiber foods. Should decrease consumption of highly saturated fats or trans fats. I will follow-up with her at her next appointment and decide additional plan of care. documented in this encounter Plan of Treatment Not on file documented as of this encounter Visit Diagnoses Not on filedocumented in this encounter Care Teams Dramatic Reader Relationship Specialty Start Date End Date Shital La MD [address] [place] [phone] PCP - General Family Medicine 12/22/20 documented as of this encounter
--- OUTSIDE RECORDS SUMMARY | 2025-01-06 07:25 | XMS_ITS | Encounter Summary ---
Author Organization [employer] Address [address] [facility] [address] [place] [address] Care Team Providers Care Bucket Wash Operator Name Role Phone Shital La MD Primary Care Provider + Reason for Visit * Reason Onset Date Comments Chart prep 12/09/2024 Encounter Details Date Type Department Care Team (Late st Contact Info) Description 12/09/2024 Telephone [facility] MEDICINE [address] [place] [address] Heaven [place] Chart prep Social History [...] on filedocumented in this encounter Care Teams Bucket Wash Operator Relationship Specialty Start Date End Date Shital La MD [address] [place] [phone] PCP - General Family Medicine 12/22/20 documented as of this encounter
--- OUTSIDE RECORDS SUMMARY | 2025-01-06 07:25 | XMS_ITS | Encounter Summary ---
Author Organization [employer] Address [address] [facility] 7t [place] [address] Care Team Providers Care Skiver Welt End Name Role Phone Shital La MD Primary Care Provider + Reason for Visit * Reason Comments Hypertension Encounter Details Date Type Department Care Team ([facility] st Contact Info) Description 12/10/2024 2:30 PM EST Office Visit [facility] [address] [place], [place] [phone] Shital La MD [address] [place], [place] [phone] Essential hypertension (Primary Dx); Morbid obesity due [...] History Narrative Lives on a [address]st floor [facility] apartment, with his room mate. Her daughter [...] BIW and prn CP/BERTRAND/HOYT Non smoking patient. * Result Encounter Note - Shital La MD - 12/10/2024 2:30 PM EST Labs on 12/29/2024 showed mild hyperlipidemia, worsened [...] Procedure Name Priority Date/Time Associated Diagnosis Comments VITAMIN D,25-OH,TOTAL,IA Routine 12/29/2024 7:47 AM EST Essential hypertension TSH W/REFLEX TO FT4 Routine 12/29/2024 7:47 AM EST Essential hypertension LIPID PANEL WITH REFLEX TO DIRECT LDL Routine 12/29/2024 7:47 AM EST Essential hypertension Morbid obesity due to excess calories (CMS/HCC) BASIC METABOLIC PANEL Routine 12/29/2024 7:47 AM EST Essential hypertension documented in this encounter Results * TSH with Reflex to Free T4 (12/29/2024 7:47 AM EST) TSH reflex Free T4 1.56 0.32 - 4.0 uIU/mL [facility] Blood 12/29/2024 7:47 AM EST 12/29/2024 7:47 AM EST us Shital La MD LAB BLOOD ORDERABLES Fin al Result [facility] [address] [place] [phone] * Vitamin D, 25-Hydroxy, Total, Immunoassay (12/29/2024 7:47 AM EST) Vitamin D 25-OH Total 45.6 >30 ng/mL [facility] Comment:Health Based Referen ce Values*< 20 ng/mL [id number] ng/mL Insufficient> 30 ng/mL Sufficient*Harley IQBAL. N [...] AM EST 12/29/2024 7:47 AM EST us Shital La MD LAB BLOOD ORDERABLES Fin al Result Performing Organization Address [facility] de Phone Number [facility] [address] [place] [address] [phone] * (ABNORMAL) Lipid Panel with Reflex to Direct LDL (12/29/2024 7:47 AM EST) Triglycerides 120 <150 mg/dL [facility] Comment:Desirable Triglyceri de: less than 150 mg/dLBorderline High Triglyceride 150-199 mg/dLHigh Triglyceride: 200-499 mg/dLVery High Triglyceride: greater than or equal to 5OO mg/dL Cholesterol 216(H) <200 mg/dL [facility] Comment:Desirable Cholestero l: less than 200 mg/dLBorderline High Cholesterol: 200-239 mg/dLHigh Cholesterol: greater than 239 mg/dL LDL Cholesterol Calculated 134(H) <100 mg/dL [facility] Comment:Desirable LDL: less than 100 mg/dLNear Optimal/Above Optimal LDL: 110- 129 mg/dLBorderline High LDL: 130-159 mg/dLHigh LDL: 160-189 mg/dLVery High LDL: greater than or equal to 190 mg/dL HDL Cholesterol 58 >40 mg/dL [facility] Comment:Desirable HDL: great er than 40 mg/dL Note: This HDL assay may give artificially low results in patients with liver disease. Blood 12/29/2024 7:47 AM EST 12/29/2024 7:47 AM EST us Shital La MD LAB BLOOD ORDERABLES Fin al Result Performing Organization Address [facility] Co de Phone Number [facility] [address] [place] [phone] * Basic Metabolic Panel (12/29/2024 7:47 AM EST) Sodium 140 135 - 145 mmol/L [facility] Potassium 4.1 3.3 - 5.1 mmol/L [facility] Chloride 102 96 - 108 mmol/L [facility] Carbon Dioxide 29 22 - 29 mmol/L [facility] Anion Gap 13 12 - 20 [facility] Urea Nitrogen (BUN) 13 9 - 16 mg/dL [facility] Creatinine, Serum 0.76 0.5 - 1.4 mg/dL [facility] Estimated Glomerular Filt Rate >60 [facility] Comment:Chronic Kidney Disea se: Estimated GFR < 60 mL/min/[id number] Kidney Disease: Estimated GFR < 15 mL/min/1.73m2 Glucose 95 60 - 115 mg/dL [facility] Calcium 9.3 8.4 - 10.2 mg/dL [facility] Blood Venous blood specimen / Unknown 12/29/2024 7:47 AM EST 12/29/2024 7:47 AM EST us Shital La MD LAB BLOOD ORDERABLES Fin al Result [facility] [address] [place] [phone] documented in this encounter Visit Diagnoses Diagnosis Essential hypertension- Primary Unspecified essential hypertension Morbid obesity due to excess calories (CMS/HCC) Mild intermittent asthma without complication documented in this encounter Care Teams Skiver Welt End Relationship Specialty Start Date End Date Shital La MD [address] [place] [phone] PCP - General Family Medicine 12/22/20 documented as of this encounter
--- OUTSIDE RECORDS SUMMARY | 2025-01-06 07:25 | XMS_ITS | Encounter Summary ---
Author Organization [employer] Address [address] [facility] 7t [place] [address] Care Team Providers Care Anesthesiologist Physician Name Role Phone Shital La MD Primary Care Provider + Encounter Details Date Type Department Care Team (Late st Contact Info) Description 03/16/[address] [facility] [address] [place] [address] Nancy Zheng LPN Social History Tobacco Use [...] on filedocumented in this encounter Care Teams Anesthesiologist Physician Relationship Specialty Start Date End Date Shital La MD [address] [place] [phone] PCP - General Family Medicine 12/22/20 documented as of this encounter
--- OUTSIDE RECORDS SUMMARY | 2025-01-06 07:26 | XMS_ITS | Encounter Summary ---
Author Organization [facility] Address 75 [facility] 7t [place] [address] Care Team Providers Care Business Analysis Consultant Name Role Phone Shital La MD Primary [...] on filedocumented in this encounter Care Teams Business Analysis Consultant Relationship Specialty Start Date End Date Shital La MD [address] [place] [phone] PCP - General Family Medicine 12/22/20 documented as of this encounter
--- OUTSIDE RECORDS SUMMARY | 2025-01-06 07:26 | XMS_ITS | Encounter Summary ---
Author Organization [facility] Address 75 [facility] 7t [place] [address] Care Team Providers Care Gambling Monitor Name Role Phone Shital La MD Primary Care Provider + Encounter Details Date Type Department Care Team (Late st Contact Info) Description 11/10/2022 Orders Only [facility] [address] [place] [address] Santa Sherman, RN [address] [place] [address] Social History Tobacco Use Types Packs/Day Years [...] on filedocumented in this encounter Care Teams Gambling Monitor Relationship Specialty Start Date End Date Shital La MD [address] [place], [place] [phone] PCP - General Family Medicine 12/22/20 documented as of this encounter
--- OUTSIDE RECORDS SUMMARY | 2025-01-06 07:26 | XMS_ITS | Encounter Summary ---
Author Organization [facility] Address [address] [place] [address] 7t [place] [address] Care Team Providers Care Beam Warper Name Role Phone Shital La MD Primary Care Provider + Reason for Visit * Reason Onset Date Comments Appointment Request 01/23/2023 Encounter Details Date Type Department Care Team ([facility] st Contact Info) Description 01/23/2023 Telephone [facility] MED[facility]INE [address] [place], [place] [phone] Shital La MD [address] [place] [address] Appointment Request Social History Tobacco Use Types [...] a physical appt. Please contact pt at [phone] documented in this encounter Plan of Treatment Not on file documented as of this encounter Visit Diagnoses Not on filedocumented in this encounter Care Teams Beam Warper Relationship Specialty Start Date End Date Shital La MD [address] [place] [address] PCP - General Family Medicine 12/22/20 documented as of this encounter
--- OUTSIDE RECORDS SUMMARY | 2025-01-06 07:26 | XMS_ITS | Encounter Summary ---
Author Organization [employer] Address 75 [facility] [place] 7t [place] [address] Care Team Providers Care Orthotic/Prosthetic Practitioner Name Role Phone Shital La MD Primary Care Provider + Encounter Details Date Type Department Care Team (Late st Contact Info) Description 12/15/2022 Orders Only [facility] [address] [place] [address] Nancy Zheng LPN Social History Tobacco Use [...] on filedocumented in this encounter Care Teams Orthotic/Prosthetic Practitioner Relationship Specialty Start Date End Date Shital La MD [address] [place] [phone] PCP - General Family Medicine 12/22/20 documented as of this encounter
--- OUTSIDE RECORDS SUMMARY | 2025-01-06 07:26 | XMS_ITS | Encounter Summary ---
Author Organization [employer] Address [address] [facility] 7t [place] [address] Care Team Providers Care Gate Services Supervisor Name Role Phone Shital La MD Primary Care Provider + Reason for Visit * Reason Onset Date Comments Referral 08/10/2023 Encounter Details Date Type Department Care Team ([facility] st Contact Info) Description 08/10/2023 Telephone [facility] [address] [place], [place] [phone] Shital La MD [address] [place] [address] Referral Social History Tobacco Use Types Packs/Day [...] with others, in a hotel, in a senior care, living outside on the street, on a [...] 1:55 PM EDT Tc from ivette with [facility] requesting a new referral. States referral was made for the left knee but per pt, it is the right knee. Please fax to [phone] Any questions, contact ivette at [phone] documented in this encounter Plan of Treatment Not on file documented as of this encounter Visit Diagnoses Diagnosis Acute pain of right knee- Primary documented in this encounter Care Teams Gate Services Supervisor Relationship Specialty Start Date End Date Shital La MD [address] [place] [phone] PCP - General Family Medicine 12/22/20 documented as of this encounter
--- OUTSIDE RECORDS SUMMARY | 2025-01-06 07:26 | XMS_ITS | Clinical Summary ---
Author Organization [facility] Address [address] [place] [address] Phone Care Team Providers Care Contact Lens Assistant Name Role Phone Shital La MD Primary Care Provider [phone] Allergies Active Allergy Reactions Criticality Noted Date [...] - 11/13/2024 11:59 PM EST Hospital Encounter [facility] Ultrasound [address] [place] [address] RUQ pain Discharge Disposition: Home or Self Care 11/03/2024 Telephone Bariatric Surgery [address] [phone] Maegan Khan MD Advice Only (Patient was admitted to [place] [facility]) 10/27/2024 Telephone Bariatric Surgery [facility] [address] [phone] Kayy Silva [place] 10/23/2024 10:45 AM EST Office Visit Bariatric Surgery [facility] [address] [phone] Maegan Khan MD RUQ pain [...] Upcoming Encounters Date Type Department Care Team ([facility] st Contact Info) Description 01/20/2025 8:30 AM EDT Office Visit Bariatric Surgery - [address] [phone] Maegan Khan MD [address] [place] [phone] Health Maintenance Due Date Last Done Comments [...] of cholelithiasis or biliary obstruction. Teleedyta ELIAS ([id number]) -------- FINAL REPORT -------- Dictated By: Nelia Schaeffer Dictated Date: 11/19/2024 17:16 ET Assigned Physician: Nelia Schaeffer Reviewed and Electronically Signed By: Nelia Schaeffer Signed Date: 11/19/2024 17:18 ET Workstation ID: [id number] Transcribed By: Self Edit Transcribed Date: 11/19/2024 [...] of cholelithiasis or biliary obstruction. Telerad JADA ([id number]) -------- FINAL REPORT -------- Dictated By: Nelia Schaeffer Dictated Date: 11/19/2024 17:16 ET Assigned Physician: Nelia Schaeffer Reviewed and Electronically Signed By: Nelia Schaeffer Signed Date: 11/19/2024 17:18 ET Workstation ID: [id number] Transcribed By: Self Edit Transcribed Date: 11/19/2024 17:16 ET us Maegan Khan MD IMG US PROCEDURES Final Resu lt from Last 3 Months Insurance [facility] Member Subscriber Plan / Payer (Ef fective 2022-Present) Name:Jennifer Spiecr Relation to Subscriber:Self Name:Jennifer Spicer Payer ID:[id number] Group ID:[id number] Type:Not on file Address: [place] [address] [address] [phone] Care Teams Contact Lens Assistant Relationship Specialty Start Date End Date Shital La MD [address] [place], [place] [address] [place] [phone] PCP - General 06/21/22
== END ==
LOC: HO.NUCMED 07:22
PROVIDERS: PCP Internal Medicine; Visit Provider Internal Medicine
DX: R10.84 Generalized abdominal pain (principal)
CPT/HCPCS: 78227; A9537; J2805

== ENCOUNTER → 2025-01-06 07:24 | Outpatient (BNV) | payer OTHER, SELFPAY | PROVIDERS: PCP Internal Medicine; Visit Provider Radiology Diagnostic Radiology | DX: R10.84 Generalized abdominal pain (principal) | CPT/HCPCS: 78227 ==

== ENCOUNTER 2025-02-02 08:25 | Outpatient (REF) | payer OTHER, SELFPAY ==
[2025-02-02] MEDS: iohexoL 350 MG/ML 75 ML INFUS..BTL 80 ML IV (10:40)
[2025-02-03 09:22] LABS: Creatinine POC 0.6 mg/dL (0.5-1.4); GFR POC > 60
== END 2025-02-02 08:26 | disposition home or self-care (01) ==
LOC: HO.CT 08:25
PROVIDERS: PCP Internal Medicine; Visit Provider Internal Medicine
DX: R10.84 Generalized abdominal pain (principal); R63.4 Abnormal weight loss
CPT/HCPCS: 74174; 82565; Q9967

== ENCOUNTER → 2025-02-02 08:27 | Outpatient (BNV) | payer OTHER, SELFPAY | PROVIDERS: PCP Internal Medicine; Visit Provider Radiology Diagnostic Radiology | DX: K44.9 Diaphragmatic hernia without obstruction or gangrene (principal) | CPT/HCPCS: 74174 ==

== ENCOUNTER 2025-03-11 10:54 | Outpatient (AMB) | payer OTHER, SELFPAY ==
--- NOTE | 2025-03-11 12:02 | MHC.OFFVIS ---
Vital Signs 03/11/25 12:27 Height 5 ft 2 in Weight 210 lb BMI 38.4 BP 112/59 L Blood Pressure Location Lt brachial Position Sitting Pulse 58 Pulse Oximetry (%) 97 Oxygen Delivery Method Room Air Intake Visit Reasons: ct and hida scan Intake Note: Patient follow up for CT scan results. Patient denies any GI issues for today. 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 Probable hemangioma in T11, stable. Chronic stable ossification adjacent to the right acetabulum. Degenerative changes in the spine. Code(s): M54.14 - Radiculopathy, thoracic region Category: Medical (4) GERD (gastroesophageal reflux disease): Code(s): K21.9 - Gastro-esophageal reflux disease without esophagitis Category: Medical (5) Cough: Code(s): R05.9 - Cough, unspecified Category: Medical (6) Fever: Code(s): R50.9 - Fever, unspecified Category: Medical (7) Dyspnea: Code(s): R06.00 - Dyspnea, unspecified Category: Medical Plan [place] #Latasha Live She continues on carafate, simethicone and dicyclomine, simethicone, and along with the increase of omeprazole 40 mg twice a day and Proctosol cream. She is very worried about letter she has been getting from [facility] re: a genetic test that was, apparently, performed by Dr. Ram on her SSBE. I reassure her that this indicated a low probability of SSBE progression. She has a new c/o a stabbing pain in the RLQ that is worse with lying and standing. It will occur about twice a week and is brief in how long it lasts. It is worse with drinking milk, anything fatty or greasy/fried, or spicy condiments. It is not accompanied by any diarrhea. I advised her to take an extra Bentyl when this happens but I am also a little concerned about a bring appendicitis. Since she is going to the ER anyway because she is having respiratory issues I tell her to advise them about this and see if they can get a CT scan since that is not a test that I can get stat. She also has been very weak for 3 days with a cough and intermittent fevers. she also has a dry/sore throat. Listening to her lungs she sounds very junky in her RLQ with wheezing that clears with cough. She says she took a home COVID test that was negative. Will set up an appointment in 8 weeks but I told her to call me if the ER does not perform CT scan and I will order it. CT ABDOMEN AND PELVIS 02/02/2025 FINDINGS: LOWER CHEST: The visualized lung bases are clear. There is no pleural effusion. CARDIOVASCULATURE: The heart is normal in size. There is no pericardial effusion. LIVER: The liver is normal in size and contour. No liver mass is identified. GALLBLADDER / BILE DUCTS: The gallbladder is unremarkable. There is no intra or extrahepatic biliary ductal dilatation. SPLEEN: The spleen is normal in size. No focal splenic lesion is identified. PANCREAS: The pancreas is unremarkable in appearance. ADRENAL GLANDS: Within normal limits. KIDNEYS/RETROPERITONEUM: No renal calculi are identified. There is no hydronephrosis. No renal masses are identified. LYMPH NODES: No abdominal or pelvic lymphadenopathy. VASCULATURE: The abdominal aorta demonstrates mild atherosclerotic calcification, but is normal in caliber. The celiac axis is patent. The superior mesenteric artery is patent. There is a replaced hepatic artery. The inferior mesenteric artery is patent. The bilateral renal arteries are patent. The iliac arteries are patent. MESENTERY/PERITONEUM: No free fluid. No masses. There is no free intraperitoneal gas. STOMACH: There are postsurgical changes involving the stomach as seen previously. There is a moderate hiatal hernia. SMALL BOWEL: The small bowel is normal in caliber. COLON: The colon is unremarkable. APPENDIX: Normal. URINARY BLADDER/PELVIC ORGANS: The urinary bladder is collapsed, limiting evaluation. The patient is status post hysterectomy. BONES / SOFT TISSUES: No suspicious bony or soft tissue abnormalities. CT/CT angio abdomen pelvis IMPRESSION: 1. Unremarkable CTA of the abdomen and pelvis. 2. Postsurgical changes involving the stomach. Moderate hiatal hernia. HIDA SCAN IMPRESSION: Normal gallbladder ejection fraction of 60% at 30 minutes post CCK. Patent cystic duct and patent CBD. Normal hepatic uptake without enlargement. TODAY'S VISIT [place] #Carrie Peyman (She has a new c/o a stabbing pain in the RLQ that is worse with lying and standing. It will occur about twice a week and is brief in how long it lasts. It is worse with drinking milk, anything fatty or greasy/fried, or spicy condiments. It is not accompanied by any diarrhea. Neg HIDA scan, CT shows only moderate HH). She continues on carafate, simethicone and dicyclomine, simethicone, and along with the increase of omeprazole 40 mg twice a day and Proctosol cream. She is now taking bentyl every night and her pain seems to be staying away. So I think it is NOT GB but bowel pain. She is going on vacation in [place], and she will take the Bentyl with her as she feels this is a good solution to her pain. Return office visit in 6 months [facility] Medical History (Updated 03/11/25 @ 17:24 by CINDY Up) Periumbilical abdominal pain History of frequent headaches Cough Fever Dyspnea Generalized postprandial abdominal pain Weight loss H. pylori infection Abnormal EKG Precordial chest pain Sacroiliitis Close exposure to COVID-19 virus [place] (nonalcoholic steatohepatitis) GERD (gastroesophageal reflux disease) Depression Asthma Morbid obesity due to excess calories Essential hypertension Surgical History (Updated 03/11/25 @ 17:24 by CINDY Up) Status post bariatric surgery History of esophagogastroduodenoscopy (EGD) H/O breast surgery Hx of colonoscopy Family History Father Heart attack Mother Thrombosis Social History Alcohol intake: never Patient Tobacco Use Status: Never used Tobacco Review of Systems Const Denies fatigue, Denies fever(s), Denies night sweats, Denies poor appetite and Denies weight loss ENT Reports Normal hearing present, Denies dental pain, Denies dysphagia, Denies hearing loss, Denies mouth pain, Denies odynophagia, Denies throat swelling, Denies tongue swelling and Reports other (Dentition adequate) Card Reports no additional complaints Resp Reports no additional complaints GI Details: Denies abdominal pain, Denies melena, Denies bloating, Denies hematochezia, Denies constipation, Reports GI cramping, Denies dysphagia, Denies excessive flatus, Denies early satiety, Reports heartburn, Denies diarrhea, Reports loose stools, Denies nausea, Denies odynophagia, Denies vomiting and Denies hematemesis Skin/Breast Denies pruritus, Denies lesions, Denies rash and Denies jaundice Neuro Reports Normal hearing present and Denies Abnormal speech present Endo Denies fatigue Aller/Immun Denies throat swelling and Denies tongue swelling Physical Exam Vital Signs: Last Vital Signs Pulse 58 03/11/25 12:27 BP 112/59 L 03/11/25 12:27 Pulse Ox 97 03/11/25 12:27 Oxygen Delivery Method Room Air 03/11/25 12:27 BMI result Body Mass Index 0.4 Const General: cooperative, no acute distress, well developed and well groomed Nutritional Appearance: well nourished and obese Orientation/consciousness: oriented to person, oriented to place and oriented to time Limitations: language barrier HEENT Head: Yes normocephalic and Yes atraumatic Eyes General: appearance normal, both eyes and all related structures Pupils: Equal, round and reactive pupils present Neck Neck: Yes normal visual inspection and Yes no lymphadenopathy Thyroid: Thyroid normal Resp Effort & Inspection: normal respiratory effort and able to speak in complete sentences Auscultation: clear to auscultation bilaterally Cardio Rate: regular rate Rhythm: regular rhythm Heart sounds: Normal, physiologic split S2 sound present Peripheral pulses: radial pulses present and posterior tibial pulses present GI Inspection: No distended, Yes Abdominal panniculus present and Yes obesity Palpation (GI): Soft to palpation, nontender, no guarding, not rigid and No hepatosplenomegaly present Percussion: Yes normal to percussion Auscultation: normal bowel sounds Rectal Exam - Female: deferred Skin General skin exam: no rashes or lesions noted, turgor normal, skin not dry, no jaundice, No spider nevi and no striae Rashes: no rashes Nails: normal Neuro General: oriented to person, oriented to place and oriented to time Cranial nerves: Yes Equal, round and reactive pupils present and Yes Normal hearing present Speech: No Abnormal speech present Extrem General: Yes normal to inspection, No clubbing, No cyanosis and No edema Psych Appearance: grossly normal and well kempt Mental Status: mental status grossly normal Speech and movement: Normal speech and movement present Affect: normal affect Attitude: cooperative Thought process: Normal thought process present and not confabulating Thought content: Normal thought content present Insight: Limited insight present (Psych) Judgement: Limited judgement present (Psych) Assessment & Plan Assessment & Plan (1) RLQ abdominal pain: Code(s): R10.31 - Right lower quadrant pain Category: Medical (2) GERD (gastroesophageal reflux disease): Code(s): K21.9 - Gastro-esophageal reflux disease without esophagitis Category: Medical Plan [place] #Carrie Live (She has a new c/o a stabbing pain in the RLQ that is worse with lying and standing. It will occur about twice a week and is brief in how long it lasts. It is worse with drinking milk, anything fatty or greasy/fried, or spicy condiments. It is not accompanied by any diarrhea. Neg HIDA scan, CT shows only moderate HH). She continues on carafate, simethicone and dicyclomine, simethicone, and along with the increase of omeprazole 40 mg twice a day and Proctosol cream. She is now taking bentyl every night and her pain seems to be staying away. So I think it is NOT GB but bowel pain. She is going on vacation in [place], and she will take the Bentyl with her as she feels this is a good solution to her pain. Return office visit in 6 months Coding Level of Care Code Est Pt Level 3 (69215) Diagnoses RLQ abdominal pain R10.31 GERD (gastroesophageal reflux disease) K21.9
--- OUTSIDE RECORDS SUMMARY | 2025-03-11 12:15 | XMS_ITS | Encounter Summary ---
Author Organization [employer] Address [address] [place] [address] Care Team Providers Care Glass Carrier Name Role Phone Shital La MD Primary Care Provider + Encounter Details Date Type Department Care Team (Late st Contact Info) Description 02/20/2025 Telephone [facility] [address] [place], [place] [phone] Shital La MD [address] [place], [place] [phone] Social History Tobacco Use Types Packs/Day Years [...] as of this encounter Plan of Treatment Upcoming Encounters Date Type Department Care Team (Late st Contact Info) Description 04/13/2025 2:00 PM EDT Office Visit [facility] [address] [place] [phone] Shital La MD [address] [place] [phone] documented as of this encounter Visit Diagnoses Not on filedocumented in this encounter Care Teams Glass Carrier Relationship Specialty Start Date End Date Shital La MD [address] [place] [phone] PCP - General Family Medicine 12/22/20 documented as of this encounter
--- OUTSIDE RECORDS SUMMARY | 2025-03-11 12:15 | XMS_ITS | Encounter Summary ---
Author Organization [employer] Address [address] [place] [address] Care Team Providers Care Card Folder Name Role Phone Shital La MD Primary Care Provider + Encounter Details Date Type Department Care Team (Late st Contact Info) Description 03/16/2023 Orders Only [facility] [address] [place], [place] [phone] Nancy Zheng LPN Social History Tobacco Use [...] Description 04/13/2025 2:00 PM EDT Office Visit [facility] [address] [place] [phone] Shital La MD [address] [place] [address] documented as of this encounter Visit Diagnoses Not on filedocumented in this encounter Care Teams Card Folder Relationship Specialty Start Date End Date Shital La MD [address] [place] [phone] PCP - General Family Medicine 12/22/20 documented as of this encounter
--- OUTSIDE RECORDS SUMMARY | 2025-03-11 12:15 | XMS_ITS | Encounter Summary ---
Author Organization [employer] Address [address] [facility] [address] [place] [address] Care Team Providers Care Skid Man Name Role Phone Shital La MD Primary Care Provider + Encounter Details Date Type Department Care Team (Latest Contact Info) Description 10/13/2019 Abstract [facility] CONVERSIONS Dental, Provider, DDS Social History Tobacco [...] Description 04/13/2025 2:00 PM EDT Office Visit [facility] [address] [place] [address] Shital La MD [address] [place] [address] documented as of this encounter Visit Diagnoses Not on filedocumented in this encounter Care Teams Skid Man Relationship Specialty Start Date End Date Shital La MD [address] [place] [address] PCP - General Family Medicine 12/22/20 documented as of this encounter
--- OUTSIDE RECORDS SUMMARY | 2025-03-11 12:15 | XMS_ITS | Clinical Summary ---
Author Organization [employer] Address [address] [facility] 7[address] [place] [address] Care Team Providers Care Pan Tank Worker Name Role Phone Fernandez eMrlos MD Primary Care Provider + Allergies Active [...] THREE TIMES DAILY NEEDED 90 tablet 1 02/19/20 25 Active ibuprofen 800 MG tabletIndication s:Arthritis TAKE 1 TABLET BY MOUTH THREE TIMES DAILY NEEDED 90 tablet 1 12/23/19 25 025 Discontinued Active Problems Problem Noted Date Diagnosed Date [...] CRC screen Up to date, next one due 2032 Lipids/FBS TBO Vaccinations PCV20 today, other [...] CRC screen Up to date, next one due 2027 Lipids/FBS up to date Vaccinations declined [...] of colon 04/18/2018 Overview (04/04/2023): Last colonoscopy [facility] on 03/09/23= Neg polyps Assessment & Plan [...] exercise, life style modifications, diet, referral to senior accounts payable specialist. Discussed re lower calorie intake, increase [...] Encounters Date Type Department Care Team Description 02/20/2025 Telephone [facility] MEDICINE [address] [place] [phone] Fernandez Merlos MD 02/18/2025 Refill [facility] [address] [place] [address] Fernandez Merlos MD Arthritis 02/02/2025 Orders Only GENERIC EXTERNAL DATA DEPARTMENT Provider, Generic External Data 01/14/[address] [address] Fernandez Merlos MD Nicki recall 01/07/[address] [address] Fernandez Merlos MD Housing Letter (The patient returned my call, regarding a letter for housing. She stated that she and her roommate found an apartment, and requested financial assistance from [employer]. They will receive assistance with their security deposit, but need to provide a letter from their PCP, stating that they need financial help in order to be able to move. ) 01/07/[address] [address] Fernandez Merlos MD Letter Request (The patient requested a letter for section 8 housing. She and her roommate want to be allowed to move from their current apartment, because the bills are too high where they are currently living. I reached a voicemail, and left a message asking her to return my call at ext [phone].) 01/07/[address] [address] Fernandez Merlos MD Results 01/06/2025 Orders Only [facility] External Provider, [facility] 12/29/[address] [address] Fernandez Merlos MD Results 12/20/2024 Refill [facility] PED[facility] [address] [place] [address] Fernandez Merlos MD Arthritis from Last 3 [...] 12/10/2024 2:07 PM EST Plan of Treatment Upcoming Encounters Date Type Department Care Team (Late st Contact Info) Description 04/13/2025 2:00 PM EDT Office Visit [facility] MEDICINE [address] [place] [address] Fernandez Merlos MD [address] [place] [address] Health Maintenance Due Date Last Done Comments CT Colonography 1957 FIT DNA/Cologuard 1955 FIT 1955 FOBT 1955 Sigmoidoscopy 1955 RSV Patients and Patients Aged 60 years or older (1 - Risk 60-74 years 1-dose series) 2017 Depression Screening 04/04/2024 04/04/2023, 04/04/20 23 COVID-19 Vaccine ( season) 2024 06/05/2022, 07/04/2021, 01/05/2021, Additional history exists Mammogram 07/29/2025 07/29/2024, 07/06, 07/19/2022, Additional history [...] Procedure Name Priority Date/Time Associated Diagnosis Comments CTA ABDOMEN PELVIS W AND WO CONTRAST Routine 02/02/2025 9:54 AM EDT POCT CREATININE GFR Routine 02/02/2025 9 :53 AM EDT NM HEPATOBILIARY W PHARM Routine 01/06/2025 7:24 AM EST TSH W/REFLEX TO FT4 Routine 12/29/2024 7 :47 AM EST Essential hypertension VITAMIN D,25-OH,TOTAL,IA Routine 12/29/2024 7:47 AM EST Essential hypertension LIPID PANEL WITH REFLEX TO DIRECT LDL Routine 12/29/2024 7:47 AM EST Essential hypertension Morbid obesity due to excess calories (CMS/HCC) BASIC METABOLIC PANEL Routine 12/29/2024 7:47 AM EST Essential hypertension BI MAMMOGRAM SCREENING TOMOSYNTHESIS BILATERAL Routine 07/29/2024 8:40 AM EDT HM COLONOSCOPY Routine 03/09/2023 5:37 AM EDT HEPATITIS PANEL, GENERAL Routine 02/01/2023 9:58 AM EDT from Last 3 Months or Most Recently Relevant to Health Maintenance Results * CTA Abdomen Pelvis w/ and w/o Contrast (02/02/2025 9:54 AM EDT) Anatomical Region Laterality Modality Body, Pelvis, Abdomen Computed T omography 02/02/2025 9:54 AM EDT Narrative 02/09/2025 8:36 AM EDT ? [facility] ?[address] ?[place] [address] ? CT Scan Report ? Signed ? Patient: Spicer,Jennifer ?MR#: [id number] ?? 9 ? : 1955 ?Acct:[id number] ? Age/Sex: 69 / F ?ADM Date: 02/02/25 ? Loc: HO.CT ? Attending Dr: Jena Gallardo MD ? Ordering Physician: Jena Gallardo MD ?? Date of Service: 02/02/25 ?? Procedure(s): CT angio abdomen pelvis ?? Accession Number(s): [id number] ? cc: Fernandez Merlos MD; Jena Gallardo MD ? Report Number: ?? [id number]: Total DLP = ??273.00 mGy-cm ?? EXAMINATION: ??CT ABDOMEN PELVIS ANGIOGRAPHY WITH IV CONTRAST ? HISTORY: R10.84 - Generalized abdominal pain ? COMPARISON: There are no prior studies for comparison. ? TECHNIQUE: CT angiogram of the abdomen and pelvis was performed ?? following administration of 80 mL Omnipaque 350 using standard ?? departmental protocol. ??The contrast bolus was timed to optimally ?? opacify the vascular system. Coronal and sagittal reformatted images ?? were generated and reviewed. ? This CT exam was performed with one or more of the following dose ?? reduction techniques: automated exposure control, adjustment of the mA ?? and/or kV according to patient size, use of iterative reconstruction ?? technique. ? DLP: 273 mGy-cm ? FINDINGS: ? LOWER CHEST: The visualized lung bases are clear. There is no pleural ?? effusion. ? CARDIOVASCULATURE: The heart is normal in size. ??There is no ?? pericardial effusion. ? LIVER: ??The liver is normal in size and contour. ??No liver mass is ?? identified. ? GALLBLADDER / BILE DUCTS: ??The gallbladder is unremarkable. There is no ?? intra or extrahepatic biliary ductal dilatation. ? SPLEEN: The spleen is normal in size. No focal splenic lesion is ?? identified. ? PANCREAS: The pancreas is unremarkable in appearance. ? ADRENAL GLANDS: Within normal limits. ? KIDNEYS/RETROPERITONEUM: No renal calculi are identified. There is no ?? hydronephrosis. ??No renal masses are identified. ? LYMPH NODES: ??No abdominal or pelvic lymphadenopathy. ? VASCULATURE: ??The abdominal aorta demonstrates mild atherosclerotic ?? calcification, but is normal in caliber. The celiac axis is patent. The ?? superior mesenteric artery is patent. There is a replaced hepatic ?? artery. The inferior mesenteric artery is patent. The bilateral renal ?? arteries are patent. The iliac arteries are patent. ? MESENTERY/PERITONEUM: No free fluid. No masses. ??There is no free ?? intraperitoneal gas. ? STOMACH: ??There are postsurgical changes involving the stomach as seen ?? previously. There is a moderate hiatal hernia. ? SMALL BOWEL: ?? The small bowel is normal in caliber. ? COLON: ??The colon is unremarkable. ? APPENDIX: ??Normal. ? URINARY BLADDER/PELVIC ORGANS: The urinary bladder is collapsed, ?? limiting evaluation. ??The patient is status post hysterectomy. ? BONES / SOFT TISSUES: ??No suspicious bony or soft tissue abnormalities. ? CT/CT angio abdomen pelvis ?? IMPRESSION: ? 1. Unremarkable CTA of the abdomen and pelvis. ? 2. Postsurgical changes involving the stomach. Moderate hiatal hernia. ? Electronically signed by: ??Regan Diaz MD ??02/09/2025 08:33 AM EDT ?? RP ? Dictated By: ?Regan Diaz MD ? Signed By: ?<Electronically signed by Regan Diaz MD in OV> ?02/09/25 08 ? DD/ 0954 ? TD/TT: 02/02/25 1040 ? Chair And Couch Maker: ? Procedure Note Jac Krueger - 02/09/[address] [address] [address] Scan Report Signed Patient: Jennifer Spicer#: [id number] 9 : 7Acct:[id number] Age/Sex: 69 / FADM Date: 02/02/25 Loc: HO.CT Attending Dr: Jena Gallardo MD Ordering Physician: Jena Gallardo MD Date of Service: 02/02/25 Procedure(s): CT angio abdomen pelvis Accession Number(s): [id number] cc: Fernandez Merlos MD; Jena Gallardo MD Report Number: [id number]: Total DLP = 273.00 mGy-cm EXAMINATION: CT ABDOMEN PELVIS ANGIOGRAPHY WITH IV CONTRAST HISTORY: R10.84 - Generalized abdominal pain COMPARISON: There are no prior studies for comparison. TECHNIQUE: CT angiogram of the abdomen and pelvis was performed following administration of 80 mL Omnipaque 350 using standard departmental protocol. The contrast bolus was timed to optimally opacify the vascular system. Coronal and sagittal reformatted images were generated and reviewed. This CT exam was performed with one or more of the following dose reduction techniques: automated exposure control, adjustment of the mA and/or kV according to patient size, use of iterative reconstruction technique. DLP: 273 mGy-cm FINDINGS: LOWER CHEST: The visualized lung bases are clear. There is no pleural effusion. CARDIOVASCULATURE: The heart is normal in size. There is no pericardial effusion. LIVER: The liver is normal in size and contour. No liver mass is identified. GALLBLADDER / BILE DUCTS: The gallbladder is unremarkable. There is no intra or extrahepatic biliary ductal dilatation. SPLEEN: The spleen is normal in size. No focal splenic lesion is identified. PANCREAS: The pancreas is unremarkable in appearance. ADRENAL GLANDS: Within normal limits. KIDNEYS/RETROPERITONEUM: No renal calculi are identified. There is no hydronephrosis. No renal masses are identified. LYMPH NODES: No abdominal or pelvic lymphadenopathy. VASCULATURE: The abdominal aorta demonstrates mild atherosclerotic calcification, but is normal in caliber. The celiac axis is patent. The superior mesenteric artery is patent. There is a replaced hepatic artery. The inferior mesenteric artery is patent. The bilateral renal arteries are patent. The iliac arteries are patent. MESENTERY/PERITONEUM: No free fluid. No masses. There is no free intraperitoneal gas. STOMACH: There are postsurgical changes involving the stomach as seen previously. There is a moderate hiatal hernia. SMALL BOWEL: The small bowel is normal in caliber. COLON: The colon is unremarkable. APPENDIX: Normal. URINARY BLADDER/PELVIC ORGANS: The urinary bladder is collapsed, limiting evaluation. The patient is status post hysterectomy. BONES / SOFT TISSUES: No suspicious bony or soft tissue abnormalities. CT/CT angio abdomen pelvis IMPRESSION: 1. Unremarkable CTA of the abdomen and pelvis. 2. Postsurgical changes involving the stomach. Moderate hiatal hernia. Electronically signed by: Regan Diaz MD 02/09/2025 08:33 AM EDT RP Dictated By: Regan Diaz MD Signed By: <Electronically signed by Regan Diaz MD in OV> 02/09/25 0833 DD/ 0954 TD/TT: 02/02/25 1040 Chair And Couch Maker: [facility] External Provider IMG CT PROCEDURES Final Result * POCT Creatinine GFR (02/02/2025 9:53 AM EDT) POCT Creatinine 0.6 0.5 - 1.4 mg/dL [facility] GFR POC >60 [facility] Comment:Chronic Kidney Disea se: Estimated GFR < 60 mL/min/1.45y8Eyujgr Kidney Disease: Estimated GFR < 15 mL/min/1.73m2 02/02/2025 9:53 AM EDT 02/03/2025 9:19 AM EDT Narrative [facility] - 02/03/2025 9:22 AM EDT [id number] Generic External Data Provider LAB POINT OF CARE TEST DOCKED DEVICE ORDERABLES Final Result [facility] [address] [place] [phone] * NM Hepatobiliary w Pharm (01/06/2025 7:24 AM EST) Anatomical Region Laterality Modality Body Nuclear Medicine 01/06/2025 7:24 AM EST Narrative 01/06/2025 12:14 PM EST ? [facility] ?[address] ?[place], [place] [address] ?Nuclear Medicine Report ? Signed ? Patient: Spicer,Jennifer ?MR#: [id number] ?? 9 ? : 1955 ?Acct:[id number] ? Age/Sex: 69 / F ?ADM Date: 01/06/25 ? Loc: HO.NUCMED ? Attending Dr: Jena Gallardo MD ? Ordering Physician: Jena Gallardo MD ?? Date of Service: 01/06/25 ?? Procedure(s): NM hepatobiliary w pharm ?? Accession Number(s): [id number] ? cc: Fernandez Merlos MD; Jena Gallardo MD ? EXAMINATION: ?? NM BILIARY TRACT ? CLINICAL INFORMATION: ?? Generalized abdominal pain ? COMPARISON: ?? None available. ? TECHNIQUE: ?? Following intravenous administration of 5 mCi of technetium 99m ?? mebrofenin, imaging over the right upper quadrant was obtained up to 60 ?? minutes. At 60 minutes 1.8 mcg of CCK was injected slowly over 30 ?? minutes and imaging obtained over 30 minutes. ? FINDINGS: ?? There is normal hepatic uptake without any focal defects or hepatic ?? enlargement. The gallbladder is visualized by 20 minutes. CBD is ?? visualized by 32 minutes. ? Post-CCK there is visualization of small bowel by 3 minutes. ? Gallbladder ejection fraction measures ? At 10 minutes is 12%, ? At 20 minutes is 50% ? At 30 minutes 67%. ? NM/NM hepatobiliary w pharm ?? IMPRESSION: ?? Normal gallbladder ejection fraction of 60% at 30 minutes post CCK. ? Patent cystic duct and patent CBD. ? Normal hepatic uptake without enlargement. ? Electronically signed by: ??Messi Lopez MD ??01/06/2025 12:11 PM EST RP ? Dictated By: ?Jessica,Messi S MD ? Signed By: ?<Electronically signed by Messi Lopez MD in OV> ?01/06/25 1211 ? DD/ 0724 ? TD/TT: 01/06/25 0950 ? Chair And Couch Maker: MSM ? Procedure Note Donotuseinterpreter, Image - 01/06/[address] [address] Nuclear Medicine Report Signed Patient: Jennifer SpicerMR#: [id number] 9 : 7Acct:[id number] Age/Sex: 69 / FADM Date: 01/06/25 Loc: LEILA Attending Dr: Jena Gallardo MD Ordering Physician: Jena Gallardo MD Date of Service: 01/06/25 Procedure(s): NM hepatobiliary w pharm Accession Number(s): [id number] cc: Fernandez Merlos MD; Jena Gallardo MD EXAMINATION: NM BILIARY TRACT CLINICAL INFORMATION: Generalized abdominal pain COMPARISON: None available. TECHNIQUE: Following intravenous administration of 5 mCi of technetium 99m mebrofenin, imaging over the right upper quadrant was obtained up to 60 minutes. At 60 minutes 1.8 mcg of CCK was injected slowly over 30 minutes and imaging obtained over 30 minutes. FINDINGS: There is normal hepatic uptake without any focal defects or hepatic enlargement. The gallbladder is visualized by 20 minutes. CBD is visualized by 32 minutes. Post-CCK there is visualization of small bowel by 3 minutes. Gallbladder ejection fraction measures At 10 minutes is 12%, At 20 minutes is 50% At 30 minutes 67%. NM/NM hepatobiliary w pharm IMPRESSION: Normal gallbladder ejection fraction of 60% at 30 minutes post CCK. Patent cystic duct and patent CBD. Normal hepatic uptake without enlargement. Electronically signed by: Messi Lopez MD 01/06/2025 12:11 PM [facility] Dictated By: Messi Lopez MD Signed By: <Electronically signed by Messi Lopez MD in OV> 01/06/25 1211 DD/ 0724 TD/TT: 01/06/25 0950 Chair And Couch Maker: MARY ANNE [facility] External Provider IMG NM PROCEDURES Final Result * Vitamin D, 25-Hydroxy, Total, Immunoassay (12/29/2024 7:47 AM EST) Vitamin D 25-OH Total 45.6 >30 ng/mL [facility] Comment:Health Based Referen ce Values*< 20 ng/mL Gtoatoswm24-25 ng/mL Insufficient> 30 ng/mL Sufficient*Harley IQBAL. N [...] ORDERABLES Fin al Result Performing Organization Address City/[facility]/ZIP Co de Phone Number [facility] [address] [place] [phone] * TSH with Reflex to Free T4 (12/29/2024 7:47 AM EST) TSH reflex Free T4 1.56 0.32 - 4.0 uIU/mL [facility] Blood 12/29/2024 7:47 AM EST 12/29/2024 7:47 AM EST Fernandez Merlos MD LAB BLOOD ORDERABLES Fin al Result Performing Organization Address City/[facility]/ZIP Co de Phone Number [facility] [address] [place] [phone] * (ABNORMAL) Lipid Panel with Reflex to Direct LDL (12/29/2024 7:47 AM EST) Triglycerides 120 <150 mg/dL [facility] Comment:Desirable Triglyceri de: less than 150 mg/dLBorderline High Triglyceride 150-199 mg/dLHigh Triglyceride: 200-499 mg/dLVery High Triglyceride: greater than or equal to 5OO mg/dL Cholesterol 216(H) <200 mg/dL [facility] Comment:Desirable Cholestero l: less than 200 mg/dLBorderline High Cholesterol: 200-239 mg/dLHigh Cholesterol: greater than 239 mg/dL LDL Cholesterol Calculated 134(H) <100 mg/dL [facility] Comment:Desirable LDL: less than 100 mg/dLNear Optimal/Above Optimal LDL: 110- 129 mg/dLBorderline High LDL: 130-159 mg/dLHigh LDL: 160-189 mg/dLVery High LDL: greater than or equal to 190 mg/dL HDL Cholesterol 58 >40 mg/dL [facility] Comment:Desirable HDL: great er than 40 mg/dL Note: This HDL assay may give artificially low results in patients with liver disease. Blood 12/29/2024 7:47 AM EST 12/29/2024 7:47 AM EST us Fernandez Merlos MD LAB BLOOD ORDERABLES Fin al Result [facility] [address] [place] [phone] * Basic Metabolic Panel (12/29/2024 7:47 AM EST) Sodium 140 135 - 145 mmol/L [facility] Potassium 4.1 3.3 - 5.1 mmol/L [facility] Chloride 102 96 - 108 mmol/L [facility] Carbon Dioxide 29 22 - 29 mmol/L [facility] Anion Gap 13 12 - 20 [facility] Urea Nitrogen (BUN) 13 9 - 16 mg/dL [facility] Creatinine, Serum 0.76 0.5 - 1.4 mg/dL [facility] Estimated Glomerular Filt Rate >60 [facility] Comment:Chronic Kidney Disea se: Estimated GFR < 60 mL/min/1.77l5Arvzks Kidney Disease: Estimated GFR < 15 mL/min/1.73m2 Glucose 95 60 - 115 mg/dL [facility] Calcium 9.3 8.4 - 10.2 mg/dL [facility] Blood Venous blood specimen / Unknown 12/29/2024 7:47 AM EST 12/29/2024 7:47 AM EST us Fernandez Merlos MD LAB BLOOD ORDERABLES Fin al Result [facility] [address] [place] [phone] [phone] * BI Mammogram Screening Tomosynthesis Bilateral (07/29/2024 8:40 AM EDT) Anatomical Region Laterality Modality Breast Bilateral Mammography 07/29/2024 8:40 AM EDT Narrative 08/08/2024 12:38 PM EDT ? [facility] ? [address] ?[place] [address] ? Mammography Report ? Signed ? Patient: Spicer,Jennifer ?MR#: [id number] ?? 9 ? : 1955 ?Acct:[id number] ? Age/Sex: 69 / F ?ADM Date: 07/29/24 ? Loc: HO.MAMMO ? Attending Dr: Fernandez Merlos MD ? Ordering Physician: Fernandez Merlos MD ?Results: 1Ne ?? gative ? Date of Service: 07/29/24 ?Follow Up: 1 Year From Orig ?? inal Mammogram ? Procedure(s): MM tomosynthesis screening BI ?? Accession Number(s): [id number] ? cc: Fernandez Merlos MD ? EXAMINATION: [...] ??Karla Moncada DO ??08/08/2024 12:35 PM EDT ? Dictated By: ?Coral,Karla DO ? Signed By: ?<Electronically signed by Karla Moncada, DO in OV> ? 08/08/24 1235 ? DD/ 0840 ? TD/TT: 07/29/24 0855 ? Chair And Couch Maker: ? Procedure Note Jac Krueger - 08/08/2024 [facility] [address] [place] [address] Mammography Report Signed Patient: Jennifer Spicer#: [id number] 9 : 7Acct:[id number] Age/Sex: 69 / FADM Date: 07/29/24 Loc: HO.MAMMO Attending Dr: Fernandez Merlos MD Ordering Physician: Fernandez Merlos MDResults: 1Ne mahnaz Date of Service: 07/29/24Follow Up: 1 Year From [facility] ina Mammogram Procedure(s): MM tomosynthesis screening BI Accession Number(s): [id number] cc: Fernandez Merlos MD EXAMINATION: MM SCREENING [...] 08/08/24 1235 DD/ 0840 TD/TT: 07/29/24 0855 Chair And Couch Maker: Fernandez Merlos MD IMG BI PROCEDURES Edited Result - Final * Hm Colonoscopy (03/09/2023 5:37 AM EDT) us Historical Provider HEALTH MAINTENANCE Final Result * (ABNORMAL) Hepatitis Panel, General (02/01/2023 9:58 AM EDT) Hepatitis A Antibody Total REACTIVE( A) NON-REACT FRANCES [facility] Comment: For additional information, please refer to http://Roomtag.GigsTime/faq/KMK228 (This link is being provided for informational/ educational purposes only.) Hepatitis B Surface Antibody QL REACTIVE( A) NON-REACT FRANCES [facility] Hepatitis B Surface Ag NON-REACT FRANCES NON-REACT FRANCES [facility] Hepatitis B Core Antibody Total NON-REACT FRANCES NON-REACT FRANCES [facility] Hepatitis C Antibody NON-REACT FRANCES NON-REACT FRANCES [facility] Index 0.02 <1.00 [facility] [place] [facility] Comment: HCV antibody was non-reactive. There is no laboratory evidence of HCV infection. In most cases, no further action is required. However, if recent HCV exposure is suspected, a test for HCV RNA (test code 82900) is suggested. For additional information please refer to http://Roomtag.GigsTime/faq/RAN00p5 (This link is being provided for informational/ educational purposes only.) 02/01/2023 9:58 AM EDT 02/01/2023 9:59 AM EDT Narrative [facility] - 02/06/2023 11:15 PM EDT FASTING:UNKNOWN FASTING: UNKNOWN Fernandez Merlos MD LAB BLOOD ORDERABLES Fin al Result [facility] [address], [place] [phone] [facility] [place] [facility] [address] [place] [phone] from Last 3 Months or Most Recently Relevant to Health Maintenance Insurance [employer] (HMO D-SNP) JADA BENDER [id number] Care Teams Pan Tank Worker Relationship Specialty Start Date End Date Fernandez Merlos MD [address] [place] [phone] PCP - General Family Medicine 12/22/20
--- OUTSIDE RECORDS SUMMARY | 2025-03-11 12:15 | XMS_ITS | Encounter Summary ---
Author Organization [facility] Address [address] [facility] [address] [place] [address] Care Team Providers Care Transcribing Machine Mechanic Name Role Phone Shital La MD Primary Care Provider + Encounter Details Date Type Department Care Team (Late st Contact Info) Description 11/10/2022 Orders Only [facility] MEDICINE [address] [place] [phone] Santa Sherman RN [address] [place] [phone] Social History Tobacco Use Types Packs/Day Years [...] Description 04/13/2025 2:00 PM EDT Office Visit [facility] MEDICINE [address] [place] [phone] Shital La MD [address] [place] [address] [phone] documented as of this encounter Visit Diagnoses Not on filedocumented in this encounter Care Teams Transcribing Machine Mechanic Relationship Specialty Start Date End Date Shital La MD [address] [place] [address] [phone] PCP - General Family Medicine 12/22/20 documented as of this encounter
--- OUTSIDE RECORDS SUMMARY | 2025-03-11 12:15 | XMS_ITS | Clinical Summary ---
Author Organization 175 [facility] Address [address] [place] [phone] Phone Care Team Providers Care Internet Sales Director Name Role Phone Shital La MD Primary Care Provider + [phone] Allergies Active Allergy Reactions Criticality Noted Date [...] Encounters Date Type Department Care Team Description 01/20/2025 8:30 AM EDT Office Visit Bariatric Surgery [address] [place] [address] Maegna Khan MD Class 2 obesity due to excess calories with body mass index (BMI) of 37.0 to 37.9 in adult, unspecified whether serious comorbidity present (Primary Dx) from Last 3 Months Surgical [...] Sign Reading Time Taken Comments Blood Pressure 104/71 01/20/2025 9:02 AM EDT Pulse 57 01/20/2025 9:02 AM EDT Temperature 36.6 ??C (97.8 ??F) 01/20/2025 9:02 AM ED T Respiratory Rate - - Oxygen Saturation - - Inhaled Oxygen Concentration - - Weight 92.5 kg (204 lb) 01/20/2025 9:02 AM EDT Height 157.5 cm (5' 2 ) 01/20/2025 9:02 AM EDT Body Mass Index 37.31 01/20/2025 9:02 AM EDT Plan of Treatment Upcoming Encounters Date Type Department Care Team (Late st Contact Info) Description 01/21/2026 10:00 AM EDT Office Visit Bariatric Surgery - [place] [address] [facility] [address] [place] [phone] Maegan Khan MD [address] [facility] [address] [place] [address] Health Maintenance Due Date Last Done Comments Breast Cancer Screening 1955 RSV Immunization Adult Patients (1 - Risk 60-74 years 1-dose series) 2017 Cholesterol Screening (Lipid Panel) 10/03/2022 Colorectal Cancer Screening: Colonoscopy 10/03/2022 Depression Screening 10/03/2022 Falls Risk Assessment 10/03/2022 Hepatitis C Screening 10/03/2022 Medicare Annual Wellness Visit 10/03/2022 Social Influencers of Health Screening 10/03/2022 COVID-19 Vaccine ( season) 2024 06/05/2022, 07/04/2021, 01/05/2021, Additional history exists Hypertension/CHF/CAD Annual BMP Blood Test 12/29/2025 12/29/2024, 10/17/2024 DTaP,Tdap,and Td Vaccines (5 - Td [...] age to complete this topic Meningococcal B Vaccine Aged Out No l onger eligible based on patient's age to complete this topic RSV Immunization Patients Under 20 months Aged Out No longer eligible based on patient's age to complete this topic Varicella Vaccines Aged Out No longer eligible based on patient's age to complete [place] [id number] [facility] MEDICARE Member Subscriber Plan / Payer (Ef fective 2022-Present) Name:Jennifer Spicer Relation to Subscriber:Self Name:Jennifer Spicer Payer ID:[id number] Group ID:[id number] Type:Not on file Address: [place] [address] [address] [id number] Care Teams Internet Sales Director Relationship Specialty Start Date End Date Shital La MD [address] [place] [address] EUGENIE Rivero [phone] [facility] - General 06/21/22
--- OUTSIDE RECORDS SUMMARY | 2025-03-11 12:15 | XMS_ITS | Encounter Summary ---
Author Organization [employer] Address [address] [place] [address] Care Team Providers Care Salesperson Furs Name Role Phone Shital La MD Primary Care Provider + Encounter Details Date Type Department Care Team (Late st Contact Info) Description 04/04/2024 Orders Only [facility] MEDICINE [address] [place] [address] Provider, MD Leeann Social History Tobacco Use [...] Description 04/13/2025 2:00 PM EDT Office Visit [facility] MEDICINE [address] [place] [address] Shital La MD [address] [place] [address] documented as of this encounter Procedures Procedure Name Priority Date/Time Associated Diagnosis Comments HM COLONOSCOPY Routine 03/09/2023 5:37 AM EDT documented in this encounter Results * Hm Colonoscopy (03/09/2023 5:37 AM EDT) us Historical Provider HEALTH MAINTENANCE Final Result documented in this encounter Visit Diagnoses Not on filedocumented in this encounter Care Teams Salesperson Furs Relationship Specialty Start Date End Date Shital La MD [address] [place] [address] PCP - General Family Medicine 12/22/20 documented as of this encounter
--- OUTSIDE RECORDS SUMMARY | 2025-03-11 12:16 | XMS_ITS | Encounter Summary ---
Author Organization [employer] Address [address] [facility] 7t [place] [address] Care Team Providers Care Pipe Crew Foreman Name Role Phone Shital La MD Primary Care Provider + Encounter Details Date Type Department Care Team (Late st Contact Info) Description 12/15/2022 Orders Only [facility] PEDS [address] [place], [place] [phone] Nancy Zheng LPN Social History Tobacco Use [...] 2:00 PM EDT Office Visit [facility] MEDICINE [address] [place] [address] Shital La MD [address] [place] [address] documented as of this encounter Visit Diagnoses Not on filedocumented in this encounter Care Teams Pipe Crew Foreman Relationship Specialty Start Date End Date Shital La MD [address] [place] [address] PCP - General Family Medicine 12/22/20 documented as of this encounter
--- OUTSIDE RECORDS SUMMARY | 2025-03-11 12:16 | XMS_ITS | Encounter Summary ---
Author Organization [employer] Address [address] [facility] 7[address] [place] [address] Care Team Providers Care Welding Robot Operator Name Role Phone Shital La MD Primary Care Provider + Reason for Visit * Reason Onset Date Comments Referral 08/10/2023 Encounter Details Date Type Department Care Team ([facility] st Contact Info) Description 08/10/2023 Telephone [facility] MEDICINE [address] [place], [place] [phone] Shital La MD [address] [place], [place] [phone] Referral Social History Tobacco Use Types Packs/Day [...] with others, in a hotel, in a long-term, living outside on the street, on a [...] 1:55 PM EDT Tc from ivette with [facility] requesting a new referral. States referral was made for the left knee but per pt, it is the right knee. Please fax to [phone] Any questions, contact ivette at [phone] documented in this encounter Plan of Treatment Upcoming Encounters Date Type Department Care Team (Late st Contact Info) Description 04/13/2025 2:00 PM EDT Office Visit [facility] MEDICINE [address] [place] [address] Shital La MD [address] [place] [address] documented as of this encounter Visit Diagnoses Diagnosis Acute pain of right knee- Primary documented in this encounter Care Teams Welding Robot Operator Relationship Specialty Start Date End Date Shital La MD [address] [place] [address] PCP - General Family Medicine 12/22/20 documented as of this encounter
--- OUTSIDE RECORDS SUMMARY | 2025-03-11 12:16 | XMS_ITS | Encounter Summary ---
Author Organization [employer] Address [address] [facility] [address] [place] [address] Care Team Providers Care Director Of Casework Services Name Role Phone Shital La MD Primary Care Provider + Reason for Visit * Reason Onset Date Comments Appointment Request 01/23/2023 Encounter Details Date Type Department Care Team (Late Contact Info) Description 01/23/2023 Telephone [facility] MEDICINE [address] [place] [phone] Shital La MD [address] [place] [phone] Appointment Request Social History Tobacco Use Types [...] a physical appt. Please contact pt at [phone] documented in this encounter Plan of Treatment Upcoming Encounters Date Type Department Care Team (Late Contact Info) Description 04/13/2025 2:00 PM EDT Office Visit [facility] [address] [place] [address] [place] [address] Shital La MD [address] [place], [place] [phone] documented as of this encounter Visit Diagnoses Not on filedocumented in this encounter Care Teams Director Of Casework Services Relationship Specialty Start Date End Date Shital La MD [address] [place] [address] PCP - General Family Medicine 12/22/20 documented as of this encounter
[2025-03-11 12:27] VITALS: BP 112/59; PULSE 58; O2SAT 97; BMI 38.4
== END 2025-03-11 12:43 | disposition home or self-care (01) ==
LOC: HO.HGI 10:54
PROVIDERS: PCP Internal Medicine; Visit Provider Nurse Practitioner
DX: R10.31 Right lower quadrant pain (principal); K21.9 Gastro-esophageal reflux disease without esophagitis
CPT/HCPCS: 99213

== ENCOUNTER → 2025-03-11 10:54 | Outpatient (BNVA) | payer OTHER, SELFPAY | PROVIDERS: PCP Internal Medicine; Visit Provider Nurse Practitioner | DX: R10.31 Right lower quadrant pain (principal); K21.9 Gastro-esophageal reflux disease without esophagitis | CPT/HCPCS: 99212 ==

== ENCOUNTER 2025-06-02 16:56 | Emergency (ER) | payer OTHER, SELFPAY ==
[2025-06-02 17:16] VITALS: BP 140/76; PULSE 67; RESP 18; TEMP 36.6; O2SAT 98; BMI 37.9
--- NOTE | 2025-06-02 17:17 | ED.EYEPROB ---
HPI - Eye Problem General Chief complaint: Eye Problems Stated complaint: rt eye irratation Time Seen by Provider: 06/02/25 17:32 Source: patient Mode of arrival: ambulatory Limitations: no limitations History of Present Illness ED Provider: HPI Narrative: Patient apparently was taking out clothes from the washer tide pod which was there during the washing cycle bursted into her right eye patient comes here with photosensitivity and pain in the right eye Related Data Home Medications ?Medication ?Instructions ?Recorded ?Confirmed cholecalciferol (vitamin D3) 50 50 mcg PO DAILY 10/25/20 08/28/24 mcg (2,000 unit) capsule fluticasone propionate 50 2 spray intranasal QAM PRN Nasal 10/25/20 08/28/24 mcg/actuation nasal Congestion spray,suspension lisinopril 20 1 tab PO DAILY 10/25/20 08/28/24 mg-hydrochlorothiazide 25 mg tablet loratadine 10 mg tablet 10 mg PO DAILY 10/25/20 08/28/24 trazodone 50 mg tablet 50 mg PO BEDTIME 10/25/20 08/28/24 divalproex 500 mg tablet,extended 500 mg PO BID 05/23/21 08/28/24 release 24 hr ipratropium 20 mcg-albuterol 100 1 puff inhalation Q6H 07/04/21 03/06/23 mcg/actuation mist for inhalation (Combivent Respimat) acetaminophen 500 mg tablet 500 mg PO Q8H PRN Pain 05/25/22 08/28/24 cyclobenzaprine 5 mg tablet 5 mg PO BEDTIME 05/25/22 08/28/24 albuterol sulfate 90 mcg/actuation 2 puff inhalation Q4-6H PRN 12/27/22 08/28/24 aerosol inhaler (Ventolin HFA) Wheezing zinc sulfate 50 mg zinc (220 mg) 50 mg PO DAILY 12/27/22 03/06/23 capsule ibuprofen 800 mg tablet 800 mg PO TID 03/23/23 08/28/24 sumatriptan succinate 100 mg tablet 100 mg PO Q2-4H PRN Migraine 07/18/23 08/28/24 Headache ferrous sulfate 325 mg (65 mg 325 mg PO DAILY 03/04/24 08/28/24 iron) tablet (FeroSul) nortriptyline 25 mg capsule 25 mg PO BEDTIME 03/04/24 08/28/24 calcium carbonate (Calcium Antacid) tab PO 09/04/24 Previous Rx's ?Medication ?Instructions ?Recorded hydrocortisone 2.5 % topical cream 1 appl VT BID PRN hemorrhoids #30 08/28/22 with perineal applicator grams (Proctosol HC) ondansetron 4 mg disintegrating 4 mg PO Q8H PRN nausea and 08/30/22 tablet vomiting #20 tabs simethicone 180 mg capsule 180 mg PO QID #90 caps 07/18/23 omeprazole 40 mg capsule,delayed 40 mg PO BID #60 caps 10/14/24 release azithromycin 250 mg tablet See Rx Instructions PO .COMPLEX #6 10/17/24 tabs cefpodoxime 200 mg tablet 200 mg PO BID #14 tabs 10/17/24 dicyclomine 20 mg tablet 20 mg PO QID #120 tabs 01/28/25 ketotifen fumarate 0.025 % (0.035 1 drp ophthalmic (eye) Q8H #5 mL 06/02/25 %) eye drops tobramycin 0.3 % eye drops 1 drp ophthalmic-Right Q4H #5 mL 06/02/25 Allergies Allergy/AdvReac Type Severity Reaction Status Date / Time morphine Allergy Unknown HIVES Verified 06/02/25 17:18 Review of Systems Review of Systems: Yes all other systems are reviewed and are negative [facility] Past Medical History Medical History Periumbilical abdominal pain History of frequent headaches Cough Fever Dyspnea Generalized postprandial abdominal pain Weight loss H. pylori infection Abnormal EKG Precordial chest pain Sacroiliitis Close exposure to COVID-19 virus [place] (nonalcoholic steatohepatitis) GERD (gastroesophageal reflux disease) Depression Asthma Morbid obesity due to excess calories Essential hypertension Surgical History Status post bariatric surgery History of esophagogastroduodenoscopy (EGD) H/O breast surgery Hx of colonoscopy Family History Family History Father Heart attack Mother Thrombosis Social History Social History Alcohol intake: never Patient Tobacco Use Status: Never used Tobacco Advance Directives: No Advance Directives Information Provided: No Do you have a plan to hurt others: No Plan Physical Exam Vital Signs: Vital Signs: Last Vital Signs Temp 98 F 06/02/25 18:35 Pulse 67 06/02/25 18:35 Resp 18 06/02/25 18:35 BP 140/76 H 06/02/25 18:35 Pulse Ox 98 06/02/25 18:35 O2 Del Method Room Air 06/02/25 18:35 BMI result Body Mass Index 37.9 Appearance: Alert. Oriented X3. No acute distress. Eyes: Injected right eye fluorescein uptake positive involving the medial aspect of the cornea anterior chamber normal fundus normal ENT: Pharynx normal Oral Mucosa moist tympanic membrane intact no erythema, Neck: Normal inspection. Neck supple. CVS: Normal heart rate and rhythm. Pulses normal. Respiratory: No respiratory distress. Equal air entry bilateral, no wheezing/rales/rhonchi Abd: soft, not tender Skin: Skin warm and dry. Normal skin color. Normal skin turgor. Extremities: No lower extremity edema, no calf tenderness Neuro: Oriented X 3. Course Course Course Narrative: This is an RME performed by Nnamdi Johnson SENIOR BUDGET ANALYST: Additional HPI, ROS, PE not included below will be deferred to primary provider. Patient is a 70-year-old female who presents emergency department for evaluation. Reports at approximately 11:00 this morning she was doing some washing, when a tide pod had exploded resulting in the detergent getting into the bilateral eyes. She presented to [facility] for evaluation and was referred to emergency department for further treatment. She states that she has been rinsing the eyes with water. She continues to have severe pain and burning to the bilateral eyes, denies vision changes. No contact lenses. Plan: Visual acuity, placed in waiting room pending bed availability for thorough eye examination Medications Administered Discontinued Medications Generic Name Dose Route Start Last Admin Trade Name Freq PRN Reason Stop Dose Admin Fluorescein Sodium 1 strip 06/02/25 17:38 06/02/25 18:29 Fluorescein Sodium Strip EYE-BOTH 06/02/25 17:39 1 strip ONCE ONE Administration Tetracaine HCl 1 drop 06/02/25 17:59 06/02/25 18:11 Tetracaine Hcl/Pf 0.5% Oph Rachel 4 Ml Drops EYE-RIGHT 06/02/25 18:00 1 drop ONCE ONE Administration Tobramycin Sulfate 2 drop 06/02/25 17:53 06/02/25 18:11 Tobramycin Sulfate 0.3% Rachel Op 5 Ml Btl EYE-RIGHT 06/02/25 17:54 2 drop ONCE ONE Administration Discharge Plan Discharge Clinical Impression: Corneal abrasion Patient Disposition: Home, Self-Care Instructions: Corneal Abrasion (DC) Additional Instructions: Local care as advised Use eyedrops as prescribed Follow up with Dr. Gutiérrez for further management and evaluation Prescriptions: New ketotifen fumarate 0.025 % (0.035 %) drops 1 drp ophthalmic (eye) Q8H Qty: 5 0RF Rx Instructions: do not exceed 2 doses in a 24 hour period tobramycin 0.3 % drops 1 drp ophthalmic-Right Q4H Qty: 5 0RF No Action hydrocortisone [Proctosol HC] 2.5 % cream with perineal applicator 1 appl VT BID PRN (Reason: hemorrhoids) Qty: 30 0RF omeprazole 40 mg capsule,delayed release(DR/EC) 40 mg PO BID Qty: 60 6RF dicyclomine 20 mg tablet 20 mg PO QID Qty: 120 6RF ondansetron 4 mg tablet,disintegrating 4 mg PO Q8H PRN (Reason: nausea and vomiting) Qty: 20 0RF cefpodoxime 200 mg tablet 200 mg PO BID Qty: 14 0RF Rx Instructions: must administer with a meal/food azithromycin 250 mg tablet See Rx Instructions .ROUTE .COMPLEX Qty: 6 0RF Rx Instructions: For 250 mg dose pack: take 500 mg today (day 1), then 250 mg for 4 days (days 2-5) divalproex 500 mg tablet extended release 24 hr 500 mg PO BID loratadine 10 mg tablet 10 mg PO DAILY fluticasone propionate 50 mcg/actuation spray,suspension 2 spray intranasal QAM PRN (Reason: Nasal Congestion) trazodone 50 mg tablet 50 mg PO BEDTIME cholecalciferol (vitamin D3) 50 mcg (2,000 unit) capsule 50 mcg PO DAILY lisinopril-hydrochlorothiazide 20-25 mg tablet 1 tab PO DAILY Combivent Respimat 20-100 mcg/actuation mist 1 puff inhalation Q6H albuterol sulfate [Ventolin HFA] 90 mcg/actuation HFA aerosol inhaler 2 puff inhalation Q4-6H PRN (Reason: Wheezing) zinc sulfate 50 mg zinc (220 mg) capsule 50 mg PO DAILY acetaminophen 500 mg tablet 500 mg PO Q8H PRN (Reason: Pain) cyclobenzaprine 5 mg tablet 5 mg PO BEDTIME simethicone 180 mg capsule 180 mg PO QID Qty: 90 4RF ibuprofen 800 mg tablet 800 mg PO TID sumatriptan succinate 100 mg tablet 100 mg PO Q2-4H PRN (Reason: Migraine Headache) ferrous sulfate [FeroSul] 325 mg (65 mg iron) tablet 325 mg PO DAILY nortriptyline 25 mg capsule 25 mg PO BEDTIME Calcium Antacid 300 mg (750 mg) tablet,chewable PO Referrals: Jama Gutiérrez [Physician, Ophthalmology] Referral Note: Right corneal abrasion Interventions: ED Discharge Assessment Last Done: 06/02/25 18:35 Discharge Date/Time: 06/02/25 18:35 Print Language: Niuean
--- NOTE | 2025-06-02 17:40 | PC.NURSE ---
attempted to use eye wash statiopn with patient. wasn't very successful.
[2025-06-02] MEDS: Tetracaine HCl/PF 0.5% Oph Sol 4 ML DROPS 1 DROP EYE-RIGHT (18:11)
[2025-06-02] MEDS: Tobramycin Sulfate 0.3% Sol Op 5 ML BTL 2 DROP EYE-RIGHT (18:11)
[2025-06-02] MEDS: Fluorescein Sodium STRIP 1 STRIP EYE-BOTH (18:29)
[2025-06-02 18:35] VITALS: BP 140/76; PULSE 67; RESP 18; TEMP 36.6; O2SAT 98
--- OUTSIDE RECORDS SUMMARY | 2025-06-02 18:35 | XMS_ITS | Clinical Summary ---
Author Organization 175 [facility] Address [address] [place] [address] Phone Care Team Providers Care Fha Underwriter Name Role Phone Shital La MD Primary Care Provider + [phone] Allergies Active Allergy Reactions Criticality Noted Date [...] TABLET DAILY ON DAYS 2-5 4 Active Surgical History Surgery Date Site/Laterality Comments OTHER [...] 57 01/20/2025 9:02 AM EDT Temperature 36.6 C (97.8 F) 01/20/2025 9:02 AM EDT Respiratory Rate - - Oxygen Saturation - [...] AM EDT Office Visit Bariatric Surgery - [place] [address] [place] [phone] Maegan Khan MD [address] [place] [address] Health Maintenance Due Date Last Done Comments Breast Cancer Screening 1955 RSV Immunization Adult Patients (1 - Risk 60-74 years 1-dose series) 2017 Cholesterol Screening (Lipid Panel) 10/03/2022 Colorectal Cancer Screening: Colonoscopy 10/03/2022 Falls Risk Assessment 10/03/2022 Hepatitis C Screening 10/03/2022 Medicare Annual Wellness Visit 10/03/2022 Social Influencers of Health Screening 10/03/2022 COVID-19 Vaccine ( - season) 2024 06/05/2022, 07/04/2021, 01/05/2021, Additional history exists Depression Screening 11/05/2024 Influenza Vaccine (#1) 2025 , 08/26/2022, 07/02/2021, Additional history exists Hypertension/CHF/CAD Annual BMP Blood [...] Pneumococcal Vaccine: 50+ Years Completed 04/04/2024, 07/14/2014 HIB Vaccines Aged Out No longer eligi [...] [place] [id number] [facility] MEDICARE Member Subscriber Plan / Payer (Ef fective 2022-Present) Name:Jennifer Spicer Relation to Subscriber:Self Name:Jennifer Spicer Payer ID:[id number] Group ID:[id number] Type:Not on file Address: [place] [address] [address] [phone] Care Teams Fha Underwriter Relationship Specialty Start Date End Date Shital La MD [address] [place] [address] [place] Rivero [phone] PCP - General 06/21/22
--- OUTSIDE RECORDS SUMMARY | 2025-06-02 18:35 | XMS_ITS | Data Portability ---
Author Organization [employer] [facility] Address [address] [place] [phone] Care Team Providers Care Board Attendant Name Role Phone HIM [facility] Primary Care Provider [phone] Assessment Encounter Date Assessment Date Assessment LastModified by Organization Details LastModified Time 03/25/2025 03/25/2025 As noted, we were called to see this patient regarding concerns of Runny nose and cough. Evaluation in the field was performed by my skip hoist engineer colleague, as noted above, I provided real-time direction and supervision for this visit. Patient states that she's been having a runny nose and a nonproductive cough since yesterday. Her also has similar symptoms and was found to be positive for COVID 19. Patient is positive for COVID 19. Prescription for Paxlovid was provided. Recommend patient follow-up with her PCP. Impression: COVID Plan: Follow-up PCP Primary care, consider labs Disposition: We discussed the diagnostic uncertainty of home visits and the risk associated with this. In this case, the patient and I felt this to be an acceptable and reasonable amount of risk given the benefit of avoiding an ED visit. We discussed the need to seek care urgently/emergen tly in the setting of any new or worsening serious symptoms, particularly Chest pain or shortness of breath. [email or web address] Not available 03/25/2025 11:22:00 Plan of Treatment Reminders Order Date Submit Date Provider Last Modified By Organization Details Last Modified Time Details Appointments None recorded. Lab rapid SARS CoV 2 Ag, QL IA, respiratory specimen 2024 025 [facility] hospital, [address] [place] [address], [id number] 11:56:19 rapid flu (A+B) [address] [place], [phone] 11:56:36 Referral None recorded. Procedures None recorded. Surgeries None recorded. Imaging None recorded. Medication Orders Paxlovid 300 mg (150 mg x 2)-100 mg tablets in a dose pack 2024 025 [facility], [address] [place] [address], [id number], 15:07:31 Patient TargetsNo targets recorded. Patient InstructionsNo instructions recorded. Reason for Referral None Reported. Results Created Date Observation Date Name Description Value Unit Range Abnormal Flag Note LastModifiedBy Organization Detail LastModifiedTime 03/25/2003/25/2025 rapid flu (A+B) Flu negati ve Not Available [address], [id number] 03/25/2025 11:04:54 03/25/2003/25/2025 rapid SARS CoV 2 Ag, QL IA, respi rator y speci men rapid SARS CoV 2 Ag, QL IA, respiratory specimen positi ve Not Available [address], [id number] 03/25/2025 11:04:52 Result Notes None recorded. Medical Equipment None Reported. Allergies Allergen ID Allergen Name Allergen Category Reaction Reaction Severity Criticality Documentation Date Start Date Code Code System Note Provider Name and Address Organization Details Recorded Time 75002 morphine medicatio n Not available Not available Not available 03/25/2025 7052 RxNorm Not Available [facility] 10:40:56 Medications Name Sig Start Date Stop Date Status Note LastModified by Organization Details LastModified Time trazodone 50 mg tablet TAKE 1 TABLET BY MOUTH AT BEDTIME NEEDED active Not Available Not Available No t Available cefpodoxime 200 mg tablet TAKE 1 TABLET BY MOUTH TWICE DAILY WITH MEALS active Not Available Not Available No t Available azithromycin 250 mg tablet TAKE 2 TABLETS BY MOUTH ON DAY 1, THEN TAKE 1 TABLET DAILY ON DAYS 2-5 active Not Available Not Available No t Available ibuprofen 800 mg tablet TAKE 1 TABLET BY MOUTH THREE TIMES DAILY NEEDED active Not Available Not Available No t Available sumatriptan 100 mg tablet TAKE 1 TABLET BY MOUTH ONCE AT ONSET OF MIGRAINE FOR 1 DOSE active Not Available Not Available N ot Available prednisone 20 mg tablet TAKE 2 TABLETS BY MOUTH EVERY DAY FOR 5 DAYS active Not Available Not Available No t Available omeprazole 40 mg capsule,pippa yed release TAKE 1 CAPSULE BY MOUTH TWICE DAILY active Not Available Not Available No t Available nortriptylin e 25 mg capsule TAKE 1 CAPSULE BY MOUTH AT BEDTIME FOR HEADACHE active Not Available Not Available No t Available dicyclomine 20 mg tablet TAKE 1 TABLET BY MOUTH FOUR TIMES DAILY active Not Available Not Available Not Available benzonatate 100 mg capsule TAKE 1 CAPSULE BY MOUTH THREE TIMES DAILY IN THE MORNING, AT NOON, AND AT BEDTIME NEEDED FOR COUGH FOR UP TO 7 DAYS. DO NOT BREAK, CRUSH, DISSOLVE OR CHEW. active Not Available Not Available No t Available ferrous sulfate 325 mg (65 mg iron) tablet TAKE 1 TABLET BY MOUTH EVERY DAY WITH ORANGE JUICE active Not Available Not Available No t Available lisinopril 20 mg-hydrochlo rothiazide 25 mg tablet TAKE 1 TABLET BY MOUTH EVERY DAY active Not Available Not Available No t Available loratadine 10 mg tablet TAKE 1 TABLET BY MOUTH EVERY DAY active Not Available Not Available No t Available Ventolin HFA 90 mcg/actuatio n aerosol inhaler INHALE 2 PUFFS BY MOUTH EVERY 4 HOURS NEEDED FOR WHEEZING OR SHORTNESS OF BREATH active Not Available Not Available No t Available Antacid Extra Strength 300 mg (as calcium carb 750 mg) chewable tablet CHEW AND SWALLOW 1 TABLET TWICE DAILY active Not Available Not Available Not Available Vitamin D3 50 mcg (2,000 unit) capsule TAKE 1 CAPSULE BY MOUTH EVERY DAY active Not Available Not Available No t Available Paxlovid 300 mg (150 mg x 2)-100 mg tablets in a dose pack TAKE 2 TABLETS (300 MG) OF NIRMATRELVI R & 1 TABLET (100 MG) OF RITONAVIR BY MOUTH TWICE DAILY FOR 5 DAYS active Not Available Not Available N ot Available Vitals Date Recorded Oxygen saturation Oxygen saturation in Arterial blood by Pulse oximetry Heart rate Respiratory rate Body temperature Systolic And Diastolic Provider Name and Address Organization Details Last Updated DateTime 5 98 % 98 % 68 /min 18 /min 98.5 [degF] 132/82 mm[Hg] Not Available [facility] - production 5 10:59:56 Social History None recorded. Functional Status None recorded. Mental Status None recorded. Family History Nothing Reported. Medical History No medical history recorded. Gynecological HistoryNo gynecological history recorded. Obstetrics History GPAL:G 0 P 0 0 0 0 Past Encounters Encounter ID Performer Location Encounter Start Date Encounter Closed Date Diagnosis/Indication Diagnosis SNOMED-CT Code Diagnosis ICD10 Code Diagnosis Note [id number] Parker Gallardo MD Main - [address] [address] 03/25/2025 10:59:48 03/25/2025 18:27:44 COVID-19 769929237 U07.1 Health Concerns Section Related Observation LastModified by Organization Detai ls LastModified Time None Recorded Concern Status LastModified by Organization Details LastModified Time None Recorded Advance Directives Directive None Recorded Payers Insurance Date Sequence Insurance Name Policy Number Policy Lindo Covered Member ID Lindo Member ID Guarantor Name 03/25/2025 1 [facility] - DOS ON OR AFTER 2023 - DUAL ELIGIBLE - SENIOR LIVING OPTIONS AND ONE CARE (MEDICARE REPLACEMENT/ADV ANTAGE - HMO) Jennifer Spicer [id number] Jennifer Spicer OBGyn Episode No OBEpisode recorded.
== END 2025-06-02 18:35 | disposition home or self-care (01) ==
LOC: HO.ED 18:34
PROVIDERS: Emergency Provider Internal Medicine; PCP Internal Medicine
DX: S05.01XA Injury of conjunctiva and corneal abrasion without foreign body, right eye, initial encounter (principal); T55.1X1A Toxic effect of detergents, accidental (unintentional), initial encounter; H57.11 Ocular pain, right eye; Y92.018 Other place in single-family (private) house as the place of occurrence of the external cause; Y93.E2 Activity, laundry; Y99.8 Other external cause status
CPT/HCPCS: 99282; 99283

== ENCOUNTER 2025-07-03 09:48 | Outpatient (REF) | payer OTHER, SELFPAY ==
--- OUTSIDE RECORDS SUMMARY | 2025-07-03 10:35 | XMS_ITS | Clinical Summary ---
Author Organization [address] [facility] Address [address] [place] [address] Phone Care Team Providers Care Senior Medical Writer Name Role Phone Shital La MD Primary Care Provider + [phone] Allergies Active Allergy Reactions Criticality Noted Date [...] AM EDT Office Visit [facility] [place] [address] [facility] [address] [place] [address] Maegan Khan MD [address] [place] [phone] Health Maintenance Due Date Last Done Comments [...] complete [place] [id number] [employer] MEDICARE Member Subscriber Plan / Payer (Ef fective 2022-Present) Name:Jennifer Spicer Relation to Subscriber:Self Name:Jennifer Spicer Payer ID:[id number] Group ID:[id number] Type:Not on file Address: [place] [address] [address] [id number] Care Teams Senior Medical Writer Relationship Specialty Start Date End Date Shital La MD [address] [place] [address] EUGENIE Rivero [phone] PCP - General 06/21/22
--- OUTSIDE RECORDS SUMMARY | 2025-07-03 10:35 | XMS_ITS | Encounter Summary ---
Author Organization [employer] Address [address] [facility] 7t [place] [address] Care Team Providers Care Ground Defence Officer Name Role Phone Shital La MD Primary Care Provider + Reason for Visit * Reason Onset Date Comments Nurse Triage 06/30/2025 Encounter Details Date Type Department Care Team ([facility] [address] Contact Info) Description 06/30/2025 Telephone [facility] [address] [place], [place] [phone] Shital La MD [address] [place] [address] Nurse Triage Social History Tobacco Use Types Packs/Day Years Used Date Smoking Tobacco: Never Passive Smoke Exposure: Never Smokeless Tobacco: Never Alcohol Use Standard Drinks/Week Comments Not Currently 0 (1 standard drink = 0.6 oz pur e alcohol) rare Alcohol Answer Date Recorded Q1: How often do you have a drink containing alc ohol? 1 08/08/2024 Q2: How many drinks containi ng alcohol do you have on a typical day when you are drinking? 0 08/08/2024 Q3: How often do you have six or more drinks on one occasion? 1 08/08/2024 Depression Answer Date Recorded Patient Health Questionnaire-9 Score 3 04/13/2025 Patient Health Questionnaire-9 Score 3 04/13/2025 Last PHQ-9: Questionnaire Data Not on file 0 04/13/2025 Housing Stability Answer Date Recorded What is [...] Date Recorded Patient Health Questionnaire-2 Score 0 04/13/2025 Internet Access Answer Date Recorded Internet Access [...] encounter Miscellaneous Notes * Telephone Encounter - Danay Stearns LPN - 06/30/2025 2:59 PM EDT Triage call returned with BLS #[id number] [place] Patient reports that she has pain in right 5th toe. Has area no reported fluid but describes it as a blister. . Not able to put on her shoe. Has pain but has not taken any oTC pain reliever. Has reported wearing snakere without sock and area is a firm red lump on outer toe. Disposition reviewd and patient in agreement with plan. Will only see PCP for care. Is seeking referrral to relocation specialist at time of call. Reviewed with patient home care recommendations and reasons to call back. Pt verbalized understanding and agrees. ASK/ on 07/07/25 at 1130am. Protocol Used: Toe Pain (Adult) Protocol-Based Disposition: See in Office or Video Visit within 3 Days Override (Final) Disposition: See in Office or Video Visit within 2 Weeks Override Reason: Desired specific provider Video visit not offered Positive Triage Question: * Patient wants to be seen * All higher-acuity triage questions were negative Care Advice Discussed: * Wear Shoes That Fit * Wear the Right Shoe for the Right Activity * Pain Medicines * Reasons To Call Back - Signs of infection occur (such as spreading redness, warmth, fever) - You become worse * Telephone Encounter - Leonel Montgomery - 06/30/2025 2:40 PM EDT Symptom: Toe Pain - Not From Injury Outcome: Schedule an urgent appointment (within 1 hour) or talk to a nurse or provider soon Reason: Severe pain now Contact pt at [phone] ([facility] [place]) documented in this encounter Plan of Treatment Upcoming Encounters Date Type Department Care Team (Late st Contact Info) Description 07/07/2025 11:30 AM EDT Office Visit [facility] [address] [place] [address] Shital La MD [address] [place] [address] documented as of this encounter Visit Diagnoses Not on filedocumented in this encounter Additional Health Concerns Assessment Noted Time PHQ-9 Depression Total Score: 3 04/13/20 25 1:55 PM EDT documented as of this encounter Care Teams Ground Defence Officer Relationship Specialty Start Date End Date Shital La MD [address] [place] [address] PCP - General Family Medicine 12/22/20 documented as of this encounter
--- OUTSIDE RECORDS SUMMARY | 2025-07-03 10:35 | XMS_ITS | Encounter Summary ---
Author Organization [employer] Address 75 [facility] 7t [place] [address] Care Team Providers Care Lending Activities Supervisor Name Role Phone Shital La MD Primary Care Provider + Reason for Visit * Reason Comments Med Refill Encounter Details Date Type Department [facility] Description 07/03/2025 Refill [facility] MED & PEDS [address] [place], [place] [phone] Shital La MD [address] [place] [address] Arthritis Social History Tobacco Use Types Packs/Day [...] Description 07/07/2025 11:30 AM EDT Office Visit [facility] MED[facility]INE [address] [place] [address] Shital La MD [address] [place] [address] documented as of this encounter Visit Diagnoses Diagnosis Arthritis Unspecified arthropathy, site unspecified documented in this encounter Additional Health Concerns Assessment Noted Time PHQ-9 Depression Total Score: 3 04/13/20 25 1:55 PM EDT documented as of this encounter Care Teams Lending Activities Supervisor Relationship Specialty Start Date End Date Shital La MD [address] [place] [phone] PCP - General Family Medicine 12/22/20 documented as of this encounter
--- OUTSIDE RECORDS SUMMARY | 2025-07-03 10:35 | XMS_ITS | Encounter Summary ---
Author Organization [employer] Address [address] [facility] 7 [place] [address] Care Team Providers Care Automobile Painter Name Role Phone Shital La MD Primary Care Provider + Encounter Details Date Type Department Care Team (Late st Contact Info) Description 03/16/2023 Orders Only [facility] CHC MED & PEDS [address] [place], [place] [phone] Nancy Zheng LPN Social History Tobacco Use [...] Description 07/07/2025 11:30 AM EDT Office Visit [facility] [address] [place] [address] Shital La MD [address] [place] [address] documented as of this encounter Visit Diagnoses Not on filedocumented in this encounter Care Teams Automobile Painter Relationship Specialty Start Date End Date Shital La MD [address] [place] [address] PCP - General Family Medicine 12/22/20 documented as of this encounter
--- OUTSIDE RECORDS SUMMARY | 2025-07-03 10:35 | XMS_ITS | Encounter Summary ---
Author Organization [employer] Address 75 [facility] 7t [place] [address] Care Team Providers Care Benefits Consulting Analyst Name Role Phone Shital La MD Primary Care Provider + Encounter Details Date Type Department Care Team (Late st Contact Info) Description 02/20/2025 Telephone [facility] [address] [place], [place] [phone] Shital La MD [address] [place], [place] [phone] Social History Tobacco Use Types Packs/Day Years [...] Description 07/07/2025 11:30 AM EDT Office Visit [facility] [address] [place] [address] Shital La MD [address] [place] [address] documented as of this encounter Visit Diagnoses Not on filedocumented in this encounter Care Teams Benefits Consulting Analyst Relationship Specialty Start Date End Date Shital La MD [address] [place] [address] PCP - General Family Medicine 12/22/20 documented as of this encounter
--- OUTSIDE RECORDS SUMMARY | 2025-07-03 10:35 | XMS_ITS | Encounter Summary ---
Author Organization [employer] Address [address] [place] [address] 7 [place] [address] Care Team Providers Care Associate Professor Of Physics Name Role Phone Shital La MD Primary Care Provider + Reason for Visit * Reason Onset Date Comments Appointment Request 01/23/2023 Encounter Details Date Type Department Care Team (Late Contact Info) Description 01/23/2023 Telephone [facility] MED[facility] [address] [place] [phone] Shital La MD [address] [place] [address] Appointment Request Social History Tobacco Use Types [...] a physical appt. Please contact pt at [phone] documented in this encounter Plan of Treatment Upcoming Encounters Date Type Department Care Team (Late Contact Info) Description 07/07/2025 11:30 AM EDT Office Visit [facility] [address] [place] [address] [place] [address] Shital La MD [address] [place], [place] [phone] documented as of this encounter Visit Diagnoses Not on filedocumented in this encounter Care Teams Associate Professor Of Physics Relationship Specialty Start Date End Date Shital La MD [address] [place] [address] PCP - General Family Medicine 12/22/20 documented as of this encounter
--- OUTSIDE RECORDS SUMMARY | 2025-07-03 10:35 | XMS_ITS | Encounter Summary ---
Author Organization [employer] Address [address] [facility] [address] 7[address] [place] [address] Care Team Providers Care Children'S Counselor Name Role Phone Shital La MD Primary Care Provider + Encounter Details Date Type Department Care Team (Late st Contact Info) Description 04/04/2024 Orders Only [facility] [address] [place], [place] [phone] Provider, MD Leeann Social History Tobacco Use [...] Description 07/07/2025 11:30 AM EDT Office Visit [facility] [address] [place] [address] Shital La MD [address] [place] [address] documented as of this encounter Procedures Procedure Name Priority Date/Time Associated Diagnosis Comments HM COLONOSCOPY Routine 03/09/2023 5:37 AM EDT documented in this encounter Results * Hm Colonoscopy (03/09/2023 5:37 AM EDT) us Historical Provider HEALTH MAINTENANCE Final Result documented in this encounter Visit Diagnoses Not on filedocumented in this encounter Care Teams Children'S Counselor Relationship Specialty Start Date End Date Shital La MD [address] [place] [address] PCP - General Family Medicine 12/22/20 documented as of this encounter
--- OUTSIDE RECORDS SUMMARY | 2025-07-03 10:35 | XMS_ITS | Encounter Summary ---
Author Organization [employer] Address 75 [facility] 7t [place] [address] Care Team Providers Care Hardware Sales Assistant Name Role Phone Shital La MD Primary Care Provider + Reason for Visit * Reason Onset Date Comments Nurse Triage 06/02/2025 Encounter Details Date Type Department Care Team ([facility] Contact Info) Description 06/02/2025 Telephone [facility] MEDICINE [address] [place], [place] [phone] Shital La MD [address] [place] [address] Nurse Triage Social History Tobacco Use Types [...] encounter Miscellaneous Notes * Telephone Encounter - Jolly Navas RN - 06/02/2025 3:48 PM EDT Noted patient arrived at [facility] [place] * Telephone Encounter - Santa Sherman RN - 06/02/2025 3:07 PM EDT Called pt. Via [facility] service restorer emergency Juliana Cortez. No answer. Assembler Molded Frames left a message for pt. To call 911 if this is an emergency and please call back [facility] nurses paolo at [phone]. Called back x2. Pt.States that she got some laundry powder in her right eye 2 hours ago and she has been flushing eye with cold water but her eye is red, painful, and the light is bothering her. Pt. Unsure if she flushed the eye enough to get all the powder out. I advised pt. To keep flushing eye with water and go directly to ED. Pt. States she is not going to ED and is already on her way to [facility] walk in. I will send this note to Walk in nurses as a heads up. Protocol Used: Eye - Chemical In (Adult) Protocol-Based Disposition: Go to ED/[facility] Now (or to Office with PCP Approval) Positive Triage Questions: * Blurred vision that persists >1 hour after irrigation (regardless of duration of flushing) * Eye pain that persists > 1 hour after irrigation (regardless of duration of flushing) * Tearing or blinking that persists > 1 hour after irrigation (regardless of duration of flushing) * All higher-acuity triage questions were negative Care Advice Discussed: * Eye Irrigation Method #1 - Flushing * Eye Irrigation Method #2 - Immersion * Telephone Encounter - Niya Gonzalez - 06/02/2025 2:55 PM EDT Symptom: Chemical in Eye Outcome: Transfer to a nurse or provider NOW! Reason: This is the only possible outcome for this symptom The caller accepted this outcome. Pt stated laundry pod popped and got in her eye. Contact pt at [phone] (icelandic) documented in this encounter Plan of Treatment Upcoming Encounters Date Type Department Care Team (Late st Contact Info) Description 07/07/2025 11:30 AM EDT Office Visit [facility] MEDICINE [address] [place] [address] Shital La MD [address] [place] [address] documented as of this encounter Visit Diagnoses Not on filedocumented in this encounter Additional Health Concerns Assessment Noted Time PHQ-9 Depression Total Score: 3 04/13/20 25 1:55 PM EDT documented as of this encounter Care Teams Hardware Sales Assistant Relationship Specialty Start Date End Date Shital La MD [address] [place] [address] PCP - General Family Medicine 12/22/20 documented as of this encounter
--- OUTSIDE RECORDS SUMMARY | 2025-07-03 10:35 | XMS_ITS | Encounter Summary ---
Author Organization [employer] Address 75 [facility] 7 [place] [address] Care Team Providers Care Cat Hooker Name Role Phone Shital La MD Primary Care Provider + Encounter Details Date Type Department Care Team (Late st Contact Info) Description 12/15/2022 Orders Only [facility] CHC MED & PEDS [address] [place], [place] [phone] Nancy Zheng LPN Social History Tobacco Use [...] Description 07/07/2025 11:30 AM EDT Office Visit [facility] MEDICINE [address] [place] [address] Shital La MD [address] [place] [address] documented as of this encounter Visit Diagnoses Not on filedocumented in this encounter Care Teams Cat Hooker Relationship Specialty Start Date End Date Shital La MD [address] [place] [address] PCP - General Family Medicine 12/22/20 documented as of this encounter
--- OUTSIDE RECORDS SUMMARY | 2025-07-03 10:35 | XMS_ITS | Encounter Summary ---
Author Organization [employer] Address 75 [facility] 7t [place] [address] Care Team Providers Care Recruitment Internship Name Role Phone Shital La MD Primary Care Provider + Reason for Visit * Reason Comments Med Refill Encounter Details Date Type Department Care Team ([facility] Contact Info) Description 06/28/2025 Refill [facility] CHC MED & PEDS [address] [place], [place] [phone] Shital La MD [address] [place] [address] Primary hypertension Social History Tobacco Use Types [...] 11:30 AM EDT Office Visit [facility] MEDICINE [address] [place] [address] Shital La MD [address] [place] [address] documented as of this encounter Visit Diagnoses Diagnosis Primary hypertension Unspecified essential hypertension documented in this encounter Additional Health Concerns Assessment Noted Time PHQ-9 Depression Total Score: 3 04/13/20 25 1:55 PM EDT documented as of this encounter Care Teams Recruitment Internship Relationship Specialty Start Date End Date Shital La MD [address] [place] [address] PCP - General Family Medicine 12/22/20 documented as of this encounter
--- OUTSIDE RECORDS SUMMARY | 2025-07-03 10:35 | XMS_ITS | Clinical Summary ---
Author Organization [employer] Address [address] [facility] 7t [place] [address] Care Team Providers Care Concrete Mixer Truck Driver Name Role Phone Fernandez Merlos MD Primary [...] HOURS 90 tablet 1 11/22/19 24 Active calcium carbonate EX (Tums Extra Strength) 750 MG chewable tablet Chew 1 tablet (750 mg) 2 times daily. 60 tablet 11 08/08/20 24 025 Active SUMAtriptan (Imitrex) 100 MG tabletIndication s:Chronic migraine without aura without status migrainosus, not intractable TAKE 1 TABLET BY MOUTH ONCE DAILY AT ONSET OF MIGRAINE FOR 1 DOSE 15 tablet 11 08/08/20 24 Active albuterol (Ventolin HFA) 108 (90 Base) MCG/ACT inhalerIndicatio ns:Mild persistent asthma with acute exacerbation Inhale 2 puffs every 4 (four) hours if needed for wheezing or shortness of breath. 18 g 3 04/06/20 25 Active FREESTYLE LITE test strip Use to test blood sugar 1x/w 100 each 04/13/20 25 026 Active Lancets misc Use to test blood sugar 1x/w 100 each 04/13/20 25 Active Blood Glucose Monitoring Suppl (FreeStyle [place] Lite) w/Device kit Use to test blood sugar 1x/w 1 kit 04/13/20 Active ibuprofen 800 MG tabletIndication s:Arthritis TAKE 1 TABLET BY MOUTH THREE TIMES DAILY NEEDED 90 tablet 1 04/16/20 25 Active D3 Super Strength 50 MCG (2000 UT) capsule TAKE 1 CAPSULE BY MOUTH EVERY DAY 90 capsule 3 07/01/20 25 Active lisinopril-hydro CHLOROthiazide 20-25 MG tabletIndication s:Primary hypertension TAKE 1 TABLET BY MOUTH EVERY DAY 90 tablet 3 07/01/20 25 Active cholecalciferol (D3 Super Strength) 50 MCG (2000 UT) capsule Take 1 capsule (50 mcg) by mouth Once per day. 90 capsule 3 06/03/20 24 025 Discontinued lisinopril-hydro CHLOROthiazide 20-25 MG tabletIndication s:Primary hypertension TAKE 1 TABLET BY MOUTH EVERY DAY 90 tablet 1 12/09/19 25 025 Discontinued Active Problems Problem Noted Date Diagnosed Date Class 2 severe obesity due t o excess calories with serious comorbidity and body mass index (BMI) of 37.0 to 37.9 in adult 04/13/2025 Assessment & Plan (04/13/2025 6:18 PM EDT): Discussed re weight reduction options including exercise, life style modifications, diet. Recommended to decrease soda and sugary beverage consumption, increase protein intake with meals (at least 1 portion of protein with each meal) to assist with satiety, increase dietary fiber Recommended at least 150 min/week of moderate intensity exercise. Follow-up in 6 months Subacute cough 10/22/2024 Assessment & Plan (11/03/2024 12:14 PM EST): If CXR is positive, will treat with Augmentin and doxycycline. Pt's vitals are stable and CURB2 score of 1, indicating appropriatenes for outpatient treatment. Chronic superficial gastritis without bleeding 1 11/09/2023 09/01/2024 Pure hypercholesterolemia 08/08/2024 Assessment & Plan (04/13/2025 2:47 PM EDT): We discussed re rx options. Recommended moderate amount of exercise and increase consumption of fruit, vegetables, fish and high fiber foods. Should decrease consumption of highly saturated fats or trans fats. Repeat Lipids in 6m, we will start statins if LDL is above 120 Assessment & Plan (08/08/2024 9:25 AM EDT): [...] fall prevention. Hypoglycemia 02/08/2024 Assessment & Plan (04/13/2025 2:56 PM EDT): Check BS prn hypoglycemic sxs. Assessment & Plan (02/08/2024 10:59 AM EDT): R/o IFG Counseled to have small infraction meals, add protein to at least 2 meals /day FU next visit Episodic cluster headache, not intractable 11/09 Assessment & Plan (02/08/2024 10:58 AM EDT): Cluster BERTRAND improved Significantly improving after neurology visit Continue nortriptyline and FU w/ ELOY Sanders FU w/ in 4 months Assessment & Plan (11/09/2023 2:37 PM EST): Seems to be doing well on Imitrex, unclear if it is a migraine Order CT scan due to increased frequency of episodes Fu w me in 3 months Recommended to come to acupuncture clinic Abnormal EKG 07/16/2023 Close exposure to COVID-19 virus 07/16/2023 History of headache 07/16/2023 Periumbilical abdominal pain 07/16/2023 Thoracic radiculopathy 07/16/2023 Uterine fibroid [...] Consider amitriptyline again. GERD (gastroesophageal reflux disease) 2 Overview (09/09/2024): EGD on 09/01/24, Neg H.Pilory Assessment & Plan (04/13/2025 6:19 PM EDT): Doing well, take omeprazole or Tums as needed Trochanteric bursitis of right hip 09/15/2021 Ramirez's esophagus determined by biopsy 018 Overview (09/09/2024): EGD on 10/28/24 Neg H.Pilory Assessment & Plan (01/31/2023 11:57 AM EDT): Doing well on prilosec Had EGD, FU with GI PRN Due for colonoscopy this year Tubular adenoma of colon 04/18/2018 Overview (04/04/2023): Last colonoscopy [facility] [place] 03/09/23= Neg polyps Assessment & Plan [...] exercise, life style modifications, diet, referral to material control specialist. Discussed re lower calorie intake, increase [...] 08/30/2015 Essential hypertension 08/30/2015 Assessment & Plan (04/13/2025 2:48 PM EDT): Controlled. Compliant w/meds Continue lisinopril/hctz 20-25 mg same dose Counseled re low salt diet/increase moderate physical activity. Check home BP BIW and prn CP/BERTRAND/HOYT Non smoking patient. FU in 6mo Assessment & Plan (12/10/2024 2:42 PM EST): [...] s/p PT Continue tylenol + Ibuprofen PRN Precordial chest pain 07/16/20232024 Acute COVID-19 02/16/2023 04/04/2024 Housing instability 02/16/2023 04/04/20 24 Epistaxis 02/16/2023 12/10/2024 Iron deficiency anemia 09/15/202104/04 Overview (04/04/2024): Hb on 2021 was12 Vitamin D deficiency 07/12/2018 024 Assessment & Plan (04/04/2024 9:53 AM EDT): On vit D weekly Repeat Vit D levels and adjust prn. Encounters Date Type Department Care Team Description 07/03/2025 Refill [facility] [address] [place] [address] Fernandez Merlos MD Arthritis 06/30/2025 Telephone [facility] [address] [place] [phone] Fernandez Merlos MD Nurse Triage 06/28/2025 Refill [facility] [address] [place] [address] Fernandez Merlos MD Primary hypertension 06/20/2025 Refill [facility] [address] [place] [phone] Yadiel Rose MD Mild persistent asthma with acute exacerbation 06/02/2025 4:00 PM EDT Office Visit [facility] [address] [place] [phone] Jessica Morataya MD Chemical injury of right eye (Primary Dx) 06/02/2025 Travel 06/02/2025 Telephone [facility] [address] [place] [phone] Fernandez Merlos MD Nurse Triage 04/16/2025 Refill [facility] [address] [place] [address] Fernandez Merlos MD Arthritis 04/13/2025 2:00 PM EDT Office Visit [facility] [address] [place] [phone] Fernandez Merlos MD Gastroesophageal reflux disease, unspecified whether esophagitis present (Primary Dx); Essential hypertension; Pure hypercholesterolemia; Hypoglycemia; Class 2 severe obesity due to excess calories with serious comorbidity and body mass index (BMI) of 37.0 to 37.9 in adult ([facility]); Dietary counseling; Exercise counseling 04/13/2025 Travel 04/10/2025 Telephone [facility] [address] [place] [phone] Fernandez Merlos MD Chart Prep 04/06/2025 9:20 AM EDT Office Visit [facility] [address] [place] [phone] Yadiel Rose MD Mild persistent asthma with acute exacerbation (Primary Dx); H/O chest pain; Palpitations; Acute cough 04/06/2025 Patient Outreach [facility] [address] [place] [address] Fernandez Merlos MD Pre-visit Planning (SDOH was already completed) 04/06/2025 Travel 04/06/2025 Telephone [facility] [address] [place] [address] Fernandez Merlos MD Nurse Triage from Last 3 Months Immunizations Immunization Administration Dates Next Due Hep A, Adult [...] Sign Reading Time Taken Comments Blood Pressure 159/86 06/02/2025 4:02 PM EDT Pulse 76 06/02/2025 4:02 PM EDT Temperature 37 C (98.6 F) 06/02/2025 4:02 PM EDT Respiratory Rate 17 06/02/2025 4:02 PM EDT Oxygen Saturation 99% 06/02/2025 4:02 PM EDT Inhaled Oxygen Concentration - - Weight 94.2 kg (207 lb 9.6 oz) 06/02/2025 4:02 P M EDT Height 157.5 cm (5' 2 ) 04/13/2025 1:54 PM EDT Body Mass Index 37.97 04/13/2025 1:54 PM EDT Plan of Treatment Upcoming Encounters Date Type Department Care Team (Late st Contact Info) Description 07/07/2025 11:30 AM EDT Office Visit [facility] [address] [place], [place] [phone] Fernandez Merlos MD [address] [place], [place] [phone] Health Maintenance Due Date Last Done Comments CT Colonography 1955 FIT DNA/Cologuard 1955 FIT 1955 FOBT 1955 Sigmoidoscopy 1955 RSV Patients and Patients Aged 60 years or older (1 - Risk 60-74 years 1-dose series) 2017 COVID-19 Vaccine ( season) 2024 06/05/2022, 07/04/2021, 01/05/2021, Additional history exists Influenza Vaccine (#1) 2025 , 08/26/2022, 07/02/2021, Additional history exists Mammogram 07/29/2025 07/29/2024, 07/06, 07/19/2022, Additional history exists Alcohol/Substance Use Screening 08/08/2025 08/08/2024 SDOH Screening 11/27/2025 11/27/2024 Depression Screening 04/13/2026 04/13/2025, 04/13/20 Tobacco Screening 06/02/2026 06/02/2025 DTaP/Tdap/Td Vaccines (3 - Td or Tdap) 11/19/2026 11/19/2016, 03/14/2012, 03/26/2007, Additional history exists Lipid Panel 12/29/2029 12/29/2024, 06/04/2024, 02/01/2023, Additional history exists Colonoscopy 03/09/2033 03/09/2023 [...] Procedure Name Priority Date/Time Associated Diagnosis Comments ECG 12-LEAD Routine 04/06/2025 12:01 PM EDT H/O chest pain POCT INFLUENZA B (ID NOW RAPID MOLECULAR) Routine 04/06/2025 9:35 AM EDT Acute cough POCT INFLUENZA A (ID NOW RAPID MOLECULAR) Routine 04/06/2025 9:35 AM EDT Acute cough POCT RAPID COVID ANTIGEN Routine 04/06/2025 9:35 AM EDT Acute cough LIPID PANEL WITH REFLEX TO DIRECT LDL Routine 12/29/2024 7:47 AM EST Essential hypertension Morbid obesity due to excess calories (CMS/HCC) BI MAMMOGRAM SCREENING TOMOSYNTHESIS BILATERAL Routine 07/29/2024 8:40 AM EDT HM COLONOSCOPY Routine 03/09/2023 5:37 AM EDT HEPATITIS PANEL, GENERAL Routine 02/01/2023 9:58 AM EDT from Last 3 Months or Most Recently Relevant to Health Maintenance Results * Influenza B (ID NOW Rapid Molecular) (04/06/2025 9:35 AM EDT) Influenza B Negative Negative, Indeterminate [facility] Swab 04/06/2025 9:35 AM EDT us Yadiel Rose MD POINT OF CARE TEST ENTER/EDIT OR DERABLES Final Result Performing Organization Address [facility]/ZIP Co de Phone Number [facility] [address] [place] [phone] * Influenza A (ID NOW Rapid Molecular) (04/06/2025 9:35 AM EDT) Influenza A Negative Negative, Indeterminate [facility] Swab 04/06/2025 9:35 AM EDT us Yadiel Rose MD POINT OF CARE TEST ENTER/EDIT OR DERABLES Final Result Performing Organization Address [facility]/ZIP Co de Phone Number [facility] [address] [place] [phone] * POCT Rapid COVID Ag (04/06/2025 9:35 AM EDT) Rapid COVID Ag Negative [facility] Swab 04/06/2025 9:35 AM EDT us Yadiel Rose MD POINT OF CARE TEST ENTER/EDIT OR DERABLES Final Result Performing Organization Address [facility]/ZIP Co de Phone Number [facility] [address] [place] [phone] * (ABNORMAL) Lipid Panel with Reflex to Direct LDL (12/29/2024 7:47 AM EST) Triglycerides 120 <150 mg/dL [facility] Comment:Desirable Triglyceri de: less than 150 mg/dLBorderline High Triglyceride 150-199 mg/dLHigh Triglyceride: 200-499 mg/dLVery High Triglyceride: greater than or equal to 5OO mg/dL Cholesterol 216(H) <200 mg/dL [facility] Comment:Desirable Cholestero l: less than 200 mg/dLBorderline High Cholesterol: 200-239 mg/dLHigh Cholesterol: greater than 239 mg/dL LDL Cholesterol Calculated 134(H) <100 mg/dL [facility] Comment:Desirable LDL: less than 100 mg/dLNear Optimal/Above Optimal LDL: 110- 129 mg/dLBorderline High LDL: 130-159 mg/dLHigh LDL: 160-189 mg/dLVery High LDL: greater than or equal to 190 mg/dL HDL Cholesterol 58 >40 mg/dL [facility] Comment:Desirable HDL: great er than 40 mg/dL Note: This HDL assay may give artificially low results in patients with liver disease. Blood 12/29/2024 7:47 AM EST 12/29/2024 7:47 AM EST us Fernandez Merlos MD LAB BLOOD ORDERABLES Fin al Result [facility] [address] [place] [phone] * BI Mammogram Screening Tomosynthesis Bilateral (07/29/2024 8:40 AM EDT) Anatomical Region Laterality Modality Breast Bilateral Mammography 07/29/2024 8:40 AM EDT Narrative 08/08/2024 12:38 PM EDT [facility] [address] [place] [address] Mammography Report Signed Patient: Jennifer Spicer MR#: [id number] 9 : 1955 Acct:[id number] Age/Sex: 69 / F ADM Date: 07/29/24 Loc: HO.MAMMO Attending Dr: Fernandez Merlos MD Ordering Physician: Fernandez Merlos MD Results: 1Ne gative Date of Service: 07/29/24 Follow Up: 1 Year From Orig inal Mammogram Procedure(s): MM tomosynthesis screening BI Accession Number(s): [id number] cc: Fernandez Merlos MD EXAMINATION: MM SCREENING [...] 08/08/24 1235 DD/ 0840 TD/TT: 07/29/24 0855 Technology And Engineering Teacher: Procedure Note Donotuseinterpreter, Image - 08/08/2024 [facility] [address] [place] [address] Mammography Report Signed Patient: Jennifer SpicerMR#: [id number] 9 : 7Acct:[id number] Age/Sex: 69 / FADM Date: 07/29/24 Loc: MAMMO Attending Dr: Fernandez Merlos MD Ordering Physician: Abhinav,Christa. MDResults: 1Ne gative Date of Service: 07/29/24Follow Up: 1 Year From Orig inal Mammogram Procedure(s): MM tomosynthesis screening BI Accession Number(s): [id number] cc: Fernandez Merlos MD EXAMINATION: MM SCREENING [...] Karla Moncada DO 08/08/2024 12:35 PM EDT RP Dictated By: Karla Moncada DO Signed By: <Electronically signed by Karla Moncada DO in OV> 08/08/24 1235 DD/ 0840 TD/TT: 07/29/24 0855 Technology And Engineering Teacher: Fernandez Merlos MD IMG BI PROCEDURES Edited Result - Final * Hm Colonoscopy (03/09/2023 5:37 AM EDT) Historical Provider HEALTH MAINTENANCE Final Result * (ABNORMAL) Hepatitis Panel, General (02/01/2023 9:58 AM EDT) Hepatitis A Antibody Total REACTIVE( A) NON-REACT FRANCES [employer] [facility] Comment: For additional information, please refer to http://education.[employer]/faq/SVB890 (This link is being provided for informational/ educational purposes only.) Hepatitis B Surface Antibody QL REACTIVE( A) NON-REACT FRANCES [employer] [place] [employer] Hepatitis B Surface Ag NON-REACT FRANCES NON-REACT FRANCES [facility] [place] LOG607 Hepatitis B Core Antibody Total NON-REACT FRANCES NON-REACT FRANCES [employer] [place] [employer] Hepatitis C Antibody NON-REACT FRANCES NON-REACT FRANCES [facility] Index 0.02 <1.00 [employer] [place] LOG607 Comment: HCV antibody was non-reactive. There is no laboratory evidence of HCV infection. In most cases, no further action is required. However, if recent HCV exposure is suspected, a test for HCV RNA (test code 20886) is suggested. For additional information please refer to http://education.[employer]/faq/GPS85u1 (This link is being provided for informational/ educational purposes only.) 02/01/2023 9:58 AM EDT 02/01/2023 9:59 AM EDT Narrative [facility] - 02/06/2023 11:15 PM EDT FASTING:UNKNOWN FASTING: UNKNOWN Fernandez Merlos MD LAB BLOOD ORDERABLES Fin al Result [facility] [address], [place] [phone] [facility] [address] [place] [phone] from Last 3 Months or Most Recently Relevant to Health Maintenance Insurance [facility] LONG TERM OPT[employer] (HMO D-SNP) JADA BENDER [id number] Care Teams Concrete Mixer Truck Driver Relationship Specialty Start Date End Date Fernandez Merlos MD [address] [place] [phone] PCP - General Family Medicine 12/22/20
--- OUTSIDE RECORDS SUMMARY | 2025-07-03 10:35 | XMS_ITS | Encounter Summary ---
Author Organization [employer] Address [address] [facility] 7 [place] [address] Care Team Providers Care Smoking Pipe Repairer Name Role Phone Shital La MD Primary Care Provider + Encounter Details Date Type Department Care Team (Latest Contact Info) Description 10/13/2019 Abstract [facility] CONVERSIONS Dental, Provider, DDS Social History [...] Description 07/07/2025 11:30 AM EDT Office Visit [facility] [address] [place] [address] Shital La MD [address] [place] [address] documented as of this encounter Visit Diagnoses Not on filedocumented in this encounter Care Teams Smoking Pipe Repairer Relationship Specialty Start Date End Date Shital La MD [address] [place] [address] PCP - General Family Medicine 12/22/20 documented as of this encounter
--- OUTSIDE RECORDS SUMMARY | 2025-07-03 10:35 | XMS_ITS | Encounter Summary ---
Author Organization [employer] [facility] Address [address] [place] [address] [address] [place] [address] Care Team Providers Care Bunghole Borer Name Role Phone Shital La MD Primary Care Provider + Encounter Details Date Type Department Care Team (Late st Contact Info) Description 11/10/2022 Orders Only [facility] [address] [place] [address] [phone] Santa Sherman RN [address] [place] [phone] Social History Tobacco Use Types Packs/Day Years [...] Description 07/07/2025 11:30 AM EDT Office Visit [facility] [address] [place] [phone] Shital La MD [address] [place] [address] [phone] documented as of this encounter Visit Diagnoses Not on filedocumented in this encounter Care Teams Bunghole Borer Relationship Specialty Start Date End Date Shital La MD [address] [place] [address] [phone] PCP - General Family Medicine 12/22/20 documented as of this encounter
--- OUTSIDE RECORDS SUMMARY | 2025-07-03 10:35 | XMS_ITS | Encounter Summary ---
Author Organization [employer] Address [address] [facility] 7t [place] [address] Care Team Providers Care Compressor Assembler Name Role Phone Shital La MD Primary Care Provider + Reason for Visit * Reason Comments Med Refill Encounter Details Date Type Department Care Team ([facility] st Contact Info) Description 06/20/2025 Refill [facility] [address] [place], [place] [phone] Yadiel Rose MD [address] [place] [address] Mild persistent asthma with acute exacerbation Social History Tobacco Use Types Packs/Day Years [...] 11:30 AM EDT Office Visit [facility] [address] [place] [address] Shital La MD [address] [place] [address] documented as of this encounter Visit Diagnoses Diagnosis Mild persistent asthma with acute exacerbation documented in this encounter Additional Health Concerns Assessment Noted Time PHQ-9 Depression Total Score: 3 04/13/20 25 1:55 PM EDT documented as of this encounter Care Teams Compressor Assembler Relationship Specialty Start Date End Date Shital La MD [address] [place] [phone] PCP - General Family Medicine 12/22/20 documented as of this encounter
--- OUTSIDE RECORDS SUMMARY | 2025-07-03 10:35 | XMS_ITS | Encounter Summary ---
Author Organization [employer] Address [address] [facility] 7 [place] [address] Care Team Providers Care Office Services Clerk Name Role Phone Shital La MD Primary Care Provider + Reason for Visit * Reason Onset Date Comments Referral 08/10/2023 Encounter Details Date Type Department Care Team ([facility] st Contact Info) Description 08/10/[address] [facility] [address] [place], [place] [phone] Shital La MD [address] [place], [place] [phone] Referral Social History Tobacco Use Types Packs/Day [...] 1:55 PM EDT Tc from ivette with [facility] requesting a new referral. States referral was made for the left knee but per pt, it is the right knee. Please fax to [phone] Any questions, contact ivette at [phone] documented in this encounter Plan of Treatment Upcoming Encounters Date Type Department Care Team (Late st Contact Info) Description 07/07/2025 11:30 AM EDT Office Visit [facility] [address] [place] [address] Shital La MD [address] [place] [address] documented as of this encounter Visit Diagnoses Diagnosis Acute pain of right knee- Primary documented in this encounter Care Teams Office Services Clerk Relationship Specialty Start Date End Date Shital La MD [address] [place] [phone] PCP - General Family Medicine 12/22/20 documented as of this encounter
--- OUTSIDE RECORDS SUMMARY | 2025-07-03 10:35 | XMS_ITS | Encounter Summary ---
Author Organization [employer] Address [address] [facility] [address]t [place] [address] Care Team Providers Care Sewage Screen Operator Name Role Phone Shital La MD Primary Care Provider + Reason for Visit * Reason Onset Date Comments Nurse Triage 04/06/2025 Encounter Details Date Type Department Care Team ([facility] st Contact Info) Description 04/06/2025 Telephone [facility] [address] [place], [place] [phone] Shital La MD [address] [place], [place] [phone] Nurse Triage Social History Tobacco Use Types [...] encounter Miscellaneous Notes * Telephone Encounter - Smiley Stewart RN - 04/06/2025 9:36 AM EDT Triage call with [facility] [place] [id number] Shaina Pt reports is already at the [facility] at [place]. Pt is advised to wait to be seen. Pt is requesting to see mushroom press operator . Pt is advised to provide information to [facility] personnel for assist and Pt agrees. Insurance is verified as active Protocol Used: No Contact or Duplicate Contact Call (Adult) Protocol-Based Disposition: No Contact Call Positive Triage Question: * Patient already left for the hospital/clinic * All higher-acuity triage questions were negative * Telephone Encounter - Peter Chavira - 04/06/2025 8:46 AM EDT Symptoms: Chest Pain - Adult, Cough Outcome: Transfer to a nurse or provider NOW! Reason: Heaviness on chest The caller accepted this outcome. documented in this encounter Plan of Treatment Upcoming Encounters Date Type Department Care Team (Late st Contact Info) Description 07/07/2025 11:30 AM EDT Office Visit [facility] [address] [place] [address] Shital La MD [address] [place], [place] [phone] documented as of this encounter Visit Diagnoses Not on filedocumented in this encounter Care Teams Sewage Screen Operator Relationship Specialty Start Date End Date Shital La MD [address] [place] [address] [phone] PCP - General Family Medicine 12/22/20 documented as of this encounter
[2025-07-03 11:14] LABS: Cholesterol 191 mg/dL (<200); HDL Cholesterol 63 mg/dL (>40); Triglycerides 77 mg/dL (<150)
[2025-07-03 13:12] LABS: Reflex LDLD? No
== END 2025-07-03 09:49 | disposition home or self-care (01) ==
LOC: HO.LAB 09:48
PROVIDERS: PCP Internal Medicine; Visit Provider Internal Medicine
DX: E78.00 Pure hypercholesterolemia, unspecified (principal)
CPT/HCPCS: 36415; 80061

== ENCOUNTER 2025-07-07 12:19 | Outpatient (REF) | payer OTHER, SELFPAY ==
--- NOTE | ~2025-07-07 | XR_ITS ---
EXAMINATION: XR TOES, RIGHT CLINICAL INFORMATION: tender callus 5th toe/ro osteophyte COMPARISON: None available. TECHNIQUE: 4 views of the right toes were obtained. FINDINGS: No fracture or dislocation. No suspicious bone lesion. No malalignment. 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 No unusual spurring is evident. No soft tissue abnormality. XR/XR toe RT min 2V IMPRESSION: 1. No acute findings of the right toes. Degenerative changes in the interphalangeal joints. Electronically signed by: Dewayne Tapia MD 07/07/2025 12:41 PM EDT
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
--- OUTSIDE RECORDS SUMMARY | 2025-07-07 13:31 | XMS_ITS | Encounter Summary ---
Author Organization [employer] Address 75 [facility] 7 [place] [address] Care Team Providers Care Election Assistant Name Role Phone Shital La MD Primary Care Provider + Reason for Visit * Reason Onset Date Comments Referral 08/10/2023 Encounter Details Date Type Department Care Team ([facility] st Contact Info) Description 08/10/2023 Telephone [facility] [address] [place], [place] [phone] Shital La MD [address] [place], [place] [phone] Referral Social History Tobacco Use Types Packs/Day [...] with others, in a hotel, in a half-way, living outside on the street, on a [...] 1:55 PM EDT Tc from ivette with [facility] requesting a new referral. States referral was made for the left knee but per pt, it is the right knee. Please fax to [phone] Any questions, contact ivette at [phone] documented in this encounter Plan of Treatment Not on file documented as of this encounter Visit Diagnoses Diagnosis Acute pain of right knee- Primary documented in this encounter Care Teams Election Assistant Relationship Specialty Start Date End Date Shital La MD [address] [place] [phone] PCP - General Family Medicine 12/22/20 documented as of this encounter
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
--- OUTSIDE RECORDS SUMMARY | 2025-07-07 13:31 | XMS_ITS | Encounter Summary ---
Author Organization [employer] Address [address] [facility] [address] 7t [place] [address] Care Team Providers Care Science Education Professor Name Role Phone Shital La MD Primary Care Provider + Encounter Details Date Type Department Care Team (Late st Contact Info) Description 04/04/2024 Orders Only [facility] MEDIC[facility] [address] [place], [place] [phone] Provider, MD Leeann Social History Tobacco Use [...] on filedocumented in this encounter Care Teams Science Education Professor Relationship Specialty Start Date End Date Shital La MD [address] [place] [phone] PCP - General Family Medicine 12/22/20 documented as of this encounter
--- OUTSIDE RECORDS SUMMARY | 2025-07-07 13:31 | XMS_ITS | Encounter Summary ---
Author Organization [employer] Address 75 [facility] 7t [place] [address] Care Team Providers Care Diver Assistant Name Role Phone Shital La MD Primary Care Provider + Reason for Visit * Reason Onset Date Comments Nurse Triage 04/06/2025 Encounter Details Date Type Department Care Team ([facility] st Contact Info) Description 04/06/2025 Telephone [facility] MED[facility]INE [address] [place], [place] [phone] Shital La MD [address] [place], [place] [phone] Nurse Triage Social History Tobacco Use Types [...] 04/06/2025 9:36 AM EDT Triage call with [facility] [place] [id number] Shaina Pt reports is already at the [facility] at [facility]. Pt is advised to wait to be seen. Pt is requesting to see independent living specialist . Pt is advised to provide information to [facility] personnel for assist and Pt agrees. Insurance [...] on filedocumented in this encounter Care Teams Diver Assistant Relationship Specialty Start Date End Date Shital La MD [address] [place] [phone] PCP - General Family Medicine 12/22/20 documented as of this encounter
--- OUTSIDE RECORDS SUMMARY | 2025-07-07 13:31 | XMS_ITS | Encounter Summary ---
Author Organization [employer] Address [address] [facility] 7 [place] [address] Care Team Providers Care Field Operator Name Role Phone Shital La MD [...] on filedocumented in this encounter Care Teams Field Operator Relationship Specialty Start Date End Date Shital La MD [address] [place] [phone] PCP - General Family Medicine 12/22/20 documented as of this encounter
--- OUTSIDE RECORDS SUMMARY | 2025-07-07 13:31 | XMS_ITS | Encounter Summary ---
Author Organization [employer] Address [address] [facility] [address] 7t [place] [address] Care Team Providers Care Encephalographer Name Role Phone Shital La MD Primary Care Provider + Encounter Details Date Type Department Care Team (Latest Contact Info) Description 07/07/2025 Travel Social History Tobacco Use Types Packs/Day [...] documented as of this encounter Care Teams Encephalographer Relationship Specialty Start Date End Date Shital La MD [address] [place] [phone] PCP - General Family Medicine 12/22/20 documented as of this encounter
--- OUTSIDE RECORDS SUMMARY | 2025-07-07 13:31 | XMS_ITS | Encounter Summary ---
Author Organization [employer] Address [address] [place] [address] 7 [place] [address] Care Team Providers Care Chief Pilot Name Role Phone Shital La MD Primary Care Provider + Encounter Details Date Type Department Care Team (Late st Contact Info) Description 11/10/2022 Orders Only [facility] [address] [place], [place] [phone] Santa Sherman, RN [address] [place] [address] Social History Tobacco Use Types Packs/Day Years [...] on filedocumented in this encounter Care Teams Chief Pilot Relationship Specialty Start Date End Date Shital La MD [address] [place], [place] [phone] PCP - General Family Medicine 12/22/20 documented as of this encounter
--- OUTSIDE RECORDS SUMMARY | 2025-07-07 13:31 | XMS_ITS | Encounter Summary ---
Author Organization [employer] Address [address] [facility] [address] [place] [address] Care Team Providers Care Data Transcriber Name Role Phone Shital La MD Primary Care Provider + Encounter Details Date Type Department Care Team (Late st Contact Info) Description 12/15/2022 Orders Only [facility] CHC MED & PEDS [address] [place], [place] [phone] Nancy Zheng LPN Social History Tobacco Use [...] on filedocumented in this encounter Care Teams Data Transcriber Relationship Specialty Start Date End Date Shital La MD [address] [place] [phone] PCP - General Family Medicine 12/22/20 documented as of this encounter
--- OUTSIDE RECORDS SUMMARY | 2025-07-07 13:31 | XMS_ITS | Encounter Summary ---
Author Organization [employer] Address 75 [facility] 7t [place] [address] Care Team Providers Care Contact Representative Name Role Phone Shital La MD Primary Care Provider + Reason for Visit * Reason Onset Date Comments Nurse Triage 06/02/2025 Encounter Details Date Type Department Care Team ([facility] Contact Info) Description 06/02/2025 Telephone [facility] MEDICINE [address] [place], [place] [phone] Shital La MD 230 [place] [address] Nurse Triage Social History Tobacco Use Types [...] 3:48 PM EDT Noted patient arrived at [facility] in [place] * Telephone Encounter - Santa Sherman RN - 06/02/2025 3:07 PM EDT Called pt. Via [facility] mammography technician Juliana Cortez. No answer. Lozenge Maker Helper left a message for pt. To call 911 if this is an emergency and please call back [facility] nurses paolo at [phone]. Called back x2. Pt.States that she got [...] and is already on her way to [facility] walk in. I will send this note to Walk in nurses as a heads up. Protocol Used: Eye - Chemical In (Adult) Protocol-Based Disposition: Go [place] [place] (or to Office with PCP Approval) [...] got in her eye. Contact pt at [phone] (palauan) documented in this encounter Plan of Treatment Not on file documented as of this encounter Visit Diagnoses Not on filedocumented in this encounter Additional Health Concerns Assessment Noted Time PHQ-9 Depression Total Score: 3 04/13/20 25 1:55 PM EDT documented as of this encounter Care Teams Contact Representative Relationship Specialty Start Date End Date Shital La MD [address] [place] [id number] PCP - General Family Medicine 12/22/20 documented as of this encounter
--- OUTSIDE RECORDS SUMMARY | 2025-07-07 13:31 | XMS_ITS | Encounter Summary ---
Author Organization [employer] Address [address] [place] [address] 7 [place] [address] Care Team Providers Care Instrument And Control Service Person Name Role Phone Shital La MD Primary Care Provider + Reason for Visit * Reason Onset Date Comments Appointment Request 01/23/2023 Encounter Details Date Type Department Care Team ([facility] Contact Info) Description 01/23/2023 Telephone [facility] MEDICINE 230 [place], [place] [phone] Shital La MD [address] [place] [address] Appointment Request Social History Tobacco Use Types [...] a physical appt. Please contact pt at [phone] documented in this encounter Plan of Treatment Not on file documented as of this encounter Visit Diagnoses Not on filedocumented in this encounter Care Teams Instrument And Control Service Person Relationship Specialty Start Date End Date Shital La MD [address] [place] [address] PCP - General Family Medicine 12/22/20 documented as of this encounter
--- OUTSIDE RECORDS SUMMARY | 2025-07-07 13:31 | XMS_ITS | Encounter Summary ---
Author Organization [employer] Address 75 [facility] 7t [place] [address] Care Team Providers Care Community Youth Secretary Name Role Phone Shital La MD Primary Care Provider + Reason for Visit * Reason Comments Med Refill Encounter Details Date Type Department Care Team ([facility] Contact Info) Description 07/03/2025 Refill [facility] CHC MED & PEDS [address] [place], [place] [phone] Shital La MD [address] [place] [address] Arthritis Social History Tobacco Use Types Packs/Day [...] documented as of this encounter Care Teams Community Youth Secretary Relationship Specialty Start Date End Date Shital La MD [address] [place] [phone] PCP - General Family Medicine 12/22/20 documented as of this encounter
--- OUTSIDE RECORDS SUMMARY | 2025-07-07 13:31 | XMS_ITS | Encounter Summary ---
Author Organization [employer] Address 75 [facility] 7t [place] [address] Care Team Providers Care Database Security Expert Name Role Phone Shital La MD Primary Care Provider + Encounter Details Date Type Department Care Team ([facility] st Contact Info) Description 03/16/2023 Orders Only [facility] CHC MED & PEDS [address] [place], [place] [phone] Nancy Zheng LPN Social History Tobacco Use [...] on filedocumented in this encounter Care Teams Database Security Expert Relationship Specialty Start Date End Date Shital La MD [address] [place] [phone] PCP - General Family Medicine 12/22/20 documented as of this encounter
--- OUTSIDE RECORDS SUMMARY | 2025-07-07 13:31 | XMS_ITS | Encounter Summary ---
Author Organization [employer] Address 75 [facility] 7t [place] [address] Care Team Providers Care Aircraft Electronics Technical Officer Name Role Phone Shital La MD Primary Care Provider + Encounter Details Date Type Department Care Team (Late st Contact Info) Description 02/20/2025 Telephone [facility] MEDICINE [address] [place], [place] [phone] Shital La MD 230 [place], [place] [phone] Social History Tobacco Use Types Packs/Day Years [...] on filedocumented in this encounter Care Teams Aircraft Electronics Technical Officer Relationship Specialty Start Date End Date Shital La MD [address] [place] [phone] PCP - General Family Medicine 12/22/20 documented as of this encounter
--- OUTSIDE RECORDS SUMMARY | 2025-07-07 13:31 | XMS_ITS | Encounter Summary ---
Author Organization [employer] Address 75 [facility] 7t [place] [address] Care Team Providers Care Crotch Piece Baster Name Role Phone Shital La MD Primary Care Provider + Reason for Visit * Reason Comments Med Refill Encounter Details Date Type Department Care Team ([facility] st Contact Info) Description 06/20/2025 Refill [facility] [address] [place], [place] [phone] Yadiel Rose MD 230 [place] [address] Mild persistent asthma with acute exacerbation Social [...] documented as of this encounter Care Teams Crotch Piece Baster Relationship Specialty Start Date End Date Shital La MD [address] [place] [id number] PCP - General Family Medicine 12/22/20 documented as of this encounter
--- OUTSIDE RECORDS SUMMARY | 2025-07-07 13:31 | XMS_ITS | Clinical Summary ---
Author Organization [address] [facility] Address [address] [place] [address] Phone Care Team Providers Care Industrial Gas Servicer Name Role Phone Shital La MD Primary Care Provider + [phone] Allergies Active Allergy Reactions Criticality Noted Date [...] AM EDT Office Visit Bariatric Surgery - [place] [address] [facility] [address] [place] [address] Maegan Khan MD [address] [place] [phone] Health Maintenance Due Date Last Done Comments Breast Cancer Screening 1955 RSV Immunization Adult Patients (1 - Risk 60-74 years 1-dose series) 2017 Cholesterol Screening (Lipid Panel) 10/03/2022 Colorectal Cancer Screening: Colonoscopy 10/03/2022 Falls Risk Assessment 10/03/2022 Hepatitis C Screening 10/03/2022 Medicare Annual Wellness Visit 10/03/2022 Social Influencers of Health Screening 10/03/2022 Depression Screening 11/05/2024 COVID-19 Vaccine ( season) 2025 06/05/2022, 07/04/2021, [...] complete [place] [id number] [employer] Member Subscriber Plan / Payer (Ef fective 2022-Present) Name:Jennifer Spicer Relation to Subscriber:Self Name:Jennifer Spicer Payer ID:[id number] Group ID:[id number] Type:Not on file Address: [place] [address] [address] [id number] Care Teams Industrial Gas Servicer Relationship Specialty Start Date End Date Shital La MD [address] [place] [address] [place] Rivero [phone] PCP - General 06/21/22
== END 2025-07-07 12:20 | disposition home or self-care (01) ==
LOC: HO.HHCX 12:19
PROVIDERS: Visit Provider Internal Medicine
DX: L84 Corns and callosities (principal)
CPT/HCPCS: 73660

== ENCOUNTER → 2025-07-07 12:20 | Outpatient (BNV) | payer OTHER, SELFPAY | PROVIDERS: Visit Provider Radiology Diagnostic Radiology | DX: M19.071 Primary osteoarthritis, right ankle and foot (principal) | CPT/HCPCS: 73660 ==

== ENCOUNTER 2025-07-20 13:45 | Outpatient (AMB) | payer OTHER, SELFPAY ==
[2025-07-20 14:03] VITALS: BP 118/68; PULSE 65; BMI 37.5
--- NOTE | 2025-07-20 14:03 | A.OFFVIS_ITS ---
Vital Signs 07/20/25 14:03 Height 5 ft 2 in Weight 205 lb 0.478 oz BMI 37.5 BP 118/68 Blood Pressure Location Lt brachial Position Sitting Pulse 65 Intake Visit Reasons: TANK CARPENTER/Dr. Rose/Chest pain, palpitations Intake Note: New patient with ekg c/o sob Import Export Manager Required: Yes Import Export Manager Name: [facility] Allergies morphine Allergy (Unknown, Verified 06/02/25 17:18) HIVES Medication List - Last Reconciled 07/20/25 by Darryl Vaughn MD acetaminophen 500 mg PO Q8H PRN albuterol sulfate 90 mcg/actuation (Ventolin HFA) 2 puffs inhalation Q4-6H PRN calcium carbonate (Calcium Antacid) tabs PO cholecalciferol (vitamin D3) 50 mcg PO DAILY cyclobenzaprine 5 mg PO BEDTIME dicyclomine 20 mg PO QID ketotifen fumarate 0.025%(0.035%) 1 drp ophthalmic (eye) Q8H lisinopril-hydrochlorothiazide 20-25 mg 1 tab PO DAILY loratadine 10 mg PO DAILY nortriptyline 25 mg PO BEDTIME omeprazole 40 mg PO BID sumatriptan succinate 100 mg PO Q2-4H PRN tobramycin 0.3% 1 drp ophthalmic-Right Q4H trazodone 50 mg PO BEDTIME HPI Comments Details: Jennifer was referred here for evaluation of right-sided chest pain. History was obtained with help of articulation officer. Patient with prior history of hypertension, obesity, Sung, referred because she is worried about cardiovascular history. Patient says she has right-sided chest pain which is worse with coughing. She has not had any exertional chest pain. However she had she does get exertional short of breath when she goes a flight of stairs. Denies any orthopnea, PND, leg edema. No lightheadedness, syncope. No prolonged palpitation. She is referred here for further cardiac evaluation. [facility] Medical History Periumbilical abdominal pain History of frequent headaches Cough Fever Dyspnea Generalized postprandial abdominal pain Weight loss H. pylori infection Abnormal EKG Precordial chest pain Sacroiliitis Close exposure to COVID-19 virus SUNG (nonalcoholic steatohepatitis) GERD (gastroesophageal reflux disease) Depression Asthma Morbid obesity due to excess calories Essential hypertension Surgical History Status post bariatric surgery History of esophagogastroduodenoscopy (EGD) H/O breast surgery Hx of colonoscopy Family History Father Heart attack Mother Thrombosis Social History Alcohol intake: never Patient Tobacco Use Status: Never used Tobacco Review of Systems Const Denies chills, Denies daytime sleepiness, Denies fatigue, Denies fever(s), Denies frequent falls, Denies poor appetite, Denies snoring, Denies stops breathing during sleep, Denies weakness, Denies weight gain and Denies weight loss Eyes Denies loss of vision ENT Denies dizziness and Denies hearing loss Card Denies chest pain, Denies claudication, Denies leg edema, Denies lightheadedness, Denies palpitations, Denies dyspnea, Denies dyspnea on exertion and Denies orthopnea Resp Denies cough, Denies excessive phlegm production, Denies dyspnea, Denies dyspnea on exertion, Denies snoring and Denies wheezing GI Denies abdominal pain, Denies hematochezia, Denies change in bowel habits, Denies nausea and Denies vomiting Denies urinary frequency and Denies dysuria Musc Denies arthralgias, Denies muscle weakness and Denies numbness Skin/Breast Denies nail changes and Denies rash Neuro Denies Abnormal speech present, Denies dizziness, Denies frequent falls, Denies loss of vision, Denies memory loss, Denies numbness and Denies weakness Psych Denies depression and Denies memory loss Endo Denies fatigue and Denies palpitations Jason/Lymph Reports easy bruising and Reports other (anemia) Aller/Immun Denies wheezing Physical Exam Vital Signs: Last Vital Signs Pulse 65 07/20/25 14:03 BP 118/68 09/15/25 14:03 BMI result Body Mass Index 37.5 Const General: cooperative, comfortable, no acute distress, alert, awake and Physically active Nutritional Appearance: obese Orientation/consciousness: patient oriented x3 Limitations: no limitations HEENT Head: Yes normocephalic and Yes atraumatic Neck Neck: Yes trachea midline, Yes supple and Yes no JVD Resp Effort & Inspection: normal respiratory effort Auscultation: clear to auscultation bilaterally Cardio Jugular venous distension: no JVD Palpation: normal PMI Rate: regular rate Rhythm: regular rhythm Heart sounds: S1 normal heart sound present, S2 normal heart sound present, no click, no gallops, no murmurs and no rubs GI Auscultation: normal bowel sounds Neuro General: patient oriented x3 and no focal motor deficits Speech: No Abnormal speech present Extrem General: Yes no clubbing, cyanosis or edema Office Procedures EKG Details: EKG shows normal sinus rhythm with poor R-wave progression most likely due to lead placement 05499-[id number], Complete Assessment & Plan Assessment & Plan (1) Short of breath on exertion: Code(s): R06.02 - Shortness of breath Plan: Shortness of breath on this elderly woman with risk factors of hypertension obesity. Patient has EKGs that is suggest poor R-wave progression most likely lead placement. I would suggest an echocardiogram to assess for LV systolic and diastolic function to evaluate for wall motion abnormality. Also suggest exercise myocardial perfusion imaging to rule out myocardial ischemia. If these tests are within normal limits and likelihood of underlying structural heart disease very low and this was discussed with her. This would also carry a good prognosis. Will suggest her to be evaluated in near future with the same. A blood pressure is currently well optimized on current medication importance of good blood pressure control was discussed. Advised to monitor blood pressure at home maintain maintain a log. Target goal blood pressure less than 130/84. Consider lipid modification with target goal LDL less than 100 mg/dL. Participate in aggressive exercise weight loss program was discussed. Will follow up in the clinic if need be. Thank you for allowing me to partake in her care Orders: Orders CA lexiscan stress w ophelia Today E66.01 - Morbid (severe) obesity due to excess calories, I10 - Essential (primary) hypertension, R06.02 - Shortness of breath CA echo transthoracic complete Today I10 - Essential (primary) hypertension, R06.02 - Shortness of breath Coding Level of Care Code New Pt Level 4 (17020) Complex EM visit Add On G2211 Diagnoses Short of breath on exertion R06.02 CPT Codes EKG - CPT: 85354-[id number], Complete ([id number])
--- OUTSIDE RECORDS SUMMARY | 2025-07-20 19:01 | XMS_ITS | Encounter Summary ---
Author Organization [employer] Address 75 [facility] 7t [place] [address] Care Team Providers Care Data Coordinator Name Role Phone Shital La MD Primary Care Provider + Reason for Visit * Reason Comments Med Refill Encounter Details Date Type Department Care Team ([facility] Contact Info) Description 07/15/2025 Refill [facility] MEDICINE [address] [place], [place] [phone] Shital La MD [address] [place] [address] Social History Tobacco Use Types Packs/Day Years [...] documented as of this encounter Care Teams Data Coordinator Relationship Specialty Start Date End Date Shital La MD [address] [place] [address] PCP - General Family Medicine 12/22/20 documented as of this encounter
--- OUTSIDE RECORDS SUMMARY | 2025-07-20 19:01 | XMS_ITS | Encounter Summary ---
Author Organization [employer] Address 75 [facility] 7t [place] [address] Care Team Providers Care Item Processing Clerk Name Role Phone Shital La MD Primary Care Provider + Reason for Visit * Reason Onset Date Comments Nurse Triage 06/02/2025 Encounter Details Date Type Department Care Team ([facility] Contact Info) Description 06/02/[address] [facility] MEDICINE 230 [place], [place] [phone] Shital La MD 230 [place] [address] Nurse Triage Social History Tobacco Use Types [...] 3:48 PM EDT Noted patient arrived at [facility] in [place] * Telephone Encounter - Santa Sherman RN - 06/02/2025 3:07 PM EDT Called pt. Via [facility] body cleaner Juliana Cortez. No answer. Horseradish Maker left a message for pt. To call 911 if this is an emergency and please call back [facility] nurses paolo at [phone]. Called back x2. Pt.States that she got [...] and is already on her way to [facility] walk in. I will send this note to Walk in nurses as a heads up. Protocol Used: Eye - Chemical In (Adult) Protocol-Based Disposition: Go to ED/[facility] Now (or to Office with PCP Approval) [...] got in her eye. Contact pt at [phone] (moroccan) documented in this encounter Plan of Treatment Not on file documented as of this encounter Visit Diagnoses Not on filedocumented in this encounter Additional Health Concerns Assessment Noted Time PHQ-9 Depression Total Score: 3 04/13/20 25 1:55 PM EDT documented as of this encounter Care Teams Item Processing Clerk Relationship Specialty Start Date End Date Shital La MD [address] [place] [phone] PCP - General Family Medicine 12/22/20 documented as of this encounter
--- OUTSIDE RECORDS SUMMARY | 2025-07-20 19:01 | XMS_ITS | Encounter Summary ---
Author Organization [employer] Address 75 [facility] 7t [place] [address] Care Team Providers Care Web Page Developer Name Role Phone Shital La MD Primary Care Provider + Reason for Visit * Reason Onset Date Comments Nurse Triage 04/06/2025 Encounter Details Date Type Department Care Team ([facility] st Contact Info) Description 04/06/2025 Telephone [facility] MEDICINE [address] [place], [place] [phone] Shital La MD [address] [place], [place] [phone] Nurse Triage Social History Tobacco Use Types [...] 04/06/2025 9:36 AM EDT Triage call with [facility] [place] [id number] Shaina Pt reports is already at the [facility] at [facility]. Pt is advised to wait to be seen. Pt is requesting to see taproom attendant . Pt is advised to provide information to [facility] personnel for assist and Pt agrees. Insurance [...] on filedocumented in this encounter Care Teams Web Page Developer Relationship Specialty Start Date End Date Shital La MD [address] [place] [phone] PCP - General Family Medicine 12/22/20 documented as of this encounter
--- OUTSIDE RECORDS SUMMARY | 2025-07-20 19:01 | XMS_ITS | Encounter Summary ---
Author Organization [employer] Address 75 [facility] 7 [place] [address] Care Team Providers Care Manager Human Capital Name Role Phone Shital La MD Primary [...] on filedocumented in this encounter Care Teams Manager Human Capital Relationship Specialty Start Date End Date Shital La MD [address] [place] [phone] PCP - General Family Medicine 12/22/20 documented as of this encounter
--- OUTSIDE RECORDS SUMMARY | 2025-07-20 19:01 | XMS_ITS | Encounter Summary ---
Author Organization [employer] Address 75 [facility] 7t [place] [address] Care Team Providers Care Dehydrogenation Converter Operator Name Role Phone Shital La MD Primary Care Provider + Reason for Visit * Reason Comments Med Refill Encounter Details Date Type Department Care Team ([facility] st Contact Info) Description 06/20/2025 Refill [facility] 230 [place], [place] [phone] Yadiel Rose MD [address] [place] [address] Mild persistent asthma with acute exacerbation Social [...] documented as of this encounter Care Teams Dehydrogenation Converter Operator Relationship Specialty Start Date End Date Shital La MD [address] [place] [address] PCP - General Family Medicine 12/22/20 documented as of this encounter
--- OUTSIDE RECORDS SUMMARY | 2025-07-20 19:01 | XMS_ITS | Encounter Summary ---
Author Organization [employer] Address 75 [facility] 7t [place] [address] Care Team Providers Care Party Chief Name Role Phone Shital La MD Primary Care Provider + Encounter Details Date Type Department Care Team (Late st Contact Info) Description 02/20/2025 Telephone [facility] MEDICINE [address] [place], [place] [phone] Shital La MD 230 [place], [place] [phone] Social History Tobacco Use Types Packs/Day Years [...] on filedocumented in this encounter Care Teams Party Chief Relationship Specialty Start Date End Date Shital La MD [address] [place] [address] PCP - General Family Medicine 12/22/20 documented as of this encounter
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
--- OUTSIDE RECORDS SUMMARY | 2025-07-20 19:01 | XMS_ITS | Encounter Summary ---
Author Organization [employer] Address [address] [place] [address] [address] [place] [address] Care Team Providers Care Business Banker Name Role Phone Shital La MD Primary Care Provider + Encounter Details Date Type Department Care Team (Late st Contact Info) Description 11/10/2022 Orders Only [facility] MEDICINE [address] [place], [place] [phone] Santa Sherman, RN [address] [place] [address] Social History Tobacco Use Types Packs/Day Years [...] filedocumented in this encounter Care Teams Business Banker Relationship Specialty Start Date End Date Shital La MD [address] [place], [place] [phone] PCP - General Family Medicine 12/22/20 documented as of this encounter
--- OUTSIDE RECORDS SUMMARY | 2025-07-20 19:01 | XMS_ITS | Clinical Summary ---
Author Organization [facility] Address [address] [place] [address] Phone Care Team Providers Care Remote Recruiter Name Role Phone Shital La MD Primary Care Provider + [phone] Allergies Active Allergy Reactions Criticality Noted Date [...] AM EDT Office Visit [facility] [place] [address] [place] [address] Maegan Khan MD [address] [place] [phone] Health Maintenance Due Date Last Done Comments Breast Cancer Screening 1955 RSV Immunization Adult Patients (1 - Risk 60-74 years 1-dose series) 2017 Cholesterol Screening (Lipid Panel) 10/03/2022 Colorectal Cancer Screening: Colonoscopy 10/03/2022 Falls Risk Assessment 10/03/2022 Hepatitis C Screening 10/03/2022 Medicare Annual Wellness Visit 10/03/2022 Social Influencers of Health Screening 10/03/2022 Depression Screening 11/05/2024 COVID-19 Vaccine ( - season) 2025 06/05/2022, 07/04/2021, 01/05/2021, Additional history [...] complete [place] [id number] [facility] MEDICARE Member Subscriber Plan / Payer (Ef fective 2022-Present) Name:Jennifer Spicer Relation to Subscriber:Self Name:Jennifer Spicer Payer ID:[id number] Group ID:[id number] Type:Not on file Address: [place] [address] [place] [phone] Care Teams Remote Recruiter Relationship Specialty Start Date End Date Shital La MD [address] [place] [address] [place] [phone] PCP - General 06/21/22
--- OUTSIDE RECORDS SUMMARY | 2025-07-20 19:01 | XMS_ITS | Encounter Summary ---
Author Organization [employer] Address [address] [facility] [address] [place] [address] Care Team Providers Care Strickler Attendant Name Role Phone Shital La MD Primary Care Provider + Encounter Details Date Type Department Care Team ([facility] st Contact Info) Description 03/16/2023 Orders Only [facility] CHC MED & PEDS [address] [place], [place] [phone] Nancy Zheng LPN Social History Tobacco Use [...] on filedocumented in this encounter Care Teams Strickler Attendant Relationship Specialty Start Date End Date Shital La MD [address] [place] [address] PCP - General Family Medicine 12/22/20 documented as of this encounter
--- OUTSIDE RECORDS SUMMARY | 2025-07-20 19:01 | XMS_ITS | Encounter Summary ---
Author Organization [employer] Address [address] [facility] [address] [place] [address] Care Team Providers Care Gas Meter Prover Name Role Phone Shital La MD Primary Care Provider + Encounter Details Date Type Department Care Team (Late st Contact Info) Description 12/15/2022 Orders Only [facility] CHC MED & PEDS [address] [place], [place] [phone] Nancy Zheng LPN Social History Tobacco Use [...] on filedocumented in this encounter Care Teams Gas Meter Prover Relationship Specialty Start Date End Date Shital La MD [address] [place] [address] PCP - General Family Medicine 12/22/20 documented as of this encounter
--- OUTSIDE RECORDS SUMMARY | 2025-07-20 19:01 | XMS_ITS | Encounter Summary ---
Author Organization [employer] Address [address] [facility] [address] [place] [address] Care Team Providers Care Director Of Estate Name Role Phone Shital La MD Primary Care Provider + Reason for Visit * Reason Onset Date Comments Referral 08/10/2023 Encounter Details Date Type Department Care Team ([facility] st Contact Info) Description 08/10/[address] [facility] MEDICINE [address] [place], [place] [phone] Shital La MD [address] [place], [place] [phone] Referral Social History Tobacco Use Types Packs/Day [...] with others, in a hotel, in a custodial, living outside on the street, on a [...] 1:55 PM EDT Tc from ivette with [facility] requesting a new referral. States referral was made for the left knee but per pt, it is the right knee. Please fax to [phone] Any questions, contact ivette at [phone] documented in this encounter Plan of Treatment Not on file documented as of this encounter Visit Diagnoses Diagnosis Acute pain of right knee- Primary documented in this encounter Care Teams Director Of Estate Relationship Specialty Start Date End Date Shital La MD [address] [place] [address] PCP - General Family Medicine 12/22/20 documented as of this encounter
--- OUTSIDE RECORDS SUMMARY | 2025-07-20 19:01 | XMS_ITS | Encounter Summary ---
Author Organization [employer] Address [address] [place] [address] [address] [place] [address] Care Team Providers Care Manager Child Name Role Phone Shital La MD Primary Care Provider + Reason for Visit * Reason Onset Date Comments Appointment Request 01/23/2023 Encounter Details Date Type Department Care Team ([facility] Contact Info) Description 01/23/2023 Telephone [facility] MEDICINE [address] [place], [place] [phone] Shital La MD [address] [place] [address] Appointment Request Social History Tobacco Use Types [...] a physical appt. Please contact pt at [phone] documented in this encounter Plan of Treatment Not on file documented as of this encounter Visit Diagnoses Not on filedocumented in this encounter Care Teams Manager Child Relationship Specialty Start Date End Date Shital La MD [address] [place] [address] PCP - General Family Medicine 12/22/20 documented as of this encounter
--- OUTSIDE RECORDS SUMMARY | 2025-07-20 19:01 | XMS_ITS | Encounter Summary ---
Author Organization [employer] Address [address] [facility] [address] [place] [address] Care Team Providers Care Measuring Machine Tender Name Role Phone Shital La MD Primary Care Provider + Encounter Details Date Type Department Care Team (Late st Contact Info) Description 04/04/2024 Orders Only [facility] MEDICINE [address] [place], [place] [phone] Provider, MD Leeann Social History Tobacco Use [...] on filedocumented in this encounter Care Teams Measuring Machine Tender Relationship Specialty Start Date End Date Shital La MD [address] [place] [address] PCP - General Family Medicine 12/22/20 documented as of this encounter
== END 2025-07-20 14:44 | disposition home or self-care (01) ==
LOC: HO.HCS 13:46
PROVIDERS: PCP Internal Medicine; Visit Provider Internal Medicine Cardiovascular Disease
DX: R06.02 Shortness of breath (principal)
CPT/HCPCS: 93010; 99204; G2211

== ENCOUNTER → 2025-07-20 13:45 | Outpatient (BNVA) | payer OTHER, SELFPAY | PROVIDERS: PCP Internal Medicine; Visit Provider Internal Medicine Cardiovascular Disease | DX: R06.02 Shortness of breath (principal); E66.01 Morbid (severe) obesity due to excess calories; I10 Essential (primary) hypertension | CPT/HCPCS: 93005; 99202 ==

== ENCOUNTER 2025-08-12 09:25 | Outpatient (REF) | payer OTHER, SELFPAY | END 2025-08-12 09:26 | disposition home or self-care (01) | LOC: HO.MAMMO 09:25 | PROVIDERS: PCP Internal Medicine; Visit Provider Internal Medicine | DX: Z12.31 Encounter for screening mammogram for malignant neoplasm of breast (principal) | CPT/HCPCS: 77063; 77067 ==

== ENCOUNTER → 2025-08-12 11:00 | Outpatient (BNV) | payer OTHER, SELFPAY | PROVIDERS: PCP Internal Medicine; Visit Provider Internal Medicine | DX: Z12.31 Encounter for screening mammogram for malignant neoplasm of breast (principal) | CPT/HCPCS: 77063; 77067 ==

== ENCOUNTER → 2025-08-21 09:42 | Outpatient (REF) | payer OTHER, SELFPAY ==
--- NOTE | 2025-08-21 09:45 | CA_ITS ---
Transthoracic Echocardiogram Patient (Last, First, Middle): Jennifer Spicer, Gender: Female Date of : 1955 Age: 70 Procedure Date: 08/21/2025 Procedure Type: Transthoracic Echocardiogram Location: OP Height: 157.48 cm Weight: 95.26 kg BSA: 1.95 m2 Heart Rate: bpm BP: 130 / 80 mmHg Manager Control: Referring MD: Darryl Vaughn MD Symptoms: R06.02 - Shortness of breath Study Quality: Good ECG Rhythm: Sinus Conclusions: - Normal left ventricular size and systolic function. There is moderately increased left ventricular wall thickness. The visually estimated ejection fraction is between 60-65%. - Normal right ventricular cavity size and systolic function. Findings Left Ventricle Normal left ventricular size and systolic function. There is moderately increased left ventricular wall thickness. The visually estimated ejection fraction is between 60-65%. There is no evidence of regional wall motion abnormalities. Abnormal diastolic function is noted. Spectral Doppler is indicative of an impaired relaxation filling pattern. E/E prime ratio is between 8 and 15 consistent with indeterminate filling pressures. Right Ventricle Normal right ventricular cavity size and systolic function. Atria The left atrium is normal in size. The right atrium is normal in size. Aortic Valve Normal aortic valve structure and function. There is no aortic valve stenosis. There is no aortic valve regurgitation. Mitral Valve The mitral valve appears normal. There is no mitral valve regurgitation. There is no mitral valve stenosis. Pulmonic Valve The pulmonic valve is normal. There is no pulmonic valve regurgitation. Tricuspid Valve Normal tricuspid valve structure. There is no tricuspid valve regurgitation. Normal right atrial pressure. There is no evidence of pulmonary hypertension. Great Vessels All visible segments of the aorta are normal in size. There is moderate dilatation of the ascending aorta. The visualized portions of the pulmonary artery and branches are normal. Venous The inferior vena cava is normal in size and collapses greater than 50% with inspiration. Pericardium/Pleural There is no evidence of pericardial effusion. Prior Study Comparison No significant change compared to prior study dated: 01/20/2021. Measurements 2D Linear Measurements IVSd: 1.26 0.6-0.9/0.6-1.0 cm LVIDd: 3.57 3.9-5.3/4.2-5.9 cm LVIDd Index: 1.83 2.4-3.2/2.2-3.1 cm/m2 LVIDs: 2.20 2.0-3.6 cm LVPWd: 1.29 0.7-1.1 cm Ao Root: 2.90 2.1-3.5 cm LA Diam: 3.90 2.7-3.8/3.0-4.0 cm LAIDs Index: 2.00 1.5-2.3 cm/m2 LV Mass: 191.07 67-162/88-224 g LV Mass Index: 97.98 43-95/49-115 g/m2 LVOT Diam: 2.10 3.0+(-)1.3 cm Mitral Valve MV VTI: 0.28 MV Pk Jean: 0.92 MV Mn Jean: 0.53 MV Pk Grad: 3.00 MV Mn Grad: 1.00 MV Pk E: 0.63 MV PK A: 0.91 MV Decel Time: 177.00 E/A: 0.70 E'Lateral: 10.80 E'Medial: 4.79 E/E' Med: 13.20 E/E' Lat: 5.90 PHT: 52.00 MVA PHT: 4.23 MVA Continuity: 3.31 Decel Pope: 3.58 Aortic Valve AoV Pk Jean: 1.74 AoV Mn Jean: 1.19 AoV VTI: 0.37 AoV Pk Grad: 12.00 Aov Mn Grad: 6.00 ALDO Cont.VTI: 2.46 LVOT LVOT Pk Jean: 1.25 LVOT Mn Jean: 0.80 LVOT VTI: 0.27 LVOT Pk Grad: 6.00 LVOT Mn Grad: 3.00 LVOT Diam: 2.10 LVOT Area: 3.46 Diastolic Function MV Pk E: 0.63 MV Pk A: 0.91 E/A: 0.70 E'Medial: 4.79 E/E' Med: 13.20 E' Laterial: 10.80 E/E' Lat: 5.90 Right Ventricle TAPSE (mm): 29.00 Tricuspid Valve TR Pk Jean: 1.61 TR Pk Grad: 10.00 RA Press: 3.00 RVSP: 13.00 Great Vessels Aorta Ao Root-2D: 2.90 2.0-3.7 cm Ao Asc: 3.40 2.1-3.4 cm Pulmonary Valve PV Pk Jean: 0.91 Peak PV Grad: 3.00 Updated in Other Vendor System with Status of Final Alfred Donohue MD electronically signed on 08/23/2025 7:50:45 PM with status of Final
--- OUTSIDE RECORDS SUMMARY | 2025-08-21 11:08 | XMS_ITS | Encounter Summary ---
Author Organization [employer] Address 75 [facility] 7 [place] [address] Care Team Providers Care Miller Distillery Name Role Phone Shital La MD Primary Care Provider + Encounter Details Date Type Department Care Team (Latest Contact Info) Description 10/13/2019 Abstract C CONVERSIONS Dental, Provider, DDS Social History Tobacco [...] on filedocumented in this encounter Care Teams Miller Distillery Relationship Specialty Start Date End Date Shital La MD [address] [place] [address] PCP - General Family Medicine 12/22/20 documented as of this encounter
--- OUTSIDE RECORDS SUMMARY | 2025-08-21 11:08 | XMS_ITS | Data Portability ---
Author Organization [facility] Address [address] [place] [phone] Care Team Providers Care Manual Arts Therapist Name Role Phone HIM CCA OTHER Unavailable Primary Care Provider Assessment Encounter Date Assessment Date Assessment LastModified by Organization Details LastModified Time 03/25/2025 03/25/2025 As noted, we were called to see this patient regarding concerns of Runny nose and cough. Evaluation in the field was performed by my respiratory therapist colleague, as noted above, I provided real-time [...] Ag, QL IA, respiratory specimen 2024 025 [facility], [address] [place] [address], [phone] 11:56:19 rapid flu (A+B) [address], [phone] 11:56:36 Referral None recorded. Procedures None recorded. Surgeries None recorded. Imaging None recorded. Medication Orders Paxlovid 300 mg (150 mg x 2)-100 mg tablets in a dose pack 2024 025 [facility], [address] [place] [address], [id number], 15:07:31 Patient TargetsNo targets recorded. Patient InstructionsNo instructions recorded. Reason for Referral None Reported. Results Created Date Observation Date Name Description Value Unit Range Abnormal Flag Note LastModifiedBy Organization Detail LastModifiedTime 03/25/2003/25/2025 rapid flu (A+B) Flu negati ve Not Available [facility] ed [address] [place] [address], [phone] 03/25/2025 11:04:54 03/25/2003/25/2025 rapid SARS CoV 2 Ag, QL IA, respi rator y speci men rapid SARS CoV 2 Ag, QL IA, respiratory specimen positi ve Not Available [address], [phone] 03/25/2025 11:04:52 Result Notes None recorded. Medical Equipment None Reported. Allergies Allergen ID Allergen Name Allergen Category Reaction Reaction Severity Criticality Documentation Date Start Date Code Code System Note Provider Name and Address Organization Details Recorded Time 86610 morphine medicatio n Not available Not available Not available 03/25/2025 7052 RxNorm Not Available InstEDNo - production 10:40:56 Medications Name Sig Start [...] Diagnosis SNOMED-CT Code Diagnosis ICD10 Code Diagnosis IMO Codes Diagnosis Note [id number] Parker Gallardo MD Main - [address] [phone] 03/25/2025 10:59:48 03/25/2025 18:27:44 COVID-19 [id number] U07.9 [id number] Health Concerns Section Related Observation LastModified by Organization Detai ls LastModified Time None Recorded Concern Status LastModified by Organization Details LastModified Time None Recorded Advance Directives Directive None Recorded Payers Insurance Date Sequence Insurance Name Policy Number Policy Lindo Covered Member ID Lindo Member ID Guarantor Name 03/25/2025 1 [facility] - DOS ON OR AFTER 2023 - DUAL ELIGIBLE - [facility] OPTIONS AND ONE CARE (MEDICARE REPLACEMENT/ADV ANTAGE - HMO) Jennifer Spicer [id number] Jennifer Spicer Notes Date Note Type Note Provider Name and Address Organization Details Recorded Time 03/25/2025 text/html ROS as noted in the HPI CRC Nurse Triage Notes (Mendy Morataya): Reason For Request: Coughing Patient Reports: Cough, fever greater than 2 days ; History of asthma, increased use of inhaler; COPD; COVID Exposure; Sputum increase ; Cough Denies: Increased work of breathing/labored with or without fever Unable to speak in full sentences without distress Discoloration of skin -cyanosis Needs to sleep sitting up, can t catch breath Shortness of breath in setting of confusion Lower extremity swelling Shortness of breath with exertion Pain with inspiration Chief Complaints: Cough, Common Cold PMH: Pneumonia, COPD/Asthma PMH Reviewed at 03/25/2025 - 10:40 Allergies Reviewed at 03/25/2025 - 10:40 Comments: 69 y.o female c/o cough, common cold symptoms, nasal congestion, sore throat, feeling weakness/fatigue. has COVID and exposed to him and brother. PMH: recent PNA?, gastritis Utilized public health sanitarian All questions answered. Medic on site for at this time I provided information on the mobile health provider response time and advised the patient and/or caregiver to monitor reported signs and symptoms. I discussed the warning signs of when to seek emergency care. Dredge Captain Organization Information for [employer] Legal Name: [employer]. Address: [address] [place] [address], Public Health Epidemiologist: Charles EDWARDS No.: [id number] Dredge Captain POC Test Results from [employer] Rapid COVID antigen (10:53:04) COVID: + Attachments uploaded as part of this test result can be found under Documents section. Rapid influenza antigen (10:53:05) Flu: - Attachments uploaded as part of this test result can be found under Documents section. ................... ................... ................... ................... ................... ................... ................... ........ Dredge Captain Note From [employer]: Encountered patient seated upright and conscious with family present. Patient reports since last night, a dry cough, runny nose and itchy eyes. Patient denies chest pain, shortness of breath and fevers. POC Covid swab positive, flu negative; [facility] notified. Patient reports potentially being exposed by her brother, who does not live with them but was symptomatic when they last visited on 03/24/25. Skin warm, dry and of appropriate color for ethnicity. Head and neck free of trauma and edema. PERRL. -JVD. Breath sounds present, clear and equal bilaterally. Abdomen soft, non-tender and non-distended. Extremities free of trauma and edema. [facility] Contacted: States they will write a prescription to treat patient to patients pharmacy of choice to begin treatment. Patient encouraged to monitor for chest pain, shortness of breath and fevers; to seek further medical attention if symptoms arise including 911. Patient verbalizes understanding of the plan and states she is comfortable with remaining home today. [facility] Lab Orders: rapid SARS CoV 2 Ag, QL IA, respiratory specimen: Performed rapid flu (A+B): Performed ................... ................... ................... ................... ................... ................... ................... ........ [facility] Consulted: Parker Gallardo ................... ................... ................... ................... ................... ................... ................... ........ Disposition: Fulfilled Parker Gallardo MD [address] [facility], [place], [address], [employer] 03/25/2025 11:28:07 OBGyn Episode No OBEpisode recorded.
--- OUTSIDE RECORDS SUMMARY | 2025-08-21 11:08 | XMS_ITS | Encounter Summary ---
Author Organization [employer] Address [address] [place] [address] 7 [place] [address] Care Team Providers Care Marine Electrician Name Role Phone Shital La MD Primary Care Provider + Reason for Visit * Reason Onset Date Comments Appointment Request 01/23/2023 Encounter Details Date Type Department Care Team ([facility] Contact Info) Description 01/23/2023 Telephone [facility] MEDICINE [address] [place], [place] [phone] Shital La MD [address] [place] [address] Appointment Request Social History Tobacco Use Types [...] a physical appt. Please contact pt at [phone] documented in this encounter Plan of Treatment Not on file documented as of this encounter Visit Diagnoses Not on filedocumented in this encounter Care Teams Marine Electrician Relationship Specialty Start Date End Date Shital La MD [address] [place] [address] PCP - General Family Medicine 12/22/20 documented as of this encounter
--- OUTSIDE RECORDS SUMMARY | 2025-08-21 11:08 | XMS_ITS | Encounter Summary ---
Author Organization [employer] Address [address] [place] [address] Care Team Providers Care Music Adapter Name Role Phone Shital La MD Primary Care Provider + Encounter Details Date Type Department Care Team (Late st Contact Info) Description 04/04/2024 Orders Only [facility] MEDICINE [address] [place], [place] [phone] Provider, MD Leeann Social History Tobacco Use [...] on filedocumented in this encounter Care Teams Music Adapter Relationship Specialty Start Date End Date Shital La MD [address] [place] [address] PCP - General Family Medicine 12/22/20 documented as of this encounter
--- OUTSIDE RECORDS SUMMARY | 2025-08-21 11:08 | XMS_ITS | Encounter Summary ---
Author Organization [employer] Address [address] [facility] 7t [place] [address] Care Team Providers Care Retail Customer Service Specialist Name Role Phone Shital La MD Primary Care Provider + Encounter Details Date Type Department Care Team (Late st Contact Info) Description 02/20/2025 Telephone [facility] MEDICINE [address] [place], [place] [phone] Shital La MD [address] [place], [place] [phone] Social History Tobacco Use Types Packs/Day Years [...] on filedocumented in this encounter Care Teams Retail Customer Service Specialist Relationship Specialty Start Date End Date Shital La MD [address] [place] [address] PCP - General Family Medicine 12/22/20 documented as of this encounter
--- OUTSIDE RECORDS SUMMARY | 2025-08-21 11:08 | XMS_ITS | Encounter Summary ---
Author Organization [email or web address] Address [address] [facility] [address] [place] [address] Care Team Providers Care Alignment Specialist Name Role Phone Shital La MD Primary Care Provider + Encounter Details Date Type Department Care Team (Late st Contact Info) Description 12/15/2022 Orders Only [facility] MED [facility] PEDS [address] [place] [address] Nancy Zheng LPN Social History Tobacco Use [...] on filedocumented in this encounter Care Teams Alignment Specialist Relationship Specialty Start Date End Date Shital La MD [address] [place] [address] PCP - General Family Medicine 12/22/20 documented as of this encounter
--- OUTSIDE RECORDS SUMMARY | 2025-08-21 11:08 | XMS_ITS | Encounter Summary ---
Author Organization [employer] Address [address] [facility] [address] [place] [address] Care Team Providers Care Neurology Epilepsy Physician Name Role Phone Shital La MD Primary Care Provider + Encounter Details Date Type Department Care Team ([facility] st Contact Info) Description 03/16/2023 Orders Only [facility] MED [facility] PEDS [address] [place] [address] Nancy Zheng LPN Social History Tobacco Use [...] on filedocumented in this encounter Care Teams Neurology Epilepsy Physician Relationship Specialty Start Date End Date Shital La MD [address] [place] [address] PCP - General Family Medicine 12/22/20 documented as of this encounter
--- OUTSIDE RECORDS SUMMARY | 2025-08-21 11:08 | XMS_ITS | Encounter Summary ---
Author Organization [employer] Address [address] [facility] 7t [place] [address] Care Team Providers Care Senior Php Software Developer Name Role Phone Shital La MD Primary Care Provider + Reason for Visit * Reason Onset Date Comments Nurse Triage 04/06/2025 Encounter Details Date Type Department Care Team ([facility] st Contact Info) Description 04/06/2025 Telephone [facility] MEDICINE [address] [place], [place] [phone] Shital La MD 230 [place], [place] [phone] Nurse Triage Social History Tobacco Use Types [...] 04/06/2025 9:36 AM EDT Triage call with [facility] [place] [id number] Shaina Pt reports is already at the [facility] at [facility]. Pt is advised to wait to be seen. Pt is requesting to see web application dev specialist . Pt is advised to provide information to [facility] personnel for assist and Pt agrees. [...] on filedocumented in this encounter Care Teams Senior Php Software Developer Relationship Specialty Start Date End Date Shital La MD [address] [place] [address] PCP - General Family Medicine 12/22/20 documented as of this encounter
--- OUTSIDE RECORDS SUMMARY | 2025-08-21 11:08 | XMS_ITS | Encounter Summary ---
Author Organization [employer] Address [address] [facility] 7t [place] [address] Care Team Providers Care Associate Merchandiser Name Role Phone Shital La MD Primary Care Provider + Reason for Visit * Reason Comments Med Refill Encounter Details Date Type Department Care Team ([facility] st Contact Info) Description 06/20/2025 Refill [facility] [address] [place], [place] [phone] Yadiel Rose MD 230 [place] [address] Mild persistent asthma with acute exacerbation Social [...] documented as of this encounter Care Teams Associate Merchandiser Relationship Specialty Start Date End Date Shital La MD [address] [place] [address] PCP - General Family Medicine 12/22/20 documented as of this encounter
--- OUTSIDE RECORDS SUMMARY | 2025-08-21 11:08 | XMS_ITS | Encounter Summary ---
Author Organization [employer] Address [address] [facility] 7t [place] [address] Care Team Providers Care Logistics Manager Name Role Phone Shital La MD Primary Care Provider + Reason for Visit * Reason Onset Date Comments Nurse Triage 06/02/2025 Encounter Details Date Type Department Care Team ([facility] Contact Info) Description 06/02/2025 Telephone [facility] MEDICINE 230 [place], [place] [phone] Shital La MD 230 [place] [address] Nurse Triage Social History Tobacco Use Types [...] 3:48 PM EDT Noted patient arrived at [facility] in [place] * Telephone Encounter - Santa Sherman RN - 06/02/2025 3:07 PM EDT Called pt. Via [facility] animal cop Juliana Cortez. No answer. External Relations Director left a message for pt. To call 911 if this is an emergency and please call back [facility] nurses paolo at [phone]. Called back x2. Pt.States that she got [...] and is already on her way to [facility] walk in. I will send this note to Walk in nurses as a heads up. Protocol Used: Eye - Chemical In (Adult) Protocol-Based Disposition: Go to ED/[facility] Now (or to Office with PCP Approval) [...] got in her eye. Contact pt at [phone] (grenadian) documented in this encounter Plan of Treatment Not on file documented as of this encounter Visit Diagnoses Not on filedocumented in this encounter Additional Health Concerns Assessment Noted Time PHQ-9 Depression Total Score: 3 04/13/20 25 1:55 PM EDT documented as of this encounter Care Teams Logistics Manager Relationship Specialty Start Date End Date Shital La MD [address] [place] [address] PCP - General Family Medicine 12/22/20 documented as of this encounter
--- OUTSIDE RECORDS SUMMARY | 2025-08-21 11:08 | XMS_ITS | Clinical Summary ---
Author Organization [address] [facility] Address [address] [place] [address] Phone Care Team Providers Care Director Of Extension Work Name Role Phone Shital La MD Primary Care Provider + [phone] Allergies Active Allergy Reactions Criticality Noted Date [...] AM EDT Office Visit B[facility] - [place] [address] [place] [address] Maegan Khan MD [address] [place] [phone] Health Maintenance Due Date Last Done Comments Breast Cancer Screening 1955 Colorectal Cancer Screening: Colonoscopy 1955 RSV Immunization Adult Patients (1 - Risk 50-74 years 1-dose series) 2007 Cholesterol Screening (Lipid Panel) 10/03/2022 Falls Risk Assessment 10/03/2022 Hepatitis C [...] complete [place] [id number] [facility] MEDICARE Member Subscriber Plan / Payer (Ef fective 2022-Present) Name:Fco Spicer Relation to Subscriber:Self Name:Fco Spicer Payer ID:[id number] Group ID:[id number] Type:Not on file Address: [facility] [address] [phone] MEDICA[place] - [place] Care Teams Director Of Extension Work Relationship Specialty Start Date End Date Shital La MD [address] [place] [phone] [facility] - General 06/21/22
--- OUTSIDE RECORDS SUMMARY | 2025-08-21 11:08 | XMS_ITS | Encounter Summary ---
Author Organization [employer] Address [address] [facility] 7 [place] [address] Care Team Providers Care Real Estate Director Name Role Phone Shital La MD Primary Care Provider + Reason for Visit * Reason Onset Date Comments Referral 08/10/2023 Encounter Details Date Type Department Care Team ([facility] st Contact Info) Description 08/10/2023 Telephone [facility] MEDICINE 230 [place], [place] [phone] Shital La MD 230 [place], [place] [phone] Referral Social History Tobacco Use Types Packs/Day [...] 1:55 PM EDT Tc from ivette with [facility] requesting a new referral. States referral was made for the left knee but per pt, it is the right knee. Please fax to [phone] Any questions, contact ivette at [phone] documented in this encounter Plan of Treatment Not on file documented as of this encounter Visit Diagnoses Diagnosis Acute pain of right knee- Primary documented in this encounter Care Teams Real Estate Director Relationship Specialty Start Date End Date Shital La MD [address] [place] [address] PCP - General Family Medicine 12/22/20 documented as of this encounter
--- OUTSIDE RECORDS SUMMARY | 2025-08-21 11:08 | XMS_ITS | Encounter Summary ---
Author Organization [employer] Address [address] [place] [address] 7 [place] [address] Care Team Providers Care Casting Machine Set Up Operator Name Role Phone Shital La MD Primary Care Provider + Encounter Details Date Type Department Care Team (Late st Contact Info) Description 11/10/2022 Orders Only [facility] MEDICINE 230 [place], [place] [phone] Santa Sherman, RN [address] [place] [address] Social History Tobacco Use Types Packs/Day Years [...] on filedocumented in this encounter Care Teams Casting Machine Set Up Operator Relationship Specialty Start Date End Date Shital La MD 230 [place], [place] [phone] PCP - General Family Medicine 12/22/20 documented as of this encounter
--- OUTSIDE RECORDS SUMMARY | 2025-08-21 11:08 | XMS_ITS | Clinical Summary ---
Author Organization [email or web address] Address [address] [facility] 7t [place] [address] Care Team Providers Care Machining Engineer Name Role Phone Fernandez La MD Primary Care Provider + Allergies Active Allergy Reactions Criticality Noted Date Comments Morphine Hives,Itching 11/01/2010 Other reaction(s): Itching, rash: ITCH Medications omeprazole (PriLOSEC) [address] capsule 3 Active traZODone (Desyrel) 50 MG tablet 3 Active Acetaminophen Extra Strength 500 MG tabletIndications :Arthritis TAKE 1 TABLET BY MOUTH EVERY 8 HOURS NEEDED DO NOT EXCEED 4 TABLETS IN 24 HOURS 90 tablet 1 4 Active SUMAtriptan (Imitrex) 100 MG tabletIndications :Chronic migraine without aura without status migrainosus, not intractable TAKE 1 TABLET BY MOUTH ONCE DAILY AT ONSET OF MIGRAINE FOR 1 DOSE 15 tablet 11 4 Active albuterol (Ventolin HFA) 108 (90 Base) MCG/ACT inhalerIndication s:Mild persistent asthma with acute exacerbation Inhale 2 puffs every 4 (four) hours if needed for wheezing or shortness of breath. 18 g 3 5 Active FREESTYLE LITE test strip Use to test blood sugar 1x/w 100 each 5 04/13/20 26 Active Blood Glucose Monitoring Suppl (FreeStyle [place] Lite) w/Device kit Use to test blood sugar 1x/w 1 kit 5 Active D3 Super Strength 50 MCG (2000 UT) capsule TAKE 1 CAPSULE BY MOUTH EVERY DAY 90 capsule 3 5 Active lisinopril-hydroC HLOROthiazide 20-25 MG tabletIndications :Primary hypertension TAKE 1 TABLET BY MOUTH EVERY DAY 90 tablet 3 5 Active ibuprofen 800 MG tabletIndications :Arthritis TAKE 1 TABLET BY MOUTH THREE TIMES DAILY NEEDED 90 tablet 1 5 Active Polyethyl Glycol-Propyl Glycol (Systane) 0.4-0.3 % gel Apply 2 drops to affected eye(s) if needed in the morning, at noon, in the evening, and at bedtime (dry eye/ eye pain). 10 mL 3 5 10/05/20 25 Active TRUEplus Lancets 33G misc USE DIRECTED TO TEST BLOOD SUGAR EVERY DAY 100 each 3 5 Active calcium carbonate EX (Tums Extra Strength) 750 MG chewable tablet Chew 1 tablet (750 mg) 2 times daily. 60 tablet 11 4 08/08/20 Active Problems Problem Noted Date Diagnosed Date Callus of toe 07/07/2025 Assessment & Plan (07/07/2025 5:11 PM EDT): On right pinky toe. We discussed about covering callus with a padded Band-Aid and referred to podiatry Corneal burn, left, sequela 07/07/2025 Assessment & Plan (07/07/2025 5:10 PM EDT): Status post ED/[facility] visit 1 month ago, doing well with [...] disease) Overview (09/09/2024): EGD on 09/01/24, Neg H.[place] Assessment & Plan (04/13/2025 6:19 PM EDT): Doing well, take omeprazole or Tums as needed Trochanteric bursitis of right hip 09/15/2021 Ramirez's esophagus determined by biopsy 018 Overview (09/09/2024): EGD on 09/01/24 Neg H.[place] Assessment & Plan (01/31/2023 11:57 AM EDT): Doing well on prilosec Had EGD, FU with GI PRN Due for colonoscopy this year Tubular adenoma of colon 04/18/2018 Overview (04/04/2023): Last colonoscopy [facility] on 03/09/23= Neg polyps Assessment & Plan [...] nonsmoker Morbid obesity due to excess calories ([facility]/HCC) 08/30/2015 Assessment & Plan (12/10/2024 5:10 PM [...] exercise, life style modifications, diet, referral to community living specialist. Discussed re lower calorie intake, increase [...] Type Department Care Team Description 07/15/2025 Refill [facility] [address] [place] [phone] Fernandez La MD 07/07/2025 11:30 AM EDT Office Visit [facility] [address] [place] [phone] Fernandez La MD Corneal burn, left, sequela (Primary Dx); Callus of toe; Pure hypercholesterolemia 07/07/2025 Travel 07/03/2025 Refill [facility] [address] [place] [address] Fernandez La MD Arthritis 06/30/2025 Telephone [facility] [address] [place] [phone] Fernandez La MD Nurse Triage 06/28/2025 Refill [facility] [address] [place] [address] Fernandez La MD Primary hypertension 06/20/2025 Refill [facility] [address] [place] [phone] Ydaiel Rose MD Mild persistent asthma with acute exacerbation 06/02/2025 4:00 PM EDT Office Visit [facility] [address] [place] [phone] Jessica Morataya MD Chemical injury of right eye (Primary Dx) 06/02/2025 Travel 06/02/2025 Telephone [facility] [address] [facility] [place], [place] [phone] Fernandez La MD Nurse Triage from Last [...] 1955 FIT 1955 FOBT 1955 Sigmoidoscopy 1955 Alcohol/Substance Use Screening 1969 RSV Patients and Patients Aged 60 years or older (1 - Risk 60-74 years 1-dose series) 2017 COVID-19 Vaccine ( season) 2025 06/05/2022, 07/04/2021, 01/05/2021, Additional history exists Influenza Vaccine (#1) 2025 , 08/26/2022, 07/02/2021, Additional history exists Mammogram 07/29/2025 07/29/2024, 07/06, 07/19/2022, Additional history exists SDOH Screening 11/27/2025 11/27/2024 Depression Screening 04/13/2026 [...] Laterality Modality Lower Extremities, Toes Left Radiogra phic Imaging 07/07/2025 11:4 3 AM EDT Narrative 07/07/2025 12:43 PM EDT [address] [address] XRay Report Signed Patient: Jennifer Spicer MR#: [id number] 9 : 1955 Acct:[id number] Age/Sex: 70 / F ADM Date: 07/07/25 Loc: [facility] Attending Dr: Fernandez La MD Ordering Physician: Fernandez La MD Date of Service: 07/07/25 Procedure(s): XR toe RT min 2V Accession Number(s): [id number] cc: Fernandez La MD Reason for Exam: [...] 07/07/25 1241 DD/ 1143 TD/TT: 07/07/25 1200 Sales Operations Manager: Procedure Note Donotuseinterpreter, Image - 07/07/2025 [place] [address] XRay Report Signed Patient: Jennifer SpicerMR#: [id number] 9 : 1955cct:[id number] Age/Sex: 70 / FADM Date: 07/07/25 Loc: [facility]I Attending Dr: Fernandez La MD Ordering Physician: Fernandez La MD Date of Service: 07/07/25 Procedure(s): XR toe RT min 2V Accession Number(s): [id number] cc: Fernandez La MD Reason for Exam: [...] 07/07/25 1241 DD/ 1143 TD/TT: 07/07/25 1200 Sales Operations Manager: Fernandez La MD IMG XR PROCEDURES Final Result * (ABNORMAL) Lipid Panel with Reflex to Direct LDL (07/03/2025 10:06 AM EDT) Triglycerides 77 <150 mg/dL [facility] Comment:Desirable Triglyceri de: less than 150 mg/dLBorderline High Triglyceride 150-199 mg/dLHigh Triglyceride: 200-499 mg/dLVery High Triglyceride: greater than or equal to 5OO mg/dL Cholesterol 191 <200 mg/dL [facility] Comment:Desirable Cholestero l: less than 200 mg/dLBorderline High Cholesterol: 200-239 mg/dLHigh Cholesterol: greater than 239 mg/dL LDL Cholesterol Calculated 113(H) <100 mg/dL [facility] Comment:Desirable LDL: less than 100 mg/dLNear Optimal/Above Optimal LDL: 110- 129 mg/dLBorderline High LDL: 130-159 mg/dLHigh LDL: 160-189 mg/dLVery High LDL: greater than or equal to 190 mg/dL HDL Cholesterol 63 >40 mg/dL [facility] Comment:Desirable HDL: great er than 40 mg/dL Note: This HDL assay may give artificially low results in patients with liver disease. Blood 07/03/2025 10:0 6 AM EDT 07/03/2025 10:06 AM EDT us Fernandez La MD LAB BLOOD ORDERABLES Fin al Result [facility] [address] [place] [address] [phone] * BI Mammogram Screening Tomosynthesis Bilateral (07/29/2024 8:40 AM EDT) Anatomical Region Laterality Modality Breast Bilateral Mammography 07/29/2024 8:40 AM EDT Narrative 08/08/2024 12:38 PM EDT [address] [place] [address] Mammography Report Signed Patient: Jennifer Spicer MR#: [id number] 9 : 1955 Acct:[id number] Age/Sex: 69 / F ADM Date: 07/29/24 Loc: HO.MAMMO Attending Dr: Fernandez La MD Ordering Physician: Fernandez La MD Results: 1Ne gative Date of Service: 07/29/24 Follow Up: 1 Year From [facility] Mammogram Procedure(s): MM tomosynthesis screening BI Accession Number(s): [id number] cc: Fernandez La MD EXAMINATION: MM SCREENING [...] 08/08/24 1235 DD/ 0840 TD/TT: 07/29/24 0855 Sales Operations Manager: Procedure Note Donotuseinterpreter, Image - 08/08/[facility] [address] [place], [place] [address] Mammography Report Signed Patient: Jennifer SpicerMR#: [id number] 9 : 1955cct:[id number] Age/Sex: 69 / FADM Date: 07/29/24 Loc: HO.MAMMO Attending Dr: Fernandez La MD Ordering Physician: Fernandez La MDResults: 1Ne gative Date of Service: 07/29/24Follow Up: 1 Year From Orig ina Mammogram Procedure(s): MM tomosynthesis screening BI Accession Number(s): [id number] cc: Fernandez La MD EXAMINATION: MM SCREENING [...] 08/08/24 1235 DD/ 0840 TD/TT: 07/29/24 0855 Sales Operations Manager: Fernandez La MD IMG BI PROCEDURES Edited Result - Final * Hm Colonoscopy (03/09/2023 5:37 AM EDT) Result [facility] Historical Provider HEALTH MAINTENANCE Final Result * (ABNORMAL) Hepatitis Panel, General (02/01/2023 9:58 AM EDT) Hepatitis A Antibody Total REACTIVE( A) NON-REACT FRANCES [employer] [place] [employer] Comment: For additional information, please refer to http://[employer]/faq/HAR936 (This link is being provided for informational/ educational purposes only.) Hepatitis B Surface Antibody QL REACTIVE( A) NON-REACT FRANCES [employer] [place] [employer] Hepatitis B Surface Ag NON-REACT FRANCES NON-REACT [employer] [place] [employer] Hepatitis B Core Antibody Total NON-REACT FRANCES NON-REACT [employer] [facility]t Hepatitis C Antibody NON-REACT FRANCES NON-REACT FRANCES [employer] [place] [employer] Index 0.02 <1.00 [employer] [place] [employer] Comment: HCV antibody was non-reactive. There is no laboratory evidence of HCV infection. In most cases, no further action is required. However, if recent HCV exposure is suspected, a test for HCV RNA (test code 14189) is suggested. For additional information please refer to http://[employer]s/faq/XBI22z0 (This link is being provided for informational/ educational purposes only.) 02/01/2023 9:58 AM EDT 02/01/2023 9:59 AM EDT Narrative [facility] - 02/06/2023 11:15 PM EDT FASTING:UNKNOWN FASTING: UNKNOWN Fernandez La MD LAB BLOOD ORDERABLES Fin al Result [facility] [address], [place] [address] [employer] [facility] [address] [place] [address] from Last 3 Months or Most Recently Relevant to Health Maintenance Insurance [facility] (HMO D-SNP) JADA BENDER [id number] Care Teams Machining Engineer Relationship Specialty Start Date End Date Fernandez La MD [address] [place] [phone] PCP - General Family Medicine 12/22/20
== END ==
LOC: HO.CARD 09:42
PROVIDERS: PCP Internal Medicine; Visit Provider Internal Medicine Cardiovascular Disease
DX: R06.02 Shortness of breath (principal); I10 Essential (primary) hypertension
CPT/HCPCS: 93306

== ENCOUNTER → 2025-08-21 09:45 | Outpatient (BNV) | payer OTHER, SELFPAY | PROVIDERS: PCP Internal Medicine; Visit Provider Internal Medicine Cardiovascular Disease | DX: I51.89 Other ill-defined heart diseases (principal); R06.02 Shortness of breath | CPT/HCPCS: 93306 ==

== ENCOUNTER 2025-08-26 19:49 | Emergency (ER) | payer OTHER, SELFPAY ==
[2025-08-26 19:57] VITALS: BP 119/67; PULSE 86; RESP 20; TEMP 36.7; O2SAT 99; BMI 38.4
[2025-08-26 20:29] LABS: MANUAL DIFF FLAG NO
[2025-08-26 20:30] LABS: Hematocrit 39.5 % (37.0-47.0); Hemoglobin 12.5 g/dl (12.0-16.0); Imm Gran Abs Auto 0.05 X10*3/uL (0.00-0.03); Imm Gran Pct Auto 0.4 % (0.0-0.4); Lymphocytes Absolute Auto 1.3 X10*3/uL (1.2-4.9); Mean Corpuscular HGB Conc 31.6 g/dl (31.0-35.0); Mean Corpuscular Hemoglobin 28.0 pg (27.0-33.0); Mean Corpuscular Volume 88.6 fL (80.0-98.0); NRBC Abs Auto 0.000 X10*3/uL (0.0-0.012); NRBC Pct Auto 0.0 /100WBC (0.0-0.2); Platelet Count 319 X10*3/uL (160-400); Red Blood Count 4.46 X10*6/uL (4.20-5.50); White Blood Count 13.9 X10*3/uL (4.8-10.8)
[2025-08-26 21:00] LABS: Alanine Aminotransferase 17 U/L (0-31); Albumin Level 4.9 g/dL (3.5-5.0); Alkaline Phosphatase 89 U/L (39-117); Anion Gap 14 (12-20); Aspartate Amino Transferase 26 U/L (5-31); Blood Urea Nitrogen 27 mg/dL (9-16); Calcium 9.9 mg/dL (8.4-10.2); Carbon Dioxide 25 mmol/L (22-29); Chloride 105 mmol/L (96-108); Creatinine Clr Calc Pharmacy 54.1; Estimated Glomerular Filt Rate 51; Potassium 4.9 mmol/L (3.3-5.1); Sodium 139 mmol/L (135-145); Total Protein 8.1 g/dL (6.5-8.0)
[2025-08-26 23:06] VITALS: BP 118/60; PULSE 73; RESP 17; TEMP 36.8; O2SAT 97
--- OUTSIDE RECORDS SUMMARY | 2025-08-26 23:24 | XMS_ITS | Encounter Summary ---
Author Organization [employer] Address [address] [facility] 7t [place] [address] Care Team Providers Care Carpet Journeyman Name Role Phone Shital La MD Primary Care Provider + Reason for Visit * Reason Onset Date Comments Nurse Triage 04/06/2025 Encounter Details Date Type Department Care Team ([facility] st Contact Info) Description 04/06/2025 Telephone [facility] [address] [place], [place] [phone] Shital La MD [address] [place], [place] [phone] Nurse Triage Social History Tobacco Use Types [...] 04/06/2025 9:36 AM EDT Triage call with [facility] [place] [id number] Shaian Pt reports is already at the [facility] at [facility] Pt is advised to wait to be seen. Pt is requesting to see chemist enzymes . Pt is advised to provide information to [facility] personnel for assist and Pt agrees. [...] on filedocumented in this encounter Care Teams Carpet Journeyman Relationship Specialty Start Date End Date Shital La MD [address] [place] [phone] PCP - General Family Medicine 12/22/20 documented as of this encounter
--- OUTSIDE RECORDS SUMMARY | 2025-08-26 23:24 | XMS_ITS | Data Portability ---
Author Organization [employer] [facility] Address [address] [place] [phone] Care Team Providers Care Furnace Combustion Analyst Name Role Phone HIM CCA OTHER Unavailable Primary Care Provider [phone] Assessment Encounter Date Assessment Date Assessment LastModified by Organization Details LastModified Time 03/25/2025 03/25/2025 As noted, we were called to see this patient regarding concerns of Runny nose and cough. Evaluation in the field was performed by my seater assembler colleague, as noted above, I provided real-time [...] Ag, QL IA, respiratory specimen 2024 025 [facility], [address] [place] [address], [phone] 11:56:19 rapid flu (A+B) [address], [phone] 11:56:36 Referral None recorded. Procedures None recorded. Surgeries None recorded. Imaging None recorded. Medication Orders Paxlovid 300 mg (150 mg x 2)-100 mg tablets in a dose pack 2024 025 [facility], [address] [place] [address], [phone], 15:07:31 Patient TargetsNo targets recorded. Patient InstructionsNo instructions recorded. Reason for Referral None Reported. Results Created Date Observation Date Name Description Value Unit Range Abnormal Flag Note LastModifiedBy Organization Detail LastModifiedTime 03/25/2003/25/2025 rapid flu (A+B) Flu negati ve Not Available [facility] ed [address] [place] [address], [phone] 03/25/2025 11:04:54 03/25/2003/25/2025 rapid SARS CoV 2 Ag, QL IA, respi rator y speci men rapid SARS CoV 2 Ag, QL IA, respiratory specimen positi ve Not Available [address], [phone] 03/25/2025 11:04:52 Result Notes None recorded. Medical Equipment None Reported. Allergies Allergen ID Allergen Name Allergen Category Reaction Reaction Severity Criticality Documentation Date Start Date Code Code System Note Provider Name and Address Organization Details Recorded Time 08085 morphine medicatio n Not available Not available [...] ICD10 Code Diagnosis IMO Codes Diagnosis Note [id number] Parker Gallardo MD Main - [address] [phone] 03/25/2025 10:59:48 03/25/2025 18:27:44 COVID-19 [id number] U07.5 [id number] Health Concerns Section Related Observation LastModified by Organization Detai ls LastModified Time None Recorded Concern Status LastModified by Organization Details LastModified Time None Recorded Advance Directives Directive None Recorded Payers Insurance Date Sequence Insurance Name Policy Number Policy Lindo Covered Member ID Lindo Member ID Guarantor Name 03/25/2025 1 [facility] - DOS ON OR AFTER 2023 - DUAL ELIGIBLE - ASSISTED OPTIONS AND ONE CARE (MEDICARE REPLACEMENT/ADV ANTAGE - HMO) Jennifer Spicer [id number] Jennifer Spicer Notes Date Note Type Note [...] and brother. 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 Medic on site for at this time I provided information on the mobile health provider response time and advised the patient and/or caregiver to monitor reported signs and symptoms. I discussed the warning signs of when to seek emergency care. Loading Machine Operator Organization Information for [employer] Name: [employer]. Address: [address] [place] [id number], Operator Assistant I Cementing: Charles EDWARDS No.: [id number] Loading Machine Operator POC Test Results from [employer] Rapid COVID antigen (10:53:04) COVID: + Attachments uploaded as part of this test result can be found under Documents section. Rapid influenza antigen (10:53:05) Flu: - Attachments uploaded as part of this test result can be found under Documents section. ................... ................... ................... ................... ................... ................... ................... ........ Loading Machine Operator Note From [employer]: Encountered patient seated upright and conscious with family present. Patient reports since last night, a dry cough, runny nose and itchy eyes. Patient denies chest pain, shortness of breath and fevers. POC Covid swab positive, flu negative; [facility] notified. Patient reports potentially being exposed by her brother, who does not live with them but was symptomatic when they last visited on 03/24/25. Skin warm, dry and of appropriate color for ethnicity. Head and neck free of trauma and edema. PERRL. -JVD. Breath sounds present, clear and equal bilaterally. Abdomen soft, non-tender and non-distended. Extremities free of trauma and edema. [facility] Contacted: States they will write a prescription to treat patient to patients pharmacy of choice to begin treatment. Patient encouraged to monitor for chest pain, shortness of breath and fevers; to seek further medical attention if symptoms arise including 911. Patient verbalizes understanding of the plan and states she is comfortable with remaining home today. [facility] Lab Orders: rapid SARS CoV 2 Ag, QL IA, respiratory specimen: Performed rapid flu (A+B): Performed ................... ................... ................... ................... ................... ................... ................... ........ [facility] Consulted: Parker Gallardo ................... ................... ................... ................... ................... ................... ................... ........ Disposition: Fulfilled Parker Gallardo MD [address] [facility],[address], [place], [phone], [place] [employer] 03/25/2025 11:28:07 OBGyn Episode No OBEpisode recorded.
--- OUTSIDE RECORDS SUMMARY | 2025-08-26 23:24 | XMS_ITS | Encounter Summary ---
Author Organization [employer] Address [address] [facility] [address] [place] [address] Care Team Providers Care Ceramics Machine Operator Name Role Phone Shital La MD Primary Care Provider + Encounter Details Date Type Department Care Team (Late st Contact Info) Description 08/26/2025 Orders Only GENERIC EXTERNAL DATA DEPARTMENT Provider, Generic External Data Social History Tobacco Use Types Packs/Day Years [...] Procedure Name Priority Date/Time Associated Diagnosis Comments CBC WITH AUTO DIFFERENTIAL Routine 08/26/2025 8:24 PM EDT COMPREHENSIVE METABOLIC PANEL Routine 08/26/2025 8:24 PM EDT documented in this encounter Results * (ABNORMAL) Comprehensive Metabolic Panel (08/26/2025 8:24 PM EDT) Sodium 139 135 - 145 mmol/L [facility] Potassium 4.9 3.3 - 5.1 mmol/L [facility] Chloride 105 96 - 108 mmol/L [facility] Carbon Dioxide 25 22 - 29 mmol/L [facility] Anion Gap 14 12 - 20 [facility] Urea Nitrogen (BUN) 27(H) 9 - 16 mg/dL [facility] Creatinine, Serum 1.07 0.5 - 1.4 mg/dL [facility] Creatinine Clr Calc Pharmacy 54.1 [facility] Comment:Provided height and weight: 157.48 cm,95.254 kg.eGFR (calculated from the MDRD study equation) and eCrCl(calculated from the Cockcroft-Gault equation) are based ondifferent parameters and may not yield comparable results.If eCrCl result is absurd, please check patient'sheight/weight. Estimated Glomerular Filt Rate 51 [facility] Comment:Chronic Kidney Disea se: Estimated GFR < 60 mL/min/1.78f6Efynvw Kidney Disease: Estimated GFR < 15 mL/min/1.73m2 Glucose 132(H) 60 - 115 mg/dL [facility] Calcium 9.9 8.4 - 10.2 mg/dL [facility] Bilirubin, Total 0.3 0.0 - 1.0 mg/dL [facility] Aspartate Amino Transferase 26 5 - 31 U/L [facility] Alanine Aminotransferase 17 0 - 31 U/L [facility] Total Protein 8.1(H) 6.5 - 8.0 g/dL [facility] Albumin Level 4.9 3.5 - 5.0 g/dL [facility] Alkaline Phosphatase 89 39 - 117 U/L [facility] 08/26/2025 8:24 PM EDT 08/26/2025 8:27 PM EDT us Generic External Data Provider LAB BLOOD ORDERAB LES Final Result [facility] [address] [place] [phone] * (ABNORMAL) CBC auto differential (08/26/2025 8:24 PM EDT) White Blood Count 13.9(H) 4.8 - 10.8 X10*3/uL [facility] Red Blood Count 4.46 4.20 - 5.50 X10*6/uL [facility] Hemoglobin 12.5 12.0 - 16.0 g/dl [facility] Hematocrit 39.5 37.0 - 47.0 % [facility] Mean Corpuscular Volume 88.6 80.0 - 98.0 fL [facility] Mean Corpuscular Hemoglobin 28.0 27.0 - 33.0 pg [facility] Mean Corpuscular HGB Conc 31.6 31.0 - 35.0 g/dl [facility] Red Cell Distribution Width 14.7 11.0 - 16.0 % [facility] Platelet Count 319 160 - 400 X10*3/uL [facility] Mean Platelet Volume 10.0 9.4 - 12.3 fL [facility] Neutrophils Percent Auto 83.3(H) 45 - 73 % [facility] Imm Gran Pct Auto 0.4 0.0 - 0.4 % [facility] Lymphocytes Percent Auto 9.5(L) 20 - 40 % [facility] Monocytes Percent Auto 6.3 2 - 11 % [facility] Eosinophils Percent Auto 0.4 0 - 4 % [facility] Basophils Percent Auto 0.1 0 - 2 % [facility] NRBC Pct Auto 0.0 0.0 - 0.2 /100WBC [facility] Neutrophils Absolute Auto 11.6(H) 2.0 - 8.3 x10*3/uL [facility] Imm Gran Abs Auto 0.05(H) 0.00 - 0.03 X10*3/uL [facility] Lymphocytes Absolute Auto 1.3 1.2 - 4.9 X10*3/uL [facility] Monocytes Absolute Auto 0.9 0.1 - 1.2 X10*3/uL [facility] Eosinophils Absolute Auto 0.1 0.0 - 0.4 X10*3/uL [facility] Basophils Absolute Auto 0.0 0.0 - 0.2 X10*3/uL [facility] NRBC Abs Auto 0.000 0.0 - 0.012 X10*3/uL [facility] 08/26/2025 8:24 PM EDT 08/26/2025 8:27 PM EDT us Generic External Data Provider LAB BLOOD ORDERAB LES Final Result [facility] [address] [place] [phone] documented in this encounter Visit Diagnoses Not on filedocumented in this encounter Additional Health Concerns Assessment Noted Time PHQ-9 Depression Total Score: 3 04/13/20 25 1:55 PM EDT documented as of this encounter Care Teams Ceramics Machine Operator Relationship Specialty Start Date End Date Shital La MD [address] [place] [address] PCP - General Family Medicine 12/22/20 documented as of this encounter
--- OUTSIDE RECORDS SUMMARY | 2025-08-26 23:24 | XMS_ITS | Encounter Summary ---
Author Organization [employer] Address [address] [facility] 7t [place] [address] Care Team Providers Care Quotation Checker Name Role Phone Shital La MD Primary Care Provider + Reason for Visit * Reason Onset Date Comments Nurse Triage 06/02/2025 Encounter Details Date Type Department Care Team ([facility] Contact Info) Description 06/02/2025 Telephone [facility] [address] [place], [place] [phone] Shital La MD [address] [place] [address] Nurse Triage Social History Tobacco Use Types [...] 3:48 PM EDT Noted patient arrived at [facility] in [place] * Telephone Encounter - Santa Sherman RN - 06/02/2025 3:07 PM EDT Called pt. Via [facility] career consultant Juliana Cortez. No answer. Central Supply Supervisor left a message for pt. To call 911 if this is an emergency and please call back [facility] nurses paolo at [phone]. Called back x2. Pt.States that she got [...] and is already on her way to [facility] walk in. I will send this note to Walk in nurses as a heads up. Protocol Used: Eye - Chemical In (Adult) Protocol-Based Disposition: Go to ED/[facility] Now (or to Office with PCP Approval) [...] got in her eye. Contact pt at [phone] (pitcairn islander) documented in this encounter Plan of Treatment Not on file documented as of this encounter Visit Diagnoses Not on filedocumented in this encounter Additional Health Concerns Assessment Noted Time PHQ-9 Depression Total Score: 3 04/13/20 25 1:55 PM EDT documented as of this encounter Care Teams Quotation Checker Relationship Specialty Start Date End Date Shital La MD [address] [place] [phone] PCP - General Family Medicine 12/22/20 documented as of this encounter
--- OUTSIDE RECORDS SUMMARY | 2025-08-26 23:24 | XMS_ITS | Encounter Summary ---
Author Organization [employer] Address [address] [facility] 7t [place] [address] Care Team Providers Care Fabric Normalizer Name Role Phone Shital La MD Primary Care Provider + Reason for Visit * Reason Comments Med Refill Encounter Details Date Type Department Care Team ([facility] st Contact Info) Description 06/20/2025 Refill [facility] [address] [place], [place] [phone] Yadiel Rose MD [address] [place] [address] Mild persistent asthma with acute exacerbation Social [...] documented as of this encounter Care Teams Fabric Normalizer Relationship Specialty Start Date End Date Shital La MD [address] [place] [phone] PCP - General Family Medicine 12/22/20 documented as of this encounter
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
--- OUTSIDE RECORDS SUMMARY | 2025-08-26 23:24 | XMS_ITS | Encounter Summary ---
Author Organization [employer] Address [address] [facility] [address] [place] [address] Care Team Providers Care Inbound Call Center Representative Name Role Phone Shital La MD Primary Care Provider + Encounter Details Date Type Department Care Team (Late st Contact Info) Description 04/04/2024 Orders Only [facility] [address] [place], [place] [phone] Provider, MD Leeann Social History Tobacco Use [...] on filedocumented in this encounter Care Teams Inbound Call Center Representative Relationship Specialty Start Date End Date Shital La MD [address] [place] [phone] PCP - General Family Medicine 12/22/20 documented as of this encounter
--- OUTSIDE RECORDS SUMMARY | 2025-08-26 23:24 | XMS_ITS | Encounter Summary ---
Author Organization [employer] Address [address] [facility] 7t [place] [address] Care Team Providers Care Oncology Pharmacist Name Role Phone Shital La MD Primary Care Provider + Encounter Details Date Type Department Care Team ([facility] st Contact Info) Description 08/12/2025 Orders Only [facility] [address] [place], [place] [phone] Shital La MD [address] [place], [place] [phone] Social History Tobacco Use Types Packs/Day Years [...] Procedure Name Priority Date/Time Associated Diagnosis Comments BI MAMMOGRAM SCREENING TOMOSYNTHESIS BILATERAL Routine 08/12/2025 9:50 AM EDT documented in this encounter Results * BI Mammogram Screening Tomosynthesis Bilateral (08/12/2025 9:50 AM EDT) Anatomical Region Laterality Modality Breast Bilateral Mammography 08/12/2025 9:50 AM EDT Narrative 08/21/2025 2:15 PM EDT [facility] [address] [place], [place] [address] Mammography Report Signed Patient: Jennifer Spicer MR#: [id number] 9 : 1955 Acct:[id number] Age/Sex: 70 / F ADM Date: 08/12/25 Loc: HO.MAMMO Attending Dr: Shital La MD Ordering Physician: Shital La MD Results: 1Ne gative Date of Service: 08/12/25 Follow Up: 1 Year From Orig inal Mammogram Procedure(s): MM tomosynthesis screening BI Accession Number(s): [id number] cc: Shital La MD Reason For Exam: SCREENING EXAMINATION: [...] 08/21/25 1412 DD/ 0950 TD/TT: 08/12/25 1015 Complaint Clerk: Procedure Note Donotuseinterpreter, Image - 08/21/2025 [facility] [address] [place] [address] Mammography Report Signed Patient: Jennifer SpicerMR#: [id number] 9 : 7Acct:[id number] Age/Sex: 70 / FADM Date: 08/12/25 Loc: [facility] Attending Dr: Shital La MD Ordering Physician: Shital La MDResults: 1Ne gative Date of Service: 08/12/25Follow Up: 1 Year From Orig inal Mammogram Procedure(s): MM tomosynthesis screening BI Accession Number(s): [id number] cc: Shital La MD Reason For Exam: SCREENING EXAMINATION: [...] 08/21/25 1412 DD/ 0950 TD/TT: 08/12/25 1015 Complaint Clerk: Shital La MD IMG BI PROCEDURES Final Result documented in this encounter Visit Diagnoses Not on filedocumented in this encounter Additional Health Concerns Assessment Noted Time PHQ-9 Depression Total Score: 3 04/13/20 25 1:55 PM EDT documented as of this encounter Care Teams Oncology Pharmacist Relationship Specialty Start Date End Date Shital La MD [address] [place] [phone] PCP - General Family Medicine 12/22/20 documented as of this encounter
--- OUTSIDE RECORDS SUMMARY | 2025-08-26 23:24 | XMS_ITS | Encounter Summary ---
Author Organization [employer] Address [address] [facility] [address] [place] [address] Care Team Providers Care Medical Sociologist Name Role Phone Shital La MD Primary Care Provider + Encounter Details Date Type Department Care Team ([facility] st Contact Info) Description 03/16/2023 Orders Only [facility] [address] [place], [place] [phone] Nancy Zheng LPN Social History Tobacco Use [...] on filedocumented in this encounter Care Teams Medical Sociologist Relationship Specialty Start Date End Date Shital La MD [address] [place] [phone] PCP - General Family Medicine 12/22/20 documented as of this encounter
--- OUTSIDE RECORDS SUMMARY | 2025-08-26 23:25 | XMS_ITS | Encounter Summary ---
Author Organization [employer] Address [address] [facility] 7 [place] [address] Care Team Providers Care Control Integration Engineer Name Role Phone Shital La MD Primary Care Provider + Reason for Visit * Reason Onset Date Comments Referral 08/10/2023 Encounter Details Date Type Department Care Team ([facility] st Contact Info) Description 08/10/2023 Telephone [facility] [address] [place], [place] [phone] Shital La MD 230 [place], [place] [phone] Referral Social History Tobacco Use Types Packs/Day [...] with others, in a hotel, in a retirement, living outside on the street, on a [...] 1:55 PM EDT Tc from ivette with [facility] requesting a new referral. States referral was made for the left knee but per pt, it is the right knee. Please fax to [phone] Any questions, contact ivette at [phone] documented in this encounter Plan of Treatment Not on file documented as of this encounter Visit Diagnoses Diagnosis Acute pain of right knee- Primary documented in this encounter Care Teams Control Integration Engineer Relationship Specialty Start Date End Date Shital La MD [address] [place] [phone] PCP - General Family Medicine 12/22/20 documented as of this encounter
--- OUTSIDE RECORDS SUMMARY | 2025-08-26 23:25 | XMS_ITS | Encounter Summary ---
Author Organization [employer] Address 75 [facility] [address] [place] [address] Care Team Providers Care Electrical Appliance Preparer Name Role Phone Shital La MD Primary Care Provider + Encounter Details Date Type Department Care Team (Late st Contact Info) Description 12/15/2022 Orders Only [facility] [address] [place], [place] [phone] Nancy Zheng LPN Social History Tobacco Use [...] on filedocumented in this encounter Care Teams Electrical Appliance Preparer Relationship Specialty Start Date End Date Shital La MD [address] [place] [address] PCP - General Family Medicine 12/22/20 documented as of this encounter
--- OUTSIDE RECORDS SUMMARY | 2025-08-26 23:25 | XMS_ITS | Encounter Summary ---
Author Organization [employer] Address 75 [facility] 7t [place] [address] Care Team Providers Care Receiver/Laborer Name Role Phone Shital La MD Primary Care Provider + Encounter Details Date Type Department Care Team (Late st Contact Info) Description 11/10/2022 Orders Only [facility] MEDICINE 230 [place] [address] Santa Sherman RN Social History Tobacco Use Types Packs/Day Years [...] on filedocumented in this encounter Care Teams Receiver/Laborer Relationship Specialty Start Date End Date Shital La MD 230 [place] [address] PCP - General Family Medicine 12/22/20 documented as of this encounter
--- OUTSIDE RECORDS SUMMARY | 2025-08-26 23:25 | XMS_ITS | Encounter Summary ---
Author Organization [employer] Address 75 [facility] 7t [place] [address] Care Team Providers Care Route Returner Name Role Phone Shital La MD Primary Care Provider + Encounter Details Date Type Department Care Team (Late st Contact Info) Description 02/20/2025 Telephone [facility] MEDICINE 230 [place], [place] [phone] Shital La MD 230 [place], [place] [phone] Social History Tobacco Use Types Packs/Day Years [...] on filedocumented in this encounter Care Teams Route Returner Relationship Specialty Start Date End Date Shital La MD [address] [place] [address] PCP - General Family Medicine 12/22/20 documented as of this encounter
--- OUTSIDE RECORDS SUMMARY | 2025-08-26 23:25 | XMS_ITS | Encounter Summary ---
Author Organization [employer] Address [address] [place] [address] 7 [place] [address] Care Team Providers Care Booster Pump Operator Name Role Phone Shital La MD Primary Care Provider + Reason for Visit * Reason Onset Date Comments Appointment Request 01/23/2023 Encounter Details Date Type Department Care Team ([facility] Contact Info) Description 01/23/2023 Telephone [facility] MEDICINE 230 [place], [place] [phone] Shital La MD 230 [place] [address] Appointment Request Social History Tobacco Use Types [...] a physical appt. Please contact pt at [phone] documented in this encounter Plan of Treatment Not on file documented as of this encounter Visit Diagnoses Not on filedocumented in this encounter Care Teams Booster Pump Operator Relationship Specialty Start Date End Date Shital La MD 230 [place] [address] PCP - General Family Medicine 12/22/20 documented as of this encounter
--- OUTSIDE RECORDS SUMMARY | 2025-08-26 23:25 | XMS_ITS | Clinical Summary ---
Author Organization 175 [facility] Address 175 [place] [address] Phone Care Team Providers Care Painter Structural Steel Name Role Phone Shital La MD Primary Care Provider + [phone] Allergies Active Allergy Reactions Criticality Noted Date [...] Care Team (Late st Contact Info) Description 09/17/2025 1:15 PM EST Consult Orthopedic Surgery - Clarissa [address] [facility] [address] [place] [phone] Efrain Packer DPM 175 [facility] 250 [place] [address] 01/21/2026 10:00 AM EDT Office Visit Bariatric Surgery [facility] 175 [facility] 120 [place] [phone] Maegan Khan MD [address] [place] [phone] Health Maintenance Due Date Last Done Comments [...] patient's age to complete this topic Insurance [facility] MEDICARE Member Subscriber Plan / Payer (Ef fective 2022-Present) Name:Fco Spicer Relation to Subscriber:Self Name:Fco Spicer Payer ID:[id number] Group ID:[id number] Type:Not on file Address: [place] [address] [address] [id number] MEDICAID - [place] Care Teams Painter Structural Steel Relationship Specialty Start Date End Date Shital La MD [address] [place] [phone] PCP - General 06/21/22
--- OUTSIDE RECORDS SUMMARY | 2025-08-26 23:25 | XMS_ITS | Encounter Summary ---
Author Organization [employer] Address 75 [facility] 7 [place] [address] Care Team Providers Care Assembler Brazer Name Role Phone Shital La MD Primary [...] on filedocumented in this encounter Care Teams Assembler Brazer Relationship Specialty Start Date End Date Shital La MD [address] [place] [phone] PCP - General Family Medicine 12/22/20 documented as of this encounter
--- NOTE | 2025-08-27 00:02 | ED.ABDPAIN ---
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 Cornejo the interview of the patient tells me that her pain described to triage is completely gone. She tells me she had a little piece of squash felt little bit nauseous with epigastric pain and vomited subsequently she tells me that she thinks the color was the color of the squash not of blood. Currently no pain at all no GI bleeding dark stool recently. Feels well and would like to go home Related Data Home Medications ?Medication ?Instructions ?Recorded ?Confirmed cholecalciferol (vitamin D3) 50 50 mcg PO DAILY 10/25/20 07/20/25 mcg (2,000 unit) capsule lisinopril 20 1 tab PO DAILY 10/25/20 07/20/25 mg-hydrochlorothiazide 25 mg tablet loratadine 10 mg tablet 10 mg PO DAILY 10/25/20 07/20/25 trazodone 50 mg tablet 50 mg PO BEDTIME 10/25/20 07/20/25 acetaminophen 500 mg tablet 500 mg PO Q8H PRN Pain 05/25/22 07/20/25 cyclobenzaprine 5 mg tablet 5 mg PO BEDTIME 05/25/22 07/20/25 albuterol sulfate 90 mcg/actuation 2 puff inhalation Q4-6H PRN 12/27/22 07/20/25 aerosol inhaler (Ventolin HFA) Wheezing sumatriptan succinate 100 mg tablet 100 mg PO Q2-4H PRN Migraine 07/18/23 07/20/25 Headache nortriptyline 25 mg capsule 25 mg PO BEDTIME 03/04/24 07/20/25 calcium carbonate (Calcium Antacid) tab PO 09/04/24 07/20/25 Previous Rx's ?Medication ?Instructions ?Recorded dicyclomine 20 mg tablet 20 mg PO QID #120 tabs 01/28/25 ketotifen fumarate 0.025 % (0.035 1 drp ophthalmic (eye) Q8H #5 mL 06/02/25 %) eye drops tobramycin 0.3 % eye drops 1 drp ophthalmic-Right Q4H #5 mL 06/02/25 omeprazole 40 mg capsule,delayed 40 mg PO BID #60 caps 07/03/25 release Allergies Allergy/AdvReac Type Severity Reaction Status Date / Time morphine Allergy Unknown HIVES Verified 08/26/25 20:02 [facility] Past Medical History Medical History Periumbilical abdominal pain History of frequent headaches Cough Fever Dyspnea Generalized postprandial abdominal pain Weight loss H. pylori infection Abnormal EKG Precordial chest pain Sacroiliitis Close exposure to COVID-19 virus SUNG (nonalcoholic steatohepatitis) GERD (gastroesophageal reflux disease) Depression Asthma Morbid obesity due to excess calories Essential hypertension Surgical History Status post bariatric surgery History of esophagogastroduodenoscopy (EGD) H/O breast surgery Hx of colonoscopy Family History Family History Father Heart attack Mother Thrombosis Social History Social History Alcohol intake: never Patient Tobacco Use Status: Never used Tobacco Smoked in Last 30 Days: No Use of substances other than those prescribed or required for medical reasons: No Advance Directives: No Advance Directives Information Provided: Yes Physical Exam ED Exam Exam: EXAM: Gen: Alert, awake, well appearing, well hydrated. Head: Atraumatic Eyes: Anicteric, Normal conjunctiva. ENT: Moist mucosa, no pallor. ? Neck: Supple. Skin: ?No observable rash or bruising on exposed or examined skin Respiratory: Breathing comfortably, No distress.Clear to auscultation bilaterally, symmetric chest expansion, No wheeze, rales, ronchi. Cardiovascular: Regular rate and rhythm. No murmurs or rub. Well perfused periphery, warm extremities. No edema. ? Abdominal: No focal tenderness. Soft, no objective distension. No palpable masses or obvious organomegaly. ?No guarding, no rebound tenderness or other peritoneal findings. : No flank tenderness. Neuro: Alert. Gross movement of all extremities intact. ? Psych: Calm. Cooperative. MSK: No grossly visible deformity. Vital signs: See flowsheet Vital Signs: Vital Signs - 24 hr 08/26/25 19:57 08/26/25 23:06 Temperature 98.1 F 98.2 F Pulse Rate 86 73 Respiratory Rate 20 17 Blood Pressure 119/67 118/60 Pulse Oximetry 99 97 Oxygen Delivery Method Room Air Room Air BMI result Body Mass Index 38.4 Medical Decision Making Medical Decision Making MDM Narrative: Medical Decision Makin female with medical history as above with epigastric pain Nontender abdomen. Reassuring history and lab work congenital. She has mild leukocytosis this is nonspecific and she feels completely well. No GI bleed reporting she feels that the color of the vomitus was squash collar and she has the stable vitals and stable hemoglobin Preliminary Favored Differential Diagnosis: Gastritis, ulcer, marginal ulcer, GI upset, food-borne illness among additional considered etiologies Testing Interpreted Independently: ?See below for details Radiology or Lab testing Results Reviewed: ?See below for details Consults: ?See below for details Independent Historians/External Chart Reviews: ?See below for details Social Determinants of Health Impacting MDM/Planning: ?See below for details Lab Data 08/26/25 20:24 08/26/25 20:24 Labs: Lab Results 08/26/25 Range/Units 20:24 WBC 13.9 H (4.8-10.8) X10*3/uL RBC 4.46 (4.20-5.50) X10*6/uL Hgb 12.5 (12.0-16.0) g/dl Hct 39.5 (37.0-47.0) % MCV 88.6 (80.0-98.0) fL MCH 28.0 (27.0-33.0) pg MCHC 31.6 (31.0-35.0) g/dl RDW 14.7 (11.0-16.0) % Plt Count 319 (160-400) X10*3/uL MPV 10.0 (9.4-12.3) fL Immature Gran % (Auto) 0.4 (0.0-0.4) % Neut % (Auto) 83.3 H (45-73) % Lymph % (Auto) 9.5 L (20-40) % [place] % (Auto) 6.3 (2-11) % Eos % (Auto) 0.4 (0-4) % Baso % (Auto) 0.1 (0-2) % Lymph # (Auto) 1.3 (1.2-4.9) X10*3/uL [place] # (Auto) 0.9 (0.1-1.2) X10*3/uL Eos # (Auto) 0.1 (0.0-0.4) X10*3/uL Baso # (Auto) 0.0 (0.0-0.2) X10*3/uL Abs Immat Gran (auto) 0.05 H (0.00-0.03) X10*3/uL Absolute Neuts (auto) 11.6 H (2.0-8.3) x10*3/uL Absolute Nucleated RBC 0.000 (0.0-0.012) X10*3/uL Nucleated RBC % (auto) 0.0 (0.0-0.2) /100WBC Sodium 139 (135-145) mmol/L Potassium 4.9 (3.3-5.1) mmol/L Chloride 105 (96-108) mmol/L Carbon Dioxide 25 (22-29) mmol/L Anion Gap 14 (12-20) BUN 27 H (9-16) mg/dL Creatinine 1.07 (0.5-1.4) mg/dL Estim Creat Clear Calc 54.1 Estimated GFR 51 Random Glucose 132 H (60-115) mg/dL Calcium 9.9 D (8.4-10.2) mg/dL Total Bilirubin 0.3 (0.0-1.0) mg/dL AST 26 (5-31) U/L ALT 17 (0-31) U/L Alkaline Phosphatase 89 (39-117) U/L Total Protein 8.1 H (6.5-8.0) g/dL Albumin 4.9 (3.5-5.0) g/dL Medications Administered Discontinued Medications Generic Name Dose Route Start Last Admin Trade Name Freq PRN Reason Stop Dose Admin Ondansetron HCl 4 mg 08/26/25 20:02 08/26/25 20:05 Ondansetron Odt 4 Mg Tab.Rapdis TRANSLINGU 08/26/25 20:03 4 mg ONCE ONE Administration Discharge Plan Discharge Clinical Impression: Abdominal pain Patient Disposition: Home, Self-Care Instructions: Abdominal Pain (ED) Additional Instructions: You came to the emergency department for abdominal pain which has since resolved. You have no tenderness of the abdomen and reassuring lab work here. You did not have a fever. We discussed return precautions such as severe or worsening pain, high fever, yellowing of your skin, bloody or dark vomit, dark stool or other concerning symptoms that we discussed Prescriptions: No Action dicyclomine 20 mg tablet 20 mg PO QID Qty: 120 6RF omeprazole 40 mg capsule,delayed release(DR/EC) 40 mg PO BID Qty: 60 6RF ketotifen fumarate 0.025 % (0.035 %) drops 1 drp ophthalmic (eye) Q8H Qty: 5 0RF Rx Instructions: do not exceed 2 doses in a 24 hour period tobramycin 0.3 % drops 1 drp ophthalmic-Right Q4H Qty: 5 0RF loratadine 10 mg tablet 10 mg PO DAILY trazodone 50 mg tablet 50 mg PO BEDTIME cholecalciferol (vitamin D3) 50 mcg (2,000 unit) capsule 50 mcg PO DAILY lisinopril-hydrochlorothiazide 20-25 mg tablet 1 tab PO DAILY albuterol sulfate [Ventolin HFA] 90 mcg/actuation HFA aerosol inhaler 2 puff inhalation Q4-6H PRN (Reason: Wheezing) acetaminophen 500 mg tablet 500 mg PO Q8H PRN (Reason: Pain) cyclobenzaprine 5 mg tablet 5 mg PO BEDTIME sumatriptan succinate 100 mg tablet 100 mg PO Q2-4H PRN (Reason: Migraine Headache) nortriptyline 25 mg capsule 25 mg PO BEDTIME Calcium Antacid 300 mg (750 mg) tablet,chewable PO Interventions: ED Discharge Assessment Last Done: 08/27/25 00:41 Discharge Date/Time: 08/27/25 00:43 Print Language: English
[2025-08-27 00:41] VITALS: BP 120/81; PULSE 63; RESP 17; TEMP 36.8; O2SAT 98
== END 2025-08-27 00:43 | disposition home or self-care (01) ==
PROVIDERS: Emergency Provider Emergency Medicine; PCP Internal Medicine
DX: R10.30 Lower abdominal pain, unspecified (principal); R11.0 Nausea; K21.9 Gastro-esophageal reflux disease without esophagitis; I10 Essential (primary) hypertension; Z98.890 Other specified postprocedural states
CPT/HCPCS: 36415; 80053; 85025; 99283; 99284

== ENCOUNTER → 2025-09-04 07:45 | Outpatient (REF) | payer OTHER, SELFPAY ==
--- NOTE | ~2025-09-04 | NM_ITS ---
Lexiscan Myocardial perfusion study Indication: Shortness of breath and exertion to evaluate for myocardial ischemia Technique: The patient was brought in for a Lexiscan perfusion study on 09/04/2025 and was injected 0.4 mg of Lexiscan intravenously. Within a minute of this injection 35 mCi of sestamibi was given intravenously. Images were obtained using the SPECT gamma camera interlaced with the gating device. Images were obtained in supine position. Resting perfusion study was performed on 09/07/2025. Patient was administered 35 mCi of sestamibi intravenously at rest. Images were then obtained in supine position. Images obtained without without CT attenuation. Total DLP 95 mGy-cm. Images were processed with the software and compared side to side in short axis, horizontal long axis and vertical long axis views. Findings: The stress perfusion study showed nonattenuated as well as attenuated corrected images show normal uptake ordered images in all segments of the LV myocardium. The gated study shows normal LV systolic function with calculated LVEF of greater than 70%. LV cavity is normal in size. The gated study shows normal systolic wall thickening and contraction of segments. Resting study shows nonattenuated images show normal uptake of radiotracer in all segments of the LV myocardium. Gating at rest reveals normal systolic wall motion with ejection fraction at 69%. The findings are consistent with normal myocardial perfusion. NM/NM ophelia perf SPECT rest & str Impression: 1. Myocardial perfusion imaging study shows normal myocardial perfusion 2. Gated LVEF is 69% 3. Transient ischemic dilatation not present Nondiagnostic changes on EKG. Electronically signed by: Darryl Vaughn MD 09/08/2025 12:19 PM [facility]
--- OUTSIDE RECORDS SUMMARY | 2025-09-04 07:47 | XMS_ITS | Encounter Summary ---
Author Organization [employer] Address 75 [facility] 7[address] [place] [address] Care Team Providers Care Installer Apprentice Name Role Phone Shital La MD Primary Care Provider + Encounter Details Date Type Department Care Team ([facility] st Contact Info) Description 03/16/2023 Orders Only [facility] MED & PEDS [address] [place], [place] [phone] Nancy Zheng LPN Social History Tobacco Use [...] on filedocumented in this encounter Care Teams Installer Apprentice Relationship Specialty Start Date End Date Shital La MD [address] [place] [phone] PCP - General Family Medicine 12/22/20 documented as of this encounter
--- OUTSIDE RECORDS SUMMARY | 2025-09-04 07:47 | XMS_ITS | Encounter Summary ---
Author Organization [employer] Address [address] [facility] [address] 7t [place] [address] Care Team Providers Care Wind Power Project Manager Name Role Phone Shital La MD Primary Care Provider + Encounter Details Date Type Department Care Team (Late st Contact Info) Description 04/04/2024 Orders Only [facility] MEDICINE 230 [place], [place] [phone] Provider, MD Leeann Social History Tobacco Use [...] on filedocumented in this encounter Care Teams Wind Power Project Manager Relationship Specialty Start Date End Date Shital La MD [address] [place] [address] PCP - General Family Medicine 12/22/20 documented as of this encounter
--- OUTSIDE RECORDS SUMMARY | 2025-09-04 07:47 | XMS_ITS | Encounter Summary ---
Author Organization [employer] Address 75 [facility] 7t [place] [address] Care Team Providers Care Matzo Forming Machine Operator Name Role Phone Shital La MD Primary Care Provider + Reason for Visit * Reason Comments Med Refill Encounter Details Date Type Department Care Team ([facility] st Contact Info) Description 06/20/2025 Refill [facility] 230 [place], [place] [phone] Yadiel Rose MD 230 [place] [address] Mild persistent asthma with acute exacerbation Social [...] documented as of this encounter Care Teams Matzo Forming Machine Operator Relationship Specialty Start Date End Date Shital La MD [address] [place] [phone] PCP - General Family Medicine 12/22/20 documented as of this encounter
--- OUTSIDE RECORDS SUMMARY | 2025-09-04 07:47 | XMS_ITS | Encounter Summary ---
Author Organization [employer] Address 75 [facility] 7t [place] [address] Care Team Providers Care Manager Green Name Role Phone Shital La MD Primary Care Provider + Reason for Visit * Reason Onset Date Comments Nurse Triage 04/06/2025 Encounter Details Date Type Department Care Team ([facility] st Contact Info) Description 04/06/2025 Telephone [facility] MEDICINE 230 [place], [place] [phone] Shital La MD 230 [place], [place] [phone] Nurse Triage Social History Tobacco Use Types [...] AM EDT Triage call with [facility] [place] [id number] Shaina Pt reports is already at the [facility] at [facility]. Pt is advised to wait to be seen. Pt is requesting to see resistance machine welder setter . Pt is advised to provide information to [facility] personnel for assist and Pt [...] filedocumented in this encounter Care Teams Manager Green Relationship Specialty Start Date End Date Shital La MD [address] [place] [phone] PCP - General Family Medicine 12/22/20 documented as of this encounter
--- OUTSIDE RECORDS SUMMARY | 2025-09-04 07:47 | XMS_ITS | Data Portability ---
Author Organization [employer] [facility] Address [address] [place] [phone] Care Team Providers Care Driver/Sales Workers Name Role Phone HIM CCA OTHER Unavailable Primary Care Provider Assessment Encounter Date Assessment Date Assessment LastModified by Organization Details LastModified Time 03/25/2025 03/25/2025 As noted, we were called to see this patient regarding concerns of Runny nose and cough. Evaluation in the field was performed by my oracle business intelligence developer colleague, as noted above, I provided real-time [...] Ag, QL IA, respiratory specimen 2024 025 [facility], [address] [place] [address], [phone] 11:56:19 rapid flu (A+B) [address], [phone] 11:56:36 Referral None recorded. Procedures None recorded. Surgeries None recorded. Imaging None recorded. Medication Orders Paxlovid 300 mg (150 mg x 2)-100 mg tablets in a dose pack 2024 025 [facility], [address] [place] [address], [id number], 15:07:31 Patient TargetsNo targets recorded. Patient InstructionsNo instructions recorded. Reason for Referral None Reported. Results Created Date Observation Date Name Description Value Unit Range Abnormal Flag Note LastModifiedBy Organization Detail LastModifiedTime 03/25/2003/25/2025 rapid flu (A+B) Flu negati ve Not Available [facility] ed [address] [place] [address], [phone] 03/25/2025 11:04:54 03/25/2003/25/2025 rapid SARS CoV 2 Ag, QL IA, respi rator y speci men rapid SARS CoV 2 Ag, QL IA, respiratory specimen positi ve Not Available [address], [phone] 03/25/2025 11:04:52 Result Notes None recorded. Medical Equipment None Reported. Allergies Allergen ID Allergen Name Allergen Category Reaction Reaction Severity Criticality Documentation Date Start Date Code Code System Note Provider Name and Address Organization Details Recorded Time 28336 morphine medicatio n Not available Not available [...] ICD10 Code Diagnosis IMO Codes Diagnosis Note [id number] Parker Gallardo MD Main - [address] [phone] 03/25/2025 10:59:48 03/25/2025 18:27:44 COVID-19 326075652 U07.5 [id number] Health Concerns Section Related Observation LastModified by Organization Detai ls LastModified Time None Recorded Concern Status LastModified by Organization Details LastModified Time None Recorded Advance Directives Directive None Recorded Payers Insurance Date Sequence Insurance Name Policy Number Policy Lindo Covered Member ID Lindo Member ID Guarantor Name 03/25/2025 1 [facility] - DOS ON OR AFTER 2023 - DUAL ELIGIBLE - INTERMEDIATE OPTIONS AND ONE CARE (MEDICARE REPLACEMENT/ADV ANTAGE - HMO) Jennifer Spicer [id number] Jennifer Spicer Notes Date Note Type Note [...] and brother. PMH: recent PNA?, gastritis Utilized fish cleaner All questions answered. Medic on site for at this time I provided information on the mobile health provider response time and advised the patient and/or caregiver to monitor reported signs and symptoms. I discussed the warning signs of when to seek emergency care. Advertising Photographer Organization Information for [employer] Name: [employer]. Address: [address] [place] [id number], Biomass Facilitator: Charles EDWARDS No.: [id number] Advertising Photographer POC Test Results from [employer] Rapid COVID antigen (10:53:04) COVID: + Attachments uploaded as part of this test result can be found under Documents section. Rapid influenza antigen (10:53:05) Flu: - Attachments uploaded as part of this test result can be found under Documents section. ................... ................... ................... ................... ................... ................... ................... ........ Advertising Photographer Note From [employer]: Encountered patient seated upright and conscious with family present. Patient reports since last night, a dry cough, runny nose and itchy eyes. Patient denies chest pain, shortness of breath and fevers. POC Covid swab positive, flu negative; [facility] notified. Patient reports potentially being exposed by her brother, who does not live with them but was symptomatic when they last visited on 03/24/25. Skin warm, dry and of appropriate color for ethnicity. Head and neck free of trauma and edema. PERRL. -JVD. Breath sounds present, clear and equal bilaterally. Abdomen soft, non-tender and non-distended. Extremities free of trauma and edema. [facility] Contacted: States they will write a prescription to treat patient to patients pharmacy of choice to begin treatment. Patient encouraged to monitor for chest pain, shortness of breath and fevers; to seek further medical attention if symptoms arise including 911. Patient verbalizes understanding of the plan and states she is comfortable with remaining home today. [facility] Lab Orders: rapid SARS CoV 2 Ag, QL IA, respiratory specimen: Performed rapid flu (A+B): Performed ................... ................... ................... ................... ................... ................... ................... ........ [facility] Consulted: Parker Gallardo ................... ................... ................... ................... ................... ................... ................... ........ Disposition: Fulfilled Parker Gallardo MD [address] [facility],[address], [place], [phone], [employer] 03/25/2025 11:28:07 OBGyn Episode No OBEpisode recorded.
--- OUTSIDE RECORDS SUMMARY | 2025-09-04 07:48 | XMS_ITS | Encounter Summary ---
Author Organization [employer] Address 75 [facility] 7t [place] [address] Care Team Providers Care Neon Sign Installer Name Role Phone Shital La MD Primary Care Provider + Reason for Visit * Reason Comments Med Refill Encounter Details Date Type Department Care Team ([facility] Contact Info) Description 08/30/2025 Refill [facility] MEDICINE 230 [place], [place] [phone] Shital La MD 230 [place], [place] [phone] Arthritis Social History Tobacco Use Types Packs/Day [...] documented as of this encounter Care Teams Neon Sign Installer Relationship Specialty Start Date End Date Shital La MD [address] [place] [phone] PCP - General Family Medicine 12/22/20 documented as of this encounter
--- OUTSIDE RECORDS SUMMARY | 2025-09-04 07:48 | XMS_ITS | Encounter Summary ---
Author Organization [employer] Address 75 [facility] 7t [place] [address] Care Team Providers Care Drum Dyeing Machine Operator Name Role Phone Shital La MD Primary Care Provider + Encounter Details Date Type Department Care Team (Late st Contact Info) Description 02/20/2025 Telephone [facility] MEDICINE [address] [place], [place] [phone] Shital La MD 230 [place], [place] [phone] Social History Tobacco Use Types Packs/Day Years [...] on filedocumented in this encounter Care Teams Drum Dyeing Machine Operator Relationship Specialty Start Date End Date Shital La MD [address] [place] [phone] PCP - General Family Medicine 12/22/20 documented as of this encounter
--- OUTSIDE RECORDS SUMMARY | 2025-09-04 07:48 | XMS_ITS | Encounter Summary ---
Author Organization [employer] Address [address] [place] [address] 7t [place] [address] Care Team Providers Care Machine Stonecutter Name Role Phone Shital La MD Primary Care Provider + Encounter Details Date Type Department Care Team (Late st Contact Info) Description 11/10/2022 Orders Only [facility]INE 230 [place] [address] Santa Sherman RN Social History Tobacco Use [...] on filedocumented in this encounter Care Teams Machine Stonecutter Relationship Specialty Start Date End Date Shital La MD 230 [place] [address] PCP - General Family Medicine 12/22/20 documented as of this encounter
--- OUTSIDE RECORDS SUMMARY | 2025-09-04 07:48 | XMS_ITS | Encounter Summary ---
Author Organization [employer] Address 75 [facility] 7 [place] [address] Care Team Providers Care Foundry Operator Name Role Phone Shital La MD Primary Care Provider + Reason for Visit * Reason Onset Date Comments Referral 08/10/2023 Encounter Details Date Type Department Care Team ([facility] st Contact Info) Description 08/10/2023 Telephone [facility] MEDICINE 230 [place], [place] [phone] Shital La MD 230 [place], [place] [phone] Referral Social History Tobacco Use Types Packs/Day [...] with others, in a hotel, in a snf, living outside on the street, on a [...] 1:55 PM EDT Tc from ivette with [facility] requesting a new referral. States referral was made for the left knee but per pt, it is the right knee. Please fax to [phone] Any questions, contact ivette at [phone] documented in this encounter Plan of Treatment Not on file documented as of this encounter Visit Diagnoses Diagnosis Acute pain of right knee- Primary documented in this encounter Care Teams Foundry Operator Relationship Specialty Start Date End Date Shital La MD [address] [place] [address] PCP - General Family Medicine 12/22/20 documented as of this encounter
--- OUTSIDE RECORDS SUMMARY | 2025-09-04 07:48 | XMS_ITS | Encounter Summary ---
Author Organization [employer] Address 75 [facility] 7 [place] [address] Care Team Providers Care Resin Filterer Name Role Phone Shital La MD Primary [...] on filedocumented in this encounter Care Teams Resin Filterer Relationship Specialty Start Date End Date Shital La MD [address] [place] [phone] PCP - General Family Medicine 12/22/20 documented as of this encounter
--- OUTSIDE RECORDS SUMMARY | 2025-09-04 07:48 | XMS_ITS | Encounter Summary ---
Author Organization [employer] Address 75 [facility] 7t [place] [address] Care Team Providers Care Nutrition Services Manager Name Role Phone Shital La MD Primary Care Provider + Encounter Details Date Type Department Care Team (Late st Contact Info) Description 12/15/2022 Orders Only [facility] CHC MED & PEDS [address] [place], [place] [phone] Nancy Zheng LPN Social History Tobacco Use [...] on filedocumented in this encounter Care Teams Nutrition Services Manager Relationship Specialty Start Date End Date Shital La MD [address] [place] [address] PCP - General Family Medicine 12/22/20 documented as of this encounter
--- OUTSIDE RECORDS SUMMARY | 2025-09-04 07:48 | XMS_ITS | Encounter Summary ---
Author Organization [employer] Address 75 [facility] 7t [place] [address] Care Team Providers Care Acid Painter Name Role Phone Shital La MD Primary Care Provider + Reason for Visit * Reason Comments Med Refill Encounter Details Date Type Department Care Team ([facility] Contact Info) Description 08/30/2025 Refill [facility] CHC MED & PEDS [address] [place], [place] [phone] Rosalva Pearson MD 230 [place] [address] Arthritis Social History Tobacco Use Types Packs/Day [...] documented as of this encounter Care Teams Acid Painter Relationship Specialty Start Date End Date Shital La MD [address] [place] [phone] PCP - General Family Medicine 12/22/20 documented as of this encounter
--- OUTSIDE RECORDS SUMMARY | 2025-09-04 07:48 | XMS_ITS | Encounter Summary ---
Author Organization [employer] Address [address] [place] [address] 7 [place] [address] Care Team Providers Care Aligning Inspector Name Role Phone Shital La MD Primary Care Provider + Reason for Visit * Reason Onset Date Comments Appointment Request 01/23/2023 Encounter Details Date Type Department Care Team ([facility] Contact Info) Description 01/23/2023 Telephone [facility] MEDICINE 230 [place], [place] [phone] Shital La MD 230 [place] [address] Appointment Request Social History Tobacco Use Types [...] a physical appt. Please contact pt at [phone] documented in this encounter Plan of Treatment Not on file documented as of this encounter Visit Diagnoses Not on filedocumented in this encounter Care Teams Aligning Inspector Relationship Specialty Start Date End Date Shital La MD 230 [place] [address] PCP - General Family Medicine 12/22/20 documented as of this encounter
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
--- OUTSIDE RECORDS SUMMARY | 2025-09-04 07:48 | XMS_ITS | Clinical Summary ---
Author Organization [address] [facility] Address [address] [place] [address] Phone Care Team Providers Care Spikemaking Supervisor Name Role Phone Shital La MD Primary Care Provider + [phone] Allergies Active Allergy Reactions Criticality Noted Date [...] 09/17/2025 1:15 PM EST Consult Orthopedic Surgery [facility] [address] [facility] 250 [place] [phone] Efrain Packer DPM [address] [place] [address] 01/21/2026 10:00 AM EDT Office Visit Bariatric Surgery [facility] 175 [facility] [address] [place] [phone] Maegan Khan MD [address] [place] [phone] Health Maintenance Due Date Last Done [...] patient's age to complete this topic Insurance [facility] MEDICARE Member Subscriber Plan / Payer (Ef fective 2022-Present) Name:Fco Spicer Relation to Subscriber:Self Name:Fco Spicer Payer ID:[id number] Group ID:[id number] Type:Not on file Address: [place] [address] [address] [id number] MEDICAID - [place] Care Teams Spikemaking Supervisor Relationship Specialty Start Date End Date Shital La MD [address] [place] [phone] PCP - General 06/21/22
--- OUTSIDE RECORDS SUMMARY | 2025-09-04 07:48 | XMS_ITS | Encounter Summary ---
Author Organization [employer] Address 75 [facility] 7t [place] [address] Care Team Providers Care Supervisor Finishing Room Name Role Phone Shital La MD Primary Care Provider + Reason for Visit * Reason Onset Date Comments Nurse Triage 06/02/2025 Encounter Details Date Type Department Care Team ([facility] Contact Info) Description 06/02/2025 Telephone [facility] MEDICINE [address] [place], [place] [phone] Shital La MD [address] [place] [address] Nurse Triage Social History Tobacco Use Types [...] 3:48 PM EDT Noted patient arrived at [facility] in [place] * Telephone Encounter - Santa Sherman RN - 06/02/2025 3:07 PM EDT Called pt. Via [facility] wood turner Juliana Cortez. No answer. Vaccine Specialist left a message for pt. To call 911 if this is an emergency and please call back [facility] nurses paolo at [phone]. Called back x2. Pt.States that she got [...] is already on her way to [facility] walk in. I will send this note to Walk in nurses as a heads up. Protocol Used: Eye - Chemical In (Adult) Protocol-Based Disposition: Go to ED/[facility] Now (or to Office with PCP Approval) [...] got in her eye. Contact pt at [phone] (citizen of [place]) documented in this encounter Plan of Treatment Not on file documented as of this encounter Visit Diagnoses Not on filedocumented in this encounter Additional Health Concerns Assessment Noted Time PHQ-9 Depression Total Score: 3 04/13/20 25 1:55 PM EDT documented as of this encounter Care Teams Supervisor Finishing Room Relationship Specialty Start Date End Date Shital La MD [address] [place] [phone] PCP - General Family Medicine 12/22/20 documented as of this encounter
--- NOTE | 2025-09-04 07:51 | CA_ITS ---
Acquisition Time: 2025-09-04 08:19:06 Total Exercise Time: 00:02:00 Test Indications: Abnormal ECG CP,Dyspnea,Palpitations Medications: SEE H&P Protocol: LEXISCAN Max HR: 108 BPM 71% of Pred: 152 BPM Max BP: 102/60 mmHG Max Work Load: 1.6 METS Pharmacological stress test with Lexiscan while pt walks slow on treadmill, with reports of SOB and fatigue, with isolated PACs, with normotensive response to injection. Nondiagnostic EKG for ischemia. In recovery, pt feeling back to baseline. Nuclear images pending. Test reviewed with Dr. Vidales. Referred By: Darryl Vaughn Electronically Signed By: Will Pro
== END ==
LOC: HO.CARD 07:45
PROVIDERS: PCP Internal Medicine; Visit Provider Internal Medicine Cardiovascular Disease
DX: R06.02 Shortness of breath (principal); I10 Essential (primary) hypertension; E66.01 Morbid (severe) obesity due to excess calories
CPT/HCPCS: 78452; 93017; A9500; J0280; J2785

== ENCOUNTER → 2025-09-04 07:51 | Outpatient (BNV) | payer OTHER, SELFPAY | PROVIDERS: PCP Internal Medicine | DX: R06.02 Shortness of breath (principal) | CPT/HCPCS: 78452; 93016; 93018 ==

== ENCOUNTER 2025-09-11 10:12 | Outpatient (AMB) | payer OTHER, SELFPAY ==
[2025-09-11 10:14] VITALS: BP 113/72; PULSE 66
--- NOTE | 2025-09-11 10:14 | MHC.OFFVIS ---
Vital Signs 09/11/25 10:14 Height 5 ft 2 in BP 113/72 Blood Pressure Location Lt brachial Position Sitting Pulse 66 Intake Visit Reasons: 6 months follow up abd pain, GERD Intake Note: Jennifer returns to in office follow up of abd pain and GERD. CC: Patient reports doing well wiht medications and denies having any GI symptoms today. Miniature Set Designer Required: Yes Miniature Set Designer Language: Somali Allergies morphine Allergy (Unknown, Verified 09/28/25 14:38) HIVES HPI HPI 6 months follow up abd pain, GERD: Details: Assessment & Plan (1) RLQ abdominal pain: Code(s): R10.31 - Right lower quadrant pain Category: Medical (2) GERD (gastroesophageal reflux disease): Code(s): K21.9 - Gastro-esophageal reflux disease without esophagitis Category: Medical Plan Somali #Carrie Infante (She has a new c/o a stabbing pain in the RLQ that is worse with lying and standing. It will occur about twice a week and is brief in how long it lasts. It is worse with drinking milk, anything fatty or greasy/fried, or spicy condiments. It is not accompanied by any diarrhea. Neg HIDA scan, CT shows only moderate HH). She continues on carafate, simethicone and dicyclomine, simethicone, and along with the increase of omeprazole 40 mg twice a day and Proctosol cream. She is now taking bentyl every night and her pain seems to be staying away. So I think it is NOT GB but bowel pain. She is going on vacation in [place], and she will take the Bentyl with her as she feels this is a good solution to her pain. Return office visit in 6 months TODAY'S VISIT Somali # PFSH Medical History Periumbilical abdominal pain History of frequent headaches Cough Fever Dyspnea Generalized postprandial abdominal pain Weight loss H. pylori infection Abnormal EKG Precordial chest pain Sacroiliitis Close exposure to COVID-19 virus MONTEMAYOR (nonalcoholic steatohepatitis) GERD (gastroesophageal reflux disease) Depression Asthma Morbid obesity due to excess calories Essential hypertension Surgical History Status post bariatric surgery History of esophagogastroduodenoscopy (EGD) H/O breast surgery Hx of colonoscopy Family History Father Heart attack Mother Thrombosis Social History Alcohol intake: never Patient Tobacco Use Status: Never used Tobacco Review of Systems Const Denies fatigue, Denies fever(s), Denies night sweats, Denies poor appetite and Denies weight loss Eyes Reports requires corrective lenses ENT Reports Normal hearing present, Denies dental pain, Denies dysphagia, Denies hearing loss, Denies mouth pain, Denies odynophagia, Denies throat swelling, Denies tongue swelling and Reports other (Dentition adequate) GI Details: Denies abdominal pain, Denies melena, Denies bloating, Denies hematochezia, Denies constipation, Denies GI cramping, Denies dysphagia, Denies excessive flatus, Denies early satiety, Denies heartburn, Denies diarrhea, Denies nausea, Denies odynophagia, Denies vomiting and Denies hematemesis Skin/Breast Denies pruritus, Denies lesions, Denies rash and Denies jaundice Neuro Reports Normal hearing present and Denies Abnormal speech present Endo Denies fatigue Aller/Immun Denies throat swelling and Denies tongue swelling Physical Exam Vital Signs: Last Vital Signs Pulse 66 09/11/25 10:14 BP 113/72 09/11/25 10:14 Const General: cooperative, no acute distress, well developed and well groomed Nutritional Appearance: well nourished, obese and overweight Orientation/consciousness: oriented to person, oriented to place and oriented to time Limitations: No language barrier, ambulation with cane, ambulation with walker and wheelchair HEENT Head: Yes normocephalic and Yes atraumatic Eyes General: appearance normal, both eyes and all related structures Pupils: Equal, round and reactive pupils present Neck Neck: Yes normal visual inspection and Yes no lymphadenopathy Thyroid: Thyroid normal Resp Effort & Inspection: normal respiratory effort and able to speak in complete sentences Auscultation: clear to auscultation bilaterally Cardio Rate: regular rate Rhythm: regular rhythm Heart sounds: Normal, physiologic split S2 sound present Peripheral pulses: radial pulses present and posterior tibial pulses present GI Inspection: No distended and No Abdominal panniculus present Palpation (GI): Soft to palpation, nontender, no guarding, not rigid, No hepatosplenomegaly present and Hepatosplenomegaly present Percussion: Yes normal to percussion Auscultation: normal bowel sounds Rectal Exam - Female: deferred Skin General skin exam: no rashes or lesions noted, turgor normal, skin not dry, no jaundice, No spider nevi and no striae Rashes: no rashes Nails: normal Neuro General: oriented to person, oriented to place and oriented to time Cranial nerves: Yes Equal, round and reactive pupils present and Yes Normal hearing present Speech: No Abnormal speech present Extrem General: Yes normal to inspection, No clubbing, No cyanosis and No edema Psych Thought process: Normal thought process present and not confabulating Thought content: Normal thought content present Insight: Good insight present (Psych) Judgement: Good judgement present (Psych) Assessment & Plan Assessment & Plan (1) GERD (gastroesophageal reflux disease): Code(s): K21.9 - Gastro-esophageal reflux disease without esophagitis Category: Medical (2) RLQ abdominal pain: Code(s): R10.31 - Right lower quadrant pain Category: Medical Plan Somali # Carrie infante She continues on carafate and dicyclomine, simethicone, and along with the increase of omeprazole 40 mg twice a day and Proctosol cream - The patient is a 70-year-old female presenting with a history of gastroesophageal reflux disease (GERD) post-gastric bypass surgery. - Experienced nausea, vomiting, and abdominal pain after consuming unpeeled grapes, contributing to increased discomfort. - Noted hematemesis attributed to the strain of vomiting, although prior diagnostic evaluations revealed no significant abnormalities. - Grapes identified as a previous trigger, known to exacerbate heartburn due to its acidic nature, with difficulty in digestion following gastric surgery. - Absence of rectal bleeding reported. - Recent cardiac evaluations were deemed satisfactory, with results pending. Return office visit in 6 months Coding Level of Care Code Est Pt Level 3 (28648) Diagnoses GERD (gastroesophageal reflux disease) K21.9 RLQ abdominal pain R10.31
--- OUTSIDE RECORDS SUMMARY | 2025-09-11 12:00 | XMS_ITS | Encounter Summary ---
Author Organization [employer] Address [address] [place] [address] Care Team Providers Care Plant Maintenance Supervisor Name Role Phone Shital La MD Primary Care Provider + Encounter Details Date Type Department Care Team (Late st Contact Info) Description 04/04/2024 Orders Only [facility] MEDICINE [address] [place], [place] [phone] Provider, MD Leeann Social History Tobacco Use [...] on filedocumented in this encounter Care Teams Plant Maintenance Supervisor Relationship Specialty Start Date End Date Shital La MD [address] [place] [id number] PCP - General Family Medicine 12/22/20 documented as of this encounter
--- OUTSIDE RECORDS SUMMARY | 2025-09-11 12:00 | XMS_ITS | Encounter Summary ---
Author Organization [employer] Address [address] [facility] [address]t [place] [address] Care Team Providers Care Human Development Professor Name Role Phone Shital La MD Primary Care Provider + Reason for Visit * Reason Onset Date Comments Nurse Triage 04/06/2025 Encounter Details Date Type Department Care Team ([facility] st Contact Info) Description 04/06/2025 Telephone [facility] MEDICINE [address] [place], [place] [phone] Shital La MD [address] [place], [place] [phone] Nurse Triage Social History Tobacco Use Types [...] AM EDT Triage call with [facility] [id number] Shaina Pt reports is already at the [facility] at [facility]. Pt is advised to wait to be seen. Pt is requesting to see inhalation therapist . Pt is advised to provide information to [facility] personnel for assist and Pt agrees. [...] on filedocumented in this encounter Care Teams Human Development Professor Relationship Specialty Start Date End Date Shital La MD [address] [place] [id number] PCP - General Family Medicine 12/22/20 documented as of this encounter
--- OUTSIDE RECORDS SUMMARY | 2025-09-11 12:00 | XMS_ITS | Encounter Summary ---
Author Organization [employer] Address [address] [facility] 7t [place] [address] Care Team Providers Care Skin Toggler Name Role Phone Shital La MD Primary Care Provider + Reason for Visit * Reason Onset Date Comments Nurse Triage 06/02/2025 Encounter Details Date Type Department Care Team ([facility] Contact Info) Description 06/02/2025 Telephone [facility] MEDICINE [address] [place], [place] [phone] Shital La MD [address] [place] [address] Nurse Triage Social History Tobacco Use Types [...] 3:48 PM EDT Noted patient arrived at [facility] in [place] * Telephone Encounter - Santa Sherman RN - 06/02/2025 3:07 PM EDT Called pt. Via [facility] dining car waiter/waitress Juliana Cortez. No answer. Chief Engineer left a message for pt. To call 911 if this is an emergency and please call back [facility] nurses paolo at [phone]. Called back x2. Pt.States that she got [...] and is already on her way to [facility] walk in. I will send this note to Walk in nurses as a heads up. Protocol Used: Eye - Chemical In (Adult) Protocol-Based Disposition: Go to ED/[facility] [place] (or to Office with PCP Approval) [...] got in her eye. Contact pt at [phone] (filipino) documented in this encounter Plan of Treatment Not on file documented as of this encounter Visit Diagnoses Not on filedocumented in this encounter Additional Health Concerns Assessment Noted Time PHQ-9 Depression Total Score: 3 04/13/20 25 1:55 PM EDT documented as of this encounter Care Teams Skin Toggler Relationship Specialty Start Date End Date Shital La MD [address] [place] [id number] PCP - General Family Medicine 12/22/20 documented as of this encounter
--- OUTSIDE RECORDS SUMMARY | 2025-09-11 12:00 | XMS_ITS | Data Portability ---
Author Organization [employer] [facility] Address [address] [place] [phone] Care Team Providers Care Training Systems Officer Name Role Phone HIM CCA OTHER Unavailable Primary Care Provider Assessment Encounter Date Assessment Date Assessment LastModified by Organization Details LastModified Time 03/25/2025 03/25/2025 As noted, we were called to see this patient regarding concerns of Runny nose and cough. Evaluation in the field was performed by my planishing press operator colleague, as noted above, I provided real-time [...] Ag, QL IA, respiratory specimen 2024 025 [facility], [address] [place] [address], [phone] 11:56:19 rapid flu (A+B) [address], [phone] 11:56:36 Referral None recorded. Procedures None recorded. Surgeries None recorded. Imaging None recorded. Medication Orders Paxlovid 300 mg (150 mg x 2)-100 mg tablets in a dose pack 2024 025 [facility], [address] [place] [address], [phone], 15:07:31 Patient TargetsNo targets recorded. Patient InstructionsNo instructions recorded. Reason for Referral None Reported. Results Created Date Observation Date Name Description Value Unit Range Abnormal Flag Note LastModifiedBy Organization Detail LastModifiedTime 03/25/2003/25/2025 rapid flu (A+B) Flu negati ve Not Available [facility] ed [address] [place] [address], [phone] 03/25/2025 11:04:54 03/25/2003/25/2025 rapid SARS CoV 2 Ag, QL IA, respi rator y speci men rapid SARS CoV 2 Ag, QL IA, respiratory specimen positi ve Not Available [address], [phone] 03/25/2025 11:04:52 Result Notes None recorded. Medical Equipment None Reported. Allergies Allergen ID Allergen Name Allergen Category Reaction Reaction Severity Criticality Documentation Date Start Date Code Code System Note Provider Name and Address Organization Details Recorded Time 93827 morphine medicatio n Not available Not available [...] ICD10 Code Diagnosis IMO Codes Diagnosis Note [id number] Parker Gallardo MD Main - [address] [phone] 03/25/2025 10:59:48 03/25/2025 18:27:44 COVID-19 [id number] U07.1 [id number] Health Concerns Section Related Observation LastModified by Organization Detai ls LastModified Time None Recorded Concern Status LastModified by Organization Details LastModified Time None Recorded Advance Directives Directive None Recorded Payers Insurance Date Sequence Insurance Name Policy Number Policy Lindo Covered Member ID Lindo Member ID Guarantor Name 03/25/2025 1 [facility] - DOS ON OR AFTER 2023 - DUAL ELIGIBLE - JAIL OPTIONS AND ONE CARE (MEDICARE REPLACEMENT/ADV ANTAGE - HMO) Jennifer Spicer [id number] Jennifer Spicer Notes Date Note Type Note [...] and brother. 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 Medic on site for at this time I provided information on the mobile health provider response time and advised the patient and/or caregiver to monitor reported signs and symptoms. I discussed the warning signs of when to seek emergency care. Fine Grade Bulldozer Operator Organization Information for [employer] Name: [email or web address]. Address: [address] [place] [id number], Group Therapist: Charles EDWARDS No.: [id number] Fine Grade Bulldozer Operator POC Test Results from [employer] Rapid COVID antigen (10:53:04) COVID: + Attachments uploaded as part of this test result can be found under Documents section. Rapid influenza antigen (10:53:05) Flu: - Attachments uploaded as part of this test result can be found under Documents section. ................... ................... ................... ................... ................... ................... ................... ........ Fine Grade Bulldozer Operator Note From [employer]: Encountered patient seated upright and conscious with family present. Patient reports since last night, a dry cough, runny nose and itchy eyes. Patient denies chest pain, shortness of breath and fevers. POC Covid swab positive, flu negative; [facility] notified. Patient reports potentially being exposed by her brother, who does not live with them but was symptomatic when they last visited on 03/24/25. Skin warm, dry and of appropriate color for ethnicity. Head and neck free of trauma and edema. PERRL. -JVD. Breath sounds present, clear and equal bilaterally. Abdomen soft, non-tender and non-distended. Extremities free of trauma and edema. [facility] Contacted: States they will write a prescription to treat patient to patients pharmacy of choice to begin treatment. Patient encouraged to monitor for chest pain, shortness of breath and fevers; to seek further medical attention if symptoms arise including 911. Patient verbalizes understanding of the plan and states she is comfortable with remaining home today. [facility] Lab Orders: rapid SARS CoV 2 Ag, QL IA, respiratory specimen: Performed rapid flu (A+B): Performed ................... ................... ................... ................... ................... ................... ................... ........ [facility] Consulted: Parker Gallardo ................... ................... ................... ................... ................... ................... ................... ........ Disposition: Fulfilled Parker Gallardo MD [address] [facility], [place], [phone], [employer] 03/25/2025 11:28:07 OBGyn Episode No OBEpisode recorded.
--- OUTSIDE RECORDS SUMMARY | 2025-09-11 12:00 | XMS_ITS | Encounter Summary ---
Author Organization [employer] Address [address] [facility] 7 [place] [address] Care Team Providers Care Infectious Diseases Physician Name Role Phone Shital La MD Primary Care Provider + Reason for Visit * Reason Onset Date Comments Referral 08/10/2023 Encounter Details Date Type Department Care Team ([facility] st Contact Info) Description 08/10/2023 Telephone [facility] MEDICINE [address] [place], [place] [phone] Shital La MD [address] [place], [place] [phone] Referral Social History Tobacco Use Types Packs/Day [...] 1:55 PM EDT Tc from ivette with [facility] requesting a new referral. States referral was made for the left knee but per pt, it is the right knee. Please fax to [phone] Any questions, contact ivette at [phone] documented in this encounter Plan of Treatment Not on file documented as of this encounter Visit Diagnoses Diagnosis Acute pain of right knee- Primary documented in this encounter Care Teams Infectious Diseases Physician Relationship Specialty Start Date End Date Shital La MD [address] [place] [id number] PCP - General Family Medicine 12/22/20 documented as of this encounter
--- OUTSIDE RECORDS SUMMARY | 2025-09-11 12:00 | XMS_ITS | Encounter Summary ---
Author Organization [employer] Address [address] [facility] [address] [place] [address] Care Team Providers Care Soap Mixer Name Role Phone Shital La MD Primary Care Provider + Reason for Visit * Reason Comments Med Refill Encounter Details Date Type Department Care Team ([facility] st Contact Info) Description 06/20/2025 Refill [facility] [address] [place], [place] [phone] Yadiel Rose MD [address] [place] [address] Mild persistent asthma with acute exacerbation Social [...] documented as of this encounter Care Teams Soap Mixer Relationship Specialty Start Date End Date Shital La MD [address] [place] [phone] PCP - General Family Medicine 12/22/20 documented as of this encounter
--- OUTSIDE RECORDS SUMMARY | 2025-09-11 12:00 | XMS_ITS | Encounter Summary ---
Author Organization [employer] Address [address] [facility] [address] [place] [address] Care Team Providers Care It Architect Name Role Phone Shital La MD Primary Care Provider + Encounter Details Date Type Department Care Team (Late st Contact Info) Description 02/20/[address] [facility] MEDICINE [address] [place], [place] [phone] Shital La MD [address] [place], [place] [phone] Social History Tobacco Use Types Packs/Day Years [...] on filedocumented in this encounter Care Teams It Architect Relationship Specialty Start Date End Date Shital La MD [address] [place] [phone] PCP - General Family Medicine 12/22/20 documented as of this encounter
--- OUTSIDE RECORDS SUMMARY | 2025-09-11 12:00 | XMS_ITS | Encounter Summary ---
Author Organization [employer] Address [address] [facility] [address] [place] [address] Care Team Providers Care Tag Maker Name Role Phone Shital La MD Primary Care Provider + Encounter Details Date Type Department Care Team ([facility] st Contact Info) Description 03/16/2023 Orders Only [facility] [address] [place], [place] [phone] Nancy Zheng LPN Social History Tobacco Use [...] on filedocumented in this encounter Care Teams Tag Maker Relationship Specialty Start Date End Date Shital La MD [address] [place] [phone] PCP - General Family Medicine 12/22/20 documented as of this encounter
--- OUTSIDE RECORDS SUMMARY | 2025-09-11 12:00 | XMS_ITS | Encounter Summary ---
Author Organization [employer] Address [address] [facility] 7t [place] [address] Care Team Providers Care Safety Counselor Name Role Phone Shital La MD Primary Care Provider + Encounter Details Date Type Department Care Team (Late st Contact Info) Description 09/04/2025 Orders Only [facility] External Provider, [facility] Social History Tobacco Use Types Packs/Day Years [...] Procedure Name Priority Date/Time Associated Diagnosis Comments NM HEART PERFUSION SPECT STRESS AND REST Routine 09/04/2025 8:55 AM EDT documented in this encounter Results * NM heart perfusion SPECT stress and rest (09/04/2025 8:55 AM EDT) Anatomical Region Laterality Modality Body Nuclear Medicine 09/04/2025 8:55 AM EDT Narrative 09/08/2025 12:22 PM [place] [address] Nuclear Medicine Report Signed Patient: Jennifer Spicer MR#: [id number] 9 : 1955 Acct:[id number] Age/Sex: 70 / F ADM Date: 09/04/25 Loc: HO.CARD Attending Dr: Darryl Vaughn MD Ordering Physician: Darryl Vaughn MD Date of Service: 09/04/25 Procedure(s): NM ophelia perf SPECT rest str Accession Number(s): [id number] cc: Shital La MD; Darryl Vaughn MD Reason for Exam: SOB ON EXERTION LEXISCAN STRESS Lexiscan Myocardial perfusion study Indication: Shortness of breath and exertion to evaluate for myocardial ischemia Technique: The patient was brought in for a Lexiscan perfusion study on 09/04/2025 and was injected 0.4 mg of Lexiscan intravenously. Within a minute of this injection 35 mCi of sestamibi was given intravenously. Images were obtained using the SPECT gamma camera interlaced with the gating device. Images were obtained in supine position. Resting perfusion study was performed on 09/07/2025. Patient was administered 35 mCi of sestamibi intravenously at rest. Images were then obtained in supine position. Images obtained without without CT attenuation. Total DLP 95 mGy-cm. Images were processed with the software and compared side to side in short axis, horizontal long axis and vertical long axis views. Findings: The stress perfusion study showed nonattenuated as well as attenuated corrected images show normal uptake ordered images in all segments of the LV myocardium. The gated study shows normal LV systolic function with calculated LVEF of greater than 70%. LV cavity is normal in size. The gated study shows normal systolic wall thickening and contraction of segments. Resting study shows nonattenuated images show normal uptake of radiotracer in all segments of the LV myocardium. Gating at rest reveals normal systolic wall motion with ejection fraction at 69%. The findings are consistent with normal myocardial perfusion. NM/NM ophelia perf SPECT rest str Impression: 1. Myocardial perfusion imaging study shows normal myocardial perfusion 2. Gated LVEF is 69% 3. Transient ischemic dilatation not present Nondiagnostic changes on EKG. Electronically signed by: Darryl Vaughn MD 09/08/2025 12:19 PM [facility] Dictated By: Darryl Vaughn MD Signed By: <Electronically signed by Darryl Vaughn MD in OV> 09/08/25 1219 DD/ 0855 TD/TT: 09/07/25 1330 Ceiling Insulation Blower: Procedure Note Donotuseinterpreter, Image - 09/08/[address] [address] Nuclear Medicine Report Signed Patient: Jennifer SpicerMR#: [id number] 9 : 7Acct:[id number] Age/Sex: 70 / FADM Date: 09/04/25 Loc: HO.CARD Attending Dr: Darryl Vaughn MD Ordering Physician: Darryl Vaughn MD Date of Service: 09/04/25 Procedure(s): NM ophelia perf SPECT rest str Accession Number(s): [id number] cc: Shital La MD; Darryl Vaughn MD Reason for Exam: SOB ON EXERTION LEXISCAN STRESS Lexiscan Myocardial perfusion study Indication: Shortness of breath and exertion to evaluate for myocardial ischemia Technique: The patient was brought in for a Lexiscan perfusion study on 09/04/2025 and was injected 0.4 mg of Lexiscan intravenously. Within a minute of this injection 35 mCi of sestamibi was given intravenously. Images were obtained using the SPECT gamma camera interlaced with the gating device. Images were obtained in supine position. Resting perfusion study was performed on 09/07/2025. Patient was administered 35 mCi of sestamibi intravenously at rest. Images were then obtained in supine position. Images obtained without without CT attenuation. Total DLP 95 mGy-cm. Images were processed with the software and compared side to side in short axis, horizontal long axis and vertical long axis views. Findings: The stress perfusion study showed nonattenuated as well as attenuated corrected images show normal uptake ordered images in all segments of the LV myocardium. The gated study shows normal LV systolic function with calculated LVEF of greater than 70%. LV cavity is normal in size. The gated study shows normal systolic wall thickening and contraction of segments. Resting study shows nonattenuated images show normal uptake of radiotracer in all segments of the LV myocardium. Gating at rest reveals normal systolic wall motion with ejection fraction at 69%. The findings are consistent with normal myocardial perfusion. NM/NM ophelia perf SPECT rest str Impression: 1. Myocardial perfusion imaging study shows normal myocardial perfusion 2. Gated LVEF is 69% 3. Transient ischemic dilatation not present Nondiagnostic changes on EKG. Electronically signed by: Darryl Vaughn MD 09/08/2025 12:19 PM [facility] Dictated By: Darryl Vaughn MD Signed By: <Electronically signed by Darryl Vaughn MD in OV> 09/08/25 1219 DD/ 0855 TD/TT: 09/07/25 1330 Ceiling Insulation Blower: [facility] External Provider IMG NM PROCEDURES Final Result documented in this encounter Visit Diagnoses Not on filedocumented in this encounter Additional Health Concerns Assessment Noted Time PHQ-9 Depression Total Score: 3 04/13/20 25 1:55 PM EDT documented as of this encounter Care Teams Safety Counselor Relationship Specialty Start Date End Date Shital La MD [address] [place] [phone] PCP - General Family Medicine 12/22/20 documented as of this encounter
--- OUTSIDE RECORDS SUMMARY | 2025-09-11 12:01 | XMS_ITS | Encounter Summary ---
Author Organization [employer] Address [address] [place] [address] [address] [place] [address] Care Team Providers Care Stock Roller Name Role Phone Shital La MD Primary Care Provider + Reason for Visit * Reason Onset Date Comments Appointment Request 01/23/2023 Encounter Details Date Type Department Care Team ([facility] Contact Info) Description 01/23/2023 Telephone [facility] MEDICINE [address] [place], [place] [phone] Shital La MD [address] [place] [address] Appointment Request Social History Tobacco Use Types [...] a physical appt. Please contact pt at [phone] documented in this encounter Plan of Treatment Not on file documented as of this encounter Visit Diagnoses Not on filedocumented in this encounter Care Teams Stock Roller Relationship Specialty Start Date End Date Shital La MD [address] [place] [address] PCP - General Family Medicine 12/22/20 documented as of this encounter
--- OUTSIDE RECORDS SUMMARY | 2025-09-11 12:01 | XMS_ITS | Encounter Summary ---
Author Organization [employer] Address [address] [facility] 7t [place] [address] Care Team Providers Care Developer Advocate Name Role Phone Shital La MD Primary Care Provider + Encounter Details Date Type Department Care Team (Late st Contact Info) Description 11/10/2022 Orders Only [facility] MEDICINE [address] [place] [address] Santa Sherman RN Social History Tobacco Use [...] on filedocumented in this encounter Care Teams Developer Advocate Relationship Specialty Start Date End Date Shital La MD [address] [place] [address] PCP - General Family Medicine 12/22/20 documented as of this encounter
--- OUTSIDE RECORDS SUMMARY | 2025-09-11 12:01 | XMS_ITS | Encounter Summary ---
Author Organization [employer] Address [address] [facility] 7 [place] [address] Care Team Providers Care Youth Manager Name Role Phone Shital La MD [...] on filedocumented in this encounter Care Teams Youth Manager Relationship Specialty Start Date End Date Shital La MD [address] [place] [phone] PCP - General Family Medicine 12/22/20 documented as of this encounter
--- OUTSIDE RECORDS SUMMARY | 2025-09-11 12:01 | XMS_ITS | Encounter Summary ---
Author Organization [employer] Address [address] [facility] [address] [place] [address] Care Team Providers Care Deputy Grand Jury Name Role Phone Shital La MD Primary Care Provider + Encounter Details Date Type Department Care Team (Late st Contact Info) Description 12/15/2022 Orders Only [facility] MED & PEDS [address] [place], [place] [phone] Nancy Zheng LPN Social History Tobacco Use [...] on filedocumented in this encounter Care Teams Deputy Grand Jury Relationship Specialty Start Date End Date Shital La MD [address] [place] [phone] PCP - General Family Medicine 12/22/20 documented as of this encounter
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
--- OUTSIDE RECORDS SUMMARY | 2025-09-11 12:01 | XMS_ITS | Clinical Summary ---
Author Organization 175 [facility] Address 175 [place] [address] Phone Care Team Providers Care Field Evidence Technician Name Role Phone Shital La MD Primary Care Provider + [phone] Allergies Active Allergy Reactions Criticality Noted Date [...] 1:15 PM EST Consult Orthopedic Surgery - [place] 250 175 [facility] [address] [place] [phone] Efrain Packer DPM 175 [facility] 250 [place] [address] 01/21/2026 10:00 AM EDT Office Visit Bariatric Surgery [facility] 175 [facility] 120 [place] [phone] Maegan Khan MD [address] [place] [phone] Health Maintenance Due Date Last Done Comments [...] patient's age to complete this topic Insurance [facility] MEDICARE Member Subscriber Plan / Payer (Ef fective 2022-Present) Name:Fco Spicer Relation to Subscriber:Self Name:Fco Spicer Payer ID:[id number] Group ID:[id number] Type:Not on file Address: [place] [address] [address] [id number] MEDICAID - [place] Care Teams Field Evidence Technician Relationship Specialty Start Date End Date Shital La MD [address] [place] [phone] PCP - General 06/21/22
== END 2025-09-11 10:28 | disposition home or self-care (01) ==
LOC: HO.HGI 10:12
PROVIDERS: PCP Internal Medicine; Visit Provider Nurse Practitioner
DX: K21.9 Gastro-esophageal reflux disease without esophagitis (principal); R10.31 Right lower quadrant pain
CPT/HCPCS: 99213

== ENCOUNTER → 2025-09-11 10:12 | Outpatient (BNVA) | payer OTHER, SELFPAY | PROVIDERS: PCP Internal Medicine; Visit Provider Nurse Practitioner | DX: K21.9 Gastro-esophageal reflux disease without esophagitis (principal); R10.31 Right lower quadrant pain | CPT/HCPCS: 99212 ==

== ENCOUNTER 2025-09-28 14:20 | Outpatient (AMB) | payer OTHER, SELFPAY ==
--- OUTSIDE RECORDS SUMMARY | 2025-09-24 12:15 | XMS_ITS | Encounter Summary ---
Author Organization [employer] Address 75 [facility] 7t [place] [address] Care Team Providers Care Automation Technician Name Role Phone Shital La MD Primary Care Provider + Encounter Details Date Type Department Care Team ([facility] st Contact Info) Description 09/24/2025 12:15 PM EST Office Visit [facility] 230 [place], [place] [phone] Shital La MD 230 [place], [place] [phone] Thoracic back sprain, initial encounter (Primary Dx); Arthritis Social History Tobacco Use Types Packs/Day Years Used Date Smoking Tobacco: Former Cigarettes Passive Smoke Exposure: Past Smokeless Tobacco: Never Tobacco Cessation:Counseling Given: Not [...] Sign Reading Time Taken Comments Blood Pressure 110/72 09/24/2025 12:12 PM EST Pulse 76 09/24/2025 12:12 PM EST Temperature 36.6 C (97.9 F) 09/24/2025 12:12 PM EST Respiratory Rate 18 09/24/2025 12:12 PM EST Oxygen Saturation - - Inhaled Oxygen Concentration - - Weight 93.5 kg (206 lb 2 oz) 09/24/2025 12:12 PM EST Height 157.5 cm (5' 2 ) 09/24/2025 12:12 PM EST Body Mass Index 37.7 09/24/2025 12:12 PM EST documented in this encounter Miscellaneous Notes * Assessment & Plan Note - Shital La MD - 09/24/2025 2:23 PM EST Associated Problem(s): Thoracic back sprain - No evidence of hematuria/kidney stone are less likely - Recommended diclofenac cream and application of heat to affected area. Advised stretching exercises at home. - She will call back for a referral to physical therapy if symptoms persist - Rx Tylenol and Flexeril for 1 to 2 weeks documented in this encounter Plan of Treatment Not on file documented as of this encounter Procedures Procedure Name Priority Date/Time Associated Diagnosis Comments POCT URINALYSIS DIPSTICK Routine 09/24/2025 2:22 PM EST Thoracic back sprain, initial encounter documented in this encounter Results * POCT Urinalysis (09/24/2025 2:22 PM EST) Color, UA Yellow Clarity, UA Clear Glucose, UA Negative Bilirubin, UA Negative Ketones, UA Negative Spec Grav, UA 1.025 Blood, UA Negative Negative, None Detected pH, UA 5.5 Protein, UA Negative Urobilinogen, UA 0.2 Leukocytes, UA Negative Negative, Rare, Trace Nitrite, UA Negative Negative, None Detected QC Media Lot # [id number] Lot# Expiration Date 63 Urine (Urine, Random) 09/24/2025 2:22 PM EST us Shital La MD POINT OF CARE TEST ENTER /EDIT ORDERABLES Final Result documented in this encounter Visit Diagnoses Diagnosis Thoracic back sprain, initial encounter- Primary Arthritis Unspecified arthropathy, site unspecified documented in this encounter Additional Health Concerns Assessment Noted Time PHQ-9 Depression Total Score: 3 04/13/20 25 1:55 PM EDT documented as of this encounter Care Teams Automation Technician Relationship Specialty Start Date End Date Shital La MD [address] [place] [phone] PCP - General Family Medicine 12/22/20 documented as of this encounter
--- NOTE | 2025-09-28 14:30 | MHC.OFFVIS ---
Vital Signs 09/28/25 14:32 Height 5 ft 2 in Weight 203 lb 4.259 oz BMI 37.2 BP 124/72 Blood Pressure Location Lt brachial Position Sitting Pulse 90 Pulse Source Pulse Oximeter Intake Visit Reasons: 2 mth fu after echo/ st/ (NS) Aircraft Engine Specialist Required: Yes Aircraft Engine Specialist Services: Aircraft Engine Specialist Present Aircraft Engine Specialist Name: flores Gonzalez [phone] Accompanied by: Self / Same As Patient Allergies morphine Allergy (Unknown, Verified 09/28/25 14:38) HIVES Medication List - Last Reconciled 09/28/25 by AIDEN Vick acetaminophen 500 mg PO Q8H PRN albuterol sulfate 90 mcg/actuation (Ventolin HFA) 2 puffs inhalation Q4-6H PRN calcium carbonate (Calcium Antacid) tabs PO cholecalciferol (vitamin D3) 50 mcg PO DAILY cyclobenzaprine 5 mg PO BEDTIME dicyclomine 20 mg PO QID ketotifen fumarate 0.025%(0.035%) 1 drp ophthalmic (eye) Q8H lisinopril-hydrochlorothiazide 20-25 mg 1 tab PO DAILY loratadine 10 mg PO DAILY nortriptyline 25 mg PO BEDTIME omeprazole 40 mg PO BID sumatriptan succinate 100 mg PO Q2-4H PRN tobramycin 0.3% 1 drp ophthalmic-Right Q4H trazodone 50 mg PO BEDTIME HPI HPI 2 mth fu after echo/ st/ (NS): Details: The patient is a 70 year old individual presenting for follow-up of shortness of breath and did discuss results of echocardiogram and stress test. On the last visit, the patient reported shortness of breath with activity, specifically when climbing stairs quickly, which prompted a cardiac workup. The patient notes this symptom has not recurred. Her test results showed no concerning cardiac findings. The patient's past medical history includes hypertension, morbid obesity, nonalcoholic steatohepatitis (MONTEMAYOR), and GERD. An EKG from the previous visit showed poor R-wave progression. Current medications include lisinopril-hydrochlorothiazide 20-25 mg and other non-cardiac medications. 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 She currently feels well with no concerning symptoms. PFSH Medical History Periumbilical abdominal pain History of frequent headaches Cough Fever Dyspnea Generalized postprandial abdominal pain Weight loss H. pylori infection Abnormal EKG Precordial chest pain Sacroiliitis Close exposure to COVID-19 virus MONTEMAYOR (nonalcoholic steatohepatitis) GERD (gastroesophageal reflux disease) Depression Asthma Morbid obesity due to excess calories Essential hypertension Surgical History Status post bariatric surgery History of esophagogastroduodenoscopy (EGD) H/O breast surgery Hx of colonoscopy Family History Father Heart attack Mother Thrombosis Social History Alcohol intake: never Patient Tobacco Use Status: Never used Tobacco Review of Systems Const All systems reviewed & are unremarkable except as noted in HPI and below Denies daytime sleepiness, Denies difficulty sleeping, Denies snoring, Denies stops breathing during sleep and Denies weakness Card Denies chest pain, Denies rapid heart rate, Denies irregular heart rhythm, Denies claudication, Denies leg edema, Denies lightheadedness, Denies palpitations, Denies dyspnea, Reports dyspnea on exertion, Denies orthopnea, Denies paroxysmal nocturnal dyspnea and Denies slow heart rate Resp Denies cough, Denies dyspnea, Reports dyspnea on exertion and Denies snoring GI Reports no additional complaints, Denies hematochezia, Denies change in stool character and Denies dyspepsia Musc Denies abnormal gait, Denies muscle weakness and Denies numbness Neuro Denies abnormal gait, Denies numbness and Denies weakness Endo Denies palpitations Physical Exam Vital Signs: Last Vital Signs Pulse 90 09/28/25 14:32 BP 124/72 09/28/25 14:32 BMI result Body Mass Index 37.2 Const General: cooperative, healthy appearing, comfortable and no acute distress Orientation/consciousness: patient oriented x3 Neck Neck: Yes normal visual inspection Chest Chest palpation & inspection: normal inspection of the chest Resp Effort & Inspection: normal respiratory effort Auscultation: clear to auscultation bilaterally, no crackles, no rales, no rhonchi and no wheezes Cardio Jugular venous distension: no JVD Rate: regular rate Rhythm: regular rhythm Heart sounds: S1 normal heart sound present, S2 normal heart sound present, no murmurs and no rubs Peripheral pulses: Peripheral pulses 2+ throughout GI Inspection: Yes normal to inspection Skin General skin exam: no rashes or lesions noted Neuro General: patient oriented x3 Extrem General: Yes normal to inspection and No no pedal edema Psych Appearance: grossly normal Mental Status: mental status grossly normal Speech and movement: Normal speech and movement present Assessment & Plan Assessment & Plan (1) Shortness of breath on exertion: Code(s): R06.02 - Shortness of breath Category: Medical Plan: Reported shortness of breath with exertion. EKG last visit showed sinus rhythm with poor R-wave progression. Echocardiogram 08/21/2025 showed EF 60-65%, moderate increase in the LV wall thickness, no regional wall motion abnormalities come in a abnormal diastolic function, no significant valve abnormalities. A pharmacological nuclear stress test done 09/04/2025 showing normal myocardial perfusion imaging, EF 69%. Test results reviewed with her in detail. The importance of good blood pressure control discussed. Weight loss recommended. She is not fluid overloaded on exam. Her shortness of breath symptom is most likely related to deconditioning and obesity. If her BP was elevated at the time she was experiencing the sob, that could have contribulated. Continue lisinopril/hydrochlorothiazide with ideal blood pressure goal less than 130/80. Cardiology follow-up PRN (2) Essential hypertension: Code(s): I10 - Essential (primary) hypertension Category: Medical Plan: As above . BP seems well controlled at this time. No med changes made. Plan I reviewed the results of the recent pharmacological nuclear stress test and echocardiogram with the patient. I explained that the findings on both studies were good and did not indicate an obvious cardiac cause for the patient's reported symptom of shortness of breath. I informed the patient that the echocardiogram demonstrated a normal ejection fraction of 60-65% with some left ventricular wall thickening likely related to high blood pressure and obesity, and the stress test showed normal perfusion to the heart muscle. Given the benign cardiac evaluation, I advised the patient that routine follow-up with cardiology is not required at this time. I provided return precautions, instructing the patient to let us know if any new, concerning symptoms arise, such as chest pain, pressure, or palpitations. Patient Instructions: - The results show your heart is pumping strongly and there are no signs of blockages in the heart arteries. - you do not need to have regular follow-up visits with the heart doctor. - Please contact our office if you begin to experience new symptoms like increasing shortness of breath, chest pain, chest pressure, or a feeling that your heart is racing or skipping beats. - Continue to take your blood pressure medication, lisinopril-hydrochlorothiazide, as prescribed. - It is good to continue staying active and work on weight loss. Patient was informed and verbally consented to the use of an ambient scribe for clinic note documentation during this visit. Visit time spent on chart review, interview, assessment, orders, documentation. Coding Level of Care Code Est Pt Level 3 (18464) Complex visit Add On G2211 Diagnoses Shortness of breath on exertion R06.02 Essential hypertension I10 Time Spent (min) 24
[2025-09-28 14:32] VITALS: BP 124/72; PULSE 90; BMI 37.2
--- OUTSIDE RECORDS SUMMARY | 2025-09-28 19:15 | XMS_ITS | Encounter Summary ---
Author Organization [employer] Address [address] [facility] [address] 7t [place] [address] Care Team Providers Care Practical Nursing Teacher Name Role Phone Shital La MD Primary Care Provider + Encounter Details Date Type Department Care Team (Late st Contact Info) Description 04/04/[address] [facility] 230 [place], [place] [phone] Provider, MD Leeann Social History Tobacco Use [...] on filedocumented in this encounter Care Teams Practical Nursing Teacher Relationship Specialty Start Date End Date Shital La MD [address] [place] [address] PCP - General Family Medicine 12/22/20 documented as of this encounter
--- OUTSIDE RECORDS SUMMARY | 2025-09-28 19:15 | XMS_ITS | Encounter Summary ---
Author Organization [employer] Address 75 [facility] 7t [place] [address] Care Team Providers Care Pattern Room Attendant Name Role Phone Shital La MD Primary Care Provider + Reason for Visit * Reason Onset Date Comments Nurse Triage 06/02/2025 Encounter Details Date Type Department Care Team ([facility] Contact Info) Description 06/02/2025 Telephone [facility] 230 [place], [place] [phone] Shital La MD 230 [place] [address] Nurse Triage Social History Tobacco Use Types [...] 3:48 PM EDT Noted patient arrived at [facility] in [place] * Telephone Encounter - Santa Sherman RN - 06/02/2025 3:07 PM EDT Called pt. Via [facility] manufacturing leader Juliana Cortez. No answer. Oil [employer] Principal left a message for pt. To call 911 if this is an emergency and please call back [facility] nurses paolo at [phone]. Called back x2. Pt.States that she got [...] and is already on her way to [facility] walk in. I will send this note to Walk in nurses as a heads up. Protocol Used: Eye - Chemical In (Adult) Protocol-Based Disposition: Go to ED/[facility] Now (or to Office with PCP Approval) [...] got in her eye. Contact pt at [phone] (bulgarian) documented in this encounter Plan of Treatment Not on file documented as of this encounter Visit Diagnoses Not on filedocumented in this encounter Additional Health Concerns Assessment Noted Time PHQ-9 Depression Total Score: 3 04/13/20 25 1:55 PM EDT documented as of this encounter Care Teams Pattern Room Attendant Relationship Specialty Start Date End Date Shital La MD [address] [place] [phone] PCP - General Family Medicine 12/22/20 documented as of this encounter
--- OUTSIDE RECORDS SUMMARY | 2025-09-28 19:15 | XMS_ITS | Encounter Summary ---
Author Organization [employer] Address 75 [facility] 7t [place] [address] Care Team Providers Care Oil Change Technician Name Role Phone Shital La MD Primary Care Provider + Reason for Visit * Reason Comments Med Refill Encounter Details Date Type Department Care Team ([facility] st Contact Info) Description 06/20/2025 Refill [facility] 230 [place], [place] [phone] Yadiel Rose MD 230 [place] [address] Mild persistent asthma with acute exacerbation Social [...] documented as of this encounter Care Teams Oil Change Technician Relationship Specialty Start Date End Date Shital La MD [address] [place] [phone] PCP - General Family Medicine 12/22/20 documented as of this encounter
--- OUTSIDE RECORDS SUMMARY | 2025-09-28 19:15 | XMS_ITS | Encounter Summary ---
Author Organization [employer] Address 75 [facility] 7t [place] [address] Care Team Providers Care Package Liner Name Role Phone Shital La MD Primary Care Provider + Encounter Details Date Type Department Care Team (Late st Contact Info) Description 02/20/2025 Telephone [facility] MED[facility]INE 230 [place], [place] [phone] Shital La MD 230 [place], [place] [phone] Social History Tobacco Use Types Packs/Day Years [...] on filedocumented in this encounter Care Teams Package Liner Relationship Specialty Start Date End Date Shital La MD [address] [place] [phone] PCP - General Family Medicine 12/22/20 documented as of this encounter
--- OUTSIDE RECORDS SUMMARY | 2025-09-28 19:15 | XMS_ITS | Clinical Summary ---
Author Organization 175 [facility] Address 175 [place] [address] Phone Care Team Providers Care Pin Sticker Name Role Phone Shital La MD Primary Care Provider + [phone] Allergies Active Allergy Reactions Criticality Noted Date [...] Encounters Date Type Department Care Team Description 09/17/2025 1:15 PM EST Consult Orthopedic Surgery [facility] [address] [phone] Efrain Packer DPM Pain in right foot (Primary Dx); Hammertoes of both feet from Last 3 Months Surgical History Surgery [...] Care Team (Late st Contact Info) Description 12/21/2025 10:30 AM EST Office Visit Orthopedic Surgery [facility] [address] [phone] Efrain Packer DPM [address] [address] 01/21/2026 10:00 AM EDT Office Visit Bariatric Surgery [facility] 175 [facility] 120 [place] [phone] Maegan Khan MD [address] [place] [phone] Health Maintenance Due Date Last Done Comments [...] history exists Hypertension/CHF/CAD Annual BMP Blood Test 08/26/2026 08/26/2025, 12/29/2024, 10/17/2024 DTaP,Tdap,and Td Vaccines (5 - [...] complete [place] [phone] [facility] MEDIC[facility] Member Subscriber Plan / Payer (Ef fective 2022-Present) Name:Fco Spicer Relation to Subscriber:Self Name:Fco Spicer Payer ID:[id number] Group ID:[id number] Type:Not on file Address: [address] [phone] MEDICAID - [place] Care Teams Pin Sticker Relationship Specialty Start Date End Date Shital La MD [address] [place] [phone] PCP - General 06/21/22
--- OUTSIDE RECORDS SUMMARY | 2025-09-28 19:15 | XMS_ITS | Data Portability ---
Author Organization [employer] [facility] Address [address] [place] [phone] Care Team Providers Care Firer Diesel Locomotive Name Role Phone HIM CCA OTHER Unavailable Primary Care Provider Assessment Encounter Date Assessment Date Assessment LastModified by Organization Details LastModified Time 03/25/2025 03/25/2025 As noted, we were called to see this patient regarding concerns of Runny nose and cough. Evaluation in the field was performed by my senior human resources representative colleague, as noted above, I provided real-time [...] Ag, QL IA, respiratory specimen 2024 025 [facility], [address] [place] [address], [id number] 11:56:19 rapid flu (A+B) [address], [phone] 11:56:36 Referral None recorded. Procedures None recorded. Surgeries None recorded. Imaging None recorded. Medication Orders Paxlovid 300 mg (150 mg x 2)-100 mg tablets in a dose pack 2024 025 [facility], [address] [place] [address], [id number], 15:07:31 Patient TargetsNo targets recorded. Patient InstructionsNo instructions recorded. Reason for Referral None Reported. Results Created Date Observation Date Name Description Value Unit Range Abnormal Flag Note LastModifiedBy Organization Detail LastModifiedTime 03/25/2003/25/2025 rapid flu (A+B) Flu negati ve Not Available [facility] ed [address] [place] [address], [id number] 03/25/2025 11:04:54 03/25/2003/25/2025 rapid SARS CoV 2 Ag, QL IA, respi rator y speci men rapid SARS CoV 2 Ag, QL IA, respiratory specimen positi ve Not Available [address], [phone] 03/25/2025 11:04:52 Result Notes None recorded. Medical Equipment None Reported. Allergies Allergen ID Allergen Name Allergen Category Reaction Reaction Severity Criticality Documentation Date Start Date Code Code System Note Provider Name and Address Organization Details Recorded Time 64650 morphine medicatio n Not available Not available [...] ot Available Vitals Date Recorded Oxygen saturation Heart rate Respiratory rate Body temperature Systolic And Diastolic Provider Name and Address Organization Details Last Updated DateTime 5 98 % 68 /min 18 /min 98.5 [...] ICD10 Code Diagnosis IMO Codes Diagnosis Note [id number] Parker Gallardo MD Main - [address] [phone] 03/25/2025 10:59:48 03/25/2025 18:27:44 COVID-19 969815199 U07.7 [id number] Health Concerns Section Related Observation LastModified by Organization Detai ls LastModified Time None Recorded Concern Status LastModified by Organization Details LastModified Time None Recorded Advance Directives Directive None Recorded Payers Insurance Date Sequence Insurance Name Policy Number Policy Lindo Covered Member ID Lindo Member ID Guarantor Name 03/25/2025 1 [facility] - DOS ON OR AFTER 2023 - DUAL ELIGIBLE - PENITENTIARY OPTIONS AND ONE CARE (MEDICARE REPLACEMENT/ADV ANTAGE - HMO) Jennifer Spicer [id number] Jennifer Spicer Notes Date Note Type Note [...] and brother. PMH: recent PNA?, gastritis Utilized audit consultant All questions answered. Medic on site for at this time I provided information on the mobile health provider response time and advised the patient and/or caregiver to monitor reported signs and symptoms. I discussed the warning signs of when to seek emergency care. Medical Appointment Scheduler Organization Information for [facility] [employer] Name: [employer]. Address: [address] [place] [id number], Pearl Hand: Charles EDWARDS No.: [id number] Medical Appointment Scheduler POC Test Results from [facility] Rapid COVID antigen (10:53:04) COVID: + Attachments uploaded as part of this test result can be found under Documents section. Rapid influenza antigen (10:53:05) Flu: - Attachments uploaded as part of this test result can be found under Documents section. ................... ................... ................... ................... ................... ................... ................... ........ Medical Appointment Scheduler Note From [facility]: Encountered patient seated upright and conscious with family present. Patient reports since last night, a dry cough, runny nose and itchy eyes. Patient denies chest pain, shortness of breath and fevers. POC Covid swab positive, flu negative; [facility] notified. Patient reports potentially being exposed by her brother, who does not live with them but was symptomatic when they last visited on 03/24/25. Skin warm, dry and of appropriate color for ethnicity. Head and neck free of trauma and edema. PERRL. -JVD. Breath sounds present, clear and equal bilaterally. Abdomen soft, non-tender and non-distended. Extremities free of trauma and edema. [facility] Contacted: States they will write a prescription to treat patient to patients pharmacy of choice to begin treatment. Patient encouraged to monitor for chest pain, shortness of breath and fevers; to seek further medical attention if symptoms arise including 911. Patient verbalizes understanding of the plan and states she is comfortable with remaining home today. [facility] Lab Orders: rapid SARS CoV 2 Ag, QL IA, respiratory specimen: Performed rapid flu (A+B): Performed ................... ................... ................... ................... ................... ................... ................... ........ [facility] Consulted: Parker Gallardo ................... ................... ................... ................... ................... ................... ................... ........ Disposition: Fulfilled Parker Gallardo MD [address] [place] [address],[address] [facility], [place], [address], EUGENIE - YOVANNY DUDLEY 03/25/2025 11:28:07 OBGyn Episode No OBEpisode recorded.
--- OUTSIDE RECORDS SUMMARY | 2025-09-28 19:15 | XMS_ITS | Encounter Summary ---
Author Organization [employer] Address [address] [facility] [address] [place] [address] Care Team Providers Care Port Drier Name Role Phone Shital La MD Primary Care Provider + Encounter Details Date Type Department Care Team ([facility] st Contact Info) Description 03/16/2023 Orders Only [facility] [address] [place], [place] [phone] Nancy Zheng LPN Social History Tobacco Use [...] on filedocumented in this encounter Care Teams Port Drier Relationship Specialty Start Date End Date Shital La MD [address] [place] [id number] PCP - General Family Medicine 12/22/20 documented as of this encounter
--- OUTSIDE RECORDS SUMMARY | 2025-09-28 19:15 | XMS_ITS | Encounter Summary ---
Author Organization [employer] Address [address] [facility] [address] [place] [address] Care Team Providers Care Helpdesk Technician Name Role Phone Shital La MD Primary Care Provider + Reason for Visit * Reason Onset Date Comments Nurse Triage 04/06/2025 Encounter Details Date Type Department Care Team ([facility] st Contact Info) Description 04/06/2025 Telephone [facility] MEDICINE [address] [place], [place] [phone] Shital La MD [address] [place], [place] [phone] Nurse Triage Social History Tobacco Use Types [...] 04/06/2025 9:36 AM EDT Triage call with [facility] [place] [id number] Shaina Pt reports is already at the [facility] at [facility]. Pt is advised to wait to be seen. Pt is requesting to see stave log cut off saw operator . Pt is advised to provide information to [facility] personnel for assist and Pt agrees. Insurance [...] on filedocumented in this encounter Care Teams Helpdesk Technician Relationship Specialty Start Date End Date Shital La MD [address] [place] [phone] PCP - General Family Medicine 12/22/20 documented as of this encounter
--- OUTSIDE RECORDS SUMMARY | 2025-09-28 19:15 | XMS_ITS | Encounter Summary ---
Author Organization [employer] Address [address] [facility] [address] [place] [address] Care Team Providers Care Maintenance Supervisor Electrical Name Role Phone Shital La MD Primary Care Provider + Reason for Visit * Reason Onset Date Comments Referral 08/10/2023 Encounter Details Date Type Department Care Team ([facility] st Contact Info) Description 08/10/2023 Telephone [facility] MEDICINE [address] [place], [place] [phone] Shital La MD [address] [place], [place] [phone] Referral Social History Tobacco Use Types Packs/Day [...] with others, in a hotel, in a long term, living outside on the street, on a [...] 1:55 PM EDT Tc from ivette with [facility] requesting a new referral. States referral was made for the left knee but per pt, it is the right knee. Please fax to [phone] Any questions, contact ivette at [phone] documented in this encounter Plan of Treatment Not on file documented as of this encounter Visit Diagnoses Diagnosis Acute pain of right knee- Primary documented in this encounter Care Teams Maintenance Supervisor Electrical Relationship Specialty Start Date End Date Shital La MD [address] [place] [phone] PCP - General Family Medicine 12/22/20 documented as of this encounter
--- OUTSIDE RECORDS SUMMARY | 2025-09-28 19:15 | XMS_ITS | Clinical Summary ---
Author Organization [employer] Address [address] [facility] 7t [place] [address] Care Team Providers Care Building Performance Specialist Name Role Phone Fernandez Merlos MD Primary Care Provider + Allergies Active Allergy Reactions Criticality Noted Date Comments Morphine Hives,Itching 11/01/2010 Other reaction(s): Itching, rash: ITCH Medications omeprazole (PriLOSEC) [address] capsule 01/30/20 23 Active traZODone (Desyrel) 50 MG tablet 01/30/20 23 Active SUMAtriptan (Imitrex) 100 MG tabletIndicatio ns:Chronic [...] 026 Active Blood Glucose Monitoring Suppl (FreeStyle [place] Lite) w/Device kit Use to test blood sugar 1x/w 1 kit 04/13/20 25 Active D3 Super Strength 50 MCG (1999 UT) capsule TAKE 1 CAPSULE BY MOUTH [...] 07/07/20 25 025 Active TRUEplus Lancets 33G [facility] USE DIRECTED TO TEST BLOOD SUGAR EVERY DAY 100 each 3 5 2:21 PM EST 07/15/20 25 Active FT Antacid Extra Strength 750 MG chewable tablet CHEW AND SWALLOW 1 TABLET TWICE DAILY 60 tablet 11 09/01/20 25 Active ibuprofen 800 MG tabletIndicatio ns:Arthritis TAKE 1 TABLET BY MOUTH THREE TIMES DAILY NEEDED 90 tablet 1 09/01/20 25 Active Acetaminophen Extra Strength 500 MG tabletIndicatio ns:Arthritis TAKE 1 TABLET BY MOUTH EVERY 8 HOURS NEEDED DO NOT EXCEED 4 TABLETS IN 24 HOURS 120 tablet 1 5 2:21 PM EST 09/24/20 25 Active cyclobenzaprine (Flexeril) 10 MG tabletIndicatio ns:Arthritis Take 1 tablet (10 mg) by mouth at bedtime. 10 tablet 5 2:21 PM EST 09/24/20 25 025 Active Acetaminophen Extra Strength 500 MG tabletIndicatio ns:Arthritis TAKE 1 TABLET BY MOUTH EVERY 8 HOURS NEEDED DO NOT EXCEED 4 TABLETS IN 24 HOURS 90 tablet 1 11/22/19 24 025 Discontinued(Re order (will not trigger notification to Pharmacy)) calcium carbonate EX (Tums Extra Strength) 750 MG chewable tablet Chew 1 tablet (750 mg) 2 times daily. 60 tablet 11 08/08/20 24 025 Discontinued ibuprofen 800 MG tabletIndicatio ns:Arthritis TAKE 1 TABLET BY MOUTH THREE TIMES DAILY NEEDED 90 tablet 1 07/03/20 25 025 Discontinued(Re order (will not trigger notification to Pharmacy)) Active Problems Problem Noted Date Diagnosed Date Thoracic back sprain 09/24/2025 Assessment & Plan (09/24/2025 2:23 PM EST): - No evidence of hematuria/kidney stone are less likely - Recommended diclofenac cream and application of heat to affected area. Advised stretching exercises at home. - She will call back for a referral to physical therapy if symptoms persist - Rx Tylenol and Flexeril for 1 to 2 weeks Callus of toe 07/07/2025 Assessment & Plan [...] and FU w/ ELOY Sanders FU w/ me in 4 months Assessment [...] disease) 2 Overview (09/09/2024): EGD on 09/01/24, Bigg Whitaker Assessment & Plan (04/13/2025 6:19 PM EDT): [...] nonsmoker Morbid obesity due to excess calories (CMS/HCC) 08/30/2015 Assessment & Plan (12/10/2024 5:10 PM [...] exercise, life style modifications, diet, referral to correctional program specialist. Discussed re lower calorie intake, increase [...] Encounters Date Type Department Care Team Description 09/24/2025 12:15 PM EST Office Visit [facility] [address] [place] [phone] Fernandez Merlos MD Thoracic back sprain, initial encounter (Primary Dx); Arthritis 09/24/2025 Travel 09/18/2025 Telephone [facility] [address] [place] [phone] Fernandez Merlos MD Nurse Triage 09/04/2025 Orders Only [facility] External Provider, [facility] 08/30/2025 Refill [facility] [address] [place] [phone] Fernandez Merlos MD Arthritis 08/30/2025 Refill [facility] [address] [place], [place] [phone] Rosalva Pearson MD Arthritis 08/26/2025 Orders Only GENERIC EXTERNAL DATA DEPARTMENT Provider, Generic External Data 08/12/2025 Orders Only [facility] [address] [place] [phone] Fernandez Merlos MD 07/15/2025 Refill [facility] [address] [place] [phone] Fernandez Merlos MD 07/07/2025 11:30 AM EDT Office Visit [facility] [address] [place] [phone] Fernandez Merlos MD Corneal burn, left, sequela (Primary Dx); Callus of toe; Pure hypercholesterolemia 07/07/2025 Travel 07/03/2025 Refill [facility] [address] [place] [address] Fernandez Merlos MD Arthritis 06/30/2025 Telephone [facility] [address] [place] [phone] Fernandez Merlos MD Nurse Triage 06/28/2025 Refill [facility] [address] [place], [place] [phone] Fernandez Merlos MD Primary hypertension from Last 3 Months Immunizations Immunization Administration [...] 18 09/24/2025 12:12 PM EST Oxygen Saturation 99% 06/02/2025 4:02 PM EDT Inhaled Oxygen Concentration - - Weight 93.5 kg (206 lb 2 oz) 09/24/2025 12:12 PM EST Height 157.5 cm (5' 2 ) 09/24/2025 12:12 PM EST Body Mass Index 37.7 09/24/2025 12:12 PM EST Plan of Treatment Health Maintenance Due Date Last Done Comments CT Colonography 1955 FIT DNA/Cologuard 1955 FIT 1955 FOBT 1955 Sigmoidoscopy 1955 RSV Patients and Patients Aged 60 years or older (1 - Risk 50-74 years 1-dose series) 2007 COVID-19 Vaccine ( season) 2025 06/05/2022, 07/04/2021, 01/05/2021, Additional history exists Influenza Vaccine (#1) 2025 , 08/26/2022, 07/02/2021, Additional history exists Depression Screening 04/13/2026 04/13/2025, 04/13/20 25 Mammogram 08/12/2026 08/12/2025, 07/07, 07/24/2023, Additional history exists Alcohol/Substance Use Screening 09/24/2026 09/24/2025 SDOH Screening 09/24/2026 09/24/2025 Tobacco Screening 09/24/2026 09/24/2025 DTaP/Tdap/Td Vaccines (3 - Td or Tdap) [...] PM EST Thoracic back sprain, initial encounter NM HEART PERFUSION SPECT STRESS AND REST [...] Relevant to Health Maintenance Results * POCT Urinalysis (09/24/2025 2:22 PM EST) Color, UA Yellow Clarity, UA Clear Glucose, UA Negative Bilirubin, UA Negative Ketones, UA Negative Spec Grav, UA 1.025 Blood, UA Negative Negative, None Detected pH, UA 5.5 Protein, UA Negative Urobilinogen, UA 0.2 Leukocytes, UA Negative Negative, Rare, Trace Nitrite, UA Negative Negative, None Detected QC Media Lot # [id number] Lot# Expiration Date [id number] Urine (Urine, Random) 09/24/2025 2:22 PM EST Fernandez Merlos MD POINT OF CARE TEST ENTER /EDIT ORDERABLES Final Result * NM heart perfusion SPECT stress and rest (09/04/2025 8:55 AM EDT) Anatomical Region Laterality Modality Body Nuclear Medicine 09/04/2025 8:55 AM EDT Narrative 09/08/2025 12:22 PM EST [address] [address] Nuclear Medicine Report Signed Patient: Jennifer Spicer MR#: [id number] 9 : 1955 Acct:[id number] Age/Sex: 70 / F ADM Date: 09/04/25 Loc: [facility] Attending Dr: Darryl Vaughn MD Ordering Physician: Darryl Vaughn MD Date of Service: 09/04/25 Procedure(s): NM ophelia perf SPECT rest str Accession Number(s): [id number] cc: Fernandez Merlos MD; Darryl Vaughn MD [...] by: Darryl Vaughn MD 09/08/2025 12:19 PM [facility] Dictated By: Darryl Vaughn MD Signed By: <Electronically signed by Darryl Vaughn MD in OV> 09/08/25 1219 DD/ 0855 TD/TT: 09/07/25 1330 Instrumentation Tech: Procedure Note Donotuseinterpreter, Image - 09/08/2025 [place] [address] Nuclear Medicine Report Signed Patient: Jennifer SpicerMR#: [id number] 9 : 7Acct:[id number] Age/Sex: 70 / FADM Date: 09/04/25 Loc: HO.CARD Attending Dr: Darryl Vaughn MD Ordering Physician: Darryl Vaughn MD Date of Service: 09/04/25 Procedure(s): NM ophelia perf SPECT rest str Accession Number(s): [id number] cc: Fernandez Merlos MD; Darryl Vaughn MD [...] by: Darryl Vaughn MD 09/08/2025 12:19 PM [facility] Dictated By: Darryl Vaughn MD Signed By: <Electronically signed by Darryl Vaughn MD in OV> 09/08/25 1219 DD/ 0855 TD/TT: 09/07/25 1330 Instrumentation Tech: [facility] External Provider IMG NM PROCEDURES Final Result * (ABNORMAL) CBC auto differential (08/26/2025 8:24 PM EDT) White Blood Count 13.9(H) 4.8 - 10.8 X10*3/uL [facility] Red Blood Count 4.46 4.20 - 5.50 X10*6/uL [facility] Hemoglobin 12.5 12.0 - 16.0 g/dl [facility] Hematocrit 39.5 37.0 - 47.0 % [facility] Mean Corpuscular Volume 88.6 80.0 - 98.0 fL [facility] Mean Corpuscular Hemoglobin 28.0 27.0 - 33.0 pg [facility] Mean Corpuscular HGB Conc 31.6 31.0 - 35.0 g/dl [facility] Red Cell Distribution Width 14.7 11.0 - 16.0 % [facility] Platelet Count 319 160 - 400 X10*3/uL [facility] Mean Platelet Volume 10.0 9.4 - 12.3 fL [facility] Neutrophils Percent Auto 83.3(H) 45 - 73 % [facility] Imm Gran Pct Auto 0.4 0.0 - 0.4 % [facility] Lymphocytes Percent Auto 9.5(L) 20 - 40 % [facility] Monocytes Percent Auto 6.3 2 - 11 % [facility] Eosinophils Percent Auto 0.4 0 - 4 % [facility] Basophils Percent Auto 0.1 0 - 2 % [facility] NRBC Pct Auto 0.0 0.0 - 0.2 /100WBC [facility] Neutrophils Absolute Auto 11.6(H) 2.0 - 8.3 x10*3/uL [facility] Imm Gran Abs Auto 0.05(H) 0.00 - 0.03 X10*3/uL [facility] Lymphocytes Absolute Auto 1.3 1.2 - 4.9 X10*3/uL [facility] Monocytes Absolute Auto 0.9 0.1 - 1.2 X10*3/uL [facility] Eosinophils Absolute Auto 0.1 0.0 - 0.4 X10*3/uL [facility] Basophils Absolute Auto 0.0 0.0 - 0.2 X10*3/uL [facility] NRBC Abs Auto 0.000 0.0 - 0.012 X10*3/uL [facility] 08/26/2025 8:24 PM EDT 08/26/2025 8:27 PM EDT us Generic External Data Provider LAB BLOOD ORDERAB LES Final Result [facility] [address] [place] [phone] * (ABNORMAL) Comprehensive Metabolic Panel (08/26/2025 8:24 PM EDT) Sodium 139 135 - 145 mmol/L [facility] Potassium 4.9 3.3 - 5.1 mmol/L [facility] Chloride 105 96 - 108 mmol/L [facility] Carbon Dioxide 25 22 - 29 mmol/L [facility] Anion Gap 14 12 - 20 [facility] Urea Nitrogen (BUN) 27(H) 9 - 16 mg/dL [facility] Creatinine, Serum 1.07 0.5 - 1.4 mg/dL [facility] Creatinine Clr Calc Pharmacy 54.1 [facility] Comment:Provided height and weight: 157.48 cm,95.254 kg.eGFR (calculated from the MDRD study equation) and eCrCl(calculated from the Cockcroft-Gault equation) are based ondifferent parameters and may not yield comparable results.If eCrCl result is absurd, please check patient'sheight/weight. Estimated Glomerular Filt Rate 51 [facility] Comment:Chronic Kidney Disea se: Estimated GFR < 60 mL/min/1.01w6Wmxade Kidney Disease: Estimated GFR < 15 mL/min/1.73m2 Glucose 132(H) 60 - 115 mg/dL [facility] Calcium 9.9 8.4 - 10.2 mg/dL [facility] Bilirubin, Total 0.3 0.0 - 1.0 mg/dL [facility] Aspartate Amino Transferase 26 5 - 31 U/L [facility] Alanine Aminotransferase 17 0 - 31 U/L [facility] Total Protein 8.1(H) 6.5 - 8.0 g/dL [facility] Albumin Level 4.9 3.5 - 5.0 g/dL [facility] Alkaline Phosphatase 89 39 - 117 U/L [facility] 08/26/2025 8:24 PM EDT 08/26/2025 8:27 PM EDT us Generic External Data Provider LAB BLOOD ORDERAB LES Final Result [facility] [address] [place] [phone] [phone] * BI Mammogram Screening Tomosynthesis Bilateral (08/12/2025 9:50 AM EDT) Anatomical Region Laterality Modality Breast Bilateral Mammography 08/12/2025 9:50 AM EDT Narrative 08/21/2025 2:15 PM EDT [address] [place] [address] Mammography Report Signed Patient: Jennifer Spicer MR#: [id number] 9 : 1955 Acct:[id number] Age/Sex: 70 / F ADM Date: 08/12/25 Loc: HO.MAMMO Attending Dr: Fernandez Merlos MD Ordering Physician: Fernandez Merlos MD Results: 1Ne gative Date of Service: 08/12/25 Follow Up: 1 Year From [facility] Mammogram Procedure(s): MM tomosynthesis screening BI Accession Number(s): [id number] cc: Fernandez Merlos MD Reason For Exam: [...] 08/21/25 1412 DD/ 0950 TD/TT: 08/12/25 1015 Instrumentation Tech: Procedure Note Donotuseinterpreter, Image - 08/21/2025 [facility] [address] [place], [place] [address] Mammography Report Signed Patient: Jennifer SpicerMR#: [id number] 9 : 1955cct:[id number] Age/Sex: 70 / FADM Date: 08/12/25 Loc: HODorothyMAMMO Attending Dr: Fernandez Merlos MD Ordering Physician: Fernandez Merlos MDResults: 1Ne gative Date of Service: 08/12/25Follow Up: 1 Year From Orig inal Mammogram Procedure(s): MM tomosynthesis screening BI Accession Number(s): [id number] cc: Fernandez Merlos MD Reason For Exam: [...] 08/21/25 1412 DD/ 0950 TD/TT: 08/12/25 1015 Instrumentation Tech: Fernandez Merlos MD IMG BI PROCEDURES Final Result * XR Toes 2+ Views Right (07/07/2025 11:43 AM EDT) Anatomical Region Laterality Modality Lower Extremities, Toes Left Radiogra phic Imaging 07/07/2025 11:4 3 AM EDT Narrative 07/07/2025 12:43 PM EDT [address] [address] XRay Report Signed Patient: Jennifer Spicer MR#: [id number] 9 : 1955 Acct:[id number] Age/Sex: 70 / F ADM Date: 07/07/25 Loc: HO.HHCX Attending Dr: Fernandez Merlos MD Ordering Physician: Fernandez Merlos MD Date of Service: 07/07/25 Procedure(s): XR toe RT min 2V Accession Number(s): [id number] cc: Fernandez Merlos MD Reason for Exam: [...] 07/07/25 1241 DD/ 1143 TD/TT: 07/07/25 1200 Instrumentation Tech: Procedure Note Donotneinterpreter, Image - 07/07/2025 [facility] [address] [facility] [place] [address] XRay Report Signed Patient: Jennifer SpicerMR#: [id number] 9 : 1955cct:[id number] Age/Sex: 70 / FADM Date: 07/07/25 Loc: HO.HHCX Attending Dr: Fernandez Merlos MD Ordering Physician: Fernandez Merlos MD Date of Service: 07/07/25 Procedure(s): XR toe RT min 2V Accession Number(s): [id number] cc: Fernandez Merlos MD Reason for Exam: [...] 07/07/25 1241 DD/ 1143 TD/TT: 07/07/25 1200 Instrumentation Tech: Fernandez Merlos MD IMG XR PROCEDURES Final Result * (ABNORMAL) Lipid Panel with Reflex to Direct LDL (07/03/2025 10:06 AM EDT) Triglycerides 77 <150 mg/dL [facility] Comment:Desirable Triglyceri de: less than 150 mg/dLBorderline High Triglyceride 150-199 mg/dLHigh Triglyceride: 200-499 mg/dLVery High Triglyceride: greater than or equal to 5OO mg/dL Cholesterol 191 <200 mg/dL [facility] Comment:Desirable Cholestero l: less than 200 mg/dLBorderline High Cholesterol: 200-239 mg/dLHigh Cholesterol: greater than 239 mg/dL LDL Cholesterol Calculated 113(H) <100 mg/dL [facility] Comment:Desirable LDL: less than 100 mg/dLNear Optimal/Above Optimal LDL: 110- 129 mg/dLBorderline High LDL: 130-159 mg/dLHigh LDL: 160-189 mg/dLVery High LDL: greater than or equal to 190 mg/dL HDL Cholesterol 63 >40 mg/dL [facility] Comment:Desirable HDL: great er than 40 mg/dL Note: This HDL assay may give artificially low results in patients with liver disease. Blood 07/03/2025 10:0 6 AM EDT 07/03/2025 10:06 AM EDT Fernandez Merlos MD LAB BLOOD ORDERABLES Fin al Result [facility] [address] [place] [phone] * Hm Colonoscopy (03/09/2023 5:37 AM EDT) Historical Provider HEALTH MAINTENANCE Final Result * (ABNORMAL) Hepatitis Panel, General (02/01/2023 9:58 AM EDT) Hepatitis A Antibody Total REACTIVE( A) NON-REACT [employer] [place] [employer] Comment: For additional information, please refer to http://education.[employer] [facility]/faq/BAR233 (This link is being provided for informational/ educational purposes only.) Hepatitis B Surface Antibody QL REACTIVE( A) NON-REACT [employer] [place] [employer] Hepatitis B Surface Ag NON-REACT FRANCES NON-REACT [employer] [place] [employer] Hepatitis B Core Antibody Total NON-REACT FRANCES NON-REACT FRANCES [employer] [place] [facility] Hepatitis C Antibody NON-REACT FRANCES NON-REACT FRANCES [employer] [place] [facility] Index 0.02 <1.00 [employer] [place] [facility] Comment: HCV antibody was non-reactive. There is no laboratory evidence of HCV infection. In most cases, no further action is required. However, if recent HCV exposure is suspected, a test for HCV RNA (test code 80191) is suggested. For additional information please refer to http://education.[employer] [facility]/faq/KEP45n6 (This link is being provided for informational/ educational purposes only.) 02/01/2023 9:58 AM EDT 02/01/2023 9:59 AM EDT Narrative [facility] - 02/06/2023 11:15 PM EDT FASTING:UNKNOWN FASTING: UNKNOWN Fernandez Merlos MD LAB BLOOD ORDERABLES Fin al Result [facility] [address], [place] [address] [employer] [place] [facility] [address] [place] [address] from Last 3 Months or Most Recently Relevant to Health Maintenance Insurance [facility] OPTIONS (HMO D-SNP) JADA BENDER [id number] [place] [address] Care Teams Building Performance Specialist Relationship Specialty Start Date End Date Fernandez Merlos MD [address] [place] [phone] PCP - General Family Medicine 12/22/20
--- OUTSIDE RECORDS SUMMARY | 2025-09-28 19:16 | XMS_ITS | Encounter Summary ---
Author Organization [employer] Address [address] [place] [address] [address] [place] [address] Care Team Providers Care Internal Sales Engineer Name Role Phone Shital La MD Primary Care Provider + Reason for Visit * Reason Onset Date Comments Appointment Request 01/23/2023 Encounter Details Date Type Department Care Team ([facility] Contact Info) Description 01/23/2023 Telephone [facility] [address] [place], [place] [phone] Shital La MD [address] [place] [address] Appointment Request Social History Tobacco Use Types [...] a physical appt. Please contact pt at [phone] documented in this encounter Plan of Treatment Not on file documented as of this encounter Visit Diagnoses Not on filedocumented in this encounter Care Teams Internal Sales Engineer Relationship Specialty Start Date End Date Shital La MD [address] [place] [address] PCP - General Family Medicine 12/22/20 documented as of this encounter
--- OUTSIDE RECORDS SUMMARY | 2025-09-28 19:16 | XMS_ITS | Encounter Summary ---
Author Organization [employer] Address [address] [facility] 7 [place] [address] Care Team Providers Care Manufacturing Intern Name Role Phone Shital La MD Primary [...] on filedocumented in this encounter Care Teams Manufacturing Intern Relationship Specialty Start Date End Date Shital La MD [address] [place] [phone] PCP - General Family Medicine 12/22/20 documented as of this encounter
--- OUTSIDE RECORDS SUMMARY | 2025-09-28 19:16 | XMS_ITS | Encounter Summary ---
Author Organization [employer] Address [address] [facility] 7t [place] [address] Care Team Providers Care Non Profit Director Name Role Phone Shital La MD Primary Care Provider + Encounter Details Date Type Department Care Team (Late st Contact Info) Description 11/10/2022 Orders Only [facility] [address] [place] [address] Santa Sherman RN Social History Tobacco Use [...] on filedocumented in this encounter Care Teams Non Profit Director Relationship Specialty Start Date End Date Shital La MD [address] [place] [address] PCP - General Family Medicine 12/22/20 documented as of this encounter
--- OUTSIDE RECORDS SUMMARY | 2025-09-28 19:16 | XMS_ITS | Encounter Summary ---
Author Organization [employer] Address [address] [facility] [address] 7[address] [place] [address] Care Team Providers Care Client Service Representative Name Role Phone Shital La MD Primary Care Provider + Encounter Details Date Type Department Care Team (Latest Contact Info) Description 09/24/2025 Travel Social History Tobacco Use Types Packs/Day Years Used Date Smoking Tobacco: Former Cigarettes Passive Smoke Exposure: Past Smokeless Tobacco: Never Alcohol Use Standard Drinks/Week [...] documented as of this encounter Care Teams Client Service Representative Relationship Specialty Start Date End Date Shital aL MD [address] [place] [phone] PCP - General Family Medicine 12/22/20 documented as of this encounter
--- OUTSIDE RECORDS SUMMARY | 2025-09-28 19:16 | XMS_ITS | Encounter Summary ---
Author Organization [employer] Address [address] [facility] [address] [place] [address] Care Team Providers Care Director Public Service Name Role Phone Shital La MD Primary Care Provider + Encounter Details Date Type Department Care Team (Late st Contact Info) Description 12/15/2022 Orders Only [facility] [address] [place], [place] [phone] Nancy Zheng LPN Social History Tobacco Use [...] filedocumented in this encounter Care Teams Director Public Service Relationship Specialty Start Date End Date Shital La MD [address] [place] [phone] PCP - General Family Medicine 12/22/20 documented as of this encounter
== END 2025-09-28 14:56 | disposition home or self-care (01) ==
LOC: HO.HCS 14:20
PROVIDERS: PCP Internal Medicine; Visit Provider Nurse Practitioner Family
DX: R06.02 Shortness of breath (principal); I10 Essential (primary) hypertension
CPT/HCPCS: 99213; G2211

== ENCOUNTER → 2025-09-28 14:20 | Outpatient (BNVA) | payer OTHER, SELFPAY | PROVIDERS: PCP Internal Medicine; Visit Provider Nurse Practitioner Family | DX: I10 Essential (primary) hypertension (principal); R06.02 Shortness of breath | CPT/HCPCS: 99212 ==